=== PATIENT | male | born 1960 | race Caucasian/White ===

== ENCOUNTER 2023-01-16 12:02 | Emergency (ER) | payer OTHER ==
--- OUTSIDE RECORDS SUMMARY | 2023-01-16 12:07 | XMS REPORT | Clinical Summary ---
:1960 Author Organization [facility] MD [facility] Address [address] [place] [address] Care Team Providers Name Role Phone Neal Tyler MD Primary Care Provider Allergies No known active allergies Medications Medication Sig Dispensed Refills Start Date End Date Status tadalafil (CIALIS) 5 mg Take 1 tablet (5 0 1 Active tablet mg) by mouth daily. sertraline (ZOLOFT) 100 Take 1 tablet 0 07/28/2020 Active mg tablet (100 mg) by mouth daily. losartan (COZAAR) 100 Take 50 mg by 0 11/17/2020 Active mg tablet mouth twice daily. semaglutide (Ozempic) 1 Inject 1 mg 0 02/23/2021 Active mg/dose (4 mg/3 mL) under the skin pnij once a week. fluticasone propionate as needed. 0 06/30/2020 Active (FLONASE) 50 mcg/spray nasal spray FreeStyle Lite Meter 0 02/25/2021 Active kit aspirin 81 mg EC tablet Take 1 tablet 0 Active (81 mg) by mouth daily. testosterone cypionate Inject 0.5 mL 0 Active (DEPO-TESTOTERONE) 200 (100 mg) into mg/mL injection the shoulder, thigh, or buttocks once a week. gabapentin (Neurontin) Take 1 capsule 20 capsule 0 10/22/2021 Active 300 mg (300 mg) by capsuleIndications: mouth 3 (three) Neuropathy, not times a day as otherwise specified needed (neuropathy). acetaminophen (Tylenol Take 1 tablet 0 10/22/2021 Active Extra Strength) 500 mg (500 mg) by tabletIndications: mouth every 6 Hydronephrosis with (six) hours as ureteropelvic junction needed for mild obstruction pain. traMADol (Ultram) 50 mg Take 1 tablet 10 tablet 0 10/27/2021 Active tabletIndications: (50 mg) by mouth Hydronephrosis with every 6 (six) ureteropelvic junction hours as needed obstruction for moderate pain or severe pain. Additional Information Patient not taking. Reason: Other, Informant: Self, Reported on 12/13/2022 albuterol (VENTOLIN Inhale by mouth every 6 0 Active HFA,PROAIR HFA) 90 mcg/puff (six) hours as needed for inhaler wheezing or shortness of breath. diclofenac sodium 3 % gel Apply 1 application 0 Active topically daily as needed. Jardiance 25 mg tab Take 1 tablet by mouth 0 022 Active daily. mirtazapine (REMERON) 15 mg Take 1 tablet (15 mg) by 0 03/09/2022 Active tablet mouth at bedtime. risperiDONE (RisperDAL) 1 Take 1 tablet (1 mg) by 0 04/28/2022 Active mg tablet mouth at bedtime. traMADol (ULTRAM) 50 mg Take 1 tablet (50 mg) by 60 tablet 0 0 06/23/2022 Active tabletIndications: Spindle mouth 2 (two) times a day cell sarcoma of connective, as needed for moderate subcutaneous and other soft pain. tissues of lower limb and hip <Left>, Foot pain <Left side> Additional Information Patient not taking. Reason: Other, Informant: Self, Reported on 12/13/2022 apixaban (ELIQUIS STARTER Take 2 tablets by mouth 74 tablet 0 10/06/2022 Active PACK) tablet dose pack 5 mg twice daily for 7 days, FOR VTE ONLYIndications: then take 1 tablet by Pulmonary embolism mouth twice daily thereafter. losartan (COZAAR) 25 mg Take 1 tablet (25 mg) by 0 Active tablet mouth daily. 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> Type 2 diabetes mellitus 02/26/2021 Benign prostatic hypertrophy without outflow obstructi on 02/26/2021 Overview: 02/20 CMS regulatory import Decreased testosterone level 02/26/2021 Erectile dysfunction 02/26/2021 Hypertension 02/26/2021 Simple obesity 02/26/2021 Encounters Date Type Specialty Care Team Description 12/13/2022 Office Visit Hematology Casey Terry, Pulmonary em bolism, not otherwise specified (Primary Dx); Pulmonary embol ism 12/13/2022 Travel 10/13/2022 Ancillary Radiology [place], Multiple subseg mental Procedure SANDEEP Fernandes pulmonary embol i without acute c or pulmonale 10/13/2022 Travel 10/07/2022 Telephone Orthopaedics HagueJacquelin PA 10/06/2022 Emergency Emergency Medicine Abigail, Kiran, Pulmon brennon embolism (Primary Dx); Tight chest 10/06/2022 Ancillary Radiology Sahara Lang cell sa rcoma Procedure KARLIE Welch of connective, subcutaneous an d other soft tissues of lower limb and hip <L eft> 10/06/2022 Ancillary Radiology Sahara Lang sa rcoma Procedure KARLIE Welch of connective, subcutaneous an d other soft tissues of lower limb and hip <L eft> 10/06/2022 Telephone Shruti Corona RN 10/06/2022 Telephone Orthopaedics Rebekah Lang APRN 10/06/2022 Travel 07/01/2022 Telephone Orthopaedics HagueJacquelin PA 06/30/2022 Ancillary Radiology Rickey, Mass of soft ti ssue of left lower limb; Procedure KARLIE Welch Lumbar radiculo nancy; Pain in left le g 06/30/2022 Travel 06/23/2022 Follow-Up Orthopaedics Diane Isaac, Spindle cell sarcoma of connective, 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); Lumbar radiculo nancy; Mass of soft ti ssue of left lower limb; Foot pain <Left side>; Hydronephrosis with ureteropelvic junction obstruction; Pain in left le g 06/23/2022 Ancillary Radiology [place], Mass of soft ti ssue of left lower limb; Procedure Jacquelin A, PA Foot pain <Left side> 06/23/2022 Travel 06/22/2022 Ancillary Radiology [place], Spindle cell sa rcoma of connective, 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>; Procedure Jacquelin A, PA Mass of soft ti ssue of left lower limb; Foot pain <Left side> 06/22/2022 Hospital Encounter Radiology [place], Spindle c ell sarcoma of connective, 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>; Jacquelin A, PA Mass of soft ti ssue of left lower limb; Foot pain <Left side> 06/22/2022 Travel 04/09/2022 Orders Only Orthopaedics [place], Mass of soft ti ssue of left lower limb (Primary Dx); Jacquelin A, PA Foot pain <Left side> 04/09/2022 Telephone Orthopaedics [place], Jacquelin A, PA 04/02/2022 Ancillary Radiology [place], Spindle cell sa rcoma of connective, 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>; Procedure Jacquelin A, PA Mass of soft ti ssue of left lower limb 04/02/2022 Travel 03/24/2022 Ancillary Radiology [place], Spindle cell sa rcoma of connective, 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>; Procedure Jacquelin A, PA Mass of soft ti ssue of left lower limb; Foot pain <Left side> 03/24/2022 Office Visit Orthopaedics Diane Isaac, Spindle cell sarcoma of connective, 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); Mass of soft ti ssue of left lower limb; Foot pain <Left side> 03/24/2022 Travel 03/23/2022 Ancillary Radiology [place], Spindle cell sa rcoma Procedure Jacquelin A, PA of connective, subcutaneous an d other soft tissues of lower limb and hip <L eft> 03/23/2022 Hospital Encounter Radiology [place], Spindle c ell sarcoma SANDEEP Fernandes of connective, subcutaneous an d other soft tissues of lower limb and hip <L eft> 03/23/2022 Travel 02/15/2022 Hospital Encounter Radiology [place], Mass of s oft tissue of left lower limb; SANDEEP Fernandes Spindle cell sarcoma of connective, subc utaneous and other soft tissues of lower limb and hip <Left> Quang Rizvi MD 02/15/2022 Hospital Encounter Lab Ale Rizvi PA 02/15/2022 Travel 02/12/2022 Orders Only Radiology Ivelisse Puga PA 02/12/2022 Telephone Radiology Hoa Richmond MA 02/11/2022 Orders Only Radiology Vane Bauman PA 02/11/2022 Orders Only Radiology Ale Rizvi PA 02/09/2022 Telephone Orthopaedics [place], SANDEEP Fernandes 02/09/2022 Orders Only Orthopaedics [place], Mass of soft ti ssue of left lower limb (Primary Dx); SANDEEP Fernandes Spindle cell sa rcoma of connective, 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> 01/19/2022 Ancillary Radiology [place], Spindle cell sa rcoma of connective, 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>; Procedure SANDEEP Fernandes Mass of soft ti ssue of left lower limb 01/19/2022 Orders Only Orthopaedics [place], Spindle cell sa rcoma of connective, 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); SANDEEP Fernandes Mass of soft ti ssue of left lower limb 01/18/2022 Ancillary Radiology Cancer Procedure after 01/16/2022 Immunizations Name Administration Dates Next Due GetAutoBids SARS-CoV-2 Vaccination 08/08/2020, 07/25/2020 Moderna SARS-CoV-2 Monovalent Booster Vaccination (50 2020 mcg/0.25 mL) Surgical History Surgery Date Site/Laterality Comments COLONOSCOPY 05/23/2014 - 05/22/2015 STOMACH SURGERY 05/23/2014 - 05/22/2015 SHOULDER SURGERY 05/23/2015 - 05/22/2016 CARDIAC SURGERY 05/23/1989 - ablation, arrhyt pierce focus 05/22/1990 HI RAD RESECTION TUMOR 05/28/2021 Leg Lower/Left Procedure : Radical SOFT TISSUE LEG/ANKLE <5CM 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); Surg so: Emiliana Estrada; Location: MAIN O R; Service: ORTHOPE DIC ONCOLOGY HI PHYS STANDBY SVC PROLNG 05/28/2021 N/A Proce dure: PHYSICIAN PHYS ATTN EA 30 MINUTES STANDBY SERVICE REQUIRING PROLONGED ATTEND ANCE - EACH 30 MINUTES; Surgeon: Jorge Luis cruz MD; Location: [facility]; Service: PLS - P LASTIC SURGERY HI LAPAROSCOPY RADICAL 10/21/2021 Abdomen/Left Procedure : SURGICAL NEPHRECTOMY LAPAROSCOPY WITH RADICAL NEPHRECTOMY; Katina geon: Edward Bird IV, MD; Location: MAIN O R; Service: UROLOGY HI CYSTO W/SIMPLE REMOVAL 10/21/2021 Genitalia/Left Proced ure: STONE & STENT CYSTOURETHROSCOP Y, WITH REMOVAL OF URETE RAL STENT FROM URETHRA; Lockett rgeon: Edward Bird IV, MD; Location: MAIN O R; Service: UROLOGY Medical History Medical History Date Comments Hypertension 15yrs Asbestosis 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 pt did see manufacturing management associate and und went cardiac testing that was neg ative. pt also reports that he is c urrently having left rotator cuff is sues so could have been due to that or gas. Sleep apnea pt was unable to hipolito erate CPAP Family History Medical History Relation Name Comments Coronary artery disease Father Tristen johnson CABG in his 60s Diabetes Father Tristen johnson Hypertension Father Tristen johnson Lymphoma Father Tristen johnson Skin cancer Father Tristen johnson VTE Father Tristen johnson had DVT and PE a /w NHL Heart disease Mother sp valve replacm ent in her 50s. had rheumatic fe danitza as a child Hypertension Mother Diabetes Paternal Grandfather Diabetes Paternal Grandmother Diabetes Sister Hypertension Sister Stroke Neg Hx Relation Name Status Comments Father Tristen johnson Mother Paternal Grandfather Paternal Grandmother Sister Social History Tobacco Use Types Packs/Day Years Used Date Smoking Tobacco: Former Cigarettes 1.5 10 09/22 - 10/19/2006 Cigars Smokeless Tobacco: Former Chew Qu it: 10/20/2003 Alcohol Use Standard Drinks/Week Comments Yes 4 (1 standard drink = 0.6 oz pure alcoho l) 2-3 shots od scotts a day Sex Assigned at Date Recorded Male 02/26/2021 7:14 AM CDT Job Start Date Occupation Industry Not on file Not on file Not on file Obstetrics History Last Filed Vital Signs Vital Sign Reading Time Taken Comments Blood Pressure 125/74 12/13/2022 8:58 AM CDT Pulse 84 12/13/2022 8:58 AM CDT Temperature 36.5 C (97.7 F) 12/13/2022 8:58 AM CDT Respiratory Rate 16 12/13/2022 8:58 AM CDT Oxygen Saturation 98% 12/13/2022 8:58 AM CDT Inhaled Oxygen Concentration - - Weight 110.1 kg (242 lb 11.6 oz) 12/13/2022 8:58 AM CDT Height 193 cm (6' 3.98") 12/13/2022 8:58 AM CDT Body Mass Index 29.56 12/13/2022 8:58 AM CDT Plan of Treatment Date Type Specialty Care Team Description 01/19/2023 Ancillary Procedure Radiology Jo Gottlieb PA [address] [place], [place] [address] (Wo rk) 01/19/2023 Ancillary Procedure Radiology Jo Gottlieb PA [address] [place], [place] [address] (Wo rk) 01/19/2023 Follow-Up Orthopaedics Diane Isaac MD [address] [place], [place] [address] (Wo rk) Health Maintenance Due Date Last Done Comments COVID-19 Vaccination (4 - Micheal 04/20/2021 02/23/2021, , risk series) 07/25/2020 Medical Devices Implanted Type Area Ramp Service Agent Device Shelf Model / Identifier Expiration Date Ser ial / Lot Sternal Wires Metalware Heart Description: heart Staple Staple Abdomen Procedures Procedure Name Priority Date/Time Associated Comments Diagnosis US LEG VENOUS DOPPLER Routine 10/13/2022 10:56 Multiple Re sults for this LEFT AM CDT subsegmental procedure are i n pulmonary emboli the results without acute cor section. pulmonale FRACTIONATED BILIRUBIN Routine 10/06/2022 3:42 Re sults for this PM CDT procedure are i n the results section. TOTAL PROTEIN Routine 10/06/2022 3:42 Results for this PM CDT procedure are i n the results section. ASPARTATE Routine 10/06/2022 3:42 Results for this AMINOTRANSFERASE PM CDT procedure a re in the results section. ALANINE AMINOTRANSFERASE Routine 10/06/2022 3:42 Results for this PM CDT procedure are i n the results section. ALKALINE PHOSPHATASE Routine 10/06/2022 3:42 Resu lts for this PM CDT procedure are i n the results section. ALBUMIN LEVEL Routine 10/06/2022 3:42 Results for this PM CDT procedure are i n the results section. CALCIUM LEVEL TOTAL Routine 10/06/2022 3:42 Resul ts for this PM CDT procedure are i n the results section. .GLOMERULAR FILTRATION Routine 10/06/2022 3:42 Re sults for this RATE PM CDT procedure are i n the results section. SERUM CREATININE Routine 10/06/2022 3:42 Results for this PM CDT procedure are i n the results section. ELECTROLYTE PANEL Routine 10/06/2022 3:42 Results for this PM CDT procedure are i n the results section. BLOOD UREA NITROGEN Routine 10/06/2022 3:42 Resul ts for this PM CDT procedure are i n the results section. GLUCOSE LEVEL Routine 10/06/2022 3:42 Results for this PM CDT procedure are i n the results section. MANUAL DIFFERENTIAL STAT 10/06/2022 3:42 Resul ts for this PM CDT procedure are i n the results section. Results CBC STAT 10/06/2022 3:42 Results for this PM CDT procedure are i n the results section. TROPONIN T Routine 10/06/2022 3:42 Results for this PM CDT procedure are i n the results section. NT PRO BNP Routine 10/06/2022 3:42 Results for this PM CDT procedure are i n the results section. APTT Routine 10/06/2022 3:42 Results for this PM CDT procedure are i n the results section. PROTHROMBIN TIME Routine 10/06/2022 3:42 Results for this PM CDT procedure are i n the results section. PHOSPHORUS LEVEL Routine 10/06/2022 3:42 Results for this PM CDT procedure are i n the results section. MAGNESIUM LEVEL Routine 10/06/2022 3:42 Results f or this PM CDT procedure are i n the results section. COMPREHENSIVE METABOLIC Routine 10/06/2022 3:42 PANEL PM CDT COMPLETE BLOOD COUNT W/ Routine 10/06/2022 3:[address] CHEST W CONTRAST Routine 10/06/2022 1:20 Spindle cell Resul ts for this PM CDT sarcoma of procedure are i n connective, the results subcutaneous and section. other soft tissues of lower limb and hip <Left> MRI TIBIA FIBULA LEFT W Routine 10/06/2022 12:54 Spindle cell Results for this WO CONTRAST PM CDT sarcoma of procedure are i n connective, the results subcutaneous and section. other soft tissues of lower limb and hip <Left> POC CREATININE Routine 10/06/2022 9:39 Results fo r this AM CDT procedure are i n the results section. EKG, 12-LEAD (PORTABLE) STAT 10/06/2022 MRI LUMBAR SPINE W WO Routine 06/30/2022 10:35 Mass of soft ti ssue Results for this CONTRAST AM MATERIALS HANDLING COORDINATOR of left lower li mb procedure are in Lumbar the results radiculopathy section. Pain in left leg MRI FOOT LEFT W WO Routine 06/23/2022 9:27 Mass of soft tissue Results for this CONTRAST AM MATERIALS HANDLING COORDINATOR of left lower li mb procedure are in Foot pain <Left the results side> section. MRI TIBIA FIBULA LEFT W Routine 06/22/2022 7:01 Spindle cell R esults for this WO CONTRAST PM MATERIALS HANDLING COORDINATOR sarcoma of procedure are i n connective, the results subcutaneous and section. other soft tissues of lower limb and hip <Left> Mass of soft tissue of left lower li mb Foot pain <Left side> CT CHEST W CONTRAST Routine 06/22/2022 3:47 Spindle cell Resul ts for this PM MATERIALS HANDLING COORDINATOR sarcoma of procedure are i n connective, the results subcutaneous and section. other soft tissues of lower limb and hip <Left> Mass of soft tissue of left lower li mb Foot pain <Left side> POC CREATININE Routine 06/22/2022 2:05 Results fo r this PM MATERIALS HANDLING COORDINATOR procedure are i n the results section. MRI FOOT LEFT W WO Routine 04/02/2022 1:42 Spindle cell Result s for this CONTRAST PM MATERIALS HANDLING COORDINATOR sarcoma of procedure are i n connective, the results subcutaneous and section. other soft tissues of lower limb and hip <Left> Mass of soft tissue of left lower limb XR FOOT 3+ VW LEFT Routine 03/24/2022 11:44 Spindle cell Resul ts for this AM CDT sarcoma of procedure are i n connective, the results subcutaneous and section. other soft tissues of lower limb and hip <Left> Mass of soft tissue of left lower li mb Foot pain <Left side> MRI TIBIA FIBULA LEFT W Routine 03/23/2022 4:02 Spindle cell R esults for this WO CONTRAST PM CDT sarcoma of procedure are i n connective, the results subcutaneous and section. other soft tissues of lower limb and hip <Left> CT CHEST W CONTRAST Routine 03/23/2022 12:01 Spindle cell Resu lts for this PM CDT sarcoma of procedure are i n connective, the results subcutaneous and section. other soft tissues of lower limb and hip <Left> POC CREATININE Routine 03/23/2022 11:03 Results f or this AM CDT procedure are i n the results section. IR US GUIDED BIOPSY STAT 02/15/2022 8:47 Mass of soft tissu e Results for this MUSCLE/SOFT TISSUE- AM CDT of left lowe r limb procedure are in LOWER EXTREMITY 60 Spindle cell the resul ts sarcoma of section. connective, 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> INTERVENTIONAL RADIOLOGY Now 02/15/2022 8:37 Results for this CULTURE W/GRAM STAIN AM CDT procedu re are in the results section. FUNGUS INTERVENTIONAL Now 02/15/2022 8:37 Res ults for this RAD CULTURE W/ GRAM AM CDT procedur e are in STAIN the results section. ANAEROBIC CULTURE Now 02/15/2022 8:37 Results for this INTERVENTIONAL RADIOLOGY AM CDT pro cedure are in the results section. AFB INTERVENTIONAL Now 02/15/2022 8:37 Result s for this RADIOLOGY W/ SMEAR AM CDT procedure are in the results section. PATHOLOGY BIOPSY Routine 02/15/2022 8:30 Mass of soft tissue R esults for this INTERPRETATION AM CDT of left lower li mb procedure are in Spindle cell the results sarcoma of section. connective, 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> PLATELET COUNT Routine 02/15/2022 6:30 Results fo r this AM CDT procedure are i n the results section. PROTHROMBIN TIME Routine 02/15/2022 6:30 Results for this AM CDT procedure are i n the results section. after 01/16/2022 Results US Leg Venous Doppler Left (10/13/2022 10:56 AM CDT) Anatomical Region Laterality Modality Leg, Extremity Ultrasound Specimen (Source) Anatomical Collection Method Collection Time Re ceived Time Location / / Volume Laterality 10/13/2022 11:07 AM CDT Impressions 10/13/2022 11:25 AM CDT No deep venous thrombosis in the left lo wer extremity. Narrative 10/13/2022 11:25 AM CDT Examination: US LEG VENOUS DOPPLER LEFT, 10/13/2022 10:56 AM Clinical History: Multiple subsegmental pulmonary emboli, without acute cor pulmonale. Indication: Pulmonary embolism. Abnormal finding on MRI left tibia/fibula 10/06/2022, indeterminate for deep venous thrombosis. Comparison: MRI left tibia/fibula 2022. Technique: Grayscale and color/spectral Doppler ultrasound of the left lower extremity veins was performed. Findings: In the left lower extremity, there is no rmal compressibility and spontaneous flow within the common femoral vein and its junction with the greater saphenous vein, femoral vein and its junction with the deep femoral vein, and popliteal vein. V isualized segments of the anterior and posterior tibial veins as well as of the peroneal vein are grossly patent. Procedure Note Kobe Cameron MD - 10/13/2022 Examination: US LEG VENOUS DOPPLER LEFT, 10/13/2022 10:56 AM Clinical History: Multiple subsegmental pulmonary emboli, without acute cor pulmonale. Indication: Pulmonary embolism. Abnormal finding on MRI left tibia/fibula 10/06/2022, indeterminate for deep venous thrombosis. Comparison: MRI left tibia/fibula 2022. Technique: Grayscale and color/spectral Doppler ultrasound of the left lower extremity veins was performed. Findings: In the left lower extremity, there is no rmal compressibility and spontaneous flow within the common femoral vein and its junction with the greater saphenous vein, femoral vein and its junction with the deep femoral vein, and popliteal vein. Visual ized segments of the anterior and posterior tibial veins as well as of the peroneal vein are grossly patent. IMPRESSION: No deep venous thrombosis in the left lo wer extremity. Jacquelin HOPKINS IMG US ORDERABLES .Serum Creatinine (10/06/2022 3:42 PM CDT) athologist Signature Creatinine 1.15 0.67 - 1.17 [facility] mg/dL [facility] CENTER Specimen Anatomical Collection Method Collection Time Receive d Time (Source) Location / / Volume Laterality Blood 10/06/2022 3:42 PM 3:57 CDT PM CDT Ilene Guevara MD LAB BLOOD ORDERABLES Performing Organization Address City/State/ZIP Code Phon e Number [facility] CANCER Unless otherwise noted, [place] [address] CANUTE all lab tests performed by: Division of Pathology and Laboratory Medicine [address] (ABNORMAL) .CBC (10/06/2022 3:42 PM CDT) athologist Signature WBC 8.7 4.0 - 11.0 [facility] RBC 5.67 4.50 - [place] MD 6.00 /[facility] Hgb 15.7 14.0 - [place] MD 18.0 gm/dL [facility] Hct 47.3 40.0 - [place] MD 54.0 % [facility] MCV 83 82 - 98 [facility] MCH 27.7 27.0 - [place] MD 31.0 pg [facility] MCHC 33.2 31.0 - [place] MD 36.0 gm/dL [facility] RDW-SD 48.9 (H) 35.1 - [place] MD 46.3 [facility] RDW-CV 16.5 (H) 12.0 - [place] MD 15.5 % [facility] Platelet count 151 140 - 440 [facility] MPV 9.9 4.0 - 10.4 [facility] INRBC 0.0 <=0.0 % [facility] Comment: The INRBC (instrument NRBC) value reflec ts the enumeration of nucleated red blood cells contained i n a 200uL sample of whole blood analyzed by the instrumen t. This value may differ from the NRBC value reported in a manual differential, which is based on a 100 cell differentia l. Specimen Anatomical Collection Method Collection Time Receive d Time (Source) Location / / Volume Laterality Blood 10/06/2022 3:42 PM 3 3:49 CDT PM CDT Ilene Guevara MD LAB BLOOD ORDERABLES Performing Organization Address City/[facility] Phon e Number [facility] CANCER Unless otherwise noted, [address] all lab tests performed by: Division of Pathology and Laboratory Medicine [address] [facility] Glomerular Filtration Rate (10/06/2022 3:42 PM CDT) athologist Signature eGFR 73 >=60 [facility] mL/min/1.73 CANCER CENTER sq. m Comment: The eGFRcr is calculated with the 2020 KD-EPI creatinine equation using creatinine, patient's age, and sex for adults 18 years of age and older. Other factors, especially muscle mass, may affect accuracy and need to be considered. According to the Kidney Disease: Improvi ng Global Outcomes (KDIGO) CKD Work Group 2012 Clinical Practice Guideline, chronic kidney disease (CKD) is defined as the abnormalities of kidney structure or function, present for more than 3 months, with implications for health. CKD should be c lassified by cause, GFR category, and albuminuria category. KDIGO guidelines provide the following GFR categories Stage Description GFR mL/min/1.73 m2 G1* Normal or high >= 90 G2* Mildly decreased 60-89 G3a Mildly to moderately decreased 45-59 G3b Moderately to severely decreased 30- 44 G4 Severely decreased 15-29 G5 Kidney failure <15 *In the absence of evidence of kidney da mage, neither G1 nor G2 fulfill criteria for CKD. Specimen Anatomical Collection Method Collection Time Receive d Time (Source) Location / / Volume Laterality Blood 10/06/2022 3:42 PM 3 3:57 CDT PM CDT Ilene Guevara MD LAB BLOOD ORDERABLES Performing Organization Address [facility] Phon e Number [facility] Unless otherwise noted, [address] all lab tests performed by: Division of Pathology and Laboratory Medicine [address] Fractionated Bilirubin (10/06/2022 3:42 PM CDT) athologist [facility] Bili Total 0.8 <=1.2 mg/dL [facility] Comment: Indocyanine Green (ICG) may cause falsel y elevated bilirubin results. Total and direct bilirubin must not be measured from samples containing indocyanine green. False elevation of total bilirubin can b e seen in patients with IgG concentrations above 28 g/L. Bili Direct 0.3 <=0.3 mg/dL [facility] Comment: Indocyanine Green (ICG) may cau se falsely elevated bilirubin results. Total and direct bilirubin must not be measure d from samples containing indocyanine green. Bili Indirect 0.5 0.0 - 0.9 mg/dL [place] MD HOOKS [facility] Specimen Anatomical Collection Method Collection Time Receive d Time (Source) Location / / Volume Laterality Blood 10/06/2022 3:42 PM 3 3:57 CDT PM CDT Ilene Guevara MD LAB BLOOD ORDERABLES Performing Organization Address City/State/ZIP Code Phon e Number [facility] Unless otherwise noted, [address] all lab tests performed by: Division of Pathology and Laboratory Medicine [address] [place] [address] aPTT (10/06/2022 3:42 PM CDT) [facility] a[facility] 26.1 22.8 - 34.2 [facility]() [facility] Specimen Anatomical Collection Method Collection Time Receive d Time (Source) Location / / Volume Laterality Blood 10/06/2022 3:42 PM 3 3:49 CDT PM CDT Ilene Guevara MD LAB BLOOD ORDERABLES Performing Organization Address City/State/ZIP Code Phon e Number [facility] Unless otherwise noted, [address] all lab tests performed by: Division of Pathology and Laboratory Medicine [address] [place] [address] NT-Pro BNP (In-House) (10/06/2022 3:42 PM CDT) athologist [facility] NT ProBNP 124 <=125 pg/mL [facility] Specimen Anatomical Collection Method Collection Time Receive d Time (Source) Location / / Volume Laterality Blood 10/06/2022 3:42 PM 3 3:57 CDT PM CDT Ilene Guevara MD LAB BLOOD ORDERABLES Performing Organization Address City/State/ZIP Code Phon e Number [facility] Unless otherwise noted, [address] all lab tests performed by: Division of Pathology and Laboratory Medicine [address] (ABNORMAL) Differential (10/06/2022 3:42 PM CDT) athologist Signature Neutrophil % 71.4 (H) 42.0 - [facility] 66.0 % [facility] Lymphocyte % 19.6 (L) 24.0 - [facility] 44.0 % [facility] Monocyte % 6.8 2.0 - 7.0 [facility] Eosinophil % 0.7 (L) 1.0 - 4.0 [facility] % [facility] Basophil % 0.5 0.0 - 1.0 [facility] % [facility] IGRE % 1.0 (H) 0.0 - 0.4 [facility] Comment: IGRE % count includes Metamyelo cytes, Myelocytes, and Promyelocytes. Neutrophil Abs 6.18 1.70 - 7.30 K/uL [facility] Lymphocyte Abs 1.70 1.00 - 4.80 K/uL [facility] Monocyte Abs 0.59 0.08 - 0.70 K/uL [place] [facility] Eosinophil Abs 0.06 0.04 - 0.40 K/uL [facility] Basophil Abs 0.04 0.00 - 0.10 K/uL [facility] IG Abs 0.09 (H) 0.00 - 0.04 K/uL [place] MD DEJON Grant [facility] Specimen Anatomical Collection Method Collection Time Receive d Time (Source) Location / / Volume Laterality Blood 10/06/2022 3:42 PM 3 3:49 CDT PM CDT Ilene Guevara MD LAB BLOOD ORDERABLES Performing Organization Address City/State/ZIP Code Phon e Number [facility] Unless otherwise noted, [address] all lab tests performed by: Division of Pathology and Laboratory Medicine [address] [place] [address] (ABNORMAL) Prothrombin Time with INR (10/06/2022 3:42 PM CDT)Only the most recent of2 resultswithin the time period is included. athologist Signature PT 14.1 11.9 - 14.1 [facility](s) [facility] CENTER INR 1.15 (H) 0.89 - 1.10 [facility] Specimen Anatomical Collection Method Collection Time Receive d Time (Source) Location / / Volume Laterality Blood 10/06/2022 3:42 PM 3 3:49 CDT PM CDT Ilene Guevara MD LAB BLOOD ORDERABLES Performing Organization Address City/State/ZIP Code Phon e Number [facility] Unless otherwise noted, [address] all lab tests performed by: Division of Pathology and Laboratory Medicine [address] [place] [address] BUN (10/06/2022 3:42 PM CDT) athologist [facility] BUN 11 6 - 23 [facility] mg/dL [facility] Specimen Anatomical Collection Method Collection Time Receive d Time (Source) Location / / Volume Laterality Blood 10/06/2022 3:42 PM 3 3:57 CDT PM CDT Ilene Guevara MD LAB BLOOD ORDERABLES Performing Organization Address City/State/ZIP Code Phon e Number [facility] Unless otherwise noted, [address] all lab tests performed by: Division of Pathology and Laboratory Medicine [address] [place] [address] Troponin T (In-House) (10/06/2022 3:42 PM CDT) athologist Signature Troponin T 12 <=19 ng/L [facility] Comment: < 19 ng/L Suggest retest at 3 to 6 hours later to rule out myocardial infarction >= 19 to <=52 ng/L Pos sible myocardial injury. Suggest retest at 3 hours. - a change of < 20 ng/L, retest at 6 hours - a change of >= 20 ng/L, suggestive of myocardial infarction > 52 ng/L Suggestive of myocardial infarction Critical value will be reported when cTn T is > 52 ng/L and only reported for the first in a series. Hemolyzed specimens with Hemolysis Index >100 (100 mg/dl or moderate hemolysis) may cause interferences and falsely low results. Specimen Anatomical Collection Method Collection Time Receive d Time (Source) Location / / Volume Laterality Blood 10/06/2022 3:42 PM 3 3:57 CDT PM CDT Ilene Guevara MD LAB BLOOD ORDERABLES Performing Organization Address City/[facility] Phon e Number [facility] Unless otherwise noted, [address] all lab tests performed by: Division of Pathology and Laboratory Medicine [facility] ALT (10/06/2022 3:42 PM CDT) P athologist Signature ALT 24 <=41 U/L [facility] Specimen Anatomical Collection Method Collection Time Receive d Time (Source) Location / / Volume Laterality Blood 10/06/2022 3:42 PM 3 3:57 CDT PM CDT Ilene Guevara MD LAB BLOOD ORDERABLES Performing Organization Address City/[facility] Phon e Number [facility] Unless otherwise noted, [address] all lab tests performed by: Division of Pathology and Laboratory Medicine [address] [place], [place] [id number] Aspartate Aminotransferase (10/06/2022 3:42 PM CDT) P athologist Signature AST 19 <=40 U/L [facility] Specimen Anatomical Collection Method Collection Time Receive d Time (Source) Location / / Volume Laterality Blood 10/06/2022 3:42 PM 3 3:57 CDT PM CDT Ilene Guevara MD LAB BLOOD ORDERABLES Performing Organization Address City/[facility] Phon e Number [facility] Unless otherwise noted, [address] all lab tests performed by: Division of Pathology and Laboratory Medicine [address] [place], [place] [id number] Total Protein (10/06/2022 3:42 PM CDT) P athologist Signature Total Protein 6.6 6.4 - 8.3 [facility] g/dL [facility] Specimen Anatomical Collection Method Collection Time Receive d Time (Source) Location / / Volume Laterality Blood 10/06/2022 3:42 PM 3 3:57 CDT PM CDT Ilene Guevara MD LAB BLOOD ORDERABLES Performing Organization Address City/[facility]/ZIP [facility] Phon e Number [facility] Unless otherwise noted, [address] all lab tests performed by: Division of Pathology and Laboratory Medicine [address] Phosphorus Level (10/06/2022 3:42 PM CDT) P athologist Signature Phosphorus 3.4 2.5 - 4.5 [facility] mg/dL [facility] Specimen Anatomical Collection Method Collection Time Receive d Time (Source) Location / / Volume Laterality Blood 10/06/2022 3:42 PM 3 3:57 CDT PM CDT Ilene Guevara MD LAB BLOOD ORDERABLES Performing Organization Address [facility] Phon e Number [facility] Unless otherwise noted, [address] all lab tests performed by: Division of Pathology and Laboratory Medicine [address] Alkaline Phosphatase (10/06/2022 3:42 PM CDT) P athologist Signature Alk Phos 81 40 - 129 [facility] U/L [facility] Specimen Anatomical Collection Method Collection Time Receive d Time (Source) Location / / Volume Laterality Blood 10/06/2022 3:42 PM 3 3:57 CDT PM CDT Ilene Guevara MD LAB BLOOD ORDERABLES Performing Organization Address City/[facility] Phon e Number [facility] Unless otherwise noted, [address] all lab tests performed by: Division of Pathology and Laboratory Medicine [address] Magnesium Level (10/06/2022 3:42 PM CDT) P athologist Signature Magnesium 2.2 1.6 - 2.6 [facility] mg/dL [facility] Specimen Anatomical Collection Method Collection Time Receive d Time (Source) Location / / Volume Laterality Blood 10/06/2022 3:42 PM 3 3:57 CDT PM CDT Ilene Guevara MD LAB BLOOD ORDERABLES Performing Organization Address City/State/ZIP Code Phon e Number [facility] Unless otherwise noted, [address] all lab tests performed by: Division of Pathology and Laboratory Medicine [address] Glucose Level (10/06/2022 3:42 PM CDT) athologist Signature Glucose Level 95 70 - 99 [facility] mg/dL [facility] Comment: Effective 12/17/15, the glucose reference intervals have been updated based on [place] [employer] guidelines (Standards of Medical Care in Diabetes 2016. Diabetes Care 2016; 39: S13-S22). Fasting blood glucose: Normal: 70-99 mg/dL Impaired fasting glucose (increased risk for diabetes or pre-diabetes): 100- 125 mg/dL Diabetes mellitus: >/=126 mg/dL Random blood glucose: Normal: 70-199 mg/dL Note: Random glucose >100 mg/dL is assoc iated with increased risk for diabetes Specimen Anatomical Collection Method Collection Time Receive d Time (Source) Location / / Volume Laterality Blood 10/06/2022 3:42 PM 3 3:57 CDT PM CDT Ilene Guevara MD LAB BLOOD ORDERABLES Performing Organization Address City/[facility]/ZIP Code Phon e Number [facility] Unless otherwise noted, [address] all lab tests performed by: Division of Pathology and Laboratory Medicine [address] Calcium Level (10/06/2022 3:42 PM CDT) athologist Signature Calcium Lvl 8.6 8.4 - 10.2 [facility] mg/dL [facility] Specimen Anatomical Collection Method Collection Time Receive d Time (Source) Location / / Volume Laterality Blood 10/06/2022 3:42 PM 3 3:57 CDT PM CDT Ilene Guevara MD LAB BLOOD ORDERABLES Performing Organization Address City/[facility]/ZIP Code Phon e Number [facility] Unless otherwise noted, [address] all lab tests performed by: Division of Pathology and Laboratory Medicine [address] Albumin Level (10/06/2022 3:42 PM CDT) athologist Signature Albumin Lvl 4.1 3.5 - 5.2 [facility] gm/dL [facility] Specimen Anatomical Collection Method Collection Time Receive d Time (Source) Location / / Volume Laterality Blood 10/06/2022 3:42 PM 3 3:57 CDT PM CDT Ilene Guevara MD LAB BLOOD ORDERABLES Performing Organization Address City/[facility]/ZIP Code Phon e Number [facility] Unless otherwise noted, [address] all lab tests performed by: Division of Pathology and Laboratory Medicine [address] [place] [address] Electrolyte Panel (10/06/2022 3:42 PM CDT) athologist Signature Sodium Lvl 138 136 - 145 [facility] mEq/L [facility] Potassium Lvl 4.3 3.5 - 5.1 [facility] mEq/L [facility] Chloride 103 98 - 107 [facility] mEq/L [facility] CO2 27 22 - 29 [facility] mEq/L [facility] Anion Gap 8 4 - 14 [facility] mEq/L [facility] Specimen Anatomical Collection Method Collection Time Receive d Time (Source) Location / / Volume Laterality Blood 10/06/2022 3:42 PM 3 3:57 CDT PM CDT Ilene Guevara MD LAB BLOOD ORDERABLES Performing Organization Address City/[facility] Code Phon e Number [facility] Unless otherwise noted, [address] all lab tests performed by: Division of Pathology and Laboratory Medicine [address] [place] [address] CT Chest with Contrast (10/06/2022 1:20 PM CDT)Only the most recent of3 results within the time period is included. Anatomical Region Laterality Modality Chest Computed Tomography Specimen (Source) Anatomical Collection Method Collection Time Re ceived Time Location / / Volume Laterality 10/06/2022 1:38 PM CDT Impressions 10/06/2022 1:49 PM CDT 1. Bilateral multilobar pulmonary embo li without evidence of right heart strain. 2. New right lower lobe opacities may be infectious or inflammatory. Early infarct also possible. 3. Small nonspecific lung nodules are unchanged and can be followed. 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 Coronal and sagittal multiplanar reformats and maximum intensity projection (MIP) images were performed. Findings: Although the study was not per formed as a CT pulmonary angiogram, the pulmonary arteries are adequately opacified, allowing identification of bilateral pulmonary embolic extending from the dis hakeem main pulmonary arteries (image 53, s eries 2) into multiple lobar, segmental and subsegmental arteries. The main pulmonary trunk has normal diameter. The heart is normal in size. The RV: LV ratio is less than 1. There is scattered punctate coronary artery calcification. Normal caliber thoracic aorta. Small lung nodules remain unchanged (miguelina otated images 36, 41, 83, 99, series 3). There are new subpleural ground glass opacities in the superior segment right lower lobe (images 54-57). No pleural effusion. No supraclavicular, mediastinal, hilar o r axillary lymphadenopathy. The esophagus is nondistended and normal in course. There is previous gastric surgery. Images through the upper abdomen demonst rate unchanged splenomegaly. The adrenal glands have normal morphology. The gallbladder is normal in size without radiopaque gallstone. No focal hepatic lesion. No bone lesion or acute bone fracture in the thorax. Median sternotomy is healed. Procedure Note Cornelia Godoy MD - 10/06/2022Forma tting of this note might be different from the original. 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 Coronal and sagittal multiplanar reformats and maximum intensity projection (MIP) images were performed. Findings: Although the study was not per formed as a CT pulmonary angiogram, the pulmonary arteries are adequately opacified, allowing identification of bilateral pulmonary embolic extending from the distal main pulmonary arteries (image 53, serie s 2) into multiple lobar, segmental and subsegmental arteries. The main pulmonary trunk has normal diameter. The heart is normal in size. The RV: LV ratio is less than 1. There is scattered punctate coronary artery calcification. Normal caliber thoracic aorta. Small lung nodules remain unchanged (miguelina otated images 36, 41, 83, 99, series 3). There are new subpleural ground glass opacities in the superior segment right lower lobe (images 54-57). No pleural effusion. No supraclavicular, mediastinal, hilar o r axillary lymphadenopathy. The esophagus is nondistended and normal in course. There is previous gastric surgery. Images through the upper abdomen demonst rate unchanged splenomegaly. The adrenal glands have normal morphology. The gallbladder is normal in size without radiopaque gallstone. No focal hepatic lesion. No bone lesion or acute bone fracture in the thorax. Median sternotomy is healed. IMPRESSION: 1. Bilateral multilobar pulmonary emboli without evidence of right heart strain. 2. New right lower lobe opacities may be infectious or inflammatory. Early infarct also possible. 3. Small nonspecific lung nodules are un changed and can be followed. Rebekah Lang APRN IMG CT ORDERABLES MRI Tibia Fibula Left with and without Contrast (10/06/2022 12:54 PM CDT)Only the most recent of3 resultswithin the time period is included. Anatomical Region Laterality Modality Extremity, Leg Magnetic Resonance Specimen (Source) Anatomical Collection Method Collection Time Re ceived Time Location / / Volume Laterality 10/06/2022 1:03 PM CDT Impressions 10/06/2022 2:23 PM CDT 1. Posttreatment changes without evide nce to suspect tumor recurrence. 2. Tumor recurrence suspicion: There i s low probability for local recurrence. 3. Equivocal lack of intravenous opaci fication of the flexor compartment of the proximal left leg concerning although not characteristic of deep vein thrombosis. Doppler ultrasound of the left lower extremity is recommended if clinically indicated. I personally reviewed these image(s) luther zabala with the resident's/fellow's interpretations, certify that if a procedure was performed I was physically present, and agree with the final report. Narrative 10/06/2022 2:23 PM CDT FULL RESULT: Examination: MRI TIBIA FIBULA LEFT W WO CONTRAST, 10/06/2022 12:54 PM. 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 Status post surgical resection with negative margin on 05/28/2021. Indication: Assess for progression of di sease Comparison: MRI left tibia fibula from and 03/23/2022. Technique: Multiplanar multisequence mag netic resonance imaging of the left tibia-fibula was performed without and with intravenous administration of contrast. Findings: Surgical site/tumor: * Surgical scarring and soft tissue vo lume loss is demonstrated along the posterior mid and distal leg. * No focal areas of T2 hyperintensity or nodular enhancement are seen to suspect residual/recurrent tumor. * No areas of restricted diffusion dem onstrated. * During perfusion/DCE analysis, no ar eas of hypervascular enhancement were demonstrated. * Mild increased T2 signal intensity o f the leg muscles likely due to prior radiotherapy. * There is lack of ossification of the deep veins including the lower popliteal, tibial and fibular veins and intramuscular branches within the soleus and gastrocnemius muscles, concerning for the pos sibility of deep vein thrombosis (series 24 image [id number]). This pattern is not present on prior MRI 06/22/2022. Nodes: * No popliteal lymphadenopathy observe d. Bones: * No bone metastases are demonstrated. Others: * Redemonstration of stable synovial c yst at the level of the proximal tibiofibular joint that measures 3 cm in longitudinal diameter (series 12 image 14). * Mild knee joint effusion (series 14 image 8). Procedure Note Joe Harry MD - 10/06/2022F ormatting of this note might be different from the original. FULL RESULT: Examination: MRI TIBIA FIBULA LEFT W WO CONTRAST, 10/06/2022 12:54 PM. 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 Status post surgical resection with negative margin on 05/28/2021. Indication: Assess for progression of di sease Comparison: MRI left tibia fibula from and 03/23/2022. Technique: Multiplanar multisequence mag netic resonance imaging of the left tibia-fibula was performed without and with intravenous administration of contrast. Findings: Surgical site/tumor: * Surgical scarring and soft tissue volu me loss is demonstrated along the posterior mid and distal leg. * No focal areas of T2 hyperintensity or nodular enhancement are seen to suspect residual/recurrent tumor. * No areas of restricted diffusion demon strated. * During perfusion/DCE analysis, no area s of hypervascular enhancement were demonstrated. * Mild increased T2 signal intensity of the leg muscles likely due to prior radiotherapy. * There is lack of ossification of the d eep veins including the lower popliteal, tibial and fibular veins and intramuscular branches within the soleus and gastrocnemius muscles, concerning for the possibility of deep vein thrombosis (series 24 image [id number]). This pattern is not present on prior MRI 06/22/2022. Nodes: * No popliteal lymphadenopathy observed. Bones: * No bone metastases are demonstrated. Others: * Redemonstration of stable synovial cys t at the level of the proximal tibiofibular joint that measures 3 cm in longitudinal diameter (series 12 image 14). * Mild knee joint effusion (series 14 im age 10). IMPRESSION: 1. Posttreatment changes without evidenc e to suspect tumor recurrence. 2. Tumor recurrence suspicion: There is low probability for local recurrence. 3. Equivocal lack of intravenous opacifi cation of the flexor compartment of the proximal left leg concerning although not characteristic of deep vein thrombosis. Doppler ultrasound of the left lower extremity is recommended if clinically indicated. I personally reviewed these image(s) luther zabala with the resident's/fellow's interpretations, certify that if a procedure was performed I was physically present, and agree with the final report. Rebekah Lang APRN IMG MRI ORDERABLES POC Creatinine (10/06/2022 9:39 AM CDT)Only the most recent of3 resultswithin the time period is included. P athologist Signature POC Crea 1.1 0.6 - 1.3 POC [facility] mg/dL Comment: Medications, especially hydroxyurea or s upplements, such as ascorbate, can interfere with test results causing a falsely and significantly higher result than expected. If a problem is suspected with a patient's result, a sample should be sent to the laboratory for confirmatory testing. Method description: The i-STAT is an lucie lyzer used for in vitro quantification of various analytes in whole blood. The device uses a single disposable cartridge which contains microfabricated sensors, a calibration solution, fluidics system, and a waste chamber. Each test cartridge contains ch emically sensitive biosensors on a silicon chip that are configured to perform specific tests. The microfabricated sensors measure analyte concentration by an electrochemical assay. POC EGFR 77 >=60 mL/min/1.73 sq. m POC [facility] Comment: The eGFRcr is calculated with the 2020 KD-EPI creatinine equation using creatinine, patient's age, and sex for adults 18 years of age and older. Other factors, especially muscle mass, may affect accuracy and need to be considered. According to the Kidney Disease: Improvi ng Global Outcomes (KDIGO) CKD Work Group 2012 Clinical Practice Guideline, chronic kidney disease (CKD) is defined as the abnormalities of kidney structure or function, present for more than 3 months, with implications for health. CKD should be c lassified by cause, GFR category, and albuminuria category. KDIGO guidelines provide the following GFR categories Stage Description GFR mL/min/1.73 m2 G1* Normal or high >= 90 G2* Mildly decreased 60-89 G3a Mildly to moderately decreased 45-59 G3b Moderately to severely decreased 30- 44 G4 Severely decreased 15-29 G5 Kidney failure <15 *In the absence of evidence of kidney da mage, neither G1 nor G2 fulfill criteria for CKD. POC Clean Dev Yes POC [facility] Performing Lab Radiology OP CTR POC [facility]EL[facility] OR Comment: Radiology OP CTR [facility], [address], [place] [address]; Point of Care Vehicle Dynamics Engineer: Coby Stout MD Specimen Anatomical Collection Method Collection Time Receive d Time (Source) Location / / Volume Laterality Blood 10/06/2022 9:39 AM 9:39 CDT AM CDT Rebekah Lang APRN POCT ORDERABLES - DEVICE Performing Organization Address City/State/ZIP Code Phon e Number POC [facility] Unless otherwise noted, [place] [address] lab tests performed by: Division of Pathology and Laboratory Medicine [facility] EKG, 12-Lead (Portable) (10/06/2022) Specimen (Source) Anatomical Location Collection Method / Collectio n Time Received Time / Laterality Volume Narrative This result has an attachment that is no t available. Ilene Guevara MD ECG ORDERABLES Performing Organization Address City/State/ZIP Code Phon e Number [facility] MRI Lumbar Spine with and without Contrast (06/30/2022 10:35 AM MATERIALS HANDLING COORDINATOR) Anatomical Region Laterality Modality L-spine, Spine Magnetic Resonance Specimen (Source) Anatomical Collection Method Collection Time Re ceived Time Location / / Volume Laterality 06/30/2022 11:19 AM MATERIALS HANDLING COORDINATOR Impressions 06/30/2022 11:44 AM MATERIALS HANDLING COORDINATOR 1. Multilevel spinal canal stenosis most severe at the L3/L4 and L4/L5 levels with associated bilateral neural sánchez narrowing and abutment of the exiting corresponding nerve roots. 2. Capsular synovitis from the L1/L2 t hrough the L5/S1 levels. 3. No evidence of osseous metastasis. 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 Indication: Assessment of disease status . Comparison: None. Technique: Multiplanar MRI of the lumb osacral spine without and with intravenous contrast using multisequence parameters was performed. Findings: Vertebral body heights are tha ntained. There are no acute fracture compression deformities. Schmorl's node deformity noted along the superior endplate of T12 and L1. Additionally, Schmorl's node deformity along the inferior endplate of L5 and superior endplate of S1. There are no aggressive osseous lesions. The conus ends at the T12 level. Multilevel degenerative changes are obse rved greatest at L2/L3, L3/L4, and L4/L5 where disc desiccation and loss of height is observed associated with broad posterior disc bulging associated with bilate ral ligamentous hypertrophy causing segm ental spinal canal stenosis with cauda equina root crowding and mild CSF effacement. The above described is associated with bilateral foraminal narrowing at the L 3/L4 and L4/L5 levels with abutment of t he exiting corresponding nerve roots. Capsular synovitis is noted from the L1/ L2 level through the L5/S1 levels. Procedure Note Jodi Pedraza MD - 06/30/2022Formattin g of this note might be different from the original. 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 Indication: Assessment of disease status . Comparison: None. Technique: Multiplanar MRI of the lumbos acral spine without and with intravenous contrast using multisequence parameters was performed. Findings: Vertebral body heights are tha ntained. There are no acute fracture compression deformities. Schmorl's node deformity noted along the superior endplate of T12 and L1. Additionally, Schmorl's node deformity along the inferior endplate of L5 and superior endplate of S1. There are no aggressive osseous lesions. The conus ends at the T12 level. Multilevel degenerative changes are obse rved greatest at L2/L3, L3/L4, and L4/L5 where disc desiccation and loss of height is observed associated with broad posterior disc bulging associated with bilateral ligamentous hypertrophy causing segmental spinal can al stenosis with cauda equina root crowding and mild CSF effacement. The above described is associated with bilateral foraminal narrowing at the L3/L4 and L4/L5 levels with abutment of the exiting corresponding nerve roots . Capsular synovitis is noted from the L1/ L2 level through the L5/S1 levels. IMPRESSION: 1. Multilevel spinal canal stenosis most severe at the L3/L4 and L4/L5 levels with associated bilateral neural sánchez narrowing and abutment of the exiting corresponding nerve roots. 2. Capsular synovitis from the L1/L2 thr ough the L5/S1 levels. 3. No evidence of osseous metastasis. Rebekah Lang APRN IMG MRI ORDERABLES MRI Foot Left with and without Contrast (06/23/2022 9:27 AM MATERIALS HANDLING COORDINATOR)Only the most recent of2 resultswithin the time period is included. Anatomical Region Laterality Modality Foot, Extremity Magnetic Resonance Specimen (Source) Anatomical Collection Method Collection Time Re ceived Time Location / / Volume Laterality 06/23/2022 9:34 AM MATERIALS HANDLING COORDINATOR Impressions 06/23/2022 11:59 AM MATERIALS HANDLING COORDINATOR 1. Redemonstration of plantar soft tis jeremiah signal abnormalities, likely representing fibrous tissue, at the level of the first, second and fifth MTP joints, similar to slightly decreased in size compared to prior and biopsy- proven bland fibrosis. 2. Similar edema of the navicular bone with trabecular impaction fracture however without cortical disruption. 3. Talonavicular, TMT and first MTP os teoarthritis. 4. Mild proximal plantar enthesopathy. I personally reviewed these image(s) luther zabala with the resident's/fellow's interpretations, certify that if a procedure was performed I was physically present, and agree with the final report. Narrative 06/23/2022 11:59 AM MATERIALS HANDLING COORDINATOR FULL RESULT: Examination: MRI FOOT LEFT W WO CONTRAST , 06/23/2022 9:27 AM. 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 Indication: Left foot pain, abnormal sof t tissue mass along plantar surface of left foot consistent with bland fibrosis, assess for interval Comparison: MRI foot 04/02/2022 and 01/05. Radiograph 03/24/2022. Technique: Multiplanar multisequence mag netic resonance imaging of the foot was performed without and with intravenous administration of contrast. Findings: SOFT TISSUES: * Plantar soft tissue areas of signal abnormality at the level of the first, second one to lesser degree fifth MTP joints are again redemonstrated. Biopsy dated 02/15/2022 demonstrating Barry fibrous spindle cell proliferation. * As before, such areas demonstrate T1 hypointensity with mild T2 hyperintensity and low-grade postcontrast enhancement. * Plantar signal abnormality at the le inessa of the first MTP joint measures 2.3 x 0.9 x 2.8 cm (series 6 image 22, series 4 image 5), previously 2.8 x 0.6 x 2.8 cm on 04/02/2022. * Plantar signal abnormality at the le inessa of the second MTP joint measures 1.2 x 0.8 x 2.3 cm (series 6 image 22, series 4 image 12), previously 1.6 x 0.6 x 1.6 cm on 04/02/2022. * Plantar signal abnormality at the le inessa of the fifth MTP joint measures 1.6 x 0.7 x 1.6 cm (series 6 image 33, series 4 image 23), previously 1.8 x 0.3 x 2.8 cm on 04/02/2022. * Similar abutment of the adjacent fle xor tendons (series 6 image 23). * Few scattered foci of susceptibility artifact in the plantar soft tissues compatible with prior biopsy (series 9 image 14). BONES AND JOINT: * Midfoot osteoarthritis with subchond ral marrow signal changes at the talonavicular joint with associated full-thickness chondral loss, similar to prior. * T2 signal hyperintensity with corres ponding T1 hypointense signal throughout the navicular bone compatible with trabecular impaction fracture without cortical disruption. * First MTP joint osteophytosis. * Minimal subchondral cystic changes a t the TMT joints. * Small vascular remnant in the calcan eus appears similar to prior (series 8 image 18). MUSCLES AND TENDONS: * Similar mild thickening of the plant ar fascia at the calcaneal insertion (series 10 image 12). * Similar mild diffuse edema of the pl jose david musculature. Procedure Note Joe Harry MD - 06/23/2022F ormatting of this note might be different from the original. FULL RESULT: Examination: MRI FOOT LEFT W WO CONTRAST , 06/23/2022 9:27 AM. 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 Indication: Left foot pain, abnormal sof t tissue mass along plantar surface of left foot consistent with bland fibrosis, assess for interval Comparison: MRI foot 04/02/2022 and 01/05. Radiograph 03/24/2022. Technique: Multiplanar multisequence mag netic resonance imaging of the foot was performed without and with intravenous administration of contrast. Findings: SOFT TISSUES: * Plantar soft tissue areas of signal ab normality at the level of the first, second one to lesser degree fifth MTP joints are again redemonstrated. Biopsy dated 02/15/2022 demonstrating Barry fibrous spindle cell proliferation. * As before, such areas demonstrate T1 h ypointensity with mild T2 hyperintensity and low-grade postcontrast enhancement. * Plantar signal abnormality at the leve l of the first MTP joint measures 2.3 x 0.9 x 2.8 cm (series 6 image 22, series 4 image 5), previously 2.8 x 0.6 x 2.8 cm on 04/02/2022. * Plantar signal abnormality at the leve l of the second MTP joint measures 1.2 x 0.8 x 2.3 cm (series 6 image 22, series 4 image 12), previously 1.6 x 0.6 x 1.6 cm on 04/02/2022. * Plantar signal abnormality at the leve l of the fifth MTP joint measures 1.6 x 0.7 x 1.6 cm (series 6 image 33, series 4 image 23), previously 1.8 x 0.3 x 2.8 cm on 04/02/2022. * Similar abutment of the adjacent flexo r tendons (series 6 image 23). * Few scattered foci of susceptibility a rtifact in the plantar soft tissues compatible with prior biopsy (series 9 image 14). BONES AND JOINT: * Midfoot osteoarthritis with subchondra l marrow signal changes at the talonavicular joint with associated full-thickness chondral loss, similar to prior. * T2 signal hyperintensity with correspo nding T1 hypointense signal throughout the navicular bone compatible with trabecular impaction fracture without cortical disruption. * First MTP joint osteophytosis. * Minimal subchondral cystic changes at the TMT joints. * Small vascular remnant in the calcaneu s appears similar to prior (series 8 image 18). MUSCLES AND TENDONS: * Similar mild thickening of the plantar fascia at the calcaneal insertion (series 10 image 12). * Similar mild diffuse edema of the plan tar musculature. IMPRESSION: 1. Redemonstration of plantar soft tissu e signal abnormalities, likely representing fibrous tissue, at the level of the first, second and fifth MTP joints, similar to slightly decreased in size compared to prior and biopsy- proven bland fibrosis. 2. Similar edema of the navicular bone w ith trabecular impaction fracture however without cortical disruption. 3. Talonavicular, TMT and first MTP oste oarthritis. 4. Mild proximal plantar enthesopathy. I personally reviewed these image(s) luther zabala with the resident's/fellow's interpretations, certify that if a procedure was performed I was physically present, and agree with the final report. Jacquelin HOPKINS IMG MRI ORDERABLES X-ray Foot 3+ Views Left (03/24/2022 11:44 AM CDT) Anatomical Region Laterality Modality Foot, Extremity Digital Radiography Specimen (Source) Anatomical Collection Method Collection Time Re ceived Time Location / / Volume Laterality 03/24/2022 3:43 PM CDT Impressions 03/24/2022 8:27 PM CDT No acute fracture or bone metastasis. Narrative 03/24/2022 8:27 PM CDT FULL RESULT: Examination: XR Left Foot, 3 Views, 03/24 11:44 AM. Clinical History: Spindle cell sarcoma o f left calf. Indication: Left foot pain. Comparison: None. Technique: 3 views of left foot, 03/24/20. Findings: Diffusely increased bony sclerosis is se en. Its exact etiology is uncertain. Hallux valgus, hammertoe and pes cavus d eformities in the left foot are present. A small talar beak at the dorsum of the talus is noted. No other bone, joint or soft tissue abno rmality is present. Procedure Note Jag Banegas MD - 03/24/2022Formatti ng of this note might be different from the original. FULL RESULT: Examination: XR Left Foot, 3 Views, 03/24 11:44 AM. Clinical History: Spindle cell sarcoma o f left calf. Indication: Left foot pain. Comparison: None. Technique: 3 views of left foot, 03/24/20. Findings: Diffusely increased bony sclerosis is se en. Its exact etiology is uncertain. Hallux valgus, hammertoe and pes cavus d eformities in the left foot are present. A small talar beak at the dorsum of the talus is noted. No other bone, joint or soft tissue abno rmality is present. IMPRESSION: No acute fracture or bone metastasis. 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 Consent: The procedure, risks, indicat ions and alternatives were explained. All questions were answered a nd informed consent was obtained. I have reviewed the history and physical dictated by the mid-level practitioner / fellow. Sedation/Anesthesia: None Procedure in Detail: A time out was performed prior to the st art of the procedure and the correct patient, procedure, presence of consent, site, and side were confirmed with all members of the team. With the patient in the supine position, the skin overlying the area of interest was prepped and draped in the u sual sterile fashion. Lidocaine 1% was used for local anesthesia. Using a posterior approach under Ultraso und image-guidance, a 17 gauge needle was advanced down to the left big toe lesion. An image was obtained and placed into the medical record. Samp les were obtained for evaluation. Sampling: Core Biopsy: An 18 gauge needle use d to obtain samples for surgical pathology evaluation. Total number of samples: 3 Specimens Disposition: Diagnostic Biopsy: The biopsy sampl es were submitted to pathology. Microbiology samples: Additional sa mples were obtained and submitted for microbiologic evaluation. Additional Comments: None Estimated Blood Loss: Minimal Immediate Complications: None Disposition: PACU Plan: 1. No follow-up with Interventional Radi ology required. I certify my physical presence at the [facility] of the procedure. I personally reviewed the image(s) and the CHRIS's inte rpretation and agree with the written report. Jacquelin HOPKINS IMG IR ORDERABLES Anaerobic Culture Interventional Radiology (02/15/2022 8:37 AM CDT) Component Value Ref Test Analysis Performed At [facility] gist Range Method Time Signature Final Report No growth [facility] [place] Path Review - The results have been review ed and electronically signed by Pathologist: [place] Anaerobe Karla Stout MD, PhD #[id number] [facility] Specimen Anatomical Collection Method Collection Time Receive d Time (Source) Location / / Volume Laterality Tissue (Foot, 02/15/2022 8:37 AM 02/16/20 22 Left) CDT 10:59 AM CDT Jacquelintheodora HOPKINS MICROBIOLOGY - GENERAL ORDER JEROMY Performing Organization Address City/[facility]/ZIP Code Phon e Number [facility] Unless otherwise noted, [address] all lab tests performed by: Division of Pathology and Laboratory Medicine [address] [place] [address] Fungus Culture IR w/Smear (02/15/2022 8:37 AM CDT) Component Value Ref Test Analysis Performed At [facility] gist Range Method Time Signature Final Report No fungus BECKA JULIO isolated at 4 SHRUTI weeks. [facility] Path Review - Culture yield may be affecte d by sample quality, prior treatment, and transportation conditions. The results have been reviewed and electronically signed by Pathologist: BECKA JULIO Fungus Karla Stout MD, PhD #[id number] [facility] Calcofluor No Fungi seen in direct smear [place] Stain Test performed by fluorescent stain methodology. [facility] Specimen Anatomical Collection Method Collection Time Receive d Time (Source) Location / / Volume Laterality Tissue (Foot, 02/15/2022 8:37 AM 02/16/20 22 Left) CDT 10:59 AM CDT Narrative [facility] - 4:03 PM CDT Cultures are held for 4 weeks before fin alization. Jacquelin HOPKINS MICROBIOLOGY - GENERAL ORDER JEROMY Performing Organization Address City/[facility]/ZIP Code Phon e Number [facility] Unless otherwise noted, [address] all lab tests performed by: Division of Pathology and Laboratory Medicine [facility] Interventional Radiology Culture w/Gram Stain (02/15/2022 8:37 AM CDT) Component Value Ref Test Analysis Performed At [facility] Range Method Time Signature Final Report No growth [facility] Path Review The results have been review ed and electronically signed by Pathologist: BECKA Stout MD, PhD #[id number] [facility] Gram Stain No WBC's seen. BECKA JULIO Report No organisms seen. [facility] Specimen Anatomical Collection Method Collection Time Receive d Time (Source) Location / / Volume Laterality Tissue (Foot, 02/15/2022 8:37 AM 02/16/20 22 Left) CDT 10:56 AM CDT Jacquelin HOPKINS MICROBIOLOGY - GENERAL ORDER JEROMY Performing Organization Address City/[facility] Phon e Number [facility] Unless otherwise noted, [address] all lab tests performed by: Division of Pathology and Laboratory Medicine [address] [place] [address] [employer] Culture IR w/Smr (02/15/2022 8:37 AM CDT) Component Value Ref Test Analysis Performed At Patholo gist Range Method Time Signature Final Report No acid fast BECKA JULIO bacteria isolated MANHEIM at 8 weeks. [facility] Path Review - Partial antibiotic treatment can render AFB culture negative. AFB culture has sensitivity of 90%. The results have been reviewed and electronically signed by Pathologist: BECKA JULIO [employer] Karla Stout MD, PhD #[id number] [facility] Acid Fast No Acid Fast BECKA JULIO Stain Truant Bacilli seen in [place]HEIM direct smear [facility] Specimen Anatomical Collection Method Collection Time Receive d Time (Source) Location / / Volume Laterality Tissue (Foot, 02/15/2022 8:37 AM 02/16/20 22 Left) CDT 11:20 AM CDT Narrative [facility] - 4:29 PM MATERIALS HANDLING COORDINATOR Cultures are held 8 weeks before finaliz ation. Jacquelin HOPKINS MICROBIOLOGY - GENERAL ORDER JEROMY Performing Organization Address City/[facility] Phon e Number [facility] Unless otherwise noted, [address] all lab tests performed by: Division of Pathology and Laboratory Medicine [facility] Young Pathology Biopsy Interpretation (02/15/2022 8:30 AM CDT) Component Value Ref Test Analysis Performed Pathologis t Range Method Time At Signature Submitted Mass of soft tissue of left lower limb [R22.42] 02/17/2022 [facility] Clinical Spindle cell sarcoma of conn ective, 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> [C49.22] 12:10 AM History CDT Diagnosis A: Foot, left, biopsy: 02/17/2022 [facility] Electronically Barry fibrous spindle cell proliferation (see comment). 12:10 AM signed by Anirudh Frazier MD on 02/17/2022 at 12:10 AM Comment The differential 02/17/2022 [facility] diagnosis includes 12:10 AM fibroma of tendon CDT sheath, desmoplastic fibroblastoma, and possibly other fibrous entities. Malignant features are not seen.. Gross A: 02/17/2022 [facility] Description Foot, left, left foot biopsy : Two pink-white fragments of tissue measuring 0.3 x 0.1 x 0.1 cm and 0.3 x 0.2 x 0.1 cm, entirely submitted in A1. GM 12:10 AM CDT Disclaimer "Some tests 02/17/2022 [facility] reported here may 12:10 AM have been CDT developed and performance characteristics determined by [facility]. These tests have not been specifically cleared or approved by the U.S. Food and Drug Administration. If applicable, controls were reviewed and showed appropriate reactivity." Specimen Anatomical Collection Method Collection Time Receive d Time (Source) Location / / Volume Laterality Tissue (Foot, 02/15/2022 8:30 AM 02/16/20 22 9:53 Left) CDT AM CDT Jacquelin [facility] PATHOLOGY ORDERABLES Performing Organization Address City/State/ZIP Code Phon e Number [facility] [place] [address] [id number] Count (02/15/2022 6:30 AM CDT) P athologist Signature Platelet count 211 140 - 440 [facility] K/uL Comment: As part of CBC or as an individ ual orderable testing performed at [facility], [address] , [address], [place] [address] MPV 10.2 4.0 - 10.4 fL [facility] Specimen Anatomical Collection Method Collection Time Receive d Time (Source) Location / / Volume Laterality Blood 02/15/2022 6:30 AM 6:32 CDT AM CDT Ale [facility] BLOOD ORDERABLES Performing Organization Address City/State/ZIP Code Phon e Number [facility] [address] [place] [address] [address] after 01/16/2022 Insurance Payer Benefit Plan / Subscriber ID Effective Dates Phone Addre ss Type Group [employer] MANAGED [employer] O [id number] 2000-Present [id number] [place] [address] Guarantor Name Account Type Relation to Date of Phone Billing Patient Address Tristen Zavala Personal/Family Self 1960 [id number] [phone] [place], [place] ([place]) [phone] Tristen Zavala Personal/Family Self 1960 [id number] [place] [address] Advance Directives Code Status Date Activated Date Inactivated Comments Full Code 10/21/2021 8:45 PM 10/23/2021 1:10 PM Code Status Date Activated Date Inactivated Comments Full Code 09/12/2021 8:26 PM 09/15/2021 5:29 PM Full Code 05/28/2021 7:53 PM 05/29/2021 2:43 PM Care Teams Inside Meter Tester Relationship Specialty Start Date End Date Neal Tyler MD PCP - General Family Practice 09/12/[address] [place] [id number]
--- OUTSIDE RECORDS SUMMARY | 2023-01-16 12:14 | XMS REPORT | Continuity of Care Document ---
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 Seybold oral Tablet 00:00: 00:00 3D MG TOTAL) - 00 :00 BY MOUTH Externa EVERY 8 l HOURS NEEDED OZEMPIC (2021-05- No [id number] 1mg INJECT 1 Mikala mg/dose) 4 06-23 MG INTO Seybo ld mg/3 mL SQ 00:00: 00:00 THE SKIN - Solution 00 :00 ONCE A Externa Pen-Injecto WEEK l r Losartan 2021-05- No [id number] 50mg Take 1 Ke lsey Potassium 1-16 06-22 tablet (50 Sey bold 50 MG oral 00:00: 00:00 mg total) - Tablet 00 :00 by mouth 2 Externa times l daily mirtazapine 2021-05 Yes 15mg Take 1 Univ ers (REMERON) 0-18 tablet (15 ity of 15 mg 00:00: mg) by [place] tablet 00 mouth. [facility] mirtazapine 2021-05 Yes 15mg Take 1 Univ ers (REMERON) 0-18 tablet (15 ity of 15 mg 00:00: mg) by [place] tablet 00 mouth. [facility] mirtazapine 2021-05 Yes 15mg Take 1 Univ ers (REMERON) 0-18 tablet (15 ity of 15 mg 00:00: mg) by [place] tablet 00 mouth at PR bedtime. [facility] mirtazapine 2021-05 Yes 15mg Take 1 Univ ers (REMERON) 0-18 tablet (15 ity of 15 mg 00:00: mg) by [place] tablet 00 mouth at PR bedtime. [facility] mirtazapine 2021-05 Yes 15mg Take 1 Univ ers (REMERON) 0-18 tablet (15 ity of 15 mg 00:00: mg) by [place] tablet 00 mouth at PR bedtime. [facility] Sertraline 2021-05 Yes TAKE 1 Kelse y HCl 100 MG 0-18 TABLET BY Seyb old oral Tablet 00:00: MOUTH - 00 EVERY DAY Externa l Mirtazapine 2021-05 Yes 15mg Take 15 mg Mikala 15 MG oral 0-18 by mouth Seybo ld Tablet 00:00: daily 05/24 pill Externa l Sertraline 2021-05 Yes TAKE 1 Kelse y HCl 100 MG 0-18 TABLET BY Seyb old oral Tablet 00:00: MOUTH - 00 EVERY DAY Externa l Mirtazapine 2021-05 Yes 15mg Take 15 mg Mikala 15 MG oral 0-18 by mouth Seybo ld Tablet 00:00: daily 05/24 pill Externa l Sertraline 2021-05 Yes TAKE 1 Kelse y HCl 100 MG 0-18 TABLET BY Seyb old oral Tablet 00:00: MOUTH - 00 EVERY DAY Externa l Mirtazapine 2021-05 Yes 15mg Take 1 Simin ey 15 MG oral 0-18 tablet (15 Sey bold Tablet 00:00: mg total) - 00 by mouth Externa daily 1/2 l pill Gabapentin 2022- No 300mg Q.[id number] Take 1 Mikala 300 MG oral 8-25 - [id number] capsule Seybold Capsule 00:00: 00:00 3D (300 mg - 00 :00 total) by Externa mouth 3 l times daily as needed Jardiance 2022- No TAKE 1 Kelse y 25 MG oral 7-19 06-22 TABLET BY Sey bold Tablet 00:00: 00:00 MOUTH - 00 :00 EVERY DAY Externa l alfuzosin 2021- No 10mg Take 10 mg U nivers (UROXATRAL) 7-13 07-13 by mouth ity of 10 mg 24 hr 11:35: 00:00 daily. Fidencio as tablet 01 :00 MD Donald acosta [facility] carvedilol 2021- No 3.125mg Take 3.125 Univers (COREG) 7-13 07-13 mg by ity of 3.125 mg 11:29: 00:00 mouth [place] tablet 59 :00 twice MD daily. Donald acosta [facility] Jardiance Yes 1{tbl} Take 1 Univ ers 25 mg tab 6-28 tablet by ity o f 00:00: mouth [place] 00 daily. MD Donald acosta [facility] Jardiance Yes 1{tbl} Take 1 Univ ers 25 mg tab 6-28 tablet by ity o f 00:00: mouth [place] 00 daily. MD Donald acosta [facility] Jardiance Yes 1{tbl} Take 1 Univ ers 25 mg tab 6-28 tablet by ity o f 00:00: mouth [place] 00 daily. MD Donald acosta [facility] Jardiance Yes 1{tbl} Take 1 Univ ers 25 mg tab 6-28 tablet by ity o f 00:00: mouth [place] 00 daily. MD Donald acosta [facility] Jardiance Yes 1{tbl} Take 1 Univ ers 25 mg tab 6-28 tablet by ity o f 00:00: mouth [place] 00 daily. MD [facility] Sildenafil 0 2022- No Mikala Citrate 100 11-11-31 Seybold MG oral 00:00: 00:00 - Tablet 00 :00 Externa l Alfuzosin 2021-0 2021- No 10mg Take 10 mg K elsey HCl 10 MG 10-27 06-07 by mouth Seybo ld oral TABLET 13:39: 00:00 daily SR 24 HR 42 :00 Testosteron Yes 100mg Inject 100 Mikala e Cypionate 6-07 mg into Seybo ld (DEPO-TESTO 13:31: the muscle STERONE) 16 once a 200 MG/ML week intramuscul ar Solution Aspirin 81 Yes 81mg Take 81 mg K elsey MG oral -07 by mouth Seybold Tablet 13:31: daily Delayed 16 Response Tadalafil 5 Yes 5mg QD Take 5 mg K elsey MG oral -07 by mouth Seybold Tablet 13:29: daily as 26 needed for erectile dysfunctio n traMADol Yes Hydronephro 50mg Take 1 Univers (Ultram) 50 6-07 sis with tablet (50 ity of mg tablet 00:00: ureteropelv mg) by [address] obstruction every 6 Les so (six) n hours as Cancer needed for Center moderate pain or severe pain. traMADol Yes Hydronephro 50mg Take 1 Univers (Ultram) 50 6-07 sis with tablet (50 ity of mg tablet 00:00: ureteropelv mg) by [address] obstruction every 6 Les so (six) n hours as Cancer needed for Center moderate pain or severe pain. traMADol Yes Hydronephro 50mg Take 1 Univers (Ultram) 50 6-07 sis with tablet (50 ity of mg tablet 00:00: ureteropelv mg) by [address] obstruction every 6 Les so (six) n hours as Cancer needed for Center moderate pain or severe pain. traMADol Yes Hydronephro 50mg Take 1 Univers (Ultram) 50 6-07 sis with tablet (50 ity of mg tablet 00:00: ureteropelv mg) by [place] 00 ic junction mouth MD obstruction every 6 Les so (six) n hours as Cancer needed for Center moderate pain or severe pain. traMADol Yes Hydronephro 50mg Take 1 Univers (Ultram) 50 6-07 sis with tablet (50 ity of mg tablet 00:00: ureteropelv mg) by [place] 00 ic junction mouth MD obstruction every 6 Les so (six) n hours as Cancer needed for Center moderate pain or severe pain. Losartan 0 Yes [id number] 50mg Take 1 Edilson sey Potassium 6-07 tablet (50 Seyb old 50 MG oral 00:00: mg total) Tablet 00 by mouth daily Carvedilol 0 Yes [id number] 3.125mg Take 1 Mikala (Coreg) 6-07 tablet Seybold 3.125 MG 00:00: (3.125 mg oral Tablet 00 total) by mouth in the morning and 1 tablet (3.125 mg total) in the evening. Take with meals. gabapentin Yes Neuropathy, 300mg Take 1 Univers (Neurontin) 6-02 not capsule ity o f 300 mg 00:00: otherwise (300 mg) [place] capsule 00 specified by mouth 3 M D (three) Anderso times a n day as Cancer needed Center (neuropath y). acetaminoph Yes Hydronephro 500mg Take 1 Univers en (Tylenol 6-02 sis with tablet it y of Extra 00:00: ureteropelv (500 mg) [place] Strength) 00 ic junction by mouth MD 500 mg obstruction every 6 And erso tablet (six) n hours as Cancer needed for Center mild pain. gabapentin Yes Neuropathy, 300mg Take 1 Univers (Neurontin) 6-02 not capsule ity o f 300 mg 00:00: otherwise (300 mg) [place] capsule 00 specified by mouth 3 M D (three) Anderso times a n day as Cancer needed Center (neuropath y). acetaminoph 0 Yes Hydronephro 500mg Take 1 Univers en (Tylenol 6-02 sis with tablet it y of Extra 00:00: ureteropelv (500 mg) [place] Strength) 00 ic junction by mouth MD 500 mg obstruction every 6 And erso tablet (six) n hours as Cancer needed for Center mild pain. gabapentin 0 Yes Neuropathy, 300mg Take 1 Univers (Neurontin) 6-02 not capsule ity o f 300 mg 00:00: otherwise (300 mg) [place] capsule 00 specified by mouth 3 M D (three) Anderso times a n day as Cancer needed Center (neuropath y). acetaminoph 2021-0 Yes Hydronephro 500mg Take 1 Univers en (Tylenol 6-02 sis with tablet it y of Extra 00:00: ureteropelv (500 mg) [place] Strength) 00 ic junction by mouth MD 500 mg obstruction every 6 And erso tablet (six) n hours as Cancer needed for Center mild pain. gabapentin 2021-0 Yes Neuropathy, 300mg Take 1 Univers (Neurontin) 6-02 not capsule ity o f 300 mg 00:00: otherwise (300 mg) [place] capsule 00 specified by mouth 3 M D (three) Anderso times a n day as Cancer needed Center (neuropath y). acetaminoph 2021-0 Yes Hydronephro 500mg Take 1 Univers en (Tylenol 6-02 sis with tablet it y of Extra 00:00: ureteropelv (500 mg) [place] Strength) 00 ic junction by mouth MD 500 mg obstruction every 6 And erso tablet (six) n hours as Cancer needed for Center mild pain. gabapentin 2021-0 Yes Neuropathy, 300mg Take 1 Univers (Neurontin) 6-02 not capsule ity o f 300 mg 00:00: otherwise (300 mg) [place] capsule 00 specified by mouth 3 M D (three) Anderso times a n day as Cancer needed Center (neuropath y). acetaminoph 2021-0 Yes Hydronephro 500mg Take 1 Univers en (Tylenol 6-02 sis with tablet it y of Extra 00:00: ureteropelv (500 mg) [place] Strength) 00 ic junction by mouth MD 500 mg obstruction every 6 And erso tablet (six) n hours as Cancer needed for Center mild pain. Gabapentin 2021-0 Yes 300mg Q.[id number] Take 300 Mikala 300 MG oral 10-22 [id number] mg by S eybold Capsule 00:00: 3D mouth 3 00 times daily as needed Tramadol 2021-0 Yes 50mg Q.25D Take 50 mg Ke lsey HCl 50 MG -02 by mouth Seybol d oral Tablet 00:00: every 6 00 hours as needed Celecoxib Yes 200mg Take 200 Edilson sey 200 MG oral 6-02 mg by Seybold Capsule 00:00: mouth in 00 the morning and 200 mg in the evening. celecoxib 2021- No Hydronephro 200mg Take 1 Univers (CeleBREX) 10-22 sis with capsule i ty of 200 mg 00:00: 00:00 ureteropelv (200 mg) [place] capsule 00 :00 ic junction by mouth M D obstruction twice Anderso daily. n Cancer Center docusate 2021- No Hydronephro 100mg Take 1 Univers sodium 10-22 sis with capsule ity o f (Colace) 00:00: 00:00 ureteropelv (100 mg) [place] 100 mg 00 :00 ic junction by mouth 2 MD capsule obstruction (two) Td rso times a n day as Cancer needed for Center constipati on. traMADol 2021- No Hydronephro 50mg Take 1 Univers (Ultram) 50 10-22 sis with tablet (50 ity of mg tablet 00:00: 00:00 ureteropelv mg) by [place] 00 :00 ic junction mouth MD obstruction every 6 Les so (six) n hours as Cancer needed for Center moderate pain or severe pain. amoxicillin 2021- No Hydronephro 875mg Take 1 Univers -clavulanat 10-20 sis with tablet i ty of e 00:00: 00:00 ureteropelv (875 mg) [place] (Augmentin) 00 :00 ic junction by mouth 875 mg-125 obstruction twice A nderso mg per daily. n tablet Cancer Center gabapentin 2021- No Neuropathy, 300mg Take 1 Univers (Neurontin) 09-15 not capsule ity of 300 mg 00:00: 00:00 otherwise (300 mg) [place] capsule 00 :00 specified by mouth 3 M D (three) Anderso times a n day as Cancer needed Center (neuropath y). amoxicillin 2021- No Decreased 500mg Take 1 Univers (AMOXIL) 09-15 0509 testosteron capsule ity of 500 mg 00:00: 04:59 e level (500 mg) Fidencio as capsule 00 :00 by mouth every 8 Anderso (eight) n hours for Cancer 12 days. [place] krill oil 2021- No 1{capsu Take 1 Un halina 500 mg cap 08-26 le} capsule by it y of 17:29: 00:00 mouth [place] 07 :00 daily. MD Donald acosta [facility] cholecalcif 2021- No 400U Take 400 U nivers [place], 08-26- Units by ity of vitamin D3, 17:29: 00:00 [place] (VITAMIN 01 :00 daily. D3) 5,000 Anderso units tab n tablet Cancer [place] zinc 2021- No 50mg Take 50 mg Univer s gluconate 08-26 by mouth ity o f 50 mg 17:28: 00:00 daily. [place] tablet 32 :00 MD Doanld acosta [facility] multivit-mi 2021- No 1{tbl} Take 1 U nivers n/folic/vit 08-26 tablet by it y of K/lycop 17:28: 00:00 mouth [place] (MEN'S 23 :00 daily. MULTIVITAMI Donald Acosta ORAL) n [facility] cyanocobala 2021- No 1000ug Take 1,000 Univers min 08-26 mcg by ity of (VITAMIN 17:28: 00:00 mouth [place] B-12) 1000 15 :00 daily. mcg tablet Donald n [facility] gabapentin 2021- No Neuropathy, 300mg Take 1 Univers (Neurontin) 08-26 not capsule ity of 300 mg 00:00: 00:00 otherwise (300 mg) [place] capsule 00 :00 specified by mouth 3 M D (three) Anderso times a n day. Cancer [place] Alfuzosin Yes 10mg Take 10 mg Ke lsey HCl 10 MG 3-30 by mouth Seybol d oral TABLET 09:20: daily SR 24 HR 00 Tamsulosin 2021- No .4mg Take 0.4 Ke lsey HCl 0.4 MG 3-30 03-30 mg by Seybold oral 09:19: 00:00 mouth Capsule 45 :00 daily Tadalafil 5 Yes 5mg QD Take 5 mg K elsey MG oral 3-30 by mouth Seybold Tablet 08:45: daily as 11 needed for erectile dysfunctio n Testosteron Yes 100mg Inject 100 Mikala e Cypionate 3-30 mg into Seybo ld (DEPO-TESTO 08:45: the muscle STERONE) 11 once a 200 MG/ML week intramuscul ar Solution Aspirin 81 Yes 81mg Take 81 mg K elsey MG oral 3-30 by mouth Seybold Tablet 08:45: daily Delayed 11 Response 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 <Left> HYDROcodone 2021- No [place] of 1{tbl} Take 1 Univers -acetaminop 05-28 soft tissue tablet by ity of hen ([place]) 00:00: 00:00 of left mouth [place] 7.5 mg-325 00 :00 lower limb every 6 MD mg per (six) Anderso tablet hours as n needed for Cancer moderate Center pain or severe pain. Empaglifloz 2020-05 Yes 25mg Take 25 mg Mikala in 1-29 by mouth Seybold (Jardiance) 00:00: daily 25 MG oral 00 Tablet OZEMPIC (2020-05 Yes [id number] 1mg Inject 1 Mikala mg/dose) 4 1-29 mg into Seybol d mg/3 mL SQ 00:00: the skin Solution 00 once a Pen-Injecto week r Sertraline 2020-05 Yes 100mg Take 1 Simin ey HCl 100 MG -29 tablet Seybold oral Tablet 00:00: (100 mg 00 total) by mouth daily Losartan 2020-05 Yes 100mg Take 1 Mikala Potassium -29 tablet Seybold 100 MG oral 00:00: (100 mg Tablet 00 total) by mouth daily Empaglifloz 2020-05 Yes 25mg Take 25 mg Mikala in 29 by mouth Seybold (Jardiance) 00:00: daily 25 MG oral 00 Tablet OZEMPIC (2020-05 Yes [id number] 1mg Inject 1 Mikala mg/dose) 4 1-29 mg into Seybol d mg/3 mL SQ 00:00: the skin Solution 00 once a Pen-Injecto week r Sertraline 2020-05 Yes 100mg Take 1 Simin ey HCl 100 MG -29 tablet Seybold oral Tablet 00:00: (100 mg 00 total) by mouth daily Losartan 2020-05- No 100mg Take 1 Kelse y Potassium -29 06-07 tablet Seybold 100 MG oral 00:00: 00:00 (100 mg Tablet 00 :00 total) by mouth daily FreeStyle 2020-05 Yes Univers Lite Meter 0-06 ity of kit 00:00: [place] [facility] Yes Univers Lite Meter 0-06 ity of kit 00:00: [place] 00 [facility] 2020-05 Yes Univers Lite Meter 0-06 ity of kit 00:00: [place] 00 MD Lucas karla [facility] FreeStyle 2020-05 Yes Univers Lite Meter 0-06 ity of kit 00:00: [place] 00 [facility] FreeStyle 2020-05 Yes Univers Lite Meter 0-06 ity of kit 00:00: [place] 00 [facility] Glucose 2020-05 Yes [id number] 100{eac 100 each Mikala Blood in 0-06 h} by other Seybold vitro Strip 00:00: route 00 daily Blood 2020-05 Yes [id number] Use as Kelse y Glucose 0-06 directed Seybold Monitoring 00:00: to check Suppl 00 blood (Blood sugar up Glucose to three Monitor times System) daily. w/Device does not apply Kit Lancets 33G 2020-05 Yes [id number] 1{each} 1 each by Mikala does not 0-06 does not Seybold apply Misc 00:00: apply 00 route daily Use as directed once daily Blood 2020-05 Yes [id number] Use as Kelse y Glucose 0-06 directed Seybold Monitoring 00:00: to check - Suppl 00 blood Externa (Blood sugar up l Glucose to three Monitor times System) daily. w/Device does not apply Kit Lancets 33G 2020-05 Yes [id number] 1{each} 1 each by Mikala does not 0-06 does not Seybold apply Misc 00:00: apply - 00 route Externa daily Use l as directed once daily Blood 2020-05 Yes [id number] Use as Kelse y Glucose 0-06 directed Seybold Monitoring 00:00: to check - Suppl 00 blood Externa (Blood sugar up l Glucose to three Monitor times System) daily. w/Device does not apply Kit Lancets 33G 2020-05 Yes [id number] 1{each} 1 each by Mikala does not 0-06 does not Seybold apply Misc 00:00: apply - 00 route Externa daily Use l as directed once daily Blood 2020-05 Yes [id number] Use as Kelse y Glucose 0-06 directed Seybold Monitoring 00:00: to check - Suppl 00 blood Externa (Blood sugar up l Glucose to three Monitor times System) daily. w/Device does not apply Kit Lancets 33G 2020-05 Yes [id number] 1{each} 1 each by Mikala does not 0-06 does not Seybold apply Misc 00:00: apply - 00 route Externa daily Use l as directed once daily Glucose 2020-05 Yes [id number] 100{eac 100 each Mikala Blood in 0-06 h} by other Seybold vitro Strip 00:00: route 00 daily Blood 2020-05 Yes [id number] Use as Kelse y Glucose 0-06 directed Seybold Monitoring 00:00: to check Suppl 00 blood (Blood sugar up Glucose to three Monitor times System) daily. w/Device does not apply Kit Lancets 33G 2020-05 Yes [id number] 1{each} 1 each by Mikala does not 0-06 does not Seybold apply Misc 00:00: apply 00 route daily Use as directed once daily Glucose 2020-05- No 1{each} 1 each Simin ey Blood 0-04 10-04 daily Seybold (FREESTYLE 09:24: 00:00 LITE) in 30 :00 vitro Strip Tamsulosin 2020-05 Yes .4mg Take 0.4 Edilson sey HCl 0.4 MG 0-04 mg by Seybold oral 08:21: mouth Capsule 11 daily Tadalafil 5 2020-05 Yes 5mg Q24H Take 5 mg K elsey MG oral 0-04 by mouth Seybold Tablet 08:21: daily as 11 needed for erectile dysfunctio semaglutide 2020-05 Yes 1mg Inject 1 Un halina (Ozempic) 1 0-04 mg under ity of mg/dose (4 00:00: the skin Fidencio as mg/3 mL) 00 once a MD pnij week. [facility] semaglutide 2020-05 Yes 1mg Inject 1 Un halina (Ozempic) 1 0-04 mg under ity of mg/dose (4 00:00: the skin Fidencio as mg/3 mL) 00 once a MD pnij week. [facility] semaglutide 2020-05 Yes 1mg Inject 1 Un halina (Ozempic) 1 0-04 mg under ity of mg/dose (4 00:00: the skin Fidencio as mg/3 mL) 00 once a MD pnij week. [facility] semaglutide 2020-05 Yes 1mg Inject 1 Un halina (Ozempic) 1 0-04 mg under ity of mg/dose (4 00:00: the skin Fidencio as mg/3 mL) 00 once a MD pnij week. [facility] semaglutide 2020-05 Yes 1mg Inject 1 Un halina (Ozempic) 1 0-04 mg under ity of mg/dose (4 00:00: the skin Fidencio as mg/3 mL) 00 once a MD pnij week. [facility] Glucose 2020-05 Yes [id number] 1{each} 1 each by Mikala Blood 0-04 other Seybold (FREESTYLE 00:00: route LITE) in 00 daily vitro Strip Glucose 2020-05 Yes [id number] 1{each} 1 each by Mikala Blood 0-04 other Seybold (FREESTYLE 00:00: route - LITE) in daily Externa vitro Strip l Glucose 2020-05 Yes [id number] 1{each} 1 each by Mikala Blood 0-04 other Seybold (FREESTYLE 00:00: route LITE) in daily vitro Strip OZEMPIC (2020-05 Yes [id number] 1mg Inject 1 Mikala mg/dose) 4 0-04 mg into Seybol d mg/3 mL SQ 00:00: the skin Solution 00 once a Pen-Injecto week r Glucose 2020-05 Yes [id number] 1{each} 1 each by Mikala Blood 0-04 other Seybold (FREESTYLE 00:00: route - LITE) in daily Externa vitro Strip l Glucose 2020-05 Yes [id number] 1{each} 1 each by Mikala Blood 0-04 other Seybold (FREESTYLE 00:00: route - LITE) in daily Externa vitro Strip l Glucose 2020-05 Yes [id number] 1{each} 1 each by Mikala Blood 0-04 other Seybold (FREESTYLE 00:00: route LITE) in daily vitro Strip Jardiance Yes TAKE 1 Mikala 25 MG oral 9-25 TABLET (25 Sey bold Tablet 00:00: MG) BY 00 MOUTH DAILY Jardiance 2021- No 25mg Take 25 mg U nivers 25 mg tab 9-25 04-26 by mouth ity o f 00:00: 00:00 daily. [place] [facility]- No INJECT 1 Ke lsey mg/dose) 4 9-16 10-04 MG Seybold mg/3 mL SQ 00:00: 00:00 SUBCUTANEO Solution 00 :00 USLY Pen-Injecto WEEKLY r Losartan Yes 100mg Take 100 Simin ey Potassium 9-03 mg by Seybold 100 MG oral 00:00: mouth Tablet 00 daily tadalafil 5 Yes 5 mg = 1 Me moria MG Oral 6-28 tab, PO, l Tablet 14:33: Daily, Preet [Cialis] 00 Benign Prostatic Hyperplasi a, # 30 tab, 11 Refill(s), Pharmacy: [facility] 149, 195.58, cm, 11/17/20 8:50:00 CDT, Height, 127.727, kg, 11/17/20 8:50:00 CDT, Weight Tamsulosin 2020-0 Yes 0.4 mg = 1 M emoria hydrochlori 6-28 cap, PO, l de 0.4 MG 14:33: Daily, # Herm miguelina Oral 00 30 cap, 11 Capsule Refill(s), [Flomax] Pharmacy: [facility] 149, 195.58, cm, 11/17/20 8:50:00 CDT, Height, 127.727, kg, 11/17/20 8:50:00 CDT, Weight tadalafil 5 2020-0 Yes 5 mg = 1 Me moria MG Oral 6-28 tab, PO, l Tablet 14:33: Daily, Preet [Cialis] 00 Benign Prostatic Hyperplasi a, # 30 tab, 11 Refill(s), Pharm[facility]: [facility], 195.58, cm, 11/17/20 8:50:00 CDT, Height, 127.727, kg, 11/17/20 8:50:00 CDT, Weight Tamsulosin 2020-0 Yes 0.4 mg = 1 M emoria hydrochlori 6-28 cap, PO, l de 0.4 MG 14:33: Daily, # Herm miguelina Oral 00 30 cap, 11 Capsule Refill(s), [Flomax] Pharmacy: [facility], 195.58, cm, 11/17/20 8:50:00 CDT, Height, 127.727, kg, 11/17/20 8:50:00 CDT, Weight sildenafil 2020-0 Yes 0.5 - 1 Amgdy kacey 100 MG Oral 6-28 tab, PO, l Tablet 14:32: Daily, PRN Sejal nn [Viagra] 00 for erectile dysfunctio n, Take 30 minutes prior to intercours e, # 10 tab, 3 Refill(s), Pharmacy: [facility] 149, 195.58, cm, 11/17/20 8:50:00 CDT, Height, 127.727, kg, 11/17/20 8:50:00 CDT, Weight sildenafil 2020-0 Yes 0.5 - 1 Magdy kacey 100 MG Oral 6-28 tab, PO, l Tablet 14:32: Daily, PRN Sejal nn [Viagra] 00 for erectile dysfunctio n, Take 30 minutes prior to intercours e, # 10 tab, 3 Refill(s), Pharmacy: [facility] 149, 195.58, cm, 11/17/20 8:50:00 CDT, Height, 127.727, kg, 11/17/20 8:50:00 CDT, Weight Ozempic 2 Yes 0 Memoria mg/1.5 mL 6-28 Refill(s) l (0.25 mg or 14:01: Joe n 0.5 mg 00 dose) subcutaneou s solution losartan 0 Yes 0 Memoria 100 mg oral 6-28 Refill(s) l tablet 14:01: Preet Ozempic 2 0 Yes 0 Memoria mg/1.5 mL 6-28 Refill(s) l (0.25 mg or 14:01: Joe n 0.5 mg 00 dose) subcutaneou s solution losartan 0 Yes 0 Memoria 100 mg oral 6-28 Refill(s) l tablet 14:01: Preet losartan 2020-0 Yes 50mg Take 50 mg Uni vers (COZAAR) 6-28 by mouth ity of 100 mg 00:00: twice [place] tablet 00 daily. MD Donald acosta [facility] losartan 2020-0 Yes 50mg Take 50 mg Uni vers (COZAAR) 6-28 by mouth ity of 100 mg 00:00: twice [place] tablet 00 daily. MD Donald acosta [facility] losartan 2020-0 Yes 50mg Take 50 mg Uni vers (COZAAR) 6-28 by mouth ity of 100 mg 00:00: twice [place] tablet 00 daily. MD Donald acosta [facility] losartan 2020-0 Yes 50mg Take 50 mg Uni vers (COZAAR) 6-28 by mouth ity of 100 mg 00:00: twice [place] tablet 00 [facility]0 Yes 50mg Take 50 mg Uni vers (COZAAR) 6-28 by mouth ity of 100 mg 00:00: twice [place] tablet 00 [facility]. [facility] Sertraline 2020-0 Yes 100mg Take 1 Simin ey HCl 100 MG 6-18 tablet Seybold oral Tablet 00:00: (100 mg 00 total) by mouth daily tadalafil 5 2020-0 Yes 5 mg = 1 Me moria MG Oral 4-19 tab, PO, l Tablet 17:44: Daily, Preet [Cialis] 00 Benign Prostatic Hyperplasi a, # 30 tab, 11 Refill(s), Pharmacy: [facility] 149, 195.58, cm, 09/08/20 9:12:00 CDT, Height, 127.727, kg, 09/08/20 9:12:00 CDT, Weight tadalafil 5 2020-0 Yes 5 mg = 1 Me moria MG Oral 4-19 tab, PO, l Tablet 17:44: Daily, Preet [Cialis] Benign Prostatic Hyperplasi a, # 30 tab, 11 Refill(s), Pharmacy: [facility] 149, 195.58, cm, 09/08/20 9:12:00 CDT, Height, 127.727, kg, 09/08/20 9:12:00 CDT, Weight tadalafil 2020-0 Yes 5mg Take 1 [facility]iver [facility] (CIALIS) 5 4-19 tablet (5 ity of mg tablet 00:00: mg) by [place] 00 mouth daily. [facility] tadalafil 2020-0 Yes 5mg Take 1 Univer s (CIALIS) 5 4-19 tablet (5 ity of mg tablet 00:00: mg) by [place] 00 mouth daily. [facility] tadalafil 2020-0 Yes 5mg Take 1 Univer s (CIALIS) 5 4-19 tablet (5 ity of mg tablet 00:00: mg) by [place] 00 mouth daily. [facility] tadalafil 2020-0 Yes 5mg Take 1 Univer s (CIALIS) 5 4-19 tablet (5 ity of mg tablet 00:00: mg) by Ashtyn spencer MD daily. [facility] tadalafil 2020-0 Yes 5mg Take 1 Univer s (CIALIS) 5 4-19 tablet (5 ity of mg tablet 00:00: mg) by Ashtyn spencer MD daily. [facility] Tamsulosin 2020-0 Yes 0.4 mg = 1 M emoria hydrochlori 3-08 cap, PO, l de 0.4 MG 18:42: Daily, # Herm miguelina Oral 00 30 cap, 3 Capsule Refill(s), [Flomax] Pharmacy: [facility] 149, 195.58, cm, 07/28/20 11:38:00 [employer], Height, 127.727, kg, 07/28/20 11:38:00 [employer], Weight sildenafil 2020-0 Yes 100 mg = 1 M emoria 100 MG Oral 3-08 tab, PO, l Tablet 18:42: Daily, PRN Sejal nn [Viagra] 00 for erectile dysfunctio n, Take 30 minutes prior to intercours e, # 10 tab, 3 Refill(s), [facility], 195.58, cm, 07/28/20 11:38:00 [employer], Height, 127.727, kg, 07/28/20 11:38:00 [employer], Weight Tamsulosin 2020-0 Yes 0.4 mg = 1 M emoria hydrochlori 3-08 cap, PO, l de 0.4 MG 18:42: Daily, # Herm miguelina Oral 00 30 cap, 3 Capsule Refill(s), [Flomax] Pharmacy: [facility] 149, 195.58, cm, 07/28/20 11:38:00 [employer], Height, 127.727, kg, 07/28/20 11:38:00 [employer], Weight sildenafil 1-0 Yes 100 mg = 1 M emoria 100 MG Oral 3-08 tab, PO, l Tablet 18:42: Daily, PRN Sejal nn [Viagra] 00 for erectile dysfunctio n, Take 30 minutes prior to intercours e, # 10 tab, 3 Refill(s), Pharmacy: [facility] 149, 195.58, cm, 07/28/20 11:38:00 [employer], Height, 127.727, kg, 07/28/20 11:38:00 [employer], Weight vardenafil 2020-0 No 20 mg = 1 Me moria 20 mg oral 3-08 tab, PO, l tablet 17:55: Daily, PRN Sejal nn 00 for erectile dysfunctio n, 0 Refill(s) vardenafil 2020-0 No 20 mg = 1 Me moria 20 mg oral 3-08 tab, PO, l tablet 17:55: Daily, PRN Sejal nn 00 for erectile dysfunctio n, 0 Refill(s) sertraline 2020-0 Yes 0 Memoria 100 mg oral 3-08 Refill(s) l tablet 17:54: [place] 00 MetFORMIN 2020-0 Yes 0 Memoria (Eqv-Glucop 3-08 Refill(s) l [place] XR) 17:54: [place] 500 mg oral 00 tablet, extended release lisinopril 2020-0 Yes 0 Memoria 20 mg oral 3-08 Refill(s) l tablet 17:54: Preet 00 Phentermine 2020-0 Yes 0 Memori a Hydrochlori 3-08 Refill(s) l de 37.5 MG 17:54: [place] Oral Tablet 00 empaglifloz 2020-0 Yes 0 Memori a in 25 MG 3-08 Refill(s) l Oral Tablet 17:54: Joe n [Jardiance] 00 sertraline 2020-0 Yes 0 Memoria 100 mg oral 3-08 Refill(s) l tablet 17:54: [place] 00 MetFORMIN 2020-0 Yes 0 Memoria (Eqv-Glucop 3-08 Refill(s) l [place] XR) 17:54: Preet 500 mg oral 00 tablet, extended release lisinopril 2020-0 Yes 0 Memoria 20 mg oral 3-08 Refill(s) l tablet 17:54: Preet 00 Phentermine 2020-0 Yes 0 Memori a Hydrochlori 3-08 Refill(s) l de 37.5 MG 17:54: [place] Oral Tablet 00 empaglifloz 2020-0 Yes 0 Memori a in 25 MG 3-08 Refill(s) l Oral Tablet 17:54: Joe n [Jardiance] 00 sertraline 2020-0 Yes 100mg Take 1 Univ ers (ZOLOFT) 3-08 tablet ity of 100 mg 00:00: (100 mg) [place] tablet 00 by mouth MD daily. [facility] sertraline 0 Yes 100mg Take 1 Univ ers (ZOLOFT) 3-08 tablet ity of 100 mg 00:00: (100 mg) [place] tablet 00 by mouth MD daily. [facility] sertraline Yes 100mg Take 1 Univ ers (ZOLOFT) 3-08 tablet ity of 100 mg 00:00: (100 mg) [place] tablet 00 by mouth MD daily. [facility] sertraline Yes 100mg Take 1 Univ ers (ZOLOFT) 3-08 tablet ity of 100 mg 00:00: (100 mg) [place] tablet 00 by mouth MD daily. [facility] sertraline Yes 100mg Take 1 Univ ers (ZOLOFT) 3-08 tablet ity of 100 mg 00:00: (100 mg) [place] tablet 00 by mouth MD daily. [facility] sildenafil 202- No 1{tbl} Take 1 Un halina (VIAGRA) 3-08 04-26 tablet by ity o f 100 MG 00:00: 00:00 mouth as [place] tablet 00 :00 needed. [facility] tamsulosin 2021- No .4mg Take 0.4 Un halina (FLOMAX) 3-08 04-06 mg by ity of 0.4 mg 24 00:00: 00:00 mouth [place] hr capsule 00 :00 every MD other day. [facility] fluticasone 0 Yes as needed. Univers propionate 2-08 ity of (FLONASE) 00:00: [place] 50 00 MD mcg/spray Anderso nasal spray [facility] fluticasone 0 Yes as needed. Univers propionate 2-08 ity of (FLONASE) 00:00: [place] 50 00 MD mcg/spray Anderso nasal spray [facility] fluticasone 0 Yes as needed. Univers propionate 2-08 ity of (FLONASE) 00:00: [place] 50 00 MD mcg/spray Anderso nasal spray [facility] fluticasone 2021-0 Yes as needed. Univers propionate 2-08 ity of (FLONASE) 00:00: [place] 50 00 mcg/spray Anderso nasal spray n [facility] fluticasone Yes as needed. Univers propionate 2-08 ity of (FLONASE) 00:00: [place] 50 00 MD mcg/spray Anderso nasal spray n [facility] diclofenac diclofenac No diclofenac Linda 1 % topical 1 % topical 1 % O rthope gel 3 G BY gel 3 G BY topical dic OTHER ROUTE OTHER ROUTE gel 3 G BY Sports DAILY APPLY DAILY APPLY OTHER Medicin TO TO ROUTE e BILATERAL BILATERAL DAILY FOOT AND FOOT AND APPLY TO LEFT LEFT BILATERAL SHOULDER SHOULDER FOOT AND LEFT SHOULDER FreeStyle FreeStyle No FreeStyle Linda Lite Strips Lite Strips Lite O rthope USE ONCE USE ONCE Strips USE d ic DAILY DAILY ONCE DAILY Sports Medicin e gabapentin gabapentin No gabapentin Linda 300 mg 300 mg 300 mg [facility] capsule capsule capsule dic TAKE 1 TAKE 1 TAKE 1 Sports CAPSULE CAPSULE CAPSULE Medici n (300 MG (300 MG (300 MG e TOTAL) BY TOTAL) BY TOTAL) BY MOUTH 3 MOUTH 3 MOUTH 3 TIMES DAILY TIMES DAILY TIMES NEEDED NEEDED DAILY NEEDED Jardiance Jardiance No Jardiance Linda 25 mg 25 mg 25 mg [facility] tablet TAKE tablet TAKE tablet dic 1 TABLET BY 1 TABLET BY TAKE 1 Sports MOUTH EVERY MOUTH EVERY TABLET BY Medicin DAY DAY MOUTH e EVERY DAY losartan 50 losartan 50 No losartan Linda mg tablet mg tablet 50 mg Orth [facility]pe TAKE 1 TAKE 1 tablet dic TABLET BY TABLET BY TAKE 1 Spo rts MOUTH EVERY MOUTH EVERY TABLET BY Medicin DAY DAY MOUTH e EVERY DAY mirtazapine mirtazapine No mirtazapin Linda 15 mg 15 mg e 15 mg [facility] tablet TAKE tablet TAKE tablet dic 1/2-1 1/2-1 TAKE 1/2-1 Sports TABLET BY TABLET BY TABLET BY Medicin MOUTH AT MOUTH AT MOUTH AT e BEDTIME BEDTIME BEDTIME DIRECTED DIRECTED DIRECTED FOR SLEEP, FOR SLEEP, FOR SLEEP, MOOD, AND MOOD, AND MOOD, AND APPETITE APPETITE APPETITE Ozempic 1 Ozempic 1 No Ozempic 1 Linda mg/dose (4 mg/dose (4 mg/dose (4 [facility] mg/3 mL) mg/3 mL) mg/3 mL) dic subcutaneou subcutaneou subcutaneo Sports s pen s pen us pen Medicin injector injector injector e INJECT 1MG INJECT 1MG INJECT 1MG INTO THE INTO THE INTO THE SKIN ONCE A SKIN ONCE A SKIN ONCE WEEK WEEK A WEEK risperidone risperidone No risperidon Linda 1 mg tablet 1 mg tablet e 1 mg [facility] TAKE 1 TAKE 1 tablet dic TABLET BY TABLET BY TAKE 1 Spo rts MOUTH MOUTH TABLET BY Medicin EVERYDAY AT EVERYDAY AT MOUTH e BEDTIME BEDTIME EVERYDAY AT BEDTIME rosuvastati rosuvastati No rosuvastat Linda n 10 mg n 10 mg in 10 mg Ortho pe tablet TAKE tablet TAKE tablet dic 1 TABLET BY 1 TABLET BY TAKE 1 Sports MOUTH MOUTH TABLET BY Medicin EVERYDAY AT EVERYDAY AT MOUTH e BEDTIME BEDTIME EVERYDAY AT BEDTIME sertraline sertraline No sertraline Linda 100 mg 100 mg 100 mg [facility] tablet TAKE tablet TAKE tablet dic 1 TABLET BY 1 TABLET BY TAKE 1 Sports MOUTH EVERY MOUTH EVERY TABLET BY Medicin DAY DAY MOUTH e EVERY DAY sildenafil sildenafil No sildenafil Linda 100 mg 100 mg 100 mg [facility] tablet tablet tablet dic PLEASE SEE PLEASE SEE PLEASE SEE Sports ATTACHED ATTACHED ATTACHED Med icin FOR FOR FOR e DETAILED DETAILED DETAILED DIRECTIONS DIRECTIONS DIRECTIONS tadalafil 5 tadalafil 5 No tadalafil Linda mg tablet mg tablet 5 mg Ortho pe TAKE 1 TAKE 1 tablet dic TABLET BY TABLET BY TAKE 1 Spo rts MOUTH EVERY MOUTH EVERY TABLET BY Medicin DAY DAY MOUTH e DIRECTED DIRECTED EVERY DAY DIRECTED testosteron testosteron No testostero Linda e cypionate e cypionate ne O rthope 200 mg/mL 200 mg/mL cypionate dic intramuscul intramuscul 200 mg/mL Sports ar oil ar oil intramuscu Medic in INJECT INJECT lar oil e 0.75ML 0.75ML INJECT INTRAMUSCUL INTRAMUSCUL 0.75ML AR EVERY 7 AR EVERY 7 INTRAMUSCU DAYS DAYS LAR EVERY 7 DAYS tramadol 50 tramadol 50 No tramadol Linda mg tablet mg tablet 50 mg Orth ope TAKE 1 TAKE 1 tablet dic TABLET (50 TABLET (50 TAKE 1 S ports MG) BY MG) BY TABLET (50 Medic in MOUTH 2 MOUTH 2 MG) BY e (TWO) TIMES (TWO) TIMES MOUTH 2 A DAY A DAY (TWO) NEEDED FOR NEEDED FOR TIMES A MODERATE MODERATE DAY PAIN PAIN NEEDED FOR MODERATE PAIN albuterol albuterol No albuterol Linda sulfate HFA sulfate HFA sulfate [facility] 90 90 HFA 90 dic mcg/actuati mcg/actuati mcg/actuat Sports on aerosol on aerosol ion Med icin inhaler inhaler aerosol e INHALE 2 INHALE 2 inhaler PUFFS BY PUFFS BY INHALE 2 MOUTH EVERY MOUTH EVERY PUFFS BY 6 HOURS 6 HOURS MOUTH NEEDED FOR NEEDED FOR EVERY 6 WHEEZING WHEEZING HOURS NEEDED FOR WHEEZING albuterol albuterol No albuterol Linda sulfate HFA sulfate HFA sulfate [facility] 90 90 HFA 90 dic mcg/actuati mcg/actuati mcg/actuat Sports on aerosol on aerosol ion Med icin inhaler inhaler aerosol e TAKE 2 TAKE 2 inhaler PUFFS BY PUFFS BY TAKE 2 MOUTH EVERY MOUTH EVERY PUFFS BY 6 HOURS 6 HOURS MOUTH NEEDED FOR NEEDED FOR EVERY 6 WHEEZE WHEEZE HOURS NEEDED FOR WHEEZE diclofenac diclofenac No diclofenac Linda 1 % topical 1 % topical 1 % O rthope gel 3 G BY gel 3 G BY topical dic OTHER ROUTE OTHER ROUTE gel 3 G BY Sports DAILY APPLY DAILY APPLY OTHER Medicin TO TO ROUTE e BILATERAL BILATERAL DAILY FOOT AND FOOT AND APPLY TO LEFT LEFT BILATERAL SHOULDER SHOULDER FOOT AND LEFT SHOULDER diclofenac diclofenac No diclofenac Linda 1 % topical 1 % topical 1 % O rthope gel 3 G BY gel 3 G BY topical dic OTHER ROUTE OTHER ROUTE gel 3 G BY Sports DAILY APPLY DAILY APPLY OTHER Medicin TO TO ROUTE e BILATERAL BILATERAL DAILY FOOT AND FOOT AND APPLY TO LEFT LEFT BILATERAL SHOULDER SHOULDER FOOT AND LEFT SHOULDER FreeStyle FreeStyle No FreeStyle Linda Lite Strips Lite Strips Lite O rthope USE ONCE USE ONCE Strips USE d ic DAILY DAILY ONCE DAILY Sports Medicin e gabapentin gabapentin No gabapentin Linda 300 mg 300 mg 300 mg [facility] capsule capsule capsule dic TAKE 1 TAKE 1 TAKE 1 Sports CAPSULE CAPSULE CAPSULE Medici n (300 MG (300 MG (300 MG e TOTAL) BY TOTAL) BY TOTAL) BY MOUTH 3 MOUTH 3 MOUTH 3 TIMES DAILY TIMES DAILY TIMES NEEDED NEEDED DAILY NEEDED Jardiance Jardiance No Jardiance Linda 25 mg 25 mg 25 mg [facility] tablet TAKE tablet TAKE tablet dic 1 TABLET BY 1 TABLET BY TAKE 1 Sports MOUTH EVERY MOUTH EVERY TABLET BY Medicin DAY DAY MOUTH e EVERY DAY losartan 50 losartan 50 No losartan Linda mg tablet mg tablet 50 mg Orth ope TAKE 1 TAKE 1 tablet dic TABLET BY TABLET BY TAKE 1 Spo rts MOUTH EVERY MOUTH EVERY TABLET BY Medicin DAY DAY MOUTH e EVERY DAY mirtazapine mirtazapine No mirtazapin Linda 15 mg 15 mg e 15 mg [facility] tablet TAKE tablet TAKE tablet dic /2-1 1/2-1 TAKE 12- Sports TABLET BY TABLET BY TABLET BY Medicin MOUTH AT MOUTH AT MOUTH AT e BEDTIME BEDTIME BEDTIME DIRECTED DIRECTED DIRECTED FOR SLEEP, FOR SLEEP, FOR SLEEP, MOOD, AND MOOD, AND MOOD, AND APPETITE APPETITE APPETITE Ozempic 1 Ozempic 1 No Ozempic 1 Linda mg/dose (4 mg/dose (4 mg/dose (4 [facility] mg/3 mL) mg/3 mL) mg/3 mL) dic subcutaneou subcutaneou subcutaneo Sports s pen s pen us pen Medicin injector injector injector e INJECT 1MG INJECT 1MG INJECT 1MG INTO THE INTO THE INTO THE SKIN ONCE A SKIN ONCE A SKIN ONCE WEEK WEEK A WEEK risperidone risperidone No risperidon Linda 1 mg tablet 1 mg tablet e 1 mg [facility] TAKE 1 TAKE 1 tablet dic TABLET BY TABLET BY TAKE 1 Spo rts MOUTH MOUTH TABLET BY Medicin EVERYDAY AT EVERYDAY AT MOUTH e BEDTIME BEDTIME EVERYDAY AT BEDTIME rosuvastati rosuvastati No rosuvastat Linda n 10 mg n 10 mg in 10 mg Ortho pe tablet TAKE tablet TAKE tablet dic 1 TABLET BY 1 TABLET BY TAKE 1 Sports MOUTH MOUTH TABLET BY Medicin EVERYDAY AT EVERYDAY AT MOUTH e BEDTIME BEDTIME EVERYDAY AT BEDTIME sertraline sertraline No sertraline Linda 100 mg 100 mg 100 mg [facility] tablet TAKE tablet TAKE tablet dic 1 TABLET BY 1 TABLET BY TAKE 1 Sports MOUTH EVERY MOUTH EVERY TABLET BY Medicin DAY DAY MOUTH e EVERY DAY sildenafil sildenafil No sildenafil Linda 100 mg 100 mg 100 mg [facility] tablet tablet tablet dic PLEASE SEE PLEASE SEE PLEASE SEE Sports ATTACHED ATTACHED ATTACHED Med icin FOR FOR FOR e DETAILED DETAILED DETAILED DIRECTIONS DIRECTIONS DIRECTIONS FreeStyle FreeStyle No FreeStyle Linda Lite Strips Lite Strips Lite O rthope USE ONCE USE ONCE Strips USE d ic DAILY DAILY ONCE DAILY Sports Medicin e tadalafil 5 tadalafil 5 No tadalafil Linda mg tablet mg tablet 5 mg Ortho pe TAKE 1 TAKE 1 tablet dic TABLET BY TABLET BY TAKE 1 Spo rts MOUTH EVERY MOUTH EVERY TABLET BY Medicin DAY DAY MOUTH e DIRECTED DIRECTED EVERY DAY DIRECTED testosteron testosteron No testostero Linda e cypionate e cypionate ne O [facility]ope 200 mg/mL 200 mg/mL cypionate dic intramuscul intramuscul 200 mg/mL Sports ar oil ar oil intramuscu Medic in INJECT INJECT lar oil e 0.75ML 0.75ML INJECT INTRAMUSCUL INTRAMUSCUL 0.75ML AR EVERY 7 AR EVERY 7 INTRAMUSCU DAYS DAYS LAR EVERY 7 DAYS tramadol 50 tramadol 50 No tramadol Linda mg tablet mg tablet 50 mg Orth ope TAKE 1 TAKE 1 tablet dic TABLET (50 TABLET (50 TAKE 1 S ports MG) BY MG) BY TABLET (50 Medic in MOUTH 2 MOUTH 2 MG) BY e (TWO) TIMES (TWO) TIMES MOUTH 2 A DAY A DAY (TWO) NEEDED FOR NEEDED FOR TIMES A MODERATE MODERATE DAY PAIN PAIN NEEDED FOR MODERATE PAIN albuterol albuterol No albuterol Linda sulfate HFA sulfate HFA sulfate [facility] 90 90 HFA 90 dic mcg/actuati mcg/actuati mcg/actuat Sports on aerosol on aerosol ion Med icin inhaler inhaler aerosol e TAKE 2 TAKE 2 inhaler PUFFS BY PUFFS BY TAKE 2 MOUTH EVERY MOUTH EVERY PUFFS BY 6 HOURS 6 HOURS MOUTH NEEDED FOR NEEDED FOR EVERY 6 WHEEZE WHEEZE HOURS NEEDED FOR WHEEZE diclofenac diclofenac No diclofenac Linda 1 % topical 1 % topical 1 % O rthope gel 3 G BY gel 3 G BY topical dic OTHER ROUTE OTHER ROUTE gel 3 G BY Sports DAILY APPLY DAILY APPLY OTHER Medicin TO TO ROUTE e BILATERAL BILATERAL DAILY FOOT AND FOOT AND APPLY TO LEFT LEFT BILATERAL SHOULDER SHOULDER FOOT AND LEFT SHOULDER FreeStyle FreeStyle No FreeStyle Linda Lite Strips Lite Strips Lite O rthope USE ONCE USE ONCE Strips USE d ic DAILY DAILY ONCE DAILY Sports Medicin e gabapentin gabapentin No gabapentin Linda 300 mg 300 mg 300 mg [facility] capsule capsule capsule dic TAKE 1 TAKE 1 TAKE 1 Sports CAPSULE CAPSULE CAPSULE Medici n (300 MG (300 MG (300 MG e TOTAL) BY TOTAL) BY TOTAL) BY MOUTH 3 MOUTH 3 MOUTH 3 TIMES DAILY TIMES DAILY TIMES NEEDED NEEDED DAILY NEEDED gabapentin gabapentin No gabapentin Linda 300 mg 300 mg 300 mg [facility] capsule capsule capsule dic TAKE 1 TAKE 1 TAKE 1 Sports CAPSULE CAPSULE CAPSULE Medici n (300 MG (300 MG (300 MG e TOTAL) BY TOTAL) BY TOTAL) BY MOUTH 3 MOUTH 3 MOUTH 3 TIMES DAILY TIMES DAILY TIMES NEEDED NEEDED DAILY NEEDED Jardiance Jardiance No Jardiance Linda 25 mg 25 mg 25 mg [facility] tablet TAKE tablet TAKE tablet dic 1 TABLET BY 1 TABLET BY TAKE 1 Sports MOUTH EVERY MOUTH EVERY TABLET BY Medicin DAY DAY MOUTH e EVERY DAY losartan 50 losartan 50 No losartan Linda mg tablet mg tablet 50 mg Orth ope TAKE 1 TAKE 1 tablet dic TABLET BY TABLET BY TAKE 1 Spo rts MOUTH EVERY MOUTH EVERY TABLET BY Medicin DAY DAY MOUTH e EVERY DAY mirtazapine mirtazapine No mirtazapin Linda 15 mg 15 mg e 15 mg [facility] tablet TAKE tablet TAKE tablet dic 2-2- TAKE 2- Sports TABLET BY TABLET BY TABLET BY Medicin MOUTH AT MOUTH AT MOUTH AT e BEDTIME BEDTIME BEDTIME DIRECTED DIRECTED DIRECTED FOR SLEEP, FOR SLEEP, FOR SLEEP, MOOD, AND MOOD, AND MOOD, AND APPETITE APPETITE APPETITE Ozempic 1 Ozempic 1 No Ozempic 1 Linda mg/dose (4 mg/dose (4 mg/dose (4 [facility] mg/3 mL) mg/3 mL) mg/3 mL) dic subcutaneou subcutaneou subcutaneo Sports s pen s pen us pen Medicin injector injector injector e INJECT 1MG INJECT 1MG INJECT 1MG INTO THE INTO THE INTO THE SKIN ONCE A SKIN ONCE A SKIN ONCE WEEK WEEK A WEEK risperidone risperidone No risperidon Linda 1 mg tablet 1 mg tablet e 1 mg [facility] TAKE 1 TAKE 1 tablet dic TABLET BY TABLET BY TAKE 1 Spo rts MOUTH MOUTH TABLET BY Medicin EVERYDAY AT EVERYDAY AT MOUTH e BEDTIME BEDTIME EVERYDAY AT BEDTIME rosuvastati rosuvastati No rosuvastat Linda n 10 mg n 10 mg in 10 mg Ortho pe tablet TAKE tablet TAKE tablet dic 1 TABLET BY 1 TABLET BY TAKE 1 Sports MOUTH MOUTH TABLET BY Medicin EVERYDAY AT EVERYDAY AT MOUTH e BEDTIME BEDTIME EVERYDAY AT BEDTIME sertraline sertraline No sertraline Linda 100 mg 100 mg 100 mg [facility] tablet TAKE tablet TAKE tablet dic 1 TABLET BY 1 TABLET BY TAKE 1 Sports MOUTH EVERY MOUTH EVERY TABLET BY Medicin DAY DAY MOUTH e EVERY DAY sildenafil sildenafil No sildenafil Linda 100 mg 100 mg 100 mg [facility] tablet tablet tablet dic PLEASE SEE PLEASE SEE PLEASE SEE Sports ATTACHED ATTACHED ATTACHED Med icin FOR FOR FOR e DETAILED DETAILED DETAILED DIRECTIONS DIRECTIONS DIRECTIONS tadalafil 5 tadalafil 5 No tadalafil Linda mg tablet mg tablet 5 mg Ortho pe TAKE 1 TAKE 1 tablet dic TABLET BY TABLET BY TAKE 1 Spo rts MOUTH EVERY MOUTH EVERY TABLET BY Medicin DAY DAY MOUTH e DIRECTED DIRECTED EVERY DAY DIRECTED Jardiance Jardiance No Jardiance Linda 25 mg 25 mg 25 mg [facility] tablet TAKE tablet TAKE tablet dic 1 TABLET BY 1 TABLET BY TAKE 1 Sports MOUTH EVERY MOUTH EVERY TABLET BY Medicin DAY DAY MOUTH e EVERY DAY testosteron testosteron No testostero Linda e cypionate e cypionate ne [facility] 200 mg/mL 200 mg/mL cypionate dic intramuscul intramuscul 200 mg/mL Sports ar oil ar oil intramuscu Medic in INJECT INJECT lar oil e 0.75ML 0.75ML INJECT INTRAMUSCUL INTRAMUSCUL 0.75ML AR EVERY 7 AR EVERY 7 INTRAMUSCU DAYS DAYS LAR EVERY 7 DAYS tramadol 50 tramadol 50 No tramadol Linda mg tablet mg tablet 50 mg Orth [facility]pe TAKE 1 TAKE 1 tablet dic TABLET (50 TABLET (50 TAKE 1 S ports MG) BY MG) BY TABLET (50 Medic in MOUTH 2 MOUTH 2 MG) BY e (TWO) TIMES (TWO) TIMES MOUTH 2 A DAY A DAY (TWO) NEEDED FOR NEEDED FOR TIMES A MODERATE MODERATE DAY PAIN PAIN NEEDED FOR MODERATE PAIN albuterol albuterol No albuterol Linda sulfate HFA sulfate HFA sulfate [facility] 90 90 HFA 90 dic mcg/actuati mcg/actuati mcg/actuat Sports on aerosol on aerosol ion Med icin inhaler inhaler aerosol e TAKE 2 TAKE 2 inhaler PUFFS BY PUFFS BY TAKE 2 MOUTH EVERY MOUTH EVERY PUFFS BY 6 HOURS 6 HOURS MOUTH NEEDED FOR NEEDED FOR EVERY 6 WHEEZE WHEEZE HOURS NEEDED FOR WHEEZE losartan 50 losartan 50 No losartan Linda mg tablet mg tablet 50 mg [facility] TAKE 1 TAKE 1 tablet dic TABLET BY TABLET BY TAKE 1 Spo rts MOUTH EVERY MOUTH EVERY TABLET BY Medicin DAY DAY MOUTH e EVERY DAY diclofenac diclofenac No diclofenac Linda 1 % topical 1 % topical 1 % O rthope gel 3 G BY gel 3 G BY topical dic OTHER ROUTE OTHER ROUTE gel 3 G BY Sports DAILY APPLY DAILY APPLY OTHER Medicin TO TO ROUTE e BILATERAL BILATERAL DAILY FOOT AND FOOT AND APPLY TO LEFT LEFT BILATERAL SHOULDER SHOULDER FOOT AND LEFT SHOULDER FreeStyle FreeStyle No FreeStyle Linda Lite Strips Lite Strips Lite O rthope USE ONCE USE ONCE Strips USE d ic DAILY DAILY ONCE DAILY Sports Medicin e gabapentin gabapentin No gabapentin Linda 300 mg 300 mg 300 mg [facility] capsule capsule capsule dic TAKE 1 TAKE 1 TAKE 1 Sports CAPSULE CAPSULE CAPSULE Medici n (300 MG (300 MG (300 MG e TOTAL) BY TOTAL) BY TOTAL) BY MOUTH 3 MOUTH 3 MOUTH 3 TIMES DAILY TIMES DAILY TIMES NEEDED NEEDED DAILY NEEDED Jardiance Jardiance No Jardiance Linda 25 mg 25 mg 25 mg [facility] tablet TAKE tablet TAKE tablet dic 1 TABLET BY 1 TABLET BY TAKE 1 Sports MOUTH EVERY MOUTH EVERY TABLET BY Medicin DAY DAY MOUTH e EVERY DAY losartan 50 losartan 50 No losartan Linda mg tablet mg tablet 50 mg Orth [facility]pe TAKE 1 TAKE 1 tablet dic TABLET BY TABLET BY TAKE 1 Spo rts MOUTH EVERY MOUTH EVERY TABLET BY Medicin DAY DAY MOUTH e EVERY DAY mirtazapine mirtazapine No mirtazapin Linda 15 mg 15 mg e 15 mg [facility] tablet TAKE tablet TAKE tablet dic 1/2-1 1/2-1 TAKE 1/2-1 Sports TABLET BY TABLET BY TABLET BY Medicin MOUTH AT MOUTH AT MOUTH AT e BEDTIME BEDTIME BEDTIME DIRECTED DIRECTED DIRECTED FOR SLEEP, FOR SLEEP, FOR SLEEP, MOOD, AND MOOD, AND MOOD, AND APPETITE APPETITE APPETITE Ozempic 1 Ozempic 1 No Ozempic 1 Linda mg/dose (4 mg/dose (4 mg/dose (4 [facility] mg/3 mL) mg/3 mL) mg/3 mL) dic subcutaneou subcutaneou subcutaneo Sports s pen s pen us pen Medicin injector injector injector e INJECT 1MG INJECT 1MG INJECT 1MG INTO THE INTO THE INTO THE SKIN ONCE A SKIN ONCE A SKIN ONCE WEEK WEEK A WEEK risperidone risperidone No risperidon Linda 1 mg tablet 1 mg tablet e 1 mg [facility] TAKE 1 TAKE 1 tablet dic TABLET BY TABLET BY TAKE 1 Spo rts MOUTH MOUTH TABLET BY Medicin EVERYDAY AT EVERYDAY AT MOUTH e BEDTIME BEDTIME EVERYDAY AT BEDTIME rosuvastati rosuvastati No rosuvastat Linda n 10 mg n 10 mg in 10 mg Orth[facility] pe tablet TAKE tablet TAKE tablet dic 1 TABLET BY 1 TABLET BY TAKE 1 Sports MOUTH MOUTH TABLET BY Medicin EVERYDAY AT EVERYDAY AT MOUTH e BEDTIME BEDTIME EVERYDAY AT BEDTIME sertraline sertraline No sertraline Linda 100 mg 100 mg 100 mg [facility] tablet TAKE tablet TAKE tablet dic 1 TABLET BY 1 TABLET BY TAKE 1 Sports MOUTH EVERY MOUTH EVERY TABLET BY Medicin DAY DAY MOUTH e EVERY DAY mirtazapine mirtazapine No mirtazapin Linda 15 mg 15 mg e 15 mg [facility] tablet TAKE tablet TAKE tablet dic 2-1 2-1 TAKE 12- Sports TABLET BY TABLET BY TABLET BY Medicin MOUTH AT MOUTH AT MOUTH AT e BEDTIME BEDTIME BEDTIME DIRECTED DIRECTED DIRECTED FOR SLEEP, FOR SLEEP, FOR SLEEP, MOOD, AND MOOD, AND MOOD, AND APPETITE APPETITE APPETITE sildenafil sildenafil No sildenafil Linda 100 mg 100 mg 100 mg [facility] tablet tablet tablet dic PLEASE SEE PLEASE SEE PLEASE SEE Sports ATTACHED ATTACHED ATTACHED Med icin FOR FOR FOR e DETAILED DETAILED DETAILED DIRECTIONS DIRECTIONS DIRECTIONS tadalafil 5 tadalafil 5 No tadalafil Linda mg tablet mg tablet 5 mg Ortho pe TAKE 1 TAKE 1 tablet dic TABLET BY TABLET BY TAKE 1 Spo rts MOUTH EVERY MOUTH EVERY TABLET BY Medicin DAY DAY MOUTH e DIRECTED DIRECTED EVERY DAY DIRECTED testosteron testosteron No testostero Linda e cypionate e cypionate ne [facility] 200 mg/mL 200 mg/mL cypionate dic intramuscul intramuscul 200 mg/mL Sports ar oil ar oil intramuscu Medic in INJECT INJECT lar oil e 0.75ML 0.75ML INJECT INTRAMUSCUL INTRAMUSCUL 0.75ML AR EVERY 7 AR EVERY 7 INTRAMUSCU DAYS DAYS LAR EVERY 7 DAYS tramadol 50 tramadol 50 No tramadol Linda mg tablet mg tablet 50 mg Orth [facility]pe TAKE 1 TAKE 1 tablet dic TABLET (50 TABLET (50 TAKE 1 S ports MG) BY MG) BY TABLET (50 Medic in MOUTH 2 MOUTH 2 MG) BY e (TWO) TIMES (TWO) TIMES MOUTH 2 A DAY A DAY (TWO) NEEDED FOR NEEDED FOR TIMES A MODERATE MODERATE DAY PAIN PAIN NEEDED FOR MODERATE PAIN Ozempic 1 Ozempic 1 No Ozempic 1 Linda mg/dose (4 mg/dose (4 mg/dose (4 [facility] mg/3 mL) mg/3 mL) mg/3 mL) dic subcutaneou subcutaneou subcutaneo Sports s pen s pen us pen Medicin injector injector injector e INJECT 1MG INJECT 1MG INJECT 1MG INTO THE INTO THE INTO THE SKIN ONCE A SKIN ONCE A SKIN ONCE WEEK WEEK A WEEK risperidone risperidone No risperidon Linda 1 mg tablet 1 mg tablet e 1 mg [facility] TAKE 1 TAKE 1 tablet dic TABLET BY TABLET BY TAKE 1 Spo rts MOUTH MOUTH TABLET BY Medicin EVERYDAY AT EVERYDAY AT MOUTH e BEDTIME BEDTIME EVERYDAY AT BEDTIME rosuvastati rosuvastati No rosuvastat Linda n 10 mg n 10 mg in 10 mg Ortho pe tablet TAKE tablet TAKE tablet dic 1 TABLET BY 1 TABLET BY TAKE 1 Sports MOUTH MOUTH TABLET BY Medicin EVERYDAY AT EVERYDAY AT MOUTH e BEDTIME BEDTIME EVERYDAY AT BEDTIME sertraline sertraline No sertraline Linda 100 mg 100 mg 100 mg [facility] tablet TAKE tablet TAKE tablet dic 1 TABLET BY 1 TABLET BY TAKE 1 Sports MOUTH EVERY MOUTH EVERY TABLET BY Medicin DAY DAY MOUTH e EVERY DAY sildenafil sildenafil No sildenafil Linda 100 mg 100 mg 100 mg [facility] tablet tablet tablet dic PLEASE SEE PLEASE SEE PLEASE SEE Sports ATTACHED ATTACHED ATTACHED Med icin FOR FOR FOR e DETAILED DETAILED DETAILED DIRECTIONS DIRECTIONS DIRECTIONS tadalafil 5 tadalafil 5 No tadalafil Linda mg tablet mg tablet 5 mg Ortho pe TAKE 1 TAKE 1 tablet dic TABLET BY TABLET BY TAKE 1 Spo rts MOUTH EVERY MOUTH EVERY TABLET BY Medicin DAY DAY MOUTH e DIRECTED DIRECTED EVERY DAY DIRECTED testosteron testosteron No testostero Linda e cypionate e cypionate ne O rthope 200 mg/mL 200 mg/mL cypionate dic intramuscul intramuscul 200 mg/mL Sports ar oil ar oil intramuscu Medic in INJECT INJECT lar oil e 0.75ML 0.75ML INJECT INTRAMUSCUL INTRAMUSCUL 0.75ML AR EVERY 7 AR EVERY 7 INTRAMUSCU DAYS DAYS LAR EVERY 7 DAYS tramadol 50 tramadol 50 No tramadol Linda mg tablet mg tablet 50 mg Orth ope TAKE 1 TAKE 1 tablet dic TABLET (50 TABLET (50 TAKE 1 S ports MG) BY MG) BY TABLET (50 Medic in MOUTH 2 MOUTH 2 MG) BY e (TWO) TIMES (TWO) TIMES MOUTH 2 A DAY A DAY (TWO) NEEDED FOR NEEDED FOR TIMES A MODERATE MODERATE DAY PAIN PAIN NEEDED FOR MODERATE PAIN albuterol albuterol No albuterol Linda sulfate HFA sulfate HFA sulfate [facility] 90 90 HFA 90 dic mcg/actuati mcg/actuati mcg/actuat Sports on aerosol on aerosol ion Med icin inhaler inhaler aerosol e INHALE 2 INHALE 2 inhaler PUFFS BY PUFFS BY INHALE 2 MOUTH EVERY MOUTH EVERY PUFFS BY 6 HOURS 6 HOURS MOUTH NEEDED FOR NEEDED FOR EVERY 6 WHEEZING WHEEZING HOURS NEEDED FOR WHEEZING diclofenac diclofenac No diclofenac Linda 1 % topical 1 % topical 1 % O rthope gel 3 G BY gel 3 G BY topical dic OTHER ROUTE OTHER ROUTE gel 3 G BY Sports DAILY APPLY DAILY APPLY OTHER Medicin TO TO ROUTE e BILATERAL BILATERAL DAILY FOOT AND FOOT AND APPLY TO LEFT LEFT BILATERAL SHOULDER SHOULDER FOOT AND LEFT SHOULDER FreeStyle FreeStyle No FreeStyle Linda Lite Strips Lite Strips Lite O rthope USE ONCE USE ONCE Strips USE d ic DAILY DAILY ONCE DAILY Sports Medicin e gabapentin gabapentin No gabapentin Linda 300 mg 300 mg 300 mg [facility] capsule capsule capsule dic TAKE 1 TAKE 1 TAKE 1 Sports CAPSULE CAPSULE CAPSULE Medici n (300 MG (300 MG (300 MG e TOTAL) BY TOTAL) BY TOTAL) BY MOUTH 3 MOUTH 3 MOUTH 3 TIMES DAILY TIMES DAILY TIMES NEEDED NEEDED DAILY NEEDED Jardiance Jardiance No Jardiance Linda 25 mg 25 mg 25 mg [facility] tablet TAKE tablet TAKE tablet dic 1 TABLET BY 1 TABLET BY TAKE 1 Sports MOUTH EVERY MOUTH EVERY TABLET BY Medicin DAY DAY MOUTH e EVERY DAY losartan 50 losartan 50 No losartan Linda mg tablet mg tablet 50 mg Orth ope TAKE 1 TAKE 1 tablet dic TABLET BY TABLET BY TAKE 1 Spo rts MOUTH EVERY MOUTH EVERY TABLET BY Medicin DAY DAY MOUTH e EVERY DAY mirtazapine mirtazapine No mirtazapin Linda 15 mg 15 mg e 15 mg [facility] tablet TAKE tablet TAKE tablet dic 1/2-1 2-1 TAKE 2- Sports TABLET BY TABLET BY TABLET BY Medicin MOUTH AT MOUTH AT MOUTH AT e BEDTIME BEDTIME BEDTIME DIRECTED DIRECTED DIRECTED FOR SLEEP, FOR SLEEP, FOR SLEEP, MOOD, AND MOOD, AND MOOD, AND APPETITE APPETITE APPETITE Ozempic 1 Ozempic 1 No Ozempic 1 Linda mg/dose (4 mg/dose (4 mg/dose (4 [facility] mg/3 mL) mg/3 mL) mg/3 mL) dic subcutaneou subcutaneou subcutaneo Sports s pen s pen us pen Medicin injector injector injector e INJECT 1MG INJECT 1MG INJECT 1MG INTO THE INTO THE INTO THE SKIN ONCE A SKIN ONCE A SKIN ONCE WEEK WEEK A WEEK risperidone risperidone No risperidon Linda 1 mg tablet 1 mg tablet e 1 mg [facility] TAKE 1 TAKE 1 tablet dic TABLET BY TABLET BY TAKE 1 Spo rts MOUTH MOUTH TABLET BY Medicin EVERYDAY AT EVERYDAY AT MOUTH e BEDTIME BEDTIME EVERYDAY AT BEDTIME rosuvastati rosuvastati No rosuvastat Linda n 10 mg n 10 mg in 10 mg Ortho pe tablet TAKE tablet TAKE tablet dic 1 TABLET BY 1 TABLET BY TAKE 1 Sports MOUTH MOUTH TABLET BY Medicin EVERYDAY AT EVERYDAY AT MOUTH e BEDTIME BEDTIME EVERYDAY AT BEDTIME sertraline sertraline No sertraline Linda 100 mg 100 mg 100 mg [facility] tablet TAKE tablet TAKE tablet dic 1 TABLET BY 1 TABLET BY TAKE 1 Sports MOUTH EVERY MOUTH EVERY TABLET BY Medicin DAY DAY MOUTH e EVERY DAY sildenafil sildenafil No sildenafil Linda 100 mg 100 mg 100 mg [facility] tablet tablet tablet dic PLEASE SEE PLEASE SEE PLEASE SEE Sports ATTACHED ATTACHED ATTACHED Med icin FOR FOR FOR e DETAILED DETAILED DETAILED DIRECTIONS DIRECTIONS DIRECTIONS tadalafil 5 tadalafil 5 No tadalafil Linda mg tablet mg tablet 5 mg Ortho pe TAKE 1 TAKE 1 tablet dic TABLET BY TABLET BY TAKE 1 Spo rts MOUTH EVERY MOUTH EVERY TABLET BY Medicin DAY DAY MOUTH e DIRECTED DIRECTED EVERY DAY DIRECTED testosteron testosteron No testostero Linda e cypionate e cypionate ne O rthope 200 mg/mL 200 mg/mL cypionate dic intramuscul intramuscul 200 mg/mL Sports ar oil ar oil intramuscu Medic in INJECT INJECT lar oil e 0.75ML 0.75ML INJECT INTRAMUSCUL INTRAMUSCUL 0.75ML AR EVERY 7 AR EVERY 7 INTRAMUSCU DAYS DAYS LAR EVERY 7 DAYS tramadol 50 tramadol 50 No tramadol Linda mg tablet mg tablet 50 mg Orth ope TAKE 1 TAKE 1 tablet dic TABLET (50 TABLET (50 TAKE 1 S ports MG) BY MG) BY TABLET (50 Medic in MOUTH 2 MOUTH 2 MG) BY e (TWO) TIMES (TWO) TIMES MOUTH 2 A DAY A DAY (TWO) NEEDED FOR NEEDED FOR TIMES A MODERATE MODERATE DAY PAIN PAIN NEEDED FOR MODERATE PAIN albuterol albuterol No albuterol Linda sulfate HFA sulfate HFA sulfate [facility] 90 90 HFA 90 dic mcg/actuati mcg/actuati mcg/actuat Sports on aerosol on aerosol ion Med icin inhaler inhaler aerosol e INHALE 2 INHALE 2 inhaler PUFFS BY PUFFS BY INHALE 2 MOUTH EVERY MOUTH EVERY PUFFS BY 6 HOURS 6 HOURS MOUTH NEEDED FOR NEEDED FOR EVERY 6 WHEEZING WHEEZING HOURS NEEDED FOR WHEEZING diclofenac diclofenac No diclofenac Linda 1 % topical 1 % topical 1 % O rthope gel 3 G BY gel 3 G BY topical dic OTHER ROUTE OTHER ROUTE gel 3 G BY Sports DAILY APPLY DAILY APPLY OTHER Medicin TO TO ROUTE e BILATERAL BILATERAL DAILY FOOT AND FOOT AND APPLY TO LEFT LEFT BILATERAL SHOULDER SHOULDER FOOT AND LEFT SHOULDER FreeStyle FreeStyle No FreeStyle Linda Lite Strips Lite Strips Lite O rthope USE ONCE USE ONCE Strips USE d ic DAILY DAILY ONCE DAILY Sports Medicin e gabapentin gabapentin No gabapentin Linda 300 mg 300 mg 300 mg [facility] capsule capsule capsule dic TAKE 1 TAKE 1 TAKE 1 Sports CAPSULE CAPSULE CAPSULE Medici n (300 MG (300 MG (300 MG e TOTAL) BY TOTAL) BY TOTAL) BY MOUTH 3 MOUTH 3 MOUTH 3 TIMES DAILY TIMES DAILY TIMES NEEDED NEEDED DAILY NEEDED Jardiance Jardiance No Jardiance Linda 25 mg 25 mg 25 mg [facility] tablet TAKE tablet TAKE tablet dic 1 TABLET BY 1 TABLET BY TAKE 1 Sports MOUTH EVERY MOUTH EVERY TABLET BY Medicin DAY DAY MOUTH e EVERY DAY losartan 50 losartan 50 No losartan Linda mg tablet mg tablet 50 mg Orth ope TAKE 1 TAKE 1 tablet dic TABLET BY TABLET BY TAKE 1 Spo rts MOUTH EVERY MOUTH EVERY TABLET BY Medicin DAY DAY MOUTH e EVERY DAY mirtazapine mirtazapine No mirtazapin Linda 15 mg 15 mg e 15 mg [facility] tablet TAKE tablet TAKE tablet dic /2-1 2-1 TAKE 1/2-1 Sports TABLET BY TABLET BY TABLET BY Medicin MOUTH AT MOUTH AT MOUTH AT e BEDTIME BEDTIME BEDTIME DIRECTED DIRECTED DIRECTED FOR SLEEP, FOR SLEEP, FOR SLEEP, MOOD, AND MOOD, AND MOOD, AND APPETITE APPETITE APPETITE Ozempic 1 Ozempic 1 No Ozempic 1 Linda mg/dose (4 mg/dose (4 mg/dose (4 [facility] mg/3 mL) mg/3 mL) mg/3 mL) dic subcutaneou subcutaneou subcutaneo Sports s pen s pen us pen Medicin injector injector injector e INJECT 1MG INJECT 1MG INJECT 1MG INTO THE INTO THE INTO THE SKIN ONCE A SKIN ONCE A SKIN ONCE WEEK WEEK A WEEK risperidone risperidone No risperidon Linda 1 mg tablet 1 mg tablet e 1 mg [facility] TAKE 1 TAKE 1 tablet dic TABLET BY TABLET BY TAKE 1 Spo rts MOUTH MOUTH TABLET BY Medicin EVERYDAY AT EVERYDAY AT MOUTH e BEDTIME BEDTIME EVERYDAY AT BEDTIME rosuvastati rosuvastati No rosuvastat Linda n 10 mg n 10 mg in 10 mg Ortho pe tablet TAKE tablet TAKE tablet dic 1 TABLET BY 1 TABLET BY TAKE 1 Sports MOUTH MOUTH TABLET BY Medicin EVERYDAY AT EVERYDAY AT MOUTH e BEDTIME BEDTIME EVERYDAY AT BEDTIME sertraline sertraline No sertraline Linda 100 mg 100 mg 100 mg [facility] tablet TAKE tablet TAKE tablet dic 1 TABLET BY 1 TABLET BY TAKE 1 Sports MOUTH EVERY MOUTH EVERY TABLET BY Medicin DAY DAY MOUTH e EVERY DAY sildenafil sildenafil No sildenafil Linda 100 mg 100 mg 100 mg [facility] tablet tablet tablet dic PLEASE SEE PLEASE SEE PLEASE SEE Sports ATTACHED ATTACHED ATTACHED Med icin FOR FOR FOR e DETAILED DETAILED DETAILED DIRECTIONS DIRECTIONS DIRECTIONS tadalafil 5 tadalafil 5 No tadalafil Linda mg tablet mg tablet 5 mg Ortho pe TAKE 1 TAKE 1 tablet dic TABLET BY TABLET BY TAKE 1 Spo rts MOUTH EVERY MOUTH EVERY TABLET BY Medicin DAY DAY MOUTH e DIRECTED DIRECTED EVERY DAY DIRECTED testosteron testosteron No testostero Linda e cypionate e cypionate ne O [facility]th[facility] 200 mg/mL 200 mg/mL cypionate dic intramuscul intramuscul 200 mg/mL Sports ar oil ar oil intramuscu Medic in INJECT INJECT lar oil e 0.75ML 0.75ML INJECT INTRAMUSCUL INTRAMUSCUL 0.75ML AR EVERY 7 AR EVERY 7 INTRAMUSCU DAYS DAYS LAR EVERY 7 DAYS tramadol 50 tramadol 50 No tramadol Linda mg tablet mg tablet 50 mg Orth ope TAKE 1 TAKE 1 tablet dic TABLET (50 TABLET (50 TAKE 1 S ports MG) BY MG) BY TABLET (50 Medic in MOUTH 2 MOUTH 2 MG) BY e (TWO) TIMES (TWO) TIMES MOUTH 2 A DAY A DAY (TWO) NEEDED FOR NEEDED FOR TIMES A MODERATE MODERATE DAY PAIN PAIN NEEDED FOR MODERATE PAIN albuterol albuterol No albuterol Linda sulfate HFA sulfate HFA sulfate [facility] 90 90 HFA 90 dic mcg/actuati mcg/actuati mcg/actuat Sports on aerosol on aerosol ion Med icin inhaler inhaler aerosol e TAKE 2 TAKE 2 inhaler PUFFS BY PUFFS BY TAKE 2 MOUTH EVERY MOUTH EVERY PUFFS BY 6 HOURS 6 HOURS MOUTH NEEDED FOR NEEDED FOR EVERY 6 WHEEZE WHEEZE HOURS NEEDED FOR WHEEZE Immunizations Ordered Filled Immunization Date Status Comments [facility] e Immunization Name Name Influenza Virus 2022-03-11 Completed Mikala tompkins - Vaccine, age 8 00:00:00 External months and up Influenza Virus 2022-03-11 Completed Mikala tompkins - Vaccine, age 8 00:00:00 External months and up Influenza Virus 2022-03-11 Completed Mikala tompkins - Vaccine, age 8 00:00:00 External months and up Shingles IM 2021-04-27 Completed Mikala Rodrigues d (Shingrix) 00:00:00 Shingles IM 2021-04-27 Completed Mikala Oconnorol d - (Shingrix) 00:00:00 External Shingles IM 2021-04-27 Completed Mikala Oconnorol d - (Shingrix) 00:00:00 External Shingles IM 2021-04-27 Completed Mikala Oconnorol d - (Shingrix) 00:00:00 External Shingles IM 2021-04-27 Completed Mikala Rodrigues d (Shingrix) 00:00:00 Moderna SARS-CoV-2 2021-02-23 Completed Univer sity of Monovalent Booster 00:00:00 [facility] Vaccination (50 Cancer Ce nter mcg/0.25 mL) Moderna SARS-CoV-2 2021-02-23 Completed Univer sity of Monovalent Booster 00:00:00 [facility] Vaccination (50 Cancer Ce nter mcg/0.25 mL) Moderna SARS-CoV-2 2021-02-23 Completed Univer sity of Monovalent Booster 00:00:00 [facility] Vaccination (50 Cancer Ce nter mcg/0.25 mL) Moderna SARS-CoV-2 2021-02-23 Completed Univer sity of Monovalent Booster 00:00:00 [facility] Vaccination (50 Cancer Ce nter mcg/0.25 mL) Moderna SARS-CoV-2 2021-02-23 Completed Univer sity of Monovalent Booster 00:00:00 [facility] Vaccination (50 Cancer Ce nter mcg/0.25 mL) Shingles IM 2021-02-23 Completed Mikala mendez (Shingrix) 00:00:00 Influenza Virus 2021-02-23 Completed Mikala tompkins Vaccine, age 8 00:00:00 months and up Covid-19 Vaccine 2021-02-23 Completed Mikala Mccorda (Spikevax), 00:00:00 Mrna-lnp, Shay Protein, Pf Shingles IM 2021-02-23 Completed Mikala Rodrigues d - (Shingrix) 00:00:00 External Influenza Virus 2021-02-23 Completed Mikala tompkins - Vaccine, age 8 00:00:00 External months and up Covid-19 Vaccine 2021-02-23 Completed Mikala lance - Moderna (Spikevax), 00:00:00 Exter nal Mrna-lnp, Shay Protein, Pf Shingles IM 2021-02-23 Completed Mikala Rodrigues d - (Shingrix) 00:00:00 External Influenza Virus 2021-02-23 Completed Mikala tompkins - Vaccine, age 8 00:00:00 External months and up Covid-19 Vaccine 2021-02-23 Completed Mikala lance - Moderna (Spikevax), 00:00:00 Exter nal Mrna-lnp, Shay Protein, Pf Shingles IM 2021-02-23 Completed Mikala Rodrigues d (Shingrix) 00:00:00 Influenza Virus 2021-02-23 Completed Mikala tompkins Vaccine, age 8 00:00:00 months and up Shingles IM 2021-02-23 Completed Mikala Rodrigues d - (Shingrix) 00:00:00 External Influenza Virus 2021-02-23 Completed Mikala tompkins - Vaccine, age 8 00:00:00 External months and up Covid-19 Vaccine 2021-02-23 Completed Mikala lance - Moderna (Spikevax), 00:00:00 Exter nal Mrna-lnp, Shay Protein, Pf Shingles IM 2021-02-23 Completed Mikala Rodrigues d (Shingrix) 00:00:00 Influenza Virus 2021-02-23 Completed Mikala tompkins Vaccine, age 8 00:00:00 months and up Micheal SARS-CoV-2 2020-08-08 Completed Univer sity of Vaccination 00:00:00 [facility] Micheal SARS-CoV-2 2020-08-08 Completed Univer sity of Vaccination 00:00:00 [facility] Micheal SARS-CoV-2 2020-08-08 Completed Univer sity of Vaccination 00:00:00 [facility] Micheal SARS-CoV-2 2020-08-08 Completed Univer sity of Vaccination 00:00:00 [facility] Micheal SARS-CoV-2 2020-08-08 Completed Univer sity of Vaccination 00:00:00 [facility] Covid-19 Vaccine 2020-08-08 Completed Mikala lance - (Micheal) 00:00:00 External Covid-19 Vaccine 2020-08-08 Completed Mikala zelayabold - (Micheal) 00:00:00 External Covid-19 Vaccine 2020-08-08 Completed Mikala Osorio eybold - (Micheal) 00:00:00 External Micheal SARS-CoV-2 2020-07-25 Completed Univer sity of Vaccination 00:00:00 [facility] [place] Micheal SARS-CoV-2 2020-07-25 Completed Univer sity of Vaccination 00:00:00 [facility] [place] Micheal SARS-CoV-2 2020-07-25 Completed Univer sity of Vaccination 00:00:00 [facility] Micheal SARS-CoV-2 2020-07-25 Completed Univer sity of Vaccination 00:00:00 [facility] Micheal SARS-CoV-2 2020-07-25 Completed Univer sity of Vaccination 00:00:00 [facility] Covid-19 Vaccine 2020-07-25 Completed Mikala S eybold (Micheal) 00:00:00 Covid-19 Vaccine 2020-07-25 Completed Mikala S eybold - (Micheal) 00:00:00 External Covid-19 Vaccine 2020-07-25 Completed Mikala S eybold - (Micheal) 00:00:00 External Covid-19 Vaccine 2020-07-25 Completed Mikala S eybold - (Beryllium) 00:00:00 External Influenza Virus 2019-05-14 Completed Mikala Se ybold Vaccine, No 00:00:00 Preserv, age 6 months and up Influenza Virus 2019-05-14 Completed Mikala Se ybold - Vaccine, No 00:00:00 External Preserv, age 6 months and up Influenza Virus 2019-05-14 Completed Mikala Se ybold Vaccine, No 00:00:00 Preserv, age 6 months and up Influenza Virus 2019-05-14 Completed Mikala Se ybold - Vaccine, No 00:00:00 External Preserv, age 6 months and up Influenza Virus 2019-05-14 Completed Mikala Se ybold - Vaccine, No 00:00:00 External Preserv, age 6 months and up Influenza Virus 2019-05-14 Completed Mikala Se ybold Vaccine, No 00:00:00 Preserv, age 6 months and up Tdap- (Boostrix, 2018-10-09 Completed Mikala S eybold Adacel) 00:00:00 Tdap- (Boostrix, 2018-10-09 Completed Mikala S eybold - Adacel) 00:00:00 External Tdap- (Boostrix, 2018-10-09 Completed Mikala S eybold - Adacel) 00:00:00 External Tdap- (Boostrix, 2018-10-09 Completed Mikala Osorio eybold Adacel) 00:00:00 Tdap- (Boostrix, 2018-10-09 Completed Mikala lance - Adacel) 00:00:00 External Tdap- (Boostrix, 2018-10-09 Completed Mikala Jo eybold Adacel) 00:00:00 Influenza Virus 2018-02-10 Completed Mikala Se ybold Vaccine, No 00:00:00 Preserv, age 6 months and up Influenza Virus 2018-02-10 Completed Mikala Se ybold - Vaccine, No 00:00:00 External Preserv, age 6 months and up Influenza Virus 2018-02-10 Completed Mikala Se ybold Vaccine, No 00:00:00 Preserv, age 6 months and up Influenza Virus 2018-02-10 Completed Mikala Se ybold - Vaccine, No 00:00:00 External Preserv, age 6 months and up Influenza Virus 2018-02-10 Completed Mikala Se ybold - Vaccine, No 00:00:00 External Preserv, age 6 months and up Influenza Virus 2018-02-10 Completed Mikala Se ybold Vaccine, No 00:00:00 Preserv, age 6 months and up Hep A/ Hep B Combo 2016-08-23 Completed Mikala Seybold 00:00:00 Hep A/ Hep B Combo 2016-08-23 Completed Mikala Seybold - 00:00:00 External Hep A/ Hep B Combo 2016-08-23 Completed Mikala Seybold 00:00:00 Hep A/ Hep B Combo 2016-08-23 Completed Mikala Seybold - 00:00:00 External Hep A/ Hep B Combo 2016-08-23 Completed Mikala Seybold - 00:00:00 External Hep A/ Hep B Combo 2016-08-23 Completed Mikala Seybold 00:00:00 Typhoid- ViCPs (IM) 2016-03-26 Completed Kelse y Seybold 00:00:00 Typhoid- ViCPs (IM) 2016-03-26 Completed Kelse y Seybold - 00:00:00 External Typhoid- ViCPs (IM) 2016-03-26 Completed Kelse y Seybold - 00:00:00 External Typhoid- ViCPs (IM) 2016-03-26 Completed Kelse y Seybold 00:00:00 Typhoid- ViCPs (IM) 2016-03-26 Completed Edilsonse y Seybold - 00:00:00 External Typhoid- ViCPs (IM) 2016-03-26 Completed Edilsonse y Seybold 00:00:00 Hep A/ Hep B Combo 2016-03-25 Completed Mikala Seybold 00:00:00 Hep A/ Hep B Combo 2016-03-25 Completed Mikala Seybold - 00:00:00 External Hep A/ Hep B Combo 2016-03-25 Completed Mikala Seybold 00:00:00 Hep A/ Hep B Combo 2016-03-25 Completed Mikala Seybold - 00:00:00 External Hep A/ Hep B Combo 2016-03-25 Completed Mikala Seybold - 00:00:00 External Hep A/ Hep B Combo 2016-03-25 Completed Mikala Seybold 00:00:00 Hep A/ Hep B Combo 2016-02-25 Completed Mikala Seybold 00:00:00 Hep A/ Hep B Combo 2016-02-25 Completed Mikala Seybold - 00:00:00 External Hep A/ Hep B Combo 2016-02-25 Completed Mikala Seybold 00:00:00 Hep A/ Hep B Combo 2016-02-25 Completed Mikala Seybold - 00:00:00 External Hep A/ Hep B Combo 2016-02-25 Completed Mikala Seybold - 00:00:00 External Hep A/ Hep B Combo 2016-02-25 Completed Mikala Seybold 00:00:00 Vital Signs Vital Name Observation Time Observation Value Comments Source Systolic blood 2022-11-18 14:02:00 120 mm[Hg] Mikala Seybold - pressure External Diastolic blood 2022-11-18 14:02:00 80 mm[Hg] King chacon Seybold - pressure External Heart rate 2022-11-18 13:56:00 89 /min Mikala lance - External Body temperature 2022-11-18 13:56:00 36.61 Gaye Simin Cunha - External Respiratory rate 2022-11-18 13:56:00 14 /min Simin Cunha - External Body height 2022-11-18 13:56:00 195.6 cm Mikala S eybold - External Oxygen saturation in 2022-11-18 13:56:00 99 /min Mikala Sherwoodybold - Arterial blood by External Pulse oximetry Systolic blood 2022-09-20 13:37:00 120 mm[Hg] Mikala Seybold - pressure External Diastolic blood 2022-09-20 13:37:00 79 mm[Hg] King y Seybold - pressure External Heart rate 2022-09-20 13:37:00 90 /min Mikala Osorio eybold - External Body temperature 2022-09-20 13:37:00 36.61 Gaye Simin ey Seybold - External Respiratory rate 2022-09-20 13:37:00 14 /min Simin ey Seybold - External Body height 2022-09-20 13:37:00 195.6 cm Mikala zelayabold - External Body weight 2022-09-20 13:37:00 114.306 kg Mikala zelayabold - External BMI 2022-09-20 13:37:00 29.88 kg/m2 Mikala zelayabold - External Oxygen saturation in 2022-09-20 13:37:00 99 /min Mikala Sherwoodoscarroberth - Arterial blood by External Pulse oximetry Height 2022-09-06 00:00:00 77 [in_i] [facility] BMI (Body Mass 2022-09-06 00:00:00 28.2 kg/m2 [facility] Index) Sports Medicine Body Weight 2022-09-06 00:00:00 238 [lb_av] [facility] Height 2022-08-31 00:00:00 77 [in_i] [facility] BMI (Body Mass 2022-08-31 00:00:00 28.5 kg/m2 Linda [facility] Index) Sports Medicine Body Weight 2022-08-31 00:00:00 240 [lb_av] [facility] Height 2022-07-28 00:00:00 77 [in_i] [facility] BMI (Body Mass 2022-07-28 00:00:00 29.1 kg/m2 [facility] Index) Sports Medicine Body Weight 2022-07-28 00:00:00 245 [lb_av] [facility] Height 2022-07-22 00:00:00 77 [in_i] [facility] BMI (Body Mass 2022-07-22 00:00:00 29.1 kg/m2 [facility] Index) Sports Medicine Body Weight 2022-07-22 00:00:00 245 [lb_av] [facility] Systolic blood 2022-06-22 14:49:00 127 mm[Hg] Mikala Seybold - pressure External Diastolic blood 2022-06-22 14:49:00 62 mm[Hg] Kelse y Seybold - pressure External Heart rate 2022-06-22 14:49:00 110 /min Mikala S eybold - External Body temperature 2022-06-22 14:49:00 36.56 Gaye Simin ey Seybold - External Respiratory rate 2022-06-22 14:49:00 14 /min Simin ey Seybold - External Body height 2022-06-22 14:49:00 195.6 cm Mikala S eybold - External Body weight 2022-06-22 14:49:00 116.574 kg Mikala S eybold - External BMI 2022-06-22 14:49:00 30.48 kg/m2 Mikala S eybold - External Oxygen saturation in 2022-06-22 14:49:00 99 /min Mikala Seybold - Arterial blood by External Pulse oximetry Systolic blood 2021-10-27 18:24:00 163 mm[Hg] Mikala Seybold pressure Diastolic blood 2021-10-27 18:24:00 95 mm[Hg] Kelse y Seybold pressure Heart rate 2021-10-27 18:24:00 99 /min Mikala S eybold Body temperature 2021-10-27 18:24:00 37 Gaye Simin ey Seybold Respiratory rate 2021-10-27 18:24:00 14 /min Simin ey Seybold Body height 2021-10-27 18:24:00 195.6 cm Mikala S eybold Body weight 2021-10-27 18:24:00 128.005 kg Mikala S eybold BMI 2021-10-27 18:24:00 33.46 kg/m2 Mikala S eybold Oxygen saturation in 2021-10-27 18:24:00 96 /min Mikala Seybold Arterial blood by Pulse oximetry Diastolic blood 2021-08-19 13:41:00 78 mm[Hg] Kelse y Seybold pressure Heart rate 2021-08-19 13:41:00 94 /min Mikala S eybold Body temperature 2021-08-19 13:41:00 36.17 Gaye Simin ey Seybold Respiratory rate 2021-08-19 13:41:00 14 /min Simin ey Seybold Body height 2021-08-19 13:41:00 195.6 cm Mikala S eybold Body weight 2021-08-19 13:41:00 134.265 kg Mikala S eybold BMI 2021-08-19 13:41:00 35.10 kg/m2 Mikala S eybold Oxygen saturation in 2021-08-19 13:41:00 96 /min Mikala Seybold Arterial blood by Pulse oximetry Systolic blood 2021-08-19 13:41:00 125 mm[Hg] Mikala Seybold pressure Systolic blood 2021-02-23 13:13:00 116 mm[Hg] Mikala Seybold pressure Diastolic blood 2021-02-23 13:13:00 82 mm[Hg] Kelse y Seybold pressure Heart rate 2021-02-23 13:13:00 88 /min Mikala S eybold Body temperature 2021-02-23 13:13:00 35.67 Gaye Simin ey Seybold Respiratory rate 2021-02-23 13:13:00 12 /min Simin ey Seybold Body height 2021-02-23 13:13:00 195.6 cm Mikala S eybold Body weight 2021-02-23 13:13:00 129.729 kg Mikala S eybold BMI 2021-02-23 13:13:00 33.91 kg/m2 Mikala S eybold Systolic blood 2022-12-13 13:58:59 125 mm[Hg] Univer sity of pressure [facility] Diastolic blood 2022-12-13 13:58:59 74 mm[Hg] [facility] Heart rate 2022-12-13 13:58:59 84 /min [facility] Body temperature 2022-12-13 13:58:59 36.5 Gaye [facility] Respiratory rate 2022-12-13 13:58:59 16 /min [facility] Body height 2022-12-13 13:58:59 193 cm [facility] Body weight 2022-12-13 13:58:59 110.1 kg [facility] BMI 2022-12-13 13:58:59 29.56 kg/m2 [facility] Oxygen saturation in 2022-12-13 13:58:59 98 /min [facility] Arterial blood by Ashtyn Gutierrez [facility] Pulse oximetry [facility] Systolic blood 2022-10-06 22:24:55 111 mm[Hg] Univer sity of pressure [facility] Diastolic blood 2022-10-06 22:24:55 70 mm[Hg] Unive rsity of pressure [facility] Heart rate 2022-10-06 22:24:55 93 /min [facility] Body temperature 2022-10-06 22:24:55 36.39 Gaye [facility] Respiratory rate 2022-10-06 22:24:55 18 /min [facility] Oxygen saturation in 2022-10-06 22:24:55 97 /min [facility] Arterial blood by Ashtyn Gutierrez nderson [facility] Body weight 2022-10-06 20:45:00 109.3 kg [facility] BMI 2022-10-06 20:45:00 29.34 kg/m2 [facility] Systolic blood 2022-06-23 16:46:03 130 mm[Hg] Univer sity of pressure [facility] Diastolic blood 2022-06-23 16:46:03 82 mm[Hg] Unive rsity of pressure [facility] Heart rate 2022-06-23 16:46:03 92 /min [facility] Body temperature 2022-06-23 16:46:03 36.72 Gaye [facility] Respiratory rate 2022-06-23 16:46:03 16 /min [facility] Body weight 2022-06-23 16:46:03 114.8 kg [facility] BMI 2022-06-23 16:46:03 30.82 kg/m2 [facility] Body height 2022-04-02 18:34:00 193 cm [facility] MD [facility] on [facility] Center Oxygen saturation in 2022-02-15 14:15:00 97 /min [facility] blood by Ashtyn mantilla Pulse oximetry [facility] Height 2020-11-17 13:50:00 195[facility]58 [facility] Weight 2020-11-17 13:50:00 [facility] BMI Calculated 2020-11-17 13:50:00 Mackenzie Dobson Temperature Oral (F) 2020-10-03 18:58:00 97.3 F [facility] Height 2020-09-08 14:12:00 195.58 cm [facility] Weight 2020-09-08 14:12:00 [facility] BMI Calculated 2020-09-08 14:12:00 [facility] Systolic (mm Hg) 2020-07-28 17:38:00 Magdy riajace [facility] Diastolic (mm Hg) 2020-07-28 17:38:00 Mem [facility] Heart Rate 2020-07-28 17:38:00 [facility] Height 2020-07-28 17:38:00 195.58 cm [facility] Weight 2020-07-28 17:38:00 [facility] BMI Calculated 2020-07-28 17:38:00 [facility] Procedures Procedure Date / Time Performing Clinician Source Performed US LEG VENOUS DOPPLER LEFT 2022-10-13 Jacquelin Gottlieb [facility] 15:56:47 MD Brady [facility] COMPLETE BLOOD COUNT W/ 2022-10-06 Ilene Guevara [facility] DIFFERENTIAL 20:42:00 [facility] COMPREHENSIVE METABOLIC 2022-10-06 Ilene Guevara [facility] PANEL 20:42:00 [facility] MAGNESIUM LEVEL 2022-10-06 [facility] 20:42:00 [facility] PHOSPHORUS LEVEL 2022-10-06 Ilene Guevara [facility] 20:42:00 [facility] PROTHROMBIN TIME 2022-10-06 Ilene Guevara [facility] 20:42:00 [facility] APTT 2022-10-06 Ilene Guevara [facility] 20:42:00 [facility] NT PRO BNP 2022-10-06 Ilene Guevara [facility] 20:42:00 [facility] TROPONIN T 2022-10-06 Ilene Guevara [facility] 20:42:00 [facility] Results CBC 2022-10-06 Ilene Guevara [facility] 20:42:00 [facility] MANUAL DIFFERENTIAL 2022-10-06 Ilene Guevara [place] [facility] [place] 20:42:00 [facility] GLUCOSE LEVEL 2022-10-06 Ilene Guevara [facility] 20:42:00 [facility] BLOOD UREA NITROGEN 2022-10-06 Ilene Guevara [facility] 20:42:00 [facility] ELECTROLYTE PANEL 2022-10-06 Ilene Guevara [facility] 20:42:00 [facility] SERUM CREATININE 2022-10-06 Ilene Guevara [facility] 20:42:00 [facility] .GLOMERULAR FILTRATION RATE 2022-10-06 Ilene Guevara [facility] 20:42:00 [facility] CALCIUM LEVEL TOTAL 2022-10-06 Ilene Guevara [place] [facility] [place] 20:42:00 [facility] ALBUMIN LEVEL 2022-10-06 Ilene Gue[facility]a [facility] 20:42:00 [facility] ALKALINE PHOSPHATASE 2022-10-06 Ilene Guevara [facility] 20:42:00 [facility] ALANINE AMINOTRANSFERASE 2022-10-06 Ilene Guevara [facility] 20:42:00 [facility] ASPARTATE AMINOTRANSFERASE 2022-10-06 Ilene Guevara [facility] 20:42:00 [facility] TOTAL PROTEIN 2022-10-06 Ilene Guevara [facility] 20:42:00 [facility] FRACTIONATED BILIRUBIN 2022-10-06 Ilene Guevara [facility] 20:42:00 [facility] CT CHEST W CONTRAST 2022-10-06 Rickey [facility] [place] 18:20:00 [facility] MRI TIBIA FIBULA LEFT W WO 2022-10-06 Rebekah Lang [facility] CONTRAST 17:54:12 [facility] POC CREATININE 2022-10-06 Rickey Guthrie [facility] 14:39:00 [facility] EKG, 12-LEAD (PORTABLE) 2022-10-06 Ilene Guevara [facility] 00:00:00 [facility] MRI CERVICAL SPINE W/O 2022-07-22 Linda Or thopedic CONTRAST 00:00:00 Sports Medicine MRI LUMBAR SPINE W WO 2022-06-30 Rickey [facility] CONTRAST 16:35:00 [facility] MRI FOOT LEFT W WO CONTRAST 2022-06-23 Jacquelin Gottlieb [facility] 15:27:00 [facility] MRI TIBIA FIBULA LEFT W WO 2022-06-23 [facility] 01:01:36 [facility] CT CHEST W CONTRAST 2022-06-22 Jacquelin Gottlieb [facility] 21:47:21 [facility] POC CREATININE 2022-06-22 Jacquelin Gottlieb [place] [facility] [place] 20:05:00 [facility] MRI FOOT LEFT W WO CONTRAST 2022-04-02 Jacquelin Gottlieb [facility] 19:42:00 [facility] XR FOOT 3+ VW LEFT 2022-03-24 Jacquelin Gottlieb [facility] 16:44:07 [facility] MRI TIBIA FIBULA LEFT W WO 2022-03-23 [facility] 21:02:00 [facility] CT CHEST W CONTRAST 2022-03-23 Jacquelin Gottlieb [facility] 17:01:00 [facility] POC CREATININE 2022-03-23 Jacquelin Gottlieb [place] [facility] [place] 16:03:00 [facility] IR US GUIDED BIOPSY 2022-02-15 Jacquelin Gottlieb [facility] MUSCLE/SOFT TISSUE- LOWER 13:47:07 [facility] EXTREM[employer] INTERVENTIONAL 2022-02-15 Quang Rizvi [facility] RADIOLOGY W/ SMEAR 13:37:00 [facility] ANAEROBIC CULTURE 2022-02-15 Quang Rizvi [facility] INTERVENTIONAL RADIOLOGY 13:37:00 MD Appiah arsalan [facility] FUNGUS INTERVENTIONAL RAD 2022-02-15 Dmitri [facility] CULTURE W/ GRAM STAIN 13:37:00 MD Donald acosta [facility] INTERVENTIONAL RADIOLOGY 2022-02-15 Dmitri [facility] CULTURE W/GRAM STAIN 13:37:00 [facility] PATHOLOGY BIOPSY 2022-02-15 Jacquelin Gottlieb [facility] INTERPRETATION 13:30:00 [facility] PROTHROMBIN TIME 2022-02-15 Ale Rizvi [facility] 11:30:00 [facility] PLATELET COUNT 2022-02-15 Ale Rizvi [facility] 11:30:00 [facility] OSI MRI LOWER EXT 2022-01-05 Jacquelin Gottlieb [facility] 14:32:00 [facility] MRI TIBIA FIBULA LEFT W WO 2021-12-01 Rebekah Lang [facility] CONTRAST 22:35:[address] [facility] [address] CHEST W CONTRAST 2021-12-01 Rebekah Lang [place] [facility] [place] 20:14:17 [facility] POC CREATININE 2021-12-01 Rickey Rebekah [facility] 19:18:00 [facility] US LEG VENOUS DOPPLER 2021-11-03 Edward Bird [facility] BILATERAL 18:19:02 [facility] POC GLUCOSE SCREEN 2021-10-23 Edward Bird [facility] 13:27:00 [facility] SODIUM LEVEL 2021-10-23 Edward Bird [facility] 08:35:00 [facility] POTASSIUM LEVEL 2021-10-23 Edward Bird [facility] 08:35:00 [facility] CHLORIDE LEVEL 2021-10-23 Edward Bird [facility] 08:35:00 [facility] CARBON DIOXIDE LEVEL 2021-10-23 Edward Bird [facility] 08:35:00 [facility] BLOOD UREA NITROGEN 2021-10-23 Edward Bird [facility] 08:35:00 [facility] SERUM CREATININE 2021-10-23 Edward Bird [facility] 08:35:00 [facility] GLUCOSE, RANDOM 2021-10-23 Edward Bird [facility] 08:35:00 [facility] COMPLETE BLOOD COUNT W/ 2021-10-23 Edward Bird [facility] DIFFERENTIAL 08:35:00 [facility] SERUM CREATININE 2021-10-23 Edward Bird [facility] 08:35:00 [facility] .GLOMERULAR FILTRATION RATE 2021-10-23 [facility] 08:35:00 [facility] Results CBC 2021-10-23 Edward Bird [facility] 08:35:00 [facility] MANUAL DIFFERENTIAL 2021-10-23 Edward Bird [facility] 08:35:00 [facility] ANION GAP 2021-10-23 Edward Bird [facility] 08:35:00 [facility] POC GLUCOSE SCREEN 2021-10-23 Edward Bird [facility] 02:24:00 [facility] POC GLUCOSE SCREEN 2021-10-22 [facility] 22:32:00 [facility] POC GLUCOSE SCREEN 2021-10-22 Edward Bird [facility] 17:18:00 [facility] POC GLUCOSE SCREEN 2021-10-22 Edward Bird [facility] 13:55:00 [facility] SODIUM LEVEL 2021-10-22 Edward Bird [facility] 10:27:00 [facility] POTASSIUM LEVEL 2021-10-22 Edward Bird [facility] 10:27:00 [facility] CHLORIDE LEVEL 2021-10-22 Edward Bird [facility] 10:27:00 [facility] CARBON DIOXIDE LEVEL 2021-10-22 Edward Bird [facility] 10:27:00 [facility] BLOOD UREA NITROGEN 2021-10-22 Edward Bird [facility] 10:27:00 [facility] SERUM CREATININE 2021-10-22 Edward Bird [facility] 10:27:00 [facility] GLUCOSE, RANDOM 2021-10-22 Edward Bird [facility] 10:27:00 [facility] COMPLETE BLOOD COUNT W/ 2021-10-22 Edward Bird [facility] DIFFERENTIAL 10:27:00 [facility] SERUM CREATININE 2021-10-22 Edward Bird [facility] 10:27:00 [facility] .GLOMERULAR FILTRATION RATE 2021-10-22 [facility] 10:27:00 [facility] Results CBC 2021-10-22 Edward Bird [facility] 10:27:00 [facility] MANUAL DIFFERENTIAL 2021-10-22 Edward Bird [facility] 10:27:00 [facility] ANION GAP 2021-10-22 Edward Bird [facility] 10:27:00 [facility] POC GLUCOSE SCREEN 2021-10-22 Edward Bird [facility] 05:36:00 [facility] SODIUM LEVEL 2021-10-21 Edward Bird [facility] 20:39:00 [facility] POTASSIUM LEVEL 2021-10-21 Edward Bird [facility] 20:39:00 [facility] CHLORIDE LEVEL 2021-10-21 Edward Bird [facility] 20:39:00 [facility] CARBON DIOXIDE LEVEL 2021-10-21 Edward Bird [facility] 20:39:00 [facility] BLOOD UREA NITROGEN 2021-10-21 Edward Bird [facility] 20:39:00 [facility] SERUM CREATININE 2021-10-21 Edward Bird [facility] 20:39:00 [facility] GLUCOSE, RANDOM 2021-10-21 Edward Bird [facility] 20:39:00 [facility] SERUM CREATININE 2021-10-21 Edward Bird [facility] 20:39:00 [facility] .GLOMERULAR FILTRATION RATE 2021-10-21 [facility] 20:39:00 [facility] ANION GAP 2021-10-21 Edward Bird [facility] 20:39:00 [facility] POC GLUCOSE SCREEN 2021-10-21 Edward Bird [facility] 20:10:00 [facility] POC GLUCOSE SCREEN 2021-10-21 Edward Bird [facility] 19:04:00 [facility] PATHOLOGY SURGICAL 2021-10-21 Edward Bird [facility] INTERPRETATION 18:53:00 [facility] POC GLUCOSE SCREEN 2021-10-21 Edward Bird [facility] 17:01:00 [facility] OR ARTERIAL BLOOD GAS PLUS 2021-10-21 Shelly Ulloa [facility] 15:06:00 [facility] SURGICAL LAPAROSCOPY WITH 2021-10-21 Edward Bird [facility] RADICAL NEPHRECTOMY 12:27:00 [facility] CYSTOURETHROSCOPY, WITH 2021-10-21 Edward Bird [facility] REMOVAL OF FOREIGN BODY, 12:27:00 MD Appiah [facility] Cancer CALCULUS, OR URETERAL STENT Cent er FROM URETHRA OR BLADDER POC GLUCOSE SCREEN 2021-10-21 Edward Bird [facility] 11:46:00 [facility] URINE CULTURE 2021-10-20 Edward Bird [facility] 16:34:00 [facility] COMPLETE BLOOD COUNT W/ 2021-10-20 Edward Bird [facility] DIFFERENTIAL 16:25:00 [facility] COMPREHENSIVE METABOLIC 2021-10-20 Edward Bird [facility] PANEL 16:25:00 [facility] APTT 2021-10-20 Edward Bird [facility] 16:25:00 [facility] PROTHROMBIN TIME 2021-10-20 Edward Bird [facility] 16:25:00 [facility] TYPE AND SCREEN 2021-10-20 Micky [facility] 16:25:00 [facility] Results CBC 2021-10-20 Edward Bird [facility] 16:25:00 [facility] MANUAL DIFFERENTIAL 2021-10-20 Edward Bird [facility] 16:25:00 [facility] GLUCOSE LEVEL 2021-10-20 Edward Bird [facility] 16:25:00 [facility] BLOOD UREA NITROGEN 2021-10-20 Edward Bird [facility] 16:25:00 [facility] ELECTROLYTE PANEL 2021-10-20 Edward Bird [facility] 16:25:00 [facility] SERUM CREATININE 2021-10-20 Edward Bird [facility] 16:25:00 [facility] .GLOMERULAR FILTRATION RATE 2021-10-20 [facility] 16:25:00 [facility] CALCIUM LEVEL TOTAL 2021-10-20 Edward Bird [facility] 16:25:00 [facility] ALBUMIN LEVEL 2021-10-20 Edward Bird [facility] 16:25:00 [facility] ALKALINE PHOSPHATASE 2021-10-20 Edward Bird [facility] 16:25:00 [facility] ALANINE AMINOTRANSFERASE 2021-10-20 Edward Bird [facility] 16:25:00 [facility] ASPARTATE AMINOTRANSFERASE 2021-10-20 Edward Bird [facility] 16:25:00 [facility] TOTAL PROTEIN 2021-10-20 Edward Bird [facility] 16:25:00 [facility] FRACTIONATED BILIRUBIN 2021-10-20 Edward Bird [facility] 16:25:00 [facility] ABORH 2021-10-20 [facility] 16:25:00 [facility] ANTIBODY SCREEN 2021-10-20 [facility] 16:25:00 [facility] CLOT EXPIRATION DATE 2021-10-20 [facility] 16:25:00 [facility] TMP INTERPRETATION ANTIBODY 2021-10-20 [facility] SCREEN NEGATIVE 16:25:00 [facility] COVID-19 (SARS-COV-2) 2021-10-20 Edward Bird [facility] PCR-ASYMPTOMATIC [facility] 15:30:00 [facility] POC GLUCOSE SCREEN 2021-09-15 Ignacio Ellis [facility] 18:28:00 [facility] POC GLUCOSE SCREEN 2021-09-15 Ignacio Ellis [facility] 14:00:00 [facility] HEMOGLOBIN A1C 2021-09-15 [facility] 07:41:00 [facility] POC GLUCOSE SCREEN 2021-09-15 Ignacio Ellis [facility] 03:54:00 [facility] POC GLUCOSE SCREEN 2021-09-14 Ignacio Ellis [facility] 23:47:00 [facility] POC GLUCOSE SCREEN 2021-09-14 Ignacio Ellis [facility] 18:54:00 [facility] COMPLETE BLOOD COUNT W/ 2021-09-14 [facility] DIFFERENTIAL 15:04:00 [facility] BASIC METABOLIC PANEL, 2021-09-14 [facility] CALCIUM TOTAL 15:04:00 [facility] Results CBC 2021-09-[address] [facility] 15:04:00 [facility] MANUAL DIFFERENTIAL 2021-09-14 [facility] 15:04:00 [facility] GLUCOSE LEVEL 2021-09-[address] [facility] 15:04:00 [facility] ELECTROLYTE PANEL 2021-09-14 [facility] 15:04:00 [facility] SERUM CREATININE 2021-09-14 [facility] 15:04:00 [facility] .GLOMERULAR FILTRATION RATE 2021-09-14 [facility] 15:04:00 [facility] CALCIUM LEVEL TOTAL 2021-09-14 [facility] 15:04:00 [facility] BLOOD UREA NITROGEN 2021-09-14 [facility] 15:04:00 [facility] POC GLUCOSE SCREEN 2021-09-14 Ignacio Ellis [facility] 13:33:00 [facility] POC GLUCOSE SCREEN 2021-09-14 [facility] 03:02:00 [facility] POC GLUCOSE SCREEN 2021-09-13 [facility] 22:25:00 [facility] POC GLUCOSE SCREEN 2021-09-13 [facility] 17:56:00 [facility] POC GLUCOSE SCREEN 2021-09-13 [facility] 12:34:00 [facility] POC GLUCOSE SCREEN 2021-09-13 [facility] 03:16:00 [facility] CT ABDOMEN PELVIS WO 2021-09-12 [facility] 21:45:49 [facility] POC VENOUS BLOOD GAS + 2021-09-12 [facility] 19:23:00 [facility] XR CHEST 1 VW 2021-09-12 [facility] 19:19[facility]58 [facility] URINE CULTURE 2021-09-12 [facility] 19:15[facility]00 [facility] BLOODCULTURE 2021-09-12 [facility] 19:15[facility]00 [facility] RESPIRATORY VIRAL MULTIPLEX 2021-09-12 Elsayem, [facility] PCR PANEL, NASOPHARYNGEAL 19:15:00 [facility] COMPLETE BLOOD COUNT W/ 2021-09-12 Carmen [facility] DIFFERENTIAL 19:15:00 [facility] COMPREHENSIVE METABOLIC 2021-09-12 Carmen [facility] PANEL 19:15:00 [facility] MAGNESIUM LEVEL 2021-09-12 Carmen [facility] 19:15:00 [facility] PHOSPHORUS LEVEL 2021-09-12 Carm[facility] 19:15:00 [facility] LACTATE DEHYDROGENASE 2021-09-12 Carmen [facility] 19:15:00 [facility] C REACTIVE PROTEIN 2021-09-12 Carmen [facility] 19:15:00 [facility] PROCALCITONIN 2021-09-12 Carmen [facility] 19:15:00 [facility] URINALYSIS WITH MICROSCOPIC 2021-09-12 Carmen [facility] IF INDICATED 19:15:00 [facility] LACTIC ACID, VENOUS 2021-09-12 Carmen [facility] 19:15:00 [facility] Results CBC 2021-09-12 Carmen [facility] 19:15:00 [facility] MANUAL DIFFERENTIAL 2021-09-12 Carmen [facility] 19:15:00 [facility] GLUCOSE LEVEL 2021-09-12 Carmen [facility] 19:15:00 [facility] BLOOD UREA NITROGEN 2021-09-12 Carmen [facility] 19:15:00 [facility] ELECTROLYTE PANEL 2021-09-12 Carmen [facility] 19:15:00 [facility] SERUM CREATININE 2021-09-12 Carmen [facility] 19:15:00 [facility] .GLOMERULAR FILTRATION RATE 2021-09-12 Carmen [facility] 19:15:00 [facility] CALCIUM LEVEL TOTAL 2021-09-12 [facility] 19:15:00 [facility] ALBUMIN LEVEL 2021-09-12 [facility] 19:15:00 [facility] ALKALINE PHOSPHATASE 2021-09-12 [facility] 19:15:00 [facility] [facility] ALANINE AMINOTRANSFERASE 2021-09-[address] [facility] 19:15:00 [facility] ASPARTATE AMINOTRANSFERASE 2021-09-12 [facility] [place] 19:15:00 [facility] TOTAL PROTEIN 2021-09-12 [facility] [place] [facility] 19:15:00 [facility] FRACTIONATED BILIRUBIN 2021-09-12 [facility] 19:15:00 [facility] URINALYSIS MICROSCOPIC 2021-09-12 [facility] 19:15[facility]00 [facility] FLUOROSCOPY IMAGING 2021-09-04 [facility] 16:23[facility]09 [facility] CYSTOURETHROSCOPY 2021-09-04 Pelon [facility] 00:00:00 [facility] MRI TIBIA FIBULA LEFT W WO 2021-08-25 Dmitri [facility] CONTRAST 23:19:00 Marilyn [facility] CT CHEST W CONTRAST 2021-08-25 Dmitri [facility] [place] 20:13:20 Marilyn JULIO [facility] POC CREATININE 2021-08-25 Poncho [facility] xa 19:02:00 [facility] US LOWER EXTREMITY LIMITED 2021-08-25 Dmitri Girish [facility] LEFT 18:15:38 Marilyn [facility] MICROALB/CREAT RATIO, RANDM 2021-02-23 Latricia Bowles ey Seybold UR 15:01:00 Somogyi URINALYSIS, ROUTINE 2021-02-23 Latricia Bowlessey Elvinbrandy ld 15:01:00 Somogyi VERBAL ORDER 2021-02-23 RoxtonLatricia stringer Seybold 14:50:00 Somogyi HGB A1C WITH MBG ESTIMATION 2021-02-23 JelenaLatricia Seybold 14:50:00 Somogyi LIPID PANEL 2021-02-23 JelenaLatricia Seybold 14:50:00 Somogyi CMP14+CBC/D/PLT+TSH W/RFLX 2021-02-23 Jelena Latricia chacon Seybold 14:50:00 Somogyi ECG- ADULT 2021-02-23 JelenaLatricia Seybold 14:28:10 Somogyi Subcutaneous hormone pellet 2020-10-03 Magdy rial Preet implantation (implantation 19:26:00 of estradiol and/or testosterone pellets beneath the skin) Colonoscopy 2017-04-01 [facility] Interventional Radiology [place] [facility] Shoulder [facility] Plan of Care Planned Activity Planned Date Details Comments Source Future Scheduled Test 2023-01-12 COVID-19 Vaccination [facility] 22:50:07 (4 - Micheal risk Andciara n Cancer series) [code = Center COVID-19 Vaccination (4 - Micheal risk series)] Future Scheduled Test 2022-12-17 COVID-19 Vaccination [facility] 05:21:12 (4 - Micheal risk Andersbrandy n Cancer series) [code = Center COVID-19 Vaccination (4 - Micheal risk series)] Future Scheduled Test 2022-12-17 COVID-19 Vaccination [facility] 05:21:12 (4 - Micheal risk Anderso n Cancer series) [code = Center COVID-19 Vaccination (4 - Micheal risk series)] Future Scheduled Test 2022-11-19 COVID-19 Vaccination [facility] 11:06:16 (4 - Booster for MD Jose Antonio Cancer Micheal series) Center [code = COVID-19 Vaccination (4 - Booster for Micheal series)] Future Scheduled Test 2022-07-13 COVID-19 Vaccination [facility] 09:50:14 (4 - Booster for MD Jose Antonio Cancer Micheal series) [place] [code = COVID-19 Vaccination (4 - Booster for Micheal series)] Instructions [facility] Encounters Start End Encounter Admission Attending Care Care Encounter Source Date/Time Date/Time Type Type Clinicians Facility Department ID 2022-09-15 Inpatient SHAILESH Shaikh PAIN [id number] [facility] 11:00:00 Reagan 03 [place] [facility] 2022-01-15 Outpatient SYSTEM, MDA YEE [id number] 14:12:50 PROVIDER Lance o n 2021-08-10 Outpatient SYSTEM, MDA YEE [id number] 13:35:05 PROVIDER Lance o n 2021-07-06 Outpatient SYSTEM, YEE FRAIRE [id number] 11:14:07 PROVIDER Lance o n 2021-04-23 Outpatient SYSTEM, YEE FRAIRE [id number] 06:12:10 PROVIDER Lance o n 2021-03-24 Outpatient MDA YEE [id number] 13:43:18 Anderso n 2021-02-23 Outpatient SYSTEM, YEE FRAIRE [id number] 15:49:16 PROVIDER Lance o n 2023-01-21 2023-01-21 Outpatient MIKALA TYLER [id number] iMkala 08:45:00 08:45:00 NEAL mendez 2023-01-12 2023-01-12 Outpatient LARISA Gardner HCATO RADI [id number] [facility] 15:48:00 15:48:00 Manisha 45 [place] [facility] 2023-01-12 2023-01-12 Outpatient LARISA [place], HCATO RADI Y000 [id number] [facility] 15:37:00 15:37:00 Adi Odell [place] [facility] 2023-01-03 2023-01-03 Outpatient FOG_[facility] AOSM AOSM 649 [id number] [facility] 00:00:00 00:00:00 Kishore [id number] [facility] 2023-01-03 2023-01-03 Outpatient FOG_[facility]im[facility]l AOSM AOSM 649 2512-20 [facility] 00:00:00 00:00:00 Kishore [id number] [facility] 2022-12-31 2022-12-31 Outpatient MAHSAMIKALA Osorio MIKALA [id number] Mikala 00:00:00 00:00:00 NEAL Seybol d 2022-12-24 2022-12-24 Outpatient FOG_Wimberl AOSM AOSM 649 2512-20 [facility] 00:00:00 00:00:00 ey_Da_MD [id number] [facility] 2022-12-24 2022-12-24 Outpatient LANDON MIKALA MIKALA [id number] Mikala 00:00:00 00:00:00 NEAL Seybol d 2022-12-23 2022-12-23 Outpatient FOG_[facility]im[facility]l AOSM AOSM 649 2512-20 [facility] 00:00:00 00:00:00 ey_Da_MD [id number] [facility] 2022-12-16 2022-12-16 Outpatient FOG_[facility]im[facility]l AOSM AOSM 649 2512-20 [facility] 00:00:00 00:00:00 ey_Da_ [id number] [facility] 2022-12-16 2022-12-16 Outpatient FOG_Wim[facility]l AOSM AOSM 649 2512-20 [facility] 00:00:00 00:00:00 ey_Da_ [id number] [facility] 2022-12-13 2022-12-13 Office [place], 1.2.840.1 [id number] [facility] 09:00:00 10:42:23 Visit Casey Hill.1.1 ity of 3.412.2.7 [place] .3.019513 MD Dewey [facility] 2022-12-13 2022-12-13 Office LARISA Terry, 1.2.840.1 [id number] [facility] [place] [facility] 09:00:00 10:42:23 Visit Casey 11378.1.1 ity of 3.412.2.7 Ashtyn .[id number] MD Dewey [facility] 2022-12-13 2022-12-13 Travel 1.2.840.1 1.2.263.763 2583 [id number] [facility] 00:00:00 00:00:00 82037.1.1 350.1.13.41 ity of 3.412.2.7 2.[place].7.3.698 [place] .3.402414 084.8 .8 [facility] 2022-12-13 2022-12-13 Travel 1.2.840.1 1.2.491.607 [id number] [facility] [place] [facility] 00:00:00 00:00:00 36227.1.1 350.1.13.41 ity of 3.412.2.7 2.[place].7.3.698 [place] .3.305129 084.8 .8 [facility] 2022-12-09 2022-12-09 Outpatient LARISA IL[facility]ONSO [facility] Y000 [id number] [facility] 13:01:00 13:01:[address] [place] [address] [facility] 2022-11-30 2022-11-30 Outpatient MIKALA TYLER [id number] Mikala 00:00:00 00:00:00 NEAL Seybol d 2022-11-18 2022-11-18 Outpatient LAB90 MIKALA BACH [id number] Mikala 09:15:00 09:15:00 Seybol d 2022-11-18 2022-11-18 Outpatient MIKALA TYLER [id number] Mikala 08:45:00 08:45:00 NEAL Seybol d 2022-11-08 2022-11-08 Outpatient MIKALA TYLER [id number] Mikala 00:00:00 00:00:00 NEAL Seybol d 2022-10-21 2022-10-21 Outpatient MIKALA TYLER [id number] Mikala 08:15:00 08:15:00 NEAL Seybol d 2022-10-14 2022-10-14 Outpatient PREMIKALA BERMUDEZ [id number] Mikala 00:00:00 00:00:00 NEAL Seybol d 2022-10-13 2022-10-13 Ancillary Chery 1.2.840.1 [id number] [facility] 15:30:00 16:30:00 Procedure Jacquelin A 87094.1.1 i ty of 3.412.2.7 [place] .3.647342 MD [facility]wey [facility] 2022-10-13 2022-10-13 Ancillary [facility], 1.2.840.1 [id number] 1 [id number] [facility] 15:30:00 16:30:00 Procedure Jacquelin A 14133.1.1 i ty of 3.412.2.7 [place] .3.700027 MD Dewey [facility] 2022-10-13 2022-10-13 Travel 1.2.840.1 1.2.320.381 7977 [id number] [facility] 00:00:00 00:00:00 45539.1.1 350.1.13.41 ity of 3.412.2.7 [place]7.3.698 [place] .3.605241 084.Miguelina [facility] 2022-10-13 2022-10-13 Travel 1.2.840.1 1.2.899.397 9080 [id number] [facility] 00:00:00 00:00:00 52256.1.1 350.1.13.41 ity of 3.412.2.7 2.[place].7.3.698 [place] .3.320128 084.Miguelina [facility] 2022-10-07 2022-10-07 [facility], 1.2.840.1 [id number] 1 [id number] Univers 00:00:00 00:00:00 Jacquelin A 69342.1.1 ity of 3.412.2.7 [place] .3.667022 MD Dewey [facility] 2022-10-07 2022-10-07 [facility], 1.2.840.1 [id number] 1 [id number] Univers 00:00:00 00:00:00 Jacquelin A 78374.1.1 ity of 3.412.2.7 [place] .3.525114 MD [facility] 2022-10-06 2022-10-06 Emergency Abigail, 1.2.840.1 [id number] [facility] 18:30:00 18:41:00 Kiran 15596.1.1 ity of 3.412.2.7 [place] .3.123490 MD [facility] 2022-10-06 2022-10-06 Emergency UR Abigail, 1.2.840.1 [id number] [facility] 18:30:00 18:41:00 Kiran 19988.1.1 ity of 3.412.2.7 [place] .3.241698 MD Mars8 [facility] 2022-10-06 2022-10-06 Ancillary Rickey, 1.2.840.1 [id number] 11 [id number] [facility] 10:15:00 11:40:00 Procedure Rebekah 93288.1.1 it y of 3.412.2.7 [place] .3.194627 MD Mars8 [facility] 2022-10-06 2022-10-06 Ancillary LARISA Lang, 1.2.840.1 [id number] 11 [id number] [facility] 10:15:00 11:40:00 Procedure Rebekah 25745.1.1 it y of 3.412.2.7 [place] .3.482541 MD Mars8 [facility] 2022-10-06 2022-10-06 Ancillary Rickey 1.2.840.1 [id number] 11 [id number] [facility] 09:15:00 11:00:00 Procedure Rebekah 06475.1.1 it y of 3.412.2.7 [place] .3.837409 MD Mars8 [facility] 2022-10-06 2022-10-06 Ancillary LARISA Lang, 1.2.840.1 [id number] 11 [id number] Univers 09:15:00 11:00:00 Procedure Rebekah 51646.1.1 it y of 3.412.2.7 [place] .3.004745 MD Mars8 [facility] 2022-10-06 2022-10-06 Telephone Chloe, 1.2.840.1 [id number] 1 [id number] [facility] 00:00:00 00:00:00 Buckner R 03715.1.1 ity of 3.412.2.7 [place] .3.137072 MD Dewey [facility] 2022-10-06 2022-10-06 Telephone [place], 1.2.840.1 [id number] 11 [id number] Univers 00:00:00 00:00:00 Rebekah 83869.1.1 ity of 3.412.2.7 [place] .3.721314 MD Dewey [facility] 2022-10-06 2022-10-06 Travel 1.2.840.1 1.2.513.208 7941 [id number] [facility] 00:00:00 00:00:00 68286.1.1 350.1.13.41 ity of 3.412.2.7 2.[place].7.3.698 [place] .3.086811 084.8 MD Dewey [facility] 2022-10-06 2022-10-06 Telephone Chloe, 1.2.840.1 [id number] 1 [id number] Univers 00:00:00 00:00:00 Buckner R 06566.1.1 ity of 3.412.2.7 [place] .3.438102 MD Dewey [facility] 2022-10-06 2022-10-06 Telephone [place], 1.2.840.1 [id number] 11 [id number] Univers 00:00:00 00:00:00 Rebekah 65273.1.1 ity of 3.412.2.7 [place] .3.392609 MD Dewey [facility] 2022-10-06 2022-10-06 Travel 1.2.840.1 1.2.383.507 0299 [id number] [facility] 00:00:00 00:00:00 44579.1.1 350.1.13.41 ity of 3.412.2.7 2.2.7.3.698 [place] .3.566686 084.8 MD Dewey [facility] 2022-10-05 2022-10-05 Outpatient [facility] AOSM AOSM 649 2512-20 Linda 00:00:00 00:00:00 ey_Da_ [id number] [facility] 2022-10-05 2022-10-05 Outpatient MIKALA TYLER [id number] Mikala 00:00:00 00:00:00 NEAL Oconnorol erinn 2022-10-04 2022-10-04 Outpatient FOG_[facility] AOSM AOSM 649 2512-20 Linda 00:00:00 00:00:00 ey_Da_ [id number] [facility] 2022-09-26 2022-09-26 Outpatient FOG_[facility] AOSM AOSM 649 2512-20 Linda 00:00:00 00:00:00 ey_DaSIMON 987014 [facility] 2022-09-26 2022-09-26 Outpatient FOG_[facility] AOSM AOSM 649 2512-20 Linda 00:00:00 00:00:00 ey_DaSIMON 291791 [facility] 2022-09-21 2022-09-21 [place] AOSM [place] - [place] [id number] Linda 00:00:00 00:00:00 Isha Gagnon MD: [id number] [place], [place] [address] , Ph. [phone] 2022-09-20 2022-09-20 Outpatient MIKALA TYLER [id number] Mikala 08:30:00 08:30:00 NEAL mendez 2022-09-20 2022-09-20 Outpatient FOG_[facility] AOSM AOSM 649 2512-20 Linda 00:00:00 00:00:00 ey_Glenn 108037 [facility] 2022-09-20 2022-09-20 Outpatient FOG_[facility]im[facility]l AOSM AOSM 649 2512-20 Linda 00:00:00 00:00:00 eyMeaghan 181879 [facility] 2022-09-13 2022-09-13 Outpatient [facility] MIKALA BACH [id number] Mikala 09:20:00 09:20:00 Seybol d 2022-09-06 2022-09-06 Outpatient FOG_[facility] AOSM AOSM [id number] Linda 00:00:00 00:00:00 eyMeaghan [id number] [facility] 2022-09-06 2022-09-06 Outpatient FOG_[facility] AOSM AOSM [id number] Linda 00:00:00 00:00:00 eyMeaghan 258217 [facility] 2022-09-06 2022-09-06 Keer[place] AOSM [place] - [place] [id number] Linda 00:00:00 00:00:00 SANDEEP Molina: Isha [place] [address] FOG[facility] [place] [facility] [place] [address] , Ph. 2022-09-04 2022-09-04 Outpatient FOG_[facility]im[facility]l AOSM AOSM 649 Linda 00:00:00 00:00:00 Kishore 148675 [facility] 2022-08-31 2022-08-31 Adi Escalante AOSM [place] [id number] Linda 00:00:00 00:00:00 Isha Martell MD: [id number] FOG_Ofc dic [facility], [place] [address] , Ph. [phone] 2022-08-24 2022-08-24 Outpatient MIKALA TYLER [id number] Mikala 00:00:00 00:00:00 NEAL Seybol d 2022-08-22 2022-08-22 Outpatient FOG_[facility] AOSM AOSM [id number] Linda 00:00:00 00:00:00 Kishore 427024 [facility] 2022-08-22 2022-08-22 Outpatient FOG_[facility] AOSM AOSM [id number] Linda 00:00:00 00:00:00 Kishore [id number] [facility] 2022-08-22 2022-08-22 Outpatient FOG_[facility] AOSM AOSM 649 2512-20 Linda 00:00:00 00:00:00 Kishore [id number] [facility] 2022-08-22 2022-08-22 Outpatient FOG_[facility] AOSM AOSM 649 2512-20 Linda 00:00:00 00:00:00 Kishore 680816 [facility] 2022-08-19 2022-08-19 Outpatient FOG_[facility] AOSM AOSM 649 2512-20 Linda 00:00:00 00:00:00 Kishore 006650 [facility] 2022-08-19 2022-08-19 Outpatient FOG_[facility] AOSM AOSM 649 2512-20 Linda 00:00:00 00:00:00 Kishore 610581 [facility] 2022-08-17 2022-08-17 [place] AOSM [place] - Ortho [id number] Linda 00:00:00 00:00:00 Isha Gagnon MD: [id number] [place] [place] [address] , Ph. [phone] 2022-08-03 2022-08-03 Outpatient MIKALA TYLER [id number] Bach 00:00:00 00:00:00 NEAL mendez 2022-08-02 2022-08-02 Outpatient SHAILESH Healy Y000 [id number] [facility] 09:29:00 09:29:00 Adi Mlutani [place] [facility] 2022-07-28 2022-07-28 Outpatient [facility] AOSM AOSM 649 2512-20 Linda 00:00:00 00:00:00 Kishore [id number] [facility] 2022-07-28 2022-07-28 Keer[place] AOSM [place] - [place] [id number] Linda 00:00:00 00:00:00 SANDEEP Molina: Isha Vernon [address] [place] FOG_Ofc dic [facility], [facility], [facility] [place] [address] , Ph. 2022-07-22 2022-07-22 Adi Escalante AOSM [place] - [place] [id number] Linda 00:00:00 00:00:00 Isha Martell MD: [id number] FOG_[facility]c [place] [facility] [place] [address] , Ph. [phone] 2022-07-21 2022-07-21 Outpatient FOG_[facility] AOSM AOSM 649 2512-20 Linda 00:00:00 00:00:00 Kishore 634752 [facility] 2022-07-21 2022-07-21 Outpatient FOG_[facility] AOSM AOSM 649 2512-20 [place] 00:00:00 00:00:00 Kishore [id number] [facility] 2022-07-21 2022-07-21 Outpatient FOG_[facility] AOSM AOSM 649 2512-20 Linda 00:00:00 00:00:00 Kishore 171441 [facility] 2022-07-13 2022-07-13 Outpatient FOG_[facility] AOSM AOSM 649 2512-20 Linda 00:00:00 00:00:00 Kishore [id number] [facility] 2022-07-13 2022-07-13 Outpatient FOG_[facility] AOSM AOSM 649 2512-20 Linda 00:00:00 00:00:00 Kishore 827812 [facility] 2022-07-02 2022-07-02 Outpatient FOG_[facility] AOSM AOSM 649 2512-20 Linda 00:00:00 00:00:00 Kishore [id number] [facility] 2022-07-01 2022-07-01 [facility], .2.840.1 [id number] Univers 00:00:00 00:00:00 Jacquelin A 70746.1.1 ity of 3.412.2.7 [place] .3.474803 MD [facility] 2022-07-01 2022-07-01 Telephone Chery 1.2.840.1 [id number] 1 [id number] Univers 00:00:00 00:00:00 Jacquelin A 35276.1.1 ity of 3.412.2.7 [place] .3.973696 MD [facility] 2022-06-30 2022-06-30 Ancillary Rickey, 1.2.840.1 [id number] 11 [id number] [facility] 09:15:00 11:00:00 Procedure Rebekah 05778.1.1 it y of 3.412.2.7 [place] .3.144431 MD [facility] 2022-06-30 2022-06-30 Ancillary LARISA Lang, 1.2.840.1 [id number] 11 [id number] Univers 09:15:00 11:00:00 Procedure Rebekah 78025.1.1 it y of 3.412.2.7 [place] .3.288110 MD [facility] 2022-06-30 2022-06-30 Travel 1.2.840.1 1.2.136.517 [id number] [id number] Univers 00:00:00 00:00:00 60826.1.1 350.1.13.41 ity of 3.412.2.7 2.2.7.3.698 [place] .3.062302 084.8 MD [facility] 2022-06-30 2022-06-30 Travel 1.2.840.1 1.2.103.881 4534 [id number] Univers 00:00:00 00:00:00 77049.1.1 350.1.13.41 ity of 3.412.2.7 2.2.7.3.698 [place] .3.122744 084.8 MD [facility] 2022-06-23 2022-06-23 Follow-Up [place], 1.2.840.1 [id number] 1099 [id number] Univers 11:00:00 11:43:27 Valerae 77127.1.1 ity of 3.412.2.7 [place] .3.065684 MD [facility] 2022-06-23 2022-06-23 Follow-Up LARISA Isaac, 1.2.840.1 [id number] [id number] Univers 11:00:00 11:43:27 Valerae 15890.1.1 ity of 3.412.2.7 [place] .3.006525 MD [facility] 2022-06-23 2022-06-23 Ancillary [place], 1.2.840.1 [id number] 1 [id number] Univers 08:15:00 10:00:00 Procedure Jacquelin A 49590.1.1 i ty of 3.412.2.7 [place] .3.615130 MD [facility] 2022-06-23 2022-06-23 Ancillary LARISA Gottlieb, 1.2.840.1 [id number] 1 [id number] Univers 08:15:00 10:00:00 Procedure Jacquelin A 79851.1.1 i ty of 3.412.2.7 [place] .3.446675 MD [facility] 2022-06-23 2022-06-23 Travel 1.2.840.1 1.2.674.995 6314 [id number] Univers 00:00:00 00:00:00 12534.1.1 350.1.13.41 ity of 3.412.2.7 2.2.7.3.698 [place] .3.856060 084.8 MD [facility] 2022-06-23 2022-06-23 Travel 1.2.840.1 1.2.676.607 5677 [id number] Univers 00:00:00 00:00:00 79776.1.1 350.1.13.41 ity of 3.412.2.7 2.2.7.3.698 [place] .3.072914 084.8 MD [facility] 2022-06-22 2022-06-22 [facility], 1.2.840.1 [id number] Univers 13:36:52 23:59:00 Encounter Jacquelin A 75799.1.1 i ty of 3.412.2.7 [place] .3.359901 MD Mars8 [facility] 2022-06-22 2022-06-22 [facility], 1.2.840.1 [id number] 10 [id number] Univers 13:36:52 23:59:00 Encounter Jacquelin A 40471.1.1 i ty of 3.412.2.7 [place] .3.547063 MD Mars8 [facility] 2022-06-22 2022-06-22 [facility], 1.2.840.1 [id number] 1 [id number] Univers 18:15:00 20:00:00 Procedure Jacquelin A 48510.1.1 i ty of 3.412.2.7 [place] .3.007907 MD [facility] 2022-06-22 2022-06-22 [facility], 1.2.840.1 [id number] 1 [id number] Univers 18:15:00 20:00:00 Procedure Jacquelin A 00581.1.1 i ty of 3.412.2.7 [place] .3.650647 MD [facility] 2022-06-22 2022-06-22 Outpatient MIKALA TYLER [id number] Mikala 08:45:00 08:45:00 NEAL mendez 2022-06-22 2022-06-22 Travel 1.2.840.1 1.2.166.720 [id number] [id number] Univers 00:00:00 00:00:00 56898.1.1 350.1.13.41 ity of 3.412.2.7 2.2.7.3.698 [place] .3.943569 084.8 MD Dewey [facility] 2022-06-22 2022-06-22 Travel 1.2.840.1 1.2.786.535 2654 [id number] Univers 00:00:00 00:00:00 32435.1.1 350.1.13.41 ity of 3.412.2.7 2.2.7.3.698 sudha Mars3.518187 08Edilia.8 MD Mars8 [facility] 2022-06-18 2022-06-18 Outpatient MIKALA TYLER [id number] Mikala 08:30:00 08:30:00 NEAL Seybol d 2022-06-16 2022-06-16 Outpatient LAB90 MIKALA BACH [id number] Mikala 08:10:00 08:10:00 Seybol d 2022-06-11 2022-06-11 Outpatient MIKALA TYLER [id number] Mikala 00:00:00 00:00:00 NEAL Seybol d 2022-05-27 2022-05-27 Outpatient MIKALA TYLER [id number] Mikala 00:00:00 00:00:00 NEAL Seybol d 2022-05-02 2022-05-02 Outpatient MIKALA BOWLES [id number] Mikala 00:00:00 00:00:00 LATRICIA Seybol d 2022-04-27 2022-04-27 Outpatient MIKALA TYLER [id number] Mikala 00:00:00 00:00:00 NEAL Seybol d 2022-04-25 2022-04-25 Outpatient MIKALA TYLER [id number] Mikala 00:00:00 00:00:00 NEAL Seybol d 2022-04-09 2022-04-09 [facility], 1.2.840.1 [id number] [facility] [place] [facility] 00:00:00 00:00:00 Only Jacquelin A 82813.1.1 ity of 3.412.2.7 [place] .3.322993 MD Mars8 [facility] 2022-04-09 2022-04-09 [facility], 1.2.840.1 [id number] 1 [id number] Univers 00:00:00 00:00:00 Jacquelin A 17845.1.1 ity of 3.412.2.7 [place] .3.606832 MD Dewey [facility] 2022-04-09 2022-04-09 Orders [place], 1.2.840.1 [id number] Univers 00:00:00 00:00:00 Only Jacquelin A 80222.1.1 ity of 3.412.2.7 [place] .3.723131 MD Dewey [facility] 2022-04-09 2022-04-09 [facility], 1.2.840.1 [id number] 1 [id number] Univers 00:00:00 00:00:00 Jacquelin A 82897.1.1 ity of 3.412.2.7 [place] .3.935147 MD Dewey [facility] 2022-04-07 2022-04-07 Outpatient MIKALA TYLER [id number] Mikala 00:00:00 00:00:00 NEAL mendez 2022-04-02 2022-04-02 Ancillary [place], 1.2.840.1 [id number] 1 [id number] Univers 12:45:00 14:30:00 Procedure Jacquelin A 85063.1.1 i ty of 3.412.2.7 [place] .3.217852 MD Dewey [facility] 2022-04-02 2022-04-02 Ancillary [facility], 1.2.840.1 [id number] 1 [id number] Univers 12:45:00 14:30:00 Procedure Jacquelin A 59970.1.1 i ty of 3.412.2.7 [place] .3.536180 MD Dewey [facility] 2022-04-02 2022-04-02 Travel 1.2.840.1 1.2.027.005 [id number] Univers 00:00:00 00:00:00 47126.1.1 350.1.13.41 ity of 3.412.2.7 [place]7.3.698 [place] .3.510294 084.8 MD Dewey [facility] 2022-04-02 2022-04-02 Travel 1.2.840.1 1.2.613.217 [id number] Univers 00:00:00 00:00:00 57668.1.1 350.1.13.41 ity of 3.412.2.7 [place]7.3.698 [place] .3.328703 084.8 MD Dewey [facility] 2022-03-24 2022-03-24 Ancillary [place], 1.2.840.1 [id number] 1 [id number] Univers 12:00:00 12:15:00 Procedure Jacquelin A 80564.1.1 i ty of 3.412.2.7 [place] .3.091291 MD Mars8 [facility] 2022-03-24 2022-03-24 Ancillary [place], 1.2.840.1 [id number] 1 [id number] Univers 12:00:00 12:15:00 Procedure Jacquelin A 00385.1.1 i ty of 3.412.2.7 [place] .3.920497 MD Dewey [facility] 2022-03-24 2022-03-24 Office [place], 1.2.840.1 [id number] Univers 10:00:00 11:12:39 Visit Valerae 95976.1.1 ity of 3.412.2.7 [place] .3.618372 MD Mars8 [facility] 2022-03-24 2022-03-24 Office LARISA Isaac, 1.2.840.1 [id number] Univers 10:00:00 11:12:39 Visit Valerae 05573.1.1 ity of 3.412.2.7 [place] .3.542235 MD Mars8 [facility] 2022-03-24 2022-03-24 Travel 1.2.840.1 1.2.319.878 [id number] Univers 00:00:00 00:00:00 48007.1.1 350.1.13.41 ity of 3.412.2.7 2.[place]7.3.698 [place] .3.806718 084.8 MD Dewey [facility] 2022-03-24 2022-03-24 Travel 1.2.840.1 1.2.163.864 [id number] Univers 00:00:00 00:00:00 89992.1.1 350.1.13.41 ity of 3.412.2.7 2.[place]7.3.698 [place] .3.354879 084.8 MD Dewey [facility] 2022-03-23 2022-03-23 [facility], 1.2.840.1 [id number] 10 [id number] Univers 10:47:25 23:59:00 Encounter Jacquelin A 15948.1.1 i ty of 3.412.2.7 [place] .3.987222 MD Mars8 [facility] 2022-03-23 2022-03-23 [facility], 1.2.840.1 [id number] 10 [id number] Univers 10:47:25 23:59:00 Encounter Jacquelin A 16173.1.1 i ty of 3.412.2.7 [place] .3.691225 MD Dewey [facility] 2022-03-23 2022-03-23 [facility], 1.2.840.1 [id number] 1 [id number] Univers 13:15:00 16:00:00 Procedure Jacquelin A 47144.1.1 i ty of 3.412.2.7 [place] .3.901466 MD Dewey [facility] 2022-03-23 2022-03-23 [facility], 1.2.840.1 [id number] 1 [id number] Univers 13:15:00 16:00:00 Procedure Jacquelin A 55158.1.1 i ty of 3.412.2.7 [place] .3.546629 MD Dewey [facility] 2022-03-23 2022-03-23 Travel 1.2.840.1 1.2.591.394 4862 [id number] Univers 00:00:00 00:00:00 17552.1.1 350.1.13.41 ity of 3.412.2.7 [place].3.698 [place]3.[place] 084.8 MD Dewey [facility] 2022-03-23 2022-03-23 Travel 1.2.840.1 1.2.047.503 8020 [id number] Univers 00:00:00 00:00:00 27461.1.1 350.1.13.41 ity of 3.412.2.7 [place].3.698 [place] .3.053836 084.8 MD Dewey [facility] 2022-03-11 2022-03-11 Outpatient MIKALA TYLER [id number] Mikala 09:00:00 09:00:00 NEAL Seybol d 2022-03-01 2022-03-01 Outpatient LAB90 MIKALA BACH [id number] Mikala 09:10:00 09:10:00 Seybol d 2022-03-01 2022-03-01 Outpatient MIKALA TYLER [id number] Mikala 00:00:00 00:00:00 NEAL Seybol d 2022-02-15 2022-02-15 [facility] 1.2.840.1 [id number] Univers 06:35:00 23:59:00 Encounter Quang Rizvi 16072.1.1 ity of 3.412.2.7 [place] .3.725345 MD Dewey [facility] 2022-02-15 2022-02-15 [facility] 1.2.840.1 101 [id number] Univers 06:35:00 23:59:00 Encounter Quang Rizvi 80603.1.1 ity of 3.412.2.7 [place] .3.156790 MD Dewey [facility] 2022-02-15 2022-02-15 [facility] Dmitri 1.2.840.1 [id number] [id number] Univers 06:21:40 06:34:00 Encounter Ale Greenwood 57773.1.1 it y of 3.412.2.7 [place] .3.297534 MD Dewey [facility] 2022-02-15 2022-02-15 [facility], 1.2.840.1 [id number] 57637 Univers 06:21:40 06:34:00 Encounter Ale Greenwood 88655.1.1 it y of 3.412.2.7 [place] .3.308874 MD Dewey [facility] 2022-02-15 2022-02-15 Travel 1.2.840.1 1.2.803.933 3162 [id number] Univers 00:00:00 00:00:00 88822.1.1 350.1.13.41 ity of 3.412.2.7 2.[place]7.3.698 [place] .3.024982 084.8 MD Dewey [facility] 2022-02-15 2022-02-15 Travel 1.2.840.1 1.2.434.173 7308 [id number] Univers 00:00:00 00:00:00 89205.1.1 350.1.13.41 ity of 3.412.2.7 2.[place].7.3.698 [place] .3.522[place] 084.Miguelina [facility] 2022-02-12 2022-02-12 Yanci Puga, 1.2.840.1 [id number] 7963 Univers 00:00:00 00:00:00 Only Ivelisse 45991.1.1 ity of 3.412.2.7 [place] .3.291997 MD Dewey [facility] 2022-02-12 2022-02-12 Augustina Richmond 1.2.840.1 [id number] 1 [id number] Univers 00:00:00 00:00:00 Hoa Hopson 88259.1.1 it y of 3.412.2.7 [place] .3.317066 MD Dewey [facility] 2022-02-12 2022-02-12 Yanci Puga, 1.2.840.1 [id number] 7032 Univers 00:00:00 00:00:00 Only Ivelisse 34421.1.1 ity of 3.412.2.7 [place] .3.748778 MD Mars8 [facility] 2022-02-12 2022-02-12 Telephone Basilio, 1.2.840.1 [id number] 1 [id number] Univers 00:00:00 00:00:00 Hoa Hopson 54988.1.1 it y of 3.412.2.7 [place] .3.612431 MD Mars8 [facility] 2022-02-11 2022-02-11 Orders Mitul, 1.2.840.1 [id number] Univers 00:00:00 00:00:00 Only Vane 63680.1.1 ity of Mike 3.412.2.7 [place] .3.528410 MD Mars8 [facility] 2022-02-11 2022-02-11 Orders Dmitri, 1.2.840.1 [id number] Univers 00:00:00 00:00:00 Only Ale Greenwood 94583.1.1 ity of 3.412.2.7 [place] .3.171394 MD Mars8 [facility] 2022-02-11 2022-02-11 Orders Mitul, 1.2.840.1 [id number] Univers 00:00:00 00:00:00 Only Vane 47401.1.1 ity of Mike 3.412.2.7 [place] .3.022966 MD Mars8 [facility] 2022-02-11 2022-02-11 Orders Dmitri, 1.2.840.1 [id number] 8549 Univers 00:00:00 00:00:00 Only Ale Greenwood 81003.1.1 ity of 3.412.2.7 [place] .3.509520 MD Mars8 [facility] 2022-02-09 2022-02-09 Augustina Gottlieb, 1.2.840.1 [id number] 1 [id number] Univers 00:00:00 00:00:00 Jacquelin Gutierrez 05654.1.1 ity of 3.412.2.7 [place] .3.588036 MD Mars8 [facility] 2022-02-09 2022-02-09 [facility], 1.2.840.1 [id number] 674 [id number] Univers 00:00:00 00:00:00 Only Jacquelin A 02634.1.1 ity of 3.412.2.7 [place] .3.985300 MD Mars8 [facility] 2022-02-09 2022-02-09 [facility], 1.2.840.1 [id number] 1 [id number] Univers 00:00:00 00:00:00 Jacquelin A 73741.1.1 ity of 3.412.2.7 [place] .3.879964 MD Mars8 [facility] 2022-02-09 2022-02-09 [facility] Chery, 1.2.840.1 [id number] 736 [id number] Univers 00:00:00 00:00:00 Only Jacquelin A 90131.1.1 ity of 3.412.2.7 [place] .3.592790 MD Mars8 [facility] 2022-02-02 2022-02-02 Outpatient MIKALA TYLER [id number] Mikala 08:00:00 08:00:00 NEAL mendez 2022-01-27 2022-01-27 Outpatient MIKALA BOWLES [id number] Mikala 00:00:00 00:00:00 LATRICIA mendez 2022-01-19 2022-01-19 Ancillary Chery, 1.2.840.1 [id number] 1 [id number] Univers 20:00:00 20:05:00 Procedure Jacquelin A 27368.1.1 i ty of 3.412.2.7 [place] .3.597676 MD Mars8 [facility] 2022-01-19 2022-01-19 Ancillary Chery, 1.2.840.1 [id number] 1 [id number] Univers 20:00:00 20:05:00 Procedure Jacquelin A 00517.1.1 i ty of 3.412.2.7 [place] .3.678223 MD Mars8 [facility] 2022-01-19 2022-01-19 Yanci Gottlieb, 1.2.840.1 [id number] Univers 00:00:00 00:00:00 Only Jacquelin A 85008.1.1 ity of 3.412.2.7 [place] .3.136008 MD Mars8 [facility] 2022-01-19 2022-01-19 Yanci Gottlieb, 1.2.840.1 [id number] Univers 00:00:00 00:00:00 Only Jacquelin A 66542.1.1 ity of 3.412.2.7 [place] .3.194741 MD Mars8 [facility] 2022-01-18 2022-01-18 Ancillary 1.2.840.1 [id number] 1096 [id number] Univers 20:00:00 20:05:00 Procedure 80344.1.1 it y of 3.412.2.7 [place] .3.335103 MD Mars8 [facility] 2022-01-18 2022-01-18 Ancillary EL 1.2.840.1 [id number] 1096 [id number] Univers 20:00:00 20:05:00 Procedure 79278.1.1 it y of 3.412.2.7 [place] .3.968708 MD Mars8 [facility] 2021-12-28 2021-12-28 Outpatient MIKALA TYLER [id number] Mikala 00:00:00 00:00:00 NEAL mendez 2021-12-21 2021-12-21 Outpatient MIKALA BOWLES [id number] Mikala 00:00:00 00:00:00 LATRICIA Seybol erinn 2021-12-21 2021-12-21 Outpatient MIKALA BOWLES [id number] Mikala 00:00:00 00:00:00 LATRICIA Seybol erinn 2021-12-15 2021-12-15 Office Gray Tyler 1.2.840.114 [id number] Mikala 09:30:00 09:45:00 Visit Neal Tejada 350.1.13.13 Se tompkins 1.2.7.2.686 [id number] 0 2021-12-15 2021-12-15 Outpatient JELENA MIKALA BACH [id number] Mikala 00:00:00 00:00:00 LATRICIA mendez 2021-12-09 2021-12-09 Office Gray Tyler 1.2.840.114 [id number] Mikala 10:30:00 11:00:00 Visit Neal Tejada 350.1.13.13 Se leda 1.2.7.2.686 [id number] 0 2021-12-09 2021-12-09 Outpatient LAB90 MIKALA BACH [id number] Mikala 08:55:00 08:55:00 Seoscarol erinn 2021-12-02 2021-12-02 Office LARISA Isaac 1.2.840.1 [id number] Univers 11:00:00 12:34:21 Visit Diane 64367.1.1 ity of 3.412.2.7 [place] .3.063366 MD Mars8 [facility] 2021-12-02 2021-12-02 Travel 1.2.840.1 1.2.269.330 7990 [id number] Univers 00:00:00 00:00:00 15760.1.1 350.1.13.41 ity of 3.412.2.7 [place]7.3.698 [place]3.705064 084.8 MD Dewey [facility] 2021-12-01 2021-12-01 Ancillary LARISA Lang 1.2.840.1 [id number] 10 [id number] Univers 16:15:00 18:00:00 Procedure Rebekah 37159.1.1 it y of 3.412.2.7 [place] .3.200726 MD Dewey [facility] 2021-12-01 2021-12-01 Ancillary LARISA Lang 1.2.840.1 [id number] 10 [id number] Univers 14:30:00 15:55:00 Procedure Rebekah 90919.1.1 it y of 3.412.2.7 [place] .3.604738 MD Mars8 [facility] 2021-12-01 2021-12-01 Travel 1.2.840.1 1.2.588.646 4634 [id number] Univers 00:00:00 00:00:00 62548.1.1 350.1.13.41 ity of 3.412.2.7 2.[place].7.3.698 [place] .3.984908 084.8 MD Dewey [facility] 2021-11-19 2021-11-19 Outpatient MIKALA TYLER [id number] Mikala 08:15:00 08:15:00 NEAL Seybol d 2021-11-12 2021-11-12 Office Gray Tyler 1.2.840.114 [id number] Mikala 10:00:00 10:15:00 Visit Neal Tejada 350.1.13.13 Se ybold 1.2.7.2.686 [id number] 2021-11-06 2021-11-06 Refvenancio Haskinsl, 1.2.840.1 [id number] 2595 Univers 00:00:00 00:00:00 Marlyn 11279.1.1 ity of 3.412.2.7 [place] .3.253507 MD Dewey [facility] 2021-11-04 2021-11-04 Outpatient MIKALA TYLER [id number] Mikala 00:00:00 00:00:00 NEAL Oconnorol erinn 2021-11-04 2021-11-04 Outpatient MIKALA TYLER [id number] Mikala 00:00:00 00:00:00 NEAL Oconnorol erinn 2021-11-03 2021-11-03 Ancillary Pelon, 1.2.840.1 [id number] [id number] [facility] [place] [facility] 15:30:00 16:30:00 Procedure Edward Greenwood 28925.1.1 ity of 3.412.2.7 [place] .3.618306 MD Dewey [facility] 2021-11-03 2021-11-03 Office [place], 1.2.840.1 [id number] 6153 Univers 11:00:00 15:39:33 Visit Edward Reyes50.1.1 it y of 3.412.2.7 [place] .3.275593 MD Mars8 [facility] 2021-11-03 2021-11-03 Ancillary Pelon, 1.2.840.1 [id number] 1093 [id number] [facility] [place] [facility] 14:30:00 15:30:00 Procedure Edward Greenwood 92987.1.1 ity of 3.412.2.7 [place] .3.668883 MD Mars8 [facility] 2021-11-03 2021-11-03 Outpatient MIKALA TYLER [id number] Mikala 11:00:00 11:00:00 NEAL mendez 2021-11-03 2021-11-03 Travel 1.2.840.1 1.2.635.056 4428 [id number] [facility] [place] [facility] 00:00:00 00:00:00 72973.1.1 350.1.13.41 ity of 3.412.2.7 2.2.7.3.698 [facility] .3.328046 084.8 MD Mars8 [facility] 2021-11-02 2021-11-02 Office Gray Tyler 1.2.840.114 [id number] Mikala 08:00:00 08:15:00 Visit Neal Tejada 350.1.13.13 Se ybold 1.2.7.2.686 [id number] 2021-10-27 2021-10-27 Outpatient LAB90 MIKALA BACH [id number] Mikala 14:00:00 14:00:00 Lilia mendez 2021-10-27 2021-10-27 Office Gray Tyler 1.2.840.114 [id number] Mikala 13:30:00 13:45:00 Visit Neal Tejada 350.1.13.13 Se ybold 1.2.7.2.686 [id number] 0 2021-10-27 2021-10-27 Yanci Jurado 1.2.840.1 [id number] [id number] [facility] [place] [facility] 00:00:00 00:00:00 Only Ronnie Greenwood 64576.1.1 ity of 3.412.2.7 [place] .3.816619 MD Dewey [facility] 2021-10-21 2021-10-23 [facility], 1.2.840.1 [id number] 78488 12794 Univers 06:02:00 11:05:00 Encounter Edward Greenwood 96783.1.1 ity of 3.412.2.7 [place] .3.167758 MD Dewey [facility] 2021-10-23 2021-10-23 [facility] Pel[place], 1.2.840.1 [id number] Univers 00:00:00 00:00:00 Only Edward Greenwood 62137.1.1 it y of 3.412.2.7 [place] .3.072388 MD Dewey [facility] 2021-10-21 2021-10-21 Anesthesia Vane Flores 1.2.840.1 [id number] Univers 07:54:00 15:01:00 Event Shelly Ulloa 05808.1.1 ity of 3.412.2.7 [place] .3.180159 MD Dewey [facility] 2021-10-21 2021-10-21 Surgery [place], 1.2.840.1 [id number] Univers 08:00:00 11:40:00 Edward Greenwood 67937.1.1 it y of 3.412.2.7 [place] .3.072995 MD Dewey [facility] 2021-10-21 2021-10-21 Travel 1.2.840.1 1.2.015.581 9861 [id number] Univers 00:00:00 00:00:00 43653.1.1 350.1.13.41 ity of 3.412.2.7 2.2.7.3.698 [place] .3.560527 084.8 MD Dewey [facility] 2021-10-20 2021-10-20 Anesthesia Jose Juan, 1.2.840.1 [id number] 657 [id number] Univers 23:59:59 23:59:59 Event Suzan Cheng 92778.1.1 it y of 3.412.2.7 [place] .3.865280 MD Dewey [facility] 2021-10-20 2021-10-20 Hospital [place], 1.2.840.1 [id number] 63562 Univers 10:39:55 23:59:00 Encounter Edward Reyes50.1.1 ity of 3.412.2.7 [place] .3.223920 MD Dewey [facility] 2021-10-20 2021-10-20 Office [place], 1.2.840.1 [id number] 5890 Univers 14:00:00 14:42:13 Visit Edward Hill.1.1 it y of 3.412.2.7 [place] .3.906206 MD Dewey [facility] 2021-10-20 2021-10-20 Clinical Edward Bird 1.2.840.1 [id number] Univers 13:15:00 13:15:00 Support Jacinta Ellis50.1.1 ity of 3.412.2.7 [place] .3.552565 MD Dewey [facility] 2021-10-20 2021-10-20 [facility] [place], 1.2.840.1 [id number] 9225 Univers 10:00:00 10:38:23 Appointmen Edward Reyes50.1.1 ity of ts 3.412.2.7 [place] .3.213696 MD Dewey [facility] 2021-10-20 2021-10-20 Travel 1.2.840.1 1.2.726.912 8898 [id number] Univers 00:00:00 00:00:00 31693.1.1 350.1.13.41 ity of 3.412.2.7 2.2.7.3.698 [place] .3.863267 084.8 MD Dewey [facility] 2021-09-29 2021-09-29 Office [place], 1.2.840.1 [id number] 9254 Univers 08:30:00 11:43:15 Visit Edward Hill.1.1 it y of 3.412.2.7 [place] .3.998977 MD Dewey [facility] 2021-09-29 2021-09-29 Prep for [place], 1.2.840.1 [id number] 866 [id number] Univers 00:00:00 00:00:00 Surgery Lilibeth 42163.1.1 ity of 3.412.2.7 [place] .3.172451 MD Mars8 [facility] 2021-09-29 2021-09-29 Travel 1.2.840.1 1.2.262.266 9722 [id number] Univers 00:00:00 00:00:00 54884.1.1 350.1.13.41 ity of 3.412.2.7 2.2.7.3.698 [place] .3.482775 084.Miguelina [facility] 2021-09-12 2021-09-15 [facility] T[facility] 1.2.840.1 [id number] Univers 13:24:00 15:24:00 Encounter Miguel Ángel Ulloa 42824.1.1 ity of RizviNitish burknathaliedora R. 3.412.2.7 [place] Sarah White .3.098842 Adi Ace .8 And Sergei Mitchell Ali [facility] 2021-09-14 2021-09-14 Telephone Jabari, 1.2.840.1 [id number] [id number] Univers 00:00:00 00:00:00 Keila R 52509.1.1 ity of 3.412.2.7 [place] .3.959590 MD Dewey [facility] 2021-09-12 2021-09-12 Travel 1.2.840.1 1.2.389.202 8697 [id number] Univers 00:00:00 00:00:00 29477.1.1 350.1.13.41 ity of 3.412.2.7 2.2.7.3.698 [place] .3.913899 084Zuleima [facility] 2021-09-11 2021-09-11 Documentat Taggenoveva, 1.2.840.1 [id number] 10 [id number] Univers 00:00:00 00:00:00 ion Dirk 51175.1.1 ity of 3.412.2.7 [place] .3.665091 MD Mars8 [facility] 2021-09-04 2021-09-04 Procedure LARISA Bird, 1.2.840.1 [id number] 1090 [id number] Univers 10:30:00 12:30:12 visit Edward Greenwood 96926.1.1 it y of 3.412.2.7 [place] .3.072055 MD Mars8 [facility] 2021-09-04 2021-09-04 Outpatient LARISA BIRD IV, [facility] [id number] 11:23:09 11:23:09 EDWARD acosta 2021-09-04 2021-09-04 Travel 1.2.840.1 1.2.879.987 4557 [id number] Univers 00:00:00 00:00:00 98208.1.1 350.1.13.41 ity of 3.412.2.7 2.2.7.3.698 [place] .3.089999 084.8 MD Mars8 [facility] 2021-08-26 2021-08-26 Hospital Kenisha Freedly 1.2.840.1 101 [id number] Univers 11:30:00 23:59:00 Encounter Marlyn Rojas 54282.1.1 ity of 3.412.2.7 [place] .3.920177 MD Dewey [facility] 2021-08-26 2021-08-26 Office LARISA Isaac, 1.2.840.1 [id number] 2940 Univers 10:00:00 11:55:53 Visit Diane 47190.1.1 ity of 3.412.2.7 [place] .3.786423 MD Dewey [facility] 2021-08-26 2021-08-26 Orders Crystal, 1.2.840.1 [id number] 9986 Univers 00:00:00 00:00:00 Only Marlyn 62809.1.1 ity of 3.412.2.7 [place] .3.057578 MD Dewey [facility] 2021-08-26 2021-08-26 Travel 1.2.840.1 1.2.633.940 9078 [id number] Univers 00:00:00 00:00:00 84416.1.1 350.1.13.41 ity of 3.412.2.7 2.2[place]7.3.698 [place] .3.529136 084.8 MD Dewey [facility] 2021-08-25 2021-08-25 Ancillary LARISA Isaac, 1.2.840.1 [id number] 1088 [id number] Univers 16:15:00 18:00:00 Procedure Valerae 18331.1.1 it y of 3.412.2.7 [place] .3.538793 MD Dewey [facility] 2021-08-25 2021-08-25 Ancillary LARISA Isaac, 1.2.840.1 [id number] 1088 [id number] Univers 14:10:00 15:35:00 Procedure Valerae 78528.1.1 it y of 3.412.2.7 [place] .3.566368 MD Dewey [facility] 2021-08-25 2021-08-25 Ancillary LARISA Isaac, 1.2.840.1 [id number] 1088 [id number] Univers 12:30:00 13:30:00 Procedure Valerae 00625.1.1 it y of 3.412.2.7 [place] .3.100937 MD Dewey [facility] 2021-08-25 2021-08-25 Travel 1.2.840.1 1.2.918.028 0652 [id number] Univers 00:00:00 00:00:00 95630.1.1 350.1.13.41 ity of 3.412.2.7 2.2[place]7.3.698 [place] .3.776580 084.8 MD Dewey [facility] 2021-08-19 2021-08-19 Outpatient LAB90 MIKALA BACH [id number] Mikala 09:45:00 09:45:00 Seybol d 2021-08-19 2021-08-19 Office Gray Tyler 1.2.840.114 [id number] Mikala 09:00:00 09:30:00 Visit Neal Tejada 350.1.13.13 Se leda 1.2.7.2.686 [id number] 2021-08-19 2021-08-19 Outpatient LAB90 MIKALA MIKALA [id number] Mikala 08:25:00 08:25:00 Seybol d 2021-08-19 2021-08-19 Outpatient LAB90 MIKALA MIKALA [id number] Mikala 08:20:00 08:20:00 Seybol d 2021-08-04 2021-08-04 Augustina Bird 1.2.840.1 [id number] [id number] Univers 00:00:00 00:00:00 Edward Greenwood 56462.1.1 it y of 3.412.2.7 [place] .3.535985 .8 [facility] 2021-08-04 2021-08-04 Yanci Bird 1.2.840.1 [id number] 7135 Univers 00:00:00 00:00:00 Only Edward Greenwood 29395.1.1 it y of 3.412.2.7 [place] .3.827436 .8 [facility] 2021-07-14 2021-07-14 Outpatient LARISA BIRD IV, YEE MDA [id number] 09:33:46 14:54:00 EDWARD acosta 2021-07-14 2021-07-14 Outpatient LARISA ISAAC MDA MDA [id number] 12:10:18 12:40:12 DIANE acosta 2021-06-10 2021-06-10 Outpatient LARISA ISAAC MDA MDA [id number] 12:13:01 13:09:40 DIANE acosta 2021-06-10 2021-06-10 Outpatient LARISA GOTTLIEB MDA MDA [id number] 07:25:33 07:25:33 JACQUELIN acosta 2021-05-28 2021-05-29 Inpatient LARISA ISAAC [facility] [id number] 10:20:00 12:36:00 DIANE Miners o n 2021-05-27 2021-05-27 Outpatient LARISA ISAAC, MDA MDA [id number] MD 14:41:29 16:36:21 DIANE Danielsoners o n 2021-05-27 2021-05-27 Outpatient PONCHO, MDA MDA [id number] MD 07:45:50 07:45:50 DIANE Danielsoners o n 2021-05-26 2021-05-26 Outpatient MIKAEL, MDA MDA [id number] 13:39:28 16:33:29 ADI Lucas o karla 2021-05-26 2021-05-26 [address] [facility], MDA MDA [id number] 15:56:48 15:56:48 JACQUELIN Danielsoners o karla 2021-05-26 2021-05-26 Outpatient [facility], MDA MDA [id number] MD 13:15:27 14:16:47 JACQUELIN Danielsoners o karla 2021-05-19 2021-05-19 Outpatient [facility], MDA MDA [id number] 09:24:52 23:59:00 JACQUELIN Danielsoners o karla 2021-05-19 2021-05-19 Outpatient PONCHO, MDA MDA [id number] MD 09:44:45 15:37:59 DIANE Danielsoners o karla 2021-05-19 2021-05-19 Outpatient [facility], MDA MDA [id number] MD 09:45:02 09:45:02 JACQUELIN Danielsoners o karla 2021-05-19 2021-05-19 Outpatient BRIAN GREGORIO MDA MDA [id number] 07:00:00 09:23:00 Lance o karla 2021-04-27 2021-04-27 Outpatient GRAY KANG MIKALA [id number] Mikala 08:15:00 08:15:00 Seybol d 2021-04-22 2021-04-22 Outpatient PONCHO, MDA MDA [id number] MD 09:45:25 10:48:51 DIANE Danielsoners o karla 2021-04-22 2021-04-22 Outpatient HAILY, MDA MDA [id number] 09:15:29 09:15:29 SONNY Danielsoners o karla 2021-04-20 2021-04-20 Outpatient MIKALA BOWLES MIKALA [id number] Mikala 00:00:00 00:00:00 LATRICIA dontae mendez 2021-04-15 2021-04-15 Outpatient LARISA ISAAC, MDA MDA [id number] MD 10:05:14 23:59:00 DIANE Lance o n 2021-04-14 2021-04-14 Outpatient EL PONCHO, MDA MDA [id number] MD 10:25:16 23:59:00 LEIGHAERAE Lance o n 2021-04-13 2021-04-13 Outpatient EL PONCHO, MDA MDA [id number] MD 09:38:02 23:59:00 DIANE Lance o n 2021-04-13 2021-04-13 Outpatient LARISA BOLES, MDA MDA [id number] MD 08:57:39 09:37:00 SONNY Danielsoners o n 2021-04-12 2021-04-12 Outpatient LARISA ISAAC, MDA MDA [id number] MD 10:59:04 23:59:00 DIANE Lance o n 2021-04-10 2021-04-10 Outpatient LARISA ISAAC, MDA MDA [id number] MD 10:54:43 23:59:00 DIANE Lance o n 2021-04-09 2021-04-09 Outpatient LARISA ISAAC, MDA MDA [id number] MD 14:01:51 23:59:00 DIANE Lance o n 2021-04-08 2021-04-08 Outpatient LARISA ISAAC, MDA MDA [id number] MD 10:20:00 23:59:00 DIANE Lance o n 2021-04-08 2021-04-08 Outpatient EL HAILY, MDA MDA [id number] MD 09:23:30 10:19:00 SONNY Danielsoners o n 2021-04-07 2021-04-07 Outpatient LARISA ISAAC, MDA MDA [id number] MD 13:36:46 23:59:00 DIANE Lance o n 2021-04-07 2021-04-07 Outpatient CHERY, MDA MDA [id number] MD 09:04:16 09:04:16 JACQUELIN Danielsoners o n 2021-04-06 2021-04-06 Outpatient EL PONCHO, MDA MDA [id number] MD 14:30:00 23:59:00 DIANE Danielsoners o karla 2021-04-03 2021-04-03 Outpatient LARISA ISAAC, MDA MDA [id number] MD 13:09:50 23:59:00 DIANE Lucas o karla 2021-04-02 2021-04-02 Outpatient LARISA SIAAC, MDA MDA [id number] MD 13:49:54 23:59:00 DIANE Lucas o karla 2021-04-01 2021-04-01 Outpatient LARISA ISAAC, MDA MDA [id number] MD 10:39:51 23:59:00 DIANE Danielsoners o karla 2021-04-01 2021-04-01 Outpatient LARISA BOLES, MDA MDA [id number] MD 09:34:48 10:38:00 SONNY acosta 2021-03-31 2021-03-31 Outpatient LARISA ISAAC, MDA MDA [id number] MD 14:06:27 23:59:00 DIANE Lucas o karla 2021-03-30 2021-03-30 Outpatient LARISA ISAAC, MDA MDA [id number] MD 09:25:13 23:59:00 DIANE Danielsoners o karla 2021-03-27 2021-03-27 Outpatient LARISA ISAAC, MDA MDA [id number] MD 13:19:37 23:59:00 DIANE Danielsoners o karla 2021-03-24 2021-03-24 Outpatient LARISA BOLES, MDA MDA [id number] MD 14:57:14 23:59:00 SONNY acosta 2021-03-24 2021-03-24 Outpatient LARISA BOLES, MDA MDA [id number] MD 12:05:52 14:56:00 SONNY Lucas o karla 2021-03-24 2021-03-24 Outpatient EL MDA MDA [id number] MD 10:20:00 12:04:00 Lance o karla 2021-03-23 2021-03-23 Outpatient LARISA ISAAC, MDA MDA [id number] MD 06:15:00 23:59:00 DIANE Danielsoners o karla 2021-03-12 2021-03-12 Outpatient EL MDA MDA [id number] MD 12:19:28 12:19:37 Lance o karla 2021-03-06 2021-03-06 Outpatient EL BRIE, MDA MDA [id number] MD 12:44:00 23:59:00 KEVIN Lance o n 2021-02-27 2021-02-27 Outpatient EL LEONARDO, MDA MDA [id number] MD 13:14:21 23:59:00 JOSIAS Lance o n 2021-02-27 2021-02-27 Outpatient EL MDA MDA [id number] MD 12:01:41 13:13:00 Lance o n 2021-02-27 2021-02-27 Outpatient EL MDA MDA [id number] MD 12:14:53 12:14:53 Lance o n 2021-02-25 2021-02-25 Outpatient EL PONCHO, MDA MDA [id number] MD 14:36:23 16:45:47 DIANE Lance o karla 2021-02-25 2021-02-25 Outpatient EL MDA MDA [id number] MD 13:31:53 13:31:53 Lance o n 2021-02-25 2021-02-25 Outpatient EL MDA MDA [id number] MD 13:30:44 13:30:44 Lance o n 2021-02-25 2021-02-25 Outpatient EL MDA MDA [id number] MD 13:01:07 13:01:18 Lance o karla 2021-02-25 2021-02-25 Outpatient MIKALA BOWLES [id number] Mikala 00:00:00 00:00:00 LATRICIA mendez 2021-02-25 2021-02-25 Outpatient MIKALA BOWLES [id number] Mikala 00:00:00 00:00:00 LATRICIA Oconnorol d 2021-02-23 2021-02-23 Outpatient EL MDA MDA [id number] MD 16:34:00 16:34:00 Lance o n 2021-02-23 2021-02-23 Outpatient EL MDA MDA [id number] MD 16:33:51 16:33:51 Lance o n 2021-02-23 2021-02-23 Outpatient LAB90 MIKALA BACH [id number] Mikala 09:50:00 09:50:00 Elvinol d 2021-02-23 2021-02-23 Outpatient EL MDA MDA [id number] 08:57:04 08:57:04 Lance o n 2021-02-23 2021-02-23 Outpatient EL MDA MDA [id number] MD 08:57:01 08:57:01 Lance o n 2021-02-23 2021-02-23 Outpatient EL MDA MDA [id number] MD 08:56:59 08:56:59 Lance o n 2021-02-23 2021-02-23 Outpatient EL MDA MDA [id number] 08:56:56 08:56:56 Lance o n 2021-02-23 2021-02-23 Office Gray Bowles [id number] Mikala 07:51:14 08:21:14 Visit Latricia [place]jada [id number] leda Sanjeev [id number] 2020-11-17 2020-11-18 Outpatient nullFlavo [facility] Multi 33 [id number] Memoria 13:45:00 04:59:59 r Specialty 05 l [facility] 2020-10-03 2020-10-04 Outpatient nullFlavo [facility] [id number] Memoria 19:15:00 04:59:59 r Urology 04 [facility] nn Time Share 2020-10-03 2020-10-04 [place] [id number] Memoria 19:15:00 04:59:59 r Urology 03 [facility] nn Time Share 2020-09-08 2020-09-09 Outpatient nullFlavo [facility] Multi 33 [id number] Memoria 14:00:00 04:59:59 r Specialty 01 [facility] 2020-09-08 2020-09-08 Outpatient MHIE IE [id number] Memoria 09:15:00 09:15:00 02 [facility] 2020-07-28 2020-07-29 Outpatient nullFlavo [facility] Multi 33 [id number] Memoria 19:35:00 05:59:59 r Specialty 00 [facility] Results Test Description Test Time Test Comments Results Result Sourc e Comments - MRI UP JNT W/O 2023-01-13 CONT LT 14:03:00 [facility] : 1960 Sex: M Patient Name: MANISHA SHELTON Unit No: [id number] EXAMS: CPT CODE: [id number] MRI UP JNT W/[place] [address] TECHNIQUE: Multiplanar multisequence MR images of the left shoulder were obtained without contrast. COMPARISON: None available. FINDINGS: Acromioclavicular joint: Moderate to severe degenerative changes with osteophytosis and subchondral edema. Rotator cuff: No evidence of high-grade rotator cuff tear. Musculature is normal in size and signal intensity. Long head biceps tendon: Biceps tendinosis is visualized. Labrum: Diffuse labral tearing is visualized, greatest superiorly and posteriorly. Cartilage/ bone: Severe left glenohumeral osteoarthritis is present with broad full-thickness cartilage loss of the posterior humeral head and glenoid. Large glenohumeral osteophytes. No acute fracture. No suspicious osseous lesion. Other: A glenohumeral joint effusion is present as well as synovitis. Numerous loose bodies are seen, largest within the subcoracoid bursa measuring up to 20 mm. IMPRESSION: 1. Severe glenohumeral osteoarthritis. 2. Diffuse labral tearing, greatest superiorly and posteriorly. 3. Glenohumeral synovitis and multiple loose bodies as described. 4. No full-thickness rotator cuff tear. at 1403 Reported and signed by: Jerry Bearden M.D. CC: Manisha Gardner MD; Adi Martell MD Technologist: Kiki Reynoso ([facility]),MRI Transcribed D/ (140) Franck.SLJ [facility] NAME: MANISHA SHELTON [address] [facility] PHYS: Manisha Branch MD : 1960 AGE: 62 SEX: M [place], [place] [address] LOC: Y.MRI PHONE #: [phone] EXAM DATE: 01/12/2023 STATUS: DEP CLI FAX #: [phone] RAD #: D/C DT PAGE 1 Signed Report Patient Name: MANISHA SHELTON Unit No: [id number] EXAMS: CPT CODE: [id number] [place] JNT W/[place] [address] (Continued) Orig Print D/T: S: 01/13/2023 (134) [facility] NAME: MANISHA SHELTON [address] [facility] PHYS: LEXIEJeradManisha Smith MD : 1960 AGE: 62 SEX: M [place], [place] [address] LOC: Y.MRI PHONE #: [phone] EXAM DATE: 01/12/2023 STATUS: DEP CLI FAX #: [phone] RAD #: D/C DT PAGE 2 Signed Report - MRI C-SPINE W/O 2023-01-13 CONT 13:55:00 [facility] 1960 Sex: M Patient Name: MANISHA SHELTON Unit No: [id number] EXAMS: CPT CODE: [id number] MRI C-SPINE W/O CONT 91594 TECHNIQUE: Multiplanar, multisequence MRI examination performed of the cervical spine without intravenous contrast material. COMPARISON: MR dated 08/02/2022 FINDINGS: Alignment: Slight retrolisthesis of C3-C4 Osseous: No acute fracture. No suspicious lesion. Cervical Spinal Cord: No cord expansion or abnormal signal. Prevertebral / Paraspinal Soft Tissues: Unremarkable. C2/3: A small disc bulge is present as well as mild facet hypertrophy. There is moderate bilateral foraminal stenosis. No central canal stenosis. C3/4: Slight retrolisthesis. A right asymmetric disc bulge osteophyte complex is present as well as bilateral uncovertebral and facet hypertrophy. There is moderate to severe central canal stenosis and severe bilateral foraminal stenosis. C4/5: A small disc bulge osteophyte complex is noted. Bilateral uncovertebral hypertrophy and right greater than left facet degeneration. There is mild central canal stenosis and severe bilateral foraminal stenosis. C5/6: A diffuse disc bulge osteophyte complex is demonstrated as well as bilateral uncovertebral hypertrophy. There is severe central canal stenosis and severe bilateral foraminal stenosis. C6/7: A broad disc bulge osteophyte complex is present as well as severe bilateral uncovertebral hypertrophy. There is severe central canal stenosis and severe bilateral foraminal stenosis. C7/T1: A left asymmetric disc bulge is noted. Left-sided facet hypertrophy. There is mild central canal stenosis and moderate left, mild right foraminal stenosis. IMPRESSION: Interval increase in marked cervical spondylosis with severe central canal stenosis at C5-C6 and C6-C7. at 1355 Reported and signed by: Jrery Bearden M.D. CC: Adi Martell MD Technologist: Kiki Reynoso ([facility]),MRI Transcribed D/ (1355) [facility]: MANISHA SHELTON [address] PHYS: WIMDA.Kassandra - Adi Martell : 1960 AGE: 62 SEX: M [place], [place] [address] LOC: Y.MRI PHONE #: [phone] EXAM DATE: 01/12/2023 STATUS: DEP CLI FAX #: [phone] RAD #: D/C DT PAGE 1 Signed Report Patient Name: MANISHA SHELTON Unit No: [id number] EXAMS: CPT CODE: [id number] MRI C-SPINE W/O CONT 39955 (Continued) Orig Print D/T: S: 01/13/2023 (1359) [facility] NAME: MANISHA SHELTON [address] [facility] PHYS: WIMDA.01 - Adi Martell : 1960 AGE: 62 SEX: M [place], [place] [address] LOC: Y.MRI PHONE #: [phone] EXAM DATE: 01/12/2023 STATUS: DEP CLI FAX #: [phone] RAD #: D/C DT PAGE 2 Signed Report - XR C-SPINE 4-5 2023-01-13 V 06:13:00 [facility] : 1960 Sex: M Patient Name: MANISHA SHELTON Unit No: [id number] EXAMS: CPT CODE: [id number] XR C-SPINE 4-5 V 47898 IMAGES PROVIDED: 4 views cervical spine FINDINGS: Slight retrolisthesis of C3-C4. No acute fracture. No pathologic motion with flexion/extension. Vertebral body heights are maintained. Mild scattered cervical disc degeneration. Mid cervical facet hypertrophy. Soft tissues are unremarkable. IMPRESSION: Mild cervical spondylosis without acute abnormality. at 0613 Reported and signed by: Jerry Bearden M.D. CC: Manisha Gardner MD Technologist: Hollie Bird R.T. Transcribed D/ (06) HananeSLJ [facility] NAME: MANISHA SHELTON [address] [facility] PHYS: Manisha Bracnh MD : 1960 AGE: 62 SEX: [place] [address] LOC: Y.MRI PHONE #: [phone] EXAM DATE: 01/12/2023 STATUS: DEP CLI FAX #: [phone] RAD #: D/C DT PAGE 1 Signed Report Patient Name: MANISHA SHELTON Unit No: [id number] EXAMS: CPT CODE: [id number] XR C-SPINE 4-5 V 64881 (Continued) Orig Print D/T: S: 01/13/2023 (06) [facility] NAME: MANISHA SHELTON [address] [facility] PHYS: Manisha Branch MD : 1960 AGE: 62 SEX: M [place] [address] LOC: Y.MRI PHONE #: [phone] EXAM DATE: 01/12/2023 STATUS: DEP CLI FAX #: [phone] RAD #: D/C DT PAGE 2 Signed Report - MRI L-SPINE W 2022-12-10 WO CON 07:26:00 [facility] 1960 Sex: M Patient Name: MANISHA SHELTON Unit No: [id number] EXAMS: CPT CODE: [id number] MRI L-SPINE W WO CON 19784 DIAGNOSIS: 1. At L1-2 there is a slight retrolisthesis and disc bulging with mild foraminal narrowing. Mild canal stenosis is seen with facet degeneration. 2. At L2-3 there is 2 mm of left foraminal asymmetric disc bulging with mild left foraminal narrowing. Slight bulging is seen in the right neural foramen with mild narrowing. Moderate canal stenosis is present with facet degeneration. 3. At L3-4 there is endplate spur formation and 3 mm of left foraminal disc protrusion with moderate left foraminal narrowing. Moderate to marked right foraminal stenosis is seen with disc bulging. Mild to moderate canal stenosis is present with facet degeneration. 4. At L4-5 there is 2 mm of disc bulging with marked foraminal narrowing and a mild retrolisthesis. Impingement on the L4 nerve roots is seen. Moderate canal stenosis is present with facet degeneration. 5. At L5-S1 there is mild disc bulging with moderate to marked left foraminal narrowing and mild right-sided stenosis. Facet degeneration is seen without canal stenosis. 6. The left kidney is absent. COMMENT: COMPARISON: No prior exams available. Scans were performed in the sagittal and axial planes utilizing T1, T2 and inversion recovery images precontrast and T1-weighted images postcontrast. Endplate and disc degeneration is present at all levels. Abnormal enhancement is seen in annular fissuring at L3-4. Disc configurations are as described. Spondylitic changes are as noted. The conus is in the expected location. The description these findings assumes a normal count of 5 lumbar type vertebra. at 0726 Reported and signed by: Kin Patel MD CC: Adi Martell MD Technologist: EARLE LIAO. Transcribed D/ (0726) tFERNJCL [facility] NAME: MANISHA SHELTON [address] [facility] PHYS: WIMDA.Kassandra - Adi Martell : 1960 AGE: 61 SEX: M [place], [place] [address] LOC: Y.MRI PHONE #: [phone] EXAM DATE: 12/09/2022 STATUS: DEP CLI FAX #: [phone] RAD #: D/C DT PAGE 1 Signed Report Patient Name: MANISHA SHELTON Unit No: [id number] EXAMS: CPT CODE: [id number] MRI L-SPINE W WO CON 71567 (Continued) Orig Print D/T: S: 12/10/2022 (0729) [facility] NAME: MANISHA SHELTON [address] [facility] [address] PHYS: WIMDA.Kassandra - Adi Martell : 1960 AGE: 61 SEX: M [place] [address] LOC: Y.MRI PHONE #: [phone] EXAM DATE: 12/09/2022 STATUS: DEP CLI FAX #: [phone] RAD #: D/C DT PAGE 2 Signed Report - MRI T-SPINE W/O 2022-12-10 CONT 07:17:00 [facility] : 1960 Sex: M Patient Name: MANISHA SHELTON Unit No: [id number] EXAMS: CPT CODE: [id number] MRI T-SPINE W/O CONT 56074 DIAGNOSIS: 1. At T1-2 there is a slight degenerative spondylolisthesis without a focal disc abnormality. Moderate left foraminal narrowing is seen with mild right-sided stenosis. Facet degeneration is present without canal stenosis. 2. At T2-3 there is slight disc bulging with mild left and marked right foraminal narrowing. Facet degeneration is present with slight narrowing of the central canal. 3. At T3-4 there is no evidence for disc bulge or herniation. Moderate to marked foraminal narrowing is present without canal stenosis. Facet degeneration is present. 4. At T4-5 there is no evidence for disc bulge or herniation. Moderate foraminal narrowing is seen without canal stenosis. Facet degeneration is noted. 5. At T5-6 there is no evidence for disc bulge or herniation. Mild foraminal narrowing is seen canal stenosis. Facet degeneration is present. 6. At T6-7 there is 2 mm of right paracentral disc protrusion with moderate to marked foraminal narrowing. No canal stenosis is seen. There is mild cord impingement and a small syrinx. Facet degeneration is present. 7. At T7-8 there is 2 mm of disc bulging without cord impingement. Mild canal stenosis is seen with facet degeneration. Mild foraminal narrowing is present. 8. At T8-9 there is no evidence for disc bulge or herniation. Mild right foraminal narrowing is present without left-sided stenosis. Facet degeneration is seen without canal stenosis. 9. At T9-10 there is 3 mm of right posterior lateral and foraminal disc protrusion with moderate right foraminal narrowing and cord impingement. Moderate canal stenosis is present with facet degeneration. Mild left foraminal narrowing is seen. 10. At T10-11 there is 2 mm of inferior left foraminal disc protrusion and mild foraminal narrowing. Moderate right foraminal stenosis is seen. Moderate to marked canal stenosis is present with facet degeneration. 11. At T11-12 there is no evidence for disc bulge or herniation. No foraminal narrowing is seen. Moderate canal stenosis is present due to facet degeneration. 12. At T12-L1 there is a grade 1 retrolisthesis and associated disc bulging with moderate left and mild right foraminal narrowing. Mild canal stenosis is seen with facet degeneration. COMMENT: COMPARISON: No prior exams available. Scans were performed in the sagittal and axial planes utilizing T1, T2 and inversion recovery images. Endplate and disc degeneration is noted from T6 to L1. Scattered hemangiomas of bone are seen involving multiple thoracic vertebra. A small benign-appearing syrinx is present. The cord appears normal in size. The conus is in the expected location. [facility] NAME: MANISHA SHELTON [address] [facility] PHYS: WIMDA.Kassandra - Adi Martell : 1960 AGE: 61 SEX: M [place], [place] [address] LOC: Y.MRI PHONE #: [phone] EXAM DATE: 12/09/2022 STATUS: DEP CLI FAX #: [phone] RAD #: D/C DT PAGE 1 Signed Report (CONTINUED) Patient Name: MANISHA SHELTON Unit No: [id number] EXAMS: CPT CODE: [id number] MRI T-SPINE W/O CONT 49028 (Continued) at 0717 Reported and signed by: Kin Patel MD CC: Adi Martell MD Technologist: EARLE LIAO MRI. Transcribed D/ (716) Ann [facility] NAME: MANISHA SHELTON [address] [place] [address] PHYS: WIMDA.Kassandra - Adi Martell : 1960 AGE: 61 SEX: M [place] [address] LOC: Y.MRI PHONE #: [phone] EXAM DATE: 12/09/2022 STATUS: DEP CLI FAX #: [phone] RAD #: D/C DT PAGE 2 Signed Report Patient Name: MANISHA SHELTON Unit No: [id number] EXAMS: CPT CODE: [id number] MRI T-SPINE W/O CONT 12112 (Continued) Orig Print D/T: S: 12/10/2022 (719) [facility] NAME: MANISHA SHELTON [address] [place] [address] PHYS: LISETH - Adi Martell : 1960 AGE: 61 SEX: M [place] [address] LOC: Y.MRI PHONE #: [phone] EXAM DATE: 12/09/2022 STATUS: DEP CLI FAX #: [phone] RAD #: D/C DT PAGE 3 Signed Report aPTT 2022-10-06 22:12:02 Test Item Value Reference Range Interpretation Comme nts aPTT (test code = 35192-4) 26.1 See_Comment [Automated message] The system which generated this result transmitted reference range : 22.8 - 34.2 second(s). The reference r zeb was not used to interpret this result as normal/abnormal . [facility] 22:12:02 Test Item Value Reference Range Interpretation Comments aPTT (test code = 26.1 See_Comment [Automate d message] The 15875-5) system which ge nerated this result transmit mone reference range : 22.8 - 34.2 second(s). The reference range was not used to interpr et this result as jai l/abnormal. [facility] 22:12:02 Test Item Value Reference Range Interpretation Comments aPTT (test code = 26.1 See_Comment [Automate d message] The 91427-5) system which ge nerated this result transmit mone reference range : 22.8 - 34.2 second(s). The reference range was not used to interpr et this result as jai l/abnormal. [facility] 22:12:02 Test Item Value Reference Range Interpretation Comments aPTT (test code = 26.1 See_Comment [Automate d message] The 11254-9) system which ge nerated this result transmit mone reference range : 22.8 - 34.2 second(s). The reference range was not used to interpr et this result as jai l/abnormal. [facility] HospitalProthrombin Time with [id number] 22:12:01 Test Item Value Reference Range Interpretation Comments PT (test code = 5902-2) 14.1 See_Comment [Au tomated message] The system [employer] generated this result transmitted ref erence range: 11.9 - 1 4.1 second(s). The reference range was not used to int erpret this result as normal/abnormal . INR (test code = 6301-6) 1.15 0.89-1.10 H Lab Interpretation (test Abnormal code = 86234-2) [facility] HospitalProthrom[facility] Time with [id number] 22:12:01 Test Item Value Reference Range Interpretation Comments PT (test code = 5902-2) 14.1 See_Comment [Au tomated message] The system [employer] generated this result transmitted ref erence range: 11.9 - 1 4.1 second(s). The reference range was not used to int erpret this result as normal/abnormal . INR (test code = 6301-6) 1.15 0.89-1.10 H Lab Interpretation (test Abnormal code = 36646-1) [facility] HospitalProthrom[facility] Time with [id number] 22:12:01 Test Item Value Reference Range Interpretation Comments PT (test code = 5902-2) 14.1 See_Comment [Au tomated message] The system [employer] generated this result transmitted ref erence range: 11.9 - 1 4.1 second(s). The reference range was not used to int erpret this result as normal/abnormal . INR (test code = 6301-6) 1.15 0.89-1.10 H Lab Interpretation (test Abnormal code = 37483-1) [facility] HospitalProthrom[facility] Time with [id number] 22:12:01 Test Item Value Reference Range Interpretation Comments PT (test code = 5902-2) 14.1 See_Comment [Au tomated message] The system [employer] generated this result transmitted ref erence range: 11.9 - 1 4.1 second(s). The reference range was not used to int erpret this result as normal/abnormal . INR (test code = 6301-6) 1.15 0.89-1.10 H Lab Interpretation (test Abnormal code = 91641-2) [facility] HospitalFractionated [id number] 21:25:38 Test Item Value Reference Range Interpretation Comments Bili Total (test 0.8 mg/dL <=1.2 Indocyanine Green (ICG) code = 1974-2) may cause fal sely elevated biliru bin results. Total and direct bilirubin must not be measured from s amples containing indo cyanine green. False el evation of total bilirubin can be seen in patient s with IgG concentrations above 28 g/L. Bili Direct (test 0.3 mg/dL <=0.3 Indocyanin e Green (ICG) code = 1967-) may cause fal sely elevated biliru bin results. Total and direct bilirubin must not be measured from s amples containing indo cyanine green. Bili Indirect (test 0.5 mg/dL 0.0-0.9 code = 1970-05) [facility] HospitalFraction[facility] [id number] 21:25:38 Test Item Value Reference Range Interpretation Comments Bili Total (test 0.8 mg/dL <=1.2 Indocyanine Green (ICG) code = 1974-06) may cause fal sely elevated biliru bin results. Total and direct bilirubin must not be measured from s amples containing indo cyanine green. False el evation of total bilirubin can be seen in patient s with IgG concentrations above 28 g/L. Bili Direct (test 0.3 mg/dL <=0.3 Indocyanin e Green (ICG) code = 1967-11) may cause fal sely elevated biliru bin results. Total and direct bilirubin must not be measured from s amples containing indo cyanine green. Bili Indirect (test 0.5 mg/dL 0.0-0.9 code = 1970-05) [facility] Hospital[facility] [id number] 21:25:38 Test Item Value Reference Range Interpretation Comments Bili Total (test 0.8 mg/dL <=1.2 Indocyanine Green (ICG) code = 1974-06) may cause fal sely elevated biliru bin results. Total and direct bilirubin must not be measured from s amples containing indo cyanine green. False el evation of total bilirubin can be seen in patient s with IgG concentrations above 28 g/L. Bili Direct (test 0.3 mg/dL <=0.3 Indocyanin e Green (ICG) code = 1967-11) may cause fal sely elevated biliru bin results. Total and direct bilirubin must not be measured from s amples containing indo cyanine green. Bili Indirect (test 0.5 mg/dL 0.0-0.9 code = 1970-05) [facility] [id number] 21:25:38 Test Item Value Reference Range Interpretation Comments Bili Total (test 0.8 mg/dL <=1.2 Indocyanine Green (ICG) code = 1974-06) may cause fal sely elevated biliru bin results. Total and direct bilirubin must not be measured from s amples containing indo cyanine green. False el evation of total bilirubin can be seen in patient s with IgG concentrations above 28 g/L. Bili Direct (test 0.3 mg/dL <=0.3 Indocyanin e Green (ICG) code = 1967-7) may cause fal sely elevated biliru bin results. Total and direct bilirubin must not be measured from s amples containing indo cyanine green. Bili Indirect (test 0.5 mg/dL 0.0-0.9 code = 1970-) [facility] HospitalPhosphorus [id number] 21:25:37 Test Item Value Reference Range Interpretation Comments Phosphorus (test code = 2777-1) 3.4 mg/dL 2.5-4.[address] HospitalPhosph[facility] [id number] 21:25:37 Test Item Value Reference Range Interpretation Comments Phosphorus (test code = 2777-1) 3.4 mg/dL 2.5-4.[address] [facility] HospitalPh[facility] [id number] 21:25:37 Test Item Value Reference Range Interpretation Comments Phosphorus (test code = 2777-1) 3.4 mg/dL 2.5-4.[address] [facility] HospitalPh[facility] [id number] 21:25:37 Test Item Value Reference Range Interpretation Comments Phosphorus (test code = 2777-1) 3.4 mg/dL 2.5-4.[address] HospitalCalcium [id number] 21:25:36 Test Item Value Reference Range Interpretation Comments Calcium Lvl (test code = 21148-1) 8.6 mg/dL 8.4-10.[address] [facility] HospitalCal[facility] [id number] 21:25:36 Test Item Value Reference Range Interpretation Comments Calcium Lvl (test code = 12054-3) 8.6 mg/dL 8.4-10.[address] [facility] HospitalCal[facility] [id number] 21:25:36 Test Item Value Reference Range Interpretation Comments Calcium Lvl (test code = 07311-4) 8.6 mg/dL 8.4-10.[address] [facility] HospitalCal[facility] [id number] 21:25:36 Test Item Value Reference Range Interpretation Comments Calcium Lvl (test code = 66342-5) 8.6 mg/dL 8.4-10.[address] [facility] HospitalAlbumin [id number] 21:25:35 Test Item Value Reference Range Interpretation Comments Albumin Lvl (test code 4.1 See_Comment [Aut omated message] The = 1750-11) system which ge nerated this result tra nsmitted reference range : 3.5 - 5.2 gm/dL. The refe rence range was not used to interpret this result as normal/abnormal . [facility] HospitalAlbumin [id number] 21:25:35 Test Item Value Reference Range Interpretation Comments Albumin Lvl (test code 4.1 See_Comment [Aut omated message] The = 1750-11) system which ge nerated this result tra nsmitted reference range : 3.5 - 5.2 gm/dL. The refe rence range was not used to interpret this result as normal/abnormal . [facility] HospitalAlbum[facility] [id number] 21:25:35 Test Item Value Reference Range Interpretation Comments Albumin Lvl (test code 4.1 See_Comment [Aut omated message] The = 1750-11) system which ge nerated this result tra nsmitted reference range : 3.5 - 5.2 gm/dL. The refe rence range was not used to interpret this result as normal/abnormal . [facility] HospitalAlbum[facility] [id number] 21:25:35 Test Item Value Reference Range Interpretation Comments Albumin Lvl (test code 4.1 See_Comment [Aut omated message] The = 1750-11) system which ge nerated this result tra nsmitted reference range : 3.5 - 5.2 gm/dL. The refe rence range was not used to interpret this result as normal/abnormal . [facility] HospitalAspartate Aminotransferase 2022-10-06 21:25:34 Test Item Value Reference Range Interpretation Comments AST (test code = 1920-8) 19 U/L <=[address] [facility] HospitalAspartate Aminotransferase 2022-10-06 21:25:34 Test Item Value Reference Range Interpretation Comments AST (test code = 1920-8) 19 U/L <=[address] [facility] HospitalAspart[facility] Aminotransferase 2022-10-06 21:25:34 Test Item Value Reference Range Interpretation Comments AST (test code = 1920-8) 19 U/L <=[address] [facility] HospitalAspartate Aminotransferase 2022-10-06 21:25:34 Test Item Value Reference Range Interpretation Comments AST (test code = 1920-8) 19 U/L <=[address] [facility] [id number] 21:25:33 Test Item Value Reference Range Interpretation Comments Sodium Lvl (test code = 138 See_Comment [Au tomated message] The 2950-06) system which ge nerated this result tra nsmitted reference range : 136 - 145 mEq/L. The reference range was not u sed to interpret this result as normal/abnormal . Potassium Lvl (test 4.3 See_Comment [Automa mone message] The code = 2823-3) system which generated this result tra nsmitted reference range : 3.5 - 5.1 mEq/L. The reference range was not u sed to interpret this result as normal/abnormal . Chloride (test code = 103 See_Comment [Auto mated message] The ) system which ge nerated this result tra nsmitted reference range : 98 - 107 mEq/L. The refe rence range was not u sed to interpret this result as normal/abnormal . CO2 (test code = 27 See_Comment [Automated message] The 2028-01) system which ge nerated this result tra nsmitted reference range : 22 - 29 mEq/L. The refe rence range was not u sed to interpret this result as normal/abnormal . Anion Gap (test code = 8 See_Comment [Aut omated message] The ) system which ge nerated this result tra nsmitted reference range : 4 - 14 mEq/L. The refe rence range was not u sed to interpret this result as normal/abnormal . [facility] [id number] 21:25:33 Test Item Value Reference Range Interpretation Comments Sodium Lvl (test code = 138 See_Comment [Au tomated message] The 2950-06) system which ge nerated this result tra nsmitted reference range : 136 - 145 mEq/L. The reference range was not u sed to interpret this result as normal/abnormal . Potassium Lvl (test 4.3 See_Comment [Automa mone message] The code = 2823-3) system which generated this result tra nsmitted reference range : 3.5 - 5.1 mEq/L. The reference range was not u sed to interpret this result as normal/abnormal . Chloride (test code = 103 See_Comment [Auto mated message] The ) system which ge nerated this result tra nsmitted reference range : 98 - 107 mEq/L. The refe rence range was not u sed to interpret this result as normal/abnormal . CO2 (test code = 27 See_Comment [Automated message] The 2028-01) system which ge nerated this result tra nsmitted reference range : 22 - 29 mEq/L. The refe rence range was not u sed to interpret this result as normal/abnormal . Anion Gap (test code = 8 See_Comment [Aut omated message] The ) system which ge nerated this result tra nsmitted reference range : 4 - 14 mEq/L. The refe rence range was not u sed to interpret this result as normal/abnormal . [facility] [id number] 21:25:33 Test Item Value Reference Range Interpretation Comments Sodium Lvl (test code = 138 See_Comment [Au tomated message] The 2950-06) system which ge nerated this result tra nsmitted reference range : 136 - 145 mEq/L. The reference range was not u sed to interpret this result as normal/abnormal . Potassium Lvl (test 4.3 See_Comment [Automa mone message] The code = 2823-3) system which generated this result tra nsmitted reference range : 3.5 - 5.1 mEq/L. The reference range was not u sed to interpret this result as normal/abnormal . Chloride (test code = 103 See_Comment [Auto mated message] The ) system which ge nerated this result tra nsmitted reference range : 98 - 107 mEq/L. The refe rence range was not u sed to interpret this result as normal/abnormal . CO2 (test code = 27 See_Comment [Automated message] The 2028-01) system which ge nerated this result tra nsmitted reference range : 22 - 29 mEq/L. The refe rence range was not u sed to interpret this result as normal/abnormal . Anion Gap (test code = 8 See_Comment [Aut omated message] The ) system which ge nerated this result tra nsmitted reference range : 4 - 14 mEq/L. The refe rence range was not u sed to interpret this result as normal/abnormal . [facility] [id number] 21:25:33 Test Item Value Reference Range Interpretation Comments Sodium Lvl (test code = 138 See_Comment [Au tomated message] The 2950-06) system which ge nerated this result tra nsmitted reference range : 136 - 145 mEq/L. The reference range was not u sed to interpret this result as normal/abnormal . Potassium Lvl (test 4.3 See_Comment [Automa mone message] The code = 2823-3) system which generated this result tra nsmitted reference range : 3.5 - 5.1 mEq/L. The reference range was not u sed to interpret this result as normal/abnormal . Chloride (test code = 103 See_Comment [Auto mated message] The ) system which ge nerated this result tra nsmitted reference range : 98 - 107 mEq/L. The refe rence range was not u sed to interpret this result as normal/abnormal . CO2 (test code = 27 See_Comment [Automated message] The 2028-01) system which ge nerated this result tra nsmitted reference range : 22 - 29 mEq/L. The refe rence range was not u sed to interpret this result as normal/abnormal . Anion Gap (test code = 8 See_Comment [Aut omated message] The ) system which ge nerated this result tra nsmitted reference range : 4 - 14 mEq/L. The refe rence range was not u sed to interpret this result as normal/abnormal . [facility] HospitalGlucose [id number] 21:25:32 Test Item Value Reference Range Interpretation Comments Glucose Level (test 95 mg/dL 70-99 Effectiv e 12/17/15, the code = 2345-7) glucose refer ence intervals have been updated based o n [place] [employer] norma delines (Standards of M edical Care in Diabete s 2016. Diabetes Care 2 016; 39: S13-S22).Fastin g blood glucose:Normal: 70-99 mg/dLImpaired f asting glucose (increa sed risk for diabetes or pre-diabetes): 100-125 mg/dLDiabetes m ellitus: >/=126 mg/dL Ra ndom blood glucose:N ormal: 70-199 mg/dLNot e: Random glucose >100 mg /dL is associated with increased risk for diabetes [facility] HospitalGl[facility] [id number] 21:25:32 Test Item Value Reference Range Interpretation Comments Glucose Level (test 95 mg/dL 70-99 Effectiv e 12/17/15, the code = 2345-7) glucose refer ence intervals have been updated based o n [place] [employer] norma delines (Standards of edical Care in Diabete s 2016. Diabetes Care 2 016; 39: S13-S22).Fastin g blood glucose:Normal: 70-99 mg/dLImpaired f asting glucose (increa sed risk for diabetes or pre-diabetes): 100-125 mg/dLDiabetes m ellitus: >/=126 mg/dL Ra ndom blood glucose:N ormal: 70-199 mg/dLNot e: Random glucose >100 mg /dL is associated with increased risk for diabetes [facility] HospitalGl[facility] [id number] 21:25:32 Test Item Value Reference Range Interpretation Comments Glucose Level (test 95 mg/dL 70-99 Effectiv e 12/17/15, the code = 2345-7) glucose refer ence intervals have been updated based o n [place] [employer] norma delines (Standards of edical Care in Diabete s 2016. Diabetes Care 2 016; 39: S13-S22).Fastin g blood glucose:Normal: 70-99 mg/dLImpaired f asting glucose (increa sed risk for diabetes or pre-diabetes): 100-125 mg/dLDiabetes m ellitus: >/=126 mg/dL Ra ndom blood glucose:N ormal: 70-199 mg/dLNot e: Random glucose >100 mg /dL is associated with increased risk for diabetes [facility]Gl[facility] [id number] 21:25:32 Test Item Value Reference Range Interpretation Comments Glucose Level (test 95 mg/dL 70-99 Effectiv e 12/17/15, the code = 2345-7) glucose refer ence intervals have been updated based o n [place] [employer] norma delines (Standards of M edical Care in Diabete s 2016. Diabetes Care 2 016; 39: S13-S22).Fastin g blood glucose:Normal: 70-99 mg/dLImpaired f asting glucose (increa sed risk for diabetes or pre-diabetes): 100-125 mg/dLDiabetes m ellitus: >/=126 mg/dL Ra ndom blood glucose:N ormal: 70-199 mg/dLNot e: Random glucose >100 mg /dL is associated with increased risk for diabetes [facility] HospitalGlomerular Filtration Rate 2022-10-06 21:25:26 Test Item Value Reference Range Interpretation Comments eGFR (test code = 73 See_Comment The eGFRcr is calculated with 26905-8) the 2020 CKD-EP I creatinine equation using creatinine, patient's age, and sex for adults 18 years of age and older. Other fa ctors, especially musc le mass, may affect accuracy and need to be considered.A ccording to the Kidney Dise ase: Improving Global Outcomes (KDIGO) CKD Work Group 2012 Clinical Practice [place] in[place], chronic kidney disease (CKD) is defined as the abnormalities of kidney struc ture or function, prese nt for more than 3 months, with implications fo r health. CKD should be class ified by cause, GFR syed gory, and albuminuria cat egory. KDIGO guidelines prov jm the following GFR c ategoriesStage Description GFR mL/min/1.73 m2G1* Normal or high >= 90G2* Mildly decrease d 60-89G3a Mildly to moder ately decreased 45-59 G3b Moderately to severely dec reased 30-44G4 Severely decrea sed 15-29G5 Kidney failure <15*In the absence of evid ence of kidney damage, neither G1 nor G2 fulfill criteri a for CKD. [Automated mess age] The system which ge nerated this result transmit mone reference range: >=60 mL/ min/1.73 sq. m. The referenc e range was not used to int erpret this result as jai l/abnormal. [facility] HospitalGlomerular Filtration Rate 2022-10-06 21:25:26 Test Item Value Reference Range Interpretation Comments eGFR (test code = 73 See_Comment The eGFRcr [place] 84417-1) the 2020 CKD-EP I creatinine equation using creatinine, patient's age, and sex for adults 18 years of age and older. Other fa ctors, especially musc le mass, may affect accuracy and need to be considered.A ccording to the Kidney Dise ase: Improving Global Outcomes (KDIGO) CKD Work Group 2012 Clinical Practice Guidel in[place], chronic kidney disease (CKD) is defined as the abnormalities of kidney struc ture or function, prese nt for more than 3 months, with implications fo r health. CKD should be class ified by cause, GFR syed gory, and albuminuria cat egory. KDIGO guidelines prov jm the following GFR c ategoriesStage Description GFR mL/min/1.73 m2G1* Normal or high >= 90G2* Mildly decrease d 60-89G3a Mildly to moder ately decreased 45-59 G3b Moderately to severely dec reased 30-44G4 Severely decrea sed 15-29G5 Kidney failure <15*In the absence of evid ence of kidney damage, neither G1 nor G2 fulfill criteri a for CKD. [Automated mess age] The system which ge nerated this result transmit mone reference range: >=60 mL/ min/1.73 sq. m. The referenc e range was not used to int erpret this result as jai l/abnormal. [facility] 2022-10-06 21:25:26 Test Item Value Reference Range Interpretation Comments eGFR (test code = 73 See_Comment The eGFRcr is calculated with 19303-4) the 2020 CKD-EP I creatinine equation using creatinine, patient's age, and sex for adults 18 years of age and older. Other fa ctors, especially musc le mass, may affect accuracy and need to be considered.A ccording to the Kidney Dise ase: Improving Global Outcomes (KDIGO) CKD Work Group 2012 Clinical Practice Guidel ine, chronic kidney disease (CKD) is defined as the abnormalities of kidney struc ture or function, prese nt for more than 3 months, with implications fo r health. CKD should be class ified by cause, GFR syed gory, and albuminuria cat egory. KDIGO guidelines prov jm the following GFR c ategoriesStage Description GFR mL/min/1.73 m2G1* Normal or high >= 90G2* Mildly decrease d 60-89G3a Mildly to moder ately decreased 45-59 G3b Moderately to severely dec reased 30-44G4 Severely decrea sed 15-29G5 Kidney failure <15*In the absence of evid ence of kidney damage, neither G1 nor G2 fulfill criteri a for CKD. [Automated mess age] The system which Mr. Number nerated this result transmit mone reference range: >=60 mL/ min/1.73 sq. m. The referenc e range was not used to int erpret this result as jai l/abnormal. [facility]Gl[facility] Rate 2022-10-06 21:25:26 Test Item Value Reference Range Interpretation Comments eGFR (test code = 73 See_Comment The eGFRcr [place] 82740-6) the 2020 CKD-EP I creatinine equation using creatinine, patient's age, and sex for adults 18 years of age and older. Other fa ctors, especially musc le mass, may affect accuracy and need to be considered.A ccording to the Kidney Dise ase: Improving Global Outcomes (KDIGO) CKD Work Group 2012 Clinical Practice Guidel ine, chronic kidney disease (CKD) is defined as the abnormalities of kidney struc ture or function, prese nt for more than 3 months, with implications fo r health. CKD should be class ified by cause, GFR syed gory, and albuminuria cat egory. KDIGO guidelines prov jm the following GFR c ategoriesStage Description GFR mL/min/1.73 m2G1* Normal or high >= 90G2* Mildly decrease d 60-89G3a Mildly to moder ately decreased 45-59 G3b Moderately to severely dec reased 30-44G4 Severely decrea sed 15-29G5 Kidney failure <15*In the absence of evid ence of kidney damage, neither G1 nor G2 fulfill criteri a for CKD. [Automated mess age] The system which Mr. Number nerated this result transmit mone reference range: >=60 mL/ min/1.73 sq. m. The referenc e range was not used to int erpret this result as jai l/abnormal. [facility] HospitalTotal [id number] 21:25:25 Test Item Value Reference Range Interpretation Comments Total Protein (test code = 2885-2) 6.6 g/dL 6.4-8.[address] [facility]Total [id number] 21:25:25 Test Item Value Reference Range Interpretation Comments Total Protein (test code = 2885-2) 6.6 g/dL 6.4-8.[address] [facility]Total [id number] 21:25:25 Test Item Value Reference Range Interpretation Comments Total Protein (test code = 2885-2) 6.6 g/dL 6.4-8.[address] [facility]Total [id number] 21:25:25 Test Item Value Reference Range Interpretation Comments Total Protein (test code = 2885-2) 6.6 g/dL 6.4-8.[address] [facility] HospitalMagnesium [id number] 21:25:24 Test Item Value Reference Range Interpretation Comments Magnesium (test code = 91657-5) 2.2 mg/dL 1.6-2.[address] HospitalMagnesium [id number] 21:25:24 Test Item Value Reference Range Interpretation Comments Magnesium (test code = 95033-6) 2.2 mg/dL 1.6-2.[address] HospitalMagnesium [id number] 21:25:24 Test Item Value Reference Range Interpretation Comments Magnesium (test code = 40205-6) 2.2 mg/dL 1.6-2.[address] HospitalMagnesium [id number] 21:25:24 Test Item Value Reference Range Interpretation Comments Magnesium (test code = 06075-0) 2.2 mg/dL 1.6-2.[address] HospitalAlkaline Jkayqvmuzes5188-22-54 21:25:23 Test Item Value Reference Range Interpretation Comments Alk Phos (test code = 6768-6) 81 U/L 40-[address] HospitalAlkaline [id number] 21:25:23 Test Item Value Reference Range Interpretation Comments Alk Phos (test code = 6768-6) 81 U/L 40-[address] HospitalAlkaline Pxnndadkqss4141-35-61 21:25:23 Test Item Value Reference Range Interpretation Comments Alk Phos (test code = 6768-6) 81 U/L 40-[address] HospitalAlkaline [id number] 21:25:23 Test Item Value Reference Range Interpretation Comments Alk Phos (test code = 6768-6) 81 U/L 40-[address] [facility] HospitalALT2023-05-17 21:25:22 Test Item Value Reference Range Interpretation Comments ALT (test code = 1742-6) 24 U/L <=[address] [facility] HospitalALT2023-05-17 21:25:22 Test Item Value Reference Range Interpretation Comments ALT (test code = 1742-6) 24 U/L <=[address] [facility] HospitalALT2023-05-17 21:25:22 Test Item Value Reference Range Interpretation Comments ALT (test code = 1742-6) 24 U/L <=[address] [facility] HospitalALT2023-05-17 21:25:22 Test Item Value Reference Range Interpretation Comments ALT (test code = 1742-6) 24 U/L <=[address] [facility].Serum Wucniuenhd2820-88-76 21:25:21 Test Item Value Reference Range Interpretation Comments Creatinine (test code = 2160-0) 1.15 mg/dL 0.67-1.[address] [facility].Serum Ulsiagescn8846-91-60 21:25:21 Test Item Value Reference Range Interpretation Comments Creatinine (test code = 2160-0) 1.15 mg/dL 0.67-1.[address] [facility].Serum Ahezsdwveh8580-20-46 21:25:21 Test Item Value Reference Range Interpretation Comments Creatinine (test code = 2160-0) 1.15 mg/dL 0.67-1.[address] [facility].Serum Cjddgmidbe4625-00-00 21:25:21 Test Item Value Reference Range Interpretation Comments Creatinine (test code = 2160-0) 1.15 mg/dL 0.67-1.[address] HospitalBUN2023-05-17 21:25:20 Test Item Value Reference Range Interpretation Comments BUN (test code = 3094-0) 11 mg/dL 6-[address] HospitalBUN2023-05-17 21:25:20 Test Item Value Reference Range Interpretation Comments BUN (test code = 3094-0) 11 mg/dL 6- [facility]BUN2023-[facility]-17 21:25:20 Test Item Value Reference Range Interpretation Comments BUN (test code = 3094-0) 11 mg/dL 6- [facility]BUN2023-05-17 21:25:20 Test Item Value Reference Range Interpretation Comments BUN (test code = 3094-0) 11 mg/dL 6- [facility] HospitalNT-Pro BNP (In-House)2022-10-06 21:24:34 Test Item Value Reference Range Interpretation Comments NT ProBNP (test code = 01641-7) 124 pg/mL <=[address] [facility]NT[facility] BNP ([facility]-House)2022-10-06 21:24:34 Test Item Value Reference Range Interpretation Comments NT ProBNP (test code = 26080-7) 124 pg/mL <=[address] [facility]NT[facility] BNP ([facility]-House)2022-10-06 21:24:34 Test Item Value Reference Range Interpretation Comments NT ProBNP (test code = 85522-3) 124 pg/mL <=[address] [facility]NT[facility] BNP ([facility]-House)2022-10-06 21:24:34 Test Item Value Reference Range Interpretation Comments NT ProBNP (test code = 59488-7) 124 pg/mL <=[address] [facility] HospitalDifferential2023-05-17 21:21:40 Test Item Value Reference Range Interpretation Comments Neutrophil % (test code = 71.4 % 42.0-66.0 H 770-8) Lymphocyte % (test code = 19.6 % 24.0-44.0 L 736-9) Monocyte % (test code = 6.8 % 2.0-7.0 5905-5) Eosinophil % (test code = 0.7 % 1.0-4.0 L 713-8) Basophil % (test code = 0.5 % 0.0-1.0 706-2) IGRE % (test code = 1.0 % 0.0-0.4 H IGRE % c ount 63669-5) includes Metamyelocytes, Myelocytes, and Promyelocytes. Neutrophil Abs (test code 6.18 K/uL 1.70-7.30 = 751-8) Lymphocyte Abs (test code 1.70 K/uL 1.00-4.80 = 731-0) Monocyte Abs (test code = 0.59 K/uL 0.08-0.70 742-7) Eosinophil Abs (test code 0.06 K/uL 0.04-0.40 = 711-2) Basophil Abs (test code = 0.04 K/uL 0.00-0.10 704-7) IG Abs (test code = 0.09 K/uL 0.00-0.04 H 61104-2) Lab Interpretation (test Abnormal code = 83960-4) [facility] HospitalDifferential2023-[facility]-17 21:21:40 Test Item Value Reference Range Interpretation Comments Neutrophil % (test code = 71.4 % 42.0-66.0 H 770-8) Lymphocyte % (test code = 19.6 % 24.0-44.0 L 736-9) Monocyte % (test code = 6.8 % 2.0-7.0 5905-5) Eosinophil % (test code = 0.7 % 1.0-4.0 L 713-8) Basophil % (test code = 0.5 % 0.0-1.0 706-2) IGRE % (test code = 1.0 % 0.0-0.4 H IGRE % c ount 55292-7) includes Metamyelocytes, Myelocytes, and Promyelocytes. Neutrophil Abs (test code 6.18 K/uL 1.70-7.30 = 751-8) Lymphocyte Abs (test code 1.70 K/uL 1.00-4.80 = 731-0) Monocyte Abs (test code = 0.59 K/uL 0.08-0.70 742-7) Eosinophil Abs (test code 0.06 K/uL 0.04-0.40 = 711-2) Basophil Abs (test code = 0.04 K/uL 0.00-0.10 704-7) IG Abs (test code = 0.09 K/uL 0.00-0.04 H 52873-6) Lab Interpretation (test Abnormal code = 87450-8) [facility] 21:21:40 Test Item Value Reference Range Interpretation Comments Neutrophil % (test code = 71.4 % 42.0-66.0 H 770-8) Lymphocyte % (test code = 19.6 % 24.0-44.0 L 736-9) Monocyte % (test code = 6.8 % 2.0-7.0 5905-5) Eosinophil % (test code = 0.7 % 1.0-4.0 L 713-8) Basophil % (test code = 0.5 % 0.0-1.0 706-2) IGRE % (test code = 1.0 % 0.0-0.4 H IGRE % c ount 47178-3) includes Metamyelocytes, Myelocytes, and Promyelocytes. Neutrophil Abs (test code 6.18 K/uL 1.70-7.30 = 751-8) Lymphocyte Abs (test code 1.70 K/uL 1.00-4.80 = 731-0) Monocyte Abs (test code = 0.59 K/uL 0.08-0.70 742-7) Eosinophil Abs (test code 0.06 K/uL 0.04-0.40 = 711-2) Basophil Abs (test code = 0.04 K/uL 0.00-0.10 704-7) IG Abs (test code = 0.09 K/uL 0.00-0.04 H 70821-0) Lab Interpretation (test Abnormal code = 81634-1) [facility] 21:21:40 Test Item Value Reference Range Interpretation Comments Neutrophil % (test code = 71.4 % 42.0-66.0 H 770-8) Lymphocyte % (test code = 19.6 % 24.0-44.0 L 736-9) Monocyte % (test code = 6.8 % 2.0-7.0 5905-5) Eosinophil % (test code = 0.7 % 1.0-4.0 L 713-8) Basophil % (test code = 0.5 % 0.0-1.0 706-2) IGRE % (test code = 1.0 % 0.0-0.4 H IGRE % c ount 66835-4) includes Metamyelocytes, Myelocytes, and Promyelocytes. Neutrophil Abs (test code 6.18 K/uL 1.70-7.30 = 751-8) Lymphocyte Abs (test code 1.70 K/uL 1.00-4.80 = 731-0) Monocyte Abs (test code = 0.59 K/uL 0.08-0.70 742-7) Eosinophil Abs (test code 0.06 K/uL 0.04-0.40 = 711-2) Basophil Abs (test code = 0.04 K/uL 0.00-0.10 704-7) IG Abs (test code = 0.09 K/uL 0.00-0.04 H 47761-4) Lab Interpretation (test Abnormal code = 59025-7) [facility] [place].[id number] 21:21:37 Test Item Value Reference Range Interpretation Comments WBC (test code = 8.7 K/uL 4.0-11.0 6690-2) RBC (test code = 789-8) 5.67 See_Comment [Au tomated message] The system [employer] generated this result transmitted ref erence range: 4.50 - 6 .00 M/uL. The refer ence range was not u sed to interpret this result as normal/abnor mal. Hgb (test code = 718-7) 15.7 See_Comment [Au tomated message] The system [employer] generated this result transmitted ref erence range: 14.0 - 1 8.0 gm/dL. The refe rence range was not u sed to interpret this result as normal/abnor mal. Hct (test code = 47.3 % 40.0-54.0 4544-3) MCV (test code = 787-2) 83 fL 82-98 MCH (test code = 785-6) 27.7 pg 27.0-31.0 MCHC (test code = 33.2 See_Comment [Automate d message] 786-4) The system [employer] generated this result transmitted ref erence range: 31.0 - 3 6.0 gm/dL. The refe rence range was not u sed to interpret this result as normal/abnor mal. RDW-SD (test code = 48.9 fL 35.1-46.3 H 11771-3) RDW-CV (test code = 16.5 % 12.0-15.5 H 788-0) Platelet count (test 151 K/uL 140-440 code = 777-3) MPV (test code = 9.9 fL 4.0-10.4 06722-4) INRBC (test code = 0.0 % <=0.0 The INRBC (instrument 93680-8) NRBC) value ref lects the enumeration of nucleated red b lood cells contained in a 200uL sampleof whole blood analyzed by the instrument. Thi s value maydiffer from the NRBC value repo rted in a manual differential,wh ich is based on a 100 cell differential. Lab Interpretation Abnormal (test code = 03061-6) [facility] [place].[id number] 21:21:37 Test Item Value Reference Range Interpretation Comments WBC (test code = 8.7 K/uL 4.0-11.0 6690-2) RBC (test code = 789-8) 5.67 See_Comment [Au tomated message] The system [employer] generated this result transmitted ref erence range: 4.50 - 6 .00 M/uL. The refer ence range was not u sed to interpret this result as normal/abnor mal. Hgb (test code = 718-7) 15.7 See_Comment [Au tomated message] The system [employer] generated this result transmitted ref erence range: 14.0 - 1 8.0 gm/dL. The refe rence range was not u sed to interpret this result as normal/abnor mal. Hct (test code = 47.3 % 40.0-54.0 4544-3) MCV (test code = 787-2) 83 fL 82-98 MCH (test code = 785-6) 27.7 pg 27.0-31.0 MCHC (test code = 33.2 See_Comment [Automate d message] 786-4) The system [employer] generated this result transmitted ref erence range: 31.0 - 3 6.0 gm/dL. The refe rence range was not u sed to interpret this result as normal/abnor mal. RDW-SD (test code = 48.9 fL 35.1-46.3 H 72353-4) RDW-CV (test code = 16.5 % 12.0-15.5 H 788-0) Platelet count (test 151 K/uL 140-440 code = 777-3) MPV (test code = 9.9 fL 4.0-10.4 94730-5) INRBC (test code = 0.0 % <=0.0 The INRBC (instrument 32907-4) NRBC) value ref lects the enumeration of nucleated red b lood cells contained in a 200uL sampleof whole blood analyzed by the instrument. Thi s value maydiffer from the NRBC value repo rted in a manual differential,wh ich is based on a 100 cell differential. Lab Interpretation Abnormal (test code = 20324-2) [facility] [place].[id number] 21:21:37 Test Item Value Reference Range Interpretation Comments WBC (test code = 8.7 K/uL 4.0-11.0 6690-2) RBC (test code = 789-8) 5.67 See_Comment [Au tomated message] The system [employer] generated this result transmitted ref erence range: 4.50 - 6 .00 M/uL. The refer ence range was not u sed to interpret this result as normal/abnor mal. Hgb (test code = 718-7) 15.7 See_Comment [Au tomated message] The system [employer] generated this result transmitted ref erence range: 14.0 - 1 8.0 gm/dL. The refe rence range was not u sed to interpret this result as normal/abnor mal. Hct (test code = 47.3 % 40.0-54.0 4544-3) MCV (test code = 787-2) 83 fL 82-98 MCH (test code = 785-6) 27.7 pg 27.0-31.0 MCHC (test code = 33.2 See_Comment [Automate d message] 786-4) The system [employer] generated this result transmitted ref erence range: 31.0 - 3 6.0 gm/dL. The refe rence range was not u sed to interpret this result as normal/abnor mal. RDW-SD (test code = 48.9 fL 35.1-46.3 H 46967-3) RDW-CV (test code = 16.5 % 12.0-15.5 H 788-0) Platelet count (test 151 K/uL 140-440 code = 777-3) MPV (test code = 9.9 fL 4.0-10.4 26541-6) INRBC (test code = 0.0 % <=0.0 The INRBC (instrument 64944-4) NRBC) value ref lects the enumeration of nucleated red b lood cells contained in a 200uL sampleof whole blood analyzed by the instrument. Thi s value maydiffer from the NRBC value repo rted in a manual differential,wh ich is based on a 100 cell differential. Lab Interpretation Abnormal (test code = 18580-8) [facility].[id number] 21:21:37 Test Item Value Reference Range Interpretation Comments WBC (test code = 8.7 K/uL 4.0-11.0 6690-2) RBC (test code = 789-8) 5.67 See_Comment [Au tomated message] The system [employer] generated this result transmitted ref erence range: 4.50 - 6 .00 M/uL. The refer ence range was not u sed to interpret this result as normal/abnor mal. Hgb (test code = 718-7) 15.7 See_Comment [Au tomated message] The system [employer] generated this result transmitted ref erence range: 14.0 - 1 8.0 gm/dL. The refe rence range was not u sed to interpret this result as normal/abnor mal. Hct (test code = 47.3 % 40.0-54.0 4544-3) MCV (test code = 787-2) 83 fL 82-98 MCH (test code = 785-6) 27.7 pg 27.0-31.0 MCHC (test code = 33.2 See_Comment [Automate d message] 786-4) The system [employer] generated this result transmitted ref erence range: 31.0 - 3 6.0 gm/dL. The refe rence range was not u sed to interpret this result as normal/abnor mal. RDW-SD (test code = 48.9 fL 35.1-46.3 H 86801-9) RDW-CV (test code = 16.5 % 12.0-15.5 H 788-0) Platelet count (test 151 K/uL 140-440 code = 777-3) MPV (test code = 9.9 fL 4.0-10.4 56260-8) INRBC (test code = 0.0 % <=0.0 The INRBC (instrument 65921-4) NRBC) value ref lects the enumeration of nucleated red b lood cells contained in a 200uL sampleof whole blood analyzed by the instrument. Thi s value maydiffer from the NRBC value repo rted in a manual differential,wh ich is based on a 100 cell differential. Lab Interpretation Abnormal (test code = 52764-9) [facility] 21:11:29 Test Item Value Reference Range Interpretation Comments Troponin T (test code 12 ng/L <=19 < 19 n g/L Suggest retest = 11078-7) at 3 to 6 hours later to rule out myocar dial infarction >= 1 9 to <=52 ng/L Possible m yocardial injury. Suggest retest at 3 hours. - a c hange of < 20 ng/L, retest at 6 hours - a moreas e of >= 20 ng/L, suggestiv e of myocardial infa rction > 52 ng/L Suggest isadora of myocardial infa rction Critical value will be reported when c Vilma is > 52 ng/L and onl y reported for the first i n a series. Hemolyz ed specimens with Hemolysis Index >100 (100 mg/dl or moderate hemoly sis) may cause interfere nces and falsely low res ults. [facility]10[facility] 21:11:29 Test Item Value Reference Range Interpretation Comments Troponin T (test code 12 ng/L <=19 < 19 n g/L Suggest retest = 06786-6) at 3 to 6 hours later to rule out myocar dial infarction >= 1 9 to <=52 ng/L Possible m yocardial injury. Suggest retest at 3 hours. - a ch zeb of < 20 ng/L, retest at 6 hours - a moraes e of >= 20 ng/L, suggestiv e of myocardial infa rction > 52 ng/L Suggest isadora of myocardial infa rction Critical value will be reported when c Vilma is > 52 ng/L and onl y reported for the first i n a series. Hemolyz ed specimens with Hemolysis Index >100 (100 mg/dl or moderate hemoly sis) may cause interfere nces and falsely low res ults. [facility]10[facility] 21:11:29 Test Item Value Reference Range Interpretation Comments Troponin T (test code 12 ng/L <=19 < 19 n g/L Suggest retest = 05392-1) at 3 to 6 hours later to rule out myocar dial infarction >= 1 9 to <=52 ng/L Possible m yocardial injury. Suggest retest at 3 hours. - a ch zeb of < 20 ng/L, retest at 6 hours - a moraes e of >= 20 ng/L, suggestiv e of myocardial infa rction > 52 ng/L Suggest isadora of myocardial infa rction Critical value will be reported when c Vilma is > 52 ng/L and onl y reported for the first i n a series. Hemolyz ed specimens with Hemolysis Index >100 (100 mg/dl or moderate hemoly sis) may cause interfere nces and falsely low res ults. [facility] 21:11:29 Test Item Value Reference Range Interpretation Comments Troponin T (test code 12 ng/L <=19 < 19 n g/L Suggest retest = 05240-6) at 3 to 6 hours later to rule out myocar dial infarction >= 1 9 to <=52 ng/L Possible m yocardial injury. Suggest retest at 3 hours. - a c hange of < 20 ng/L, retest at 6 hours - a moraes e of >= 20 ng/L, suggestiv e of myocardial infa rction > 52 ng/L Suggest isadora of myocardial infa rction Critical value will be reported when c Vilma is > 52 ng/L and onl y reported for the first i n a series. Hemolyz ed specimens with Hemolysis Index >100 (100 mg/dl or moderate hemoly sis) may cause interfere nces and falsely low res ults. [facility] [id number] 14:43:21 Test Item Value Reference Range Interpretation Comments POC Crea (test 1.1 mg/dL 0.6-1.3 Medications, code = 32658-4) especially hydroxyurea or supplements, roe ch as ascorbate, can interfere with test results causing a falsely and significantly h igher result than exp ected. If a problem is suspected with a patient's resul t, a sample should b e sent to the laborato ry for confirmatory te sting. Method descript ion: The i-STAT is a n analyzer used f or in vitro quantific ation of various anal ytes in whole blood. The device uses a s aldo disposable cart ridge which contains microfabricated sensors, a calibration timothy ution, fluidics system , and a waste chamber . Each test cartridge contains chemic ally sensitive biose nsors on a [employer] ip that are config ured to perform spec ific tests. The microfabricated sensors measure analyte concent ration by an electroch emical assay. POC EGFR (test 77 See_Comment The eGFRcr is code = 59723) calculated wit h the 2020 CKD-EPI creatinine equa tion using creatinin e, patient's age, and sex for adults 18 years of age an d older. Other fa ctors, especially musc le mass, may affec t accuracy and ne ed to be considered.Acco rding to the Kidney Disease: Improv ing Global Outcomes (KDIGO) CKD Wor k Group 2012 Clin ical Practice Guidel ine, chronic kidney disease (CKD) i s defined as the abnormalities o f kidney structur e or function, prese nt for more than 3 mon ths, with implicatio ns for health. CKD debbie uld be classified by c ause, GFR category, a nd albuminuria cat egory. KDIGO guideline s provide the fol lowing GFR categoriesS tage Description GFR mL/min/1.73 m2G 1* Normal or high >= 90G2* Mildly decreased 60-89 G3a Mildly to moder ately decreased 45-59 G3b Moderately to severely decrea sed 30-44G4 Severel y decreased 15-29 G5 Kidney failure <15*In the absence of evidence of kid gisselle damage, neither G1 nor G2 fulfill criteria for CK D. [Automated mess age] The system [employer] generated this result transmitted ref erence range: >=60 mL/min/1.73 sq. m. The reference r zeb was not used to interpret this result as normal/abnor mal. POC Clean Dev Yes (test code = 6672) Performing Lab Radiology OP CTR Radiology OP CTR (test code = [facility] [place] [address]) [facility], [address], [place], [place] [address]; Point of Care L ab Director: Coby caceres MD [facility] [id number] 14:43:21 Test Item Value Reference Range Interpretation Comments POC Crea (test 1.1 mg/dL 0.6-1.3 Medications, code = 42164-8) especially hydroxyurea or supplements, roe ch as ascorbate, can interfere with test results causing a falsely and significantly h igher result than exp ected. If a problem is suspected with a patient's resul t, a sample should b e sent to the laborato ry for confirmatory te sting. Method descript ion: The i-STAT is a n analyzer used f or in vitro quantific ation of various anal ytes in whole blood. The device uses a s aldo disposable cart ridge which contains microfabricated sensors, a calibration timothy ution, fluidics system , and a waste chamber . Each test cartridge contains chemic ally sensitive biose nsors on a [employer] ip that are config ured to perform spec ific tests. The microfabricated sensors measure analyte concent ration by an electroch emical assay. POC EGFR (test 77 See_Comment The eGFRcr is code = 30068) calculated wit h the 2020 CKD-EPI creatinine equa tion using creatinin e, patient's age, and sex for adults 18 years of age an d older. Other fa ctors, especially musc le mass, may affec t accuracy and ne ed to be considered.Acco rding to the Kidney Disease: Improv ing Global Outcomes (KDIGO) CKD Wor k Group 2012 Clin ical Practice Guidel ine, chronic kidney disease (CKD) i s defined as the abnormalities o f kidney structur e or function, prese nt for more than 3 mon ths, with implicatio ns for health. CKD debbie uld be classified by flor christine, GFR category, a nd albuminuria cat egory. KDIGO guideline s provide the fol lowing GFR categoriesS tage Description GFR mL/min/1.73 m2G 1* Normal or high >= 90G2* Mildly decreased 60-89 G3a Mildly to moder ately decreased 45-59 G3b Moderately to severely decrea sed 30-44G4 Severel y decreased 15-29 G5 Kidney failure <15*In the absence of evidence of kid gisselle damage, neither G1 nor G2 fulfill criteria for CK D. [Automated mess age] The system [employer] generated this result transmitted ref erence range: >=60 mL/min/1.73 sq. m. The reference r zeb was not used to interpret this result as normal/abnor mal. POC Clean Dev Yes (test code = 6672) Performing Lab Radiology OP CTR Radiology OP CTR (test code = [facility] [place] [address]) MD [facility], [address], [place], [place] [address]; Point of Care L ab Director: Coby caceres MD [facility] [id number] 14:43:21 Test Item Value Reference Range Interpretation Comments POC Crea (test 1.1 mg/dL 0.6-1.3 Medications, code = 11294-4) especially hydroxyurea or supplements, roe ch as ascorbate, can interfere with test results causing a falsely and significantly h igher result than exp ected. If a problem is suspected with a patient's resul t, a sample should b e sent to the laborato ry for confirmatory te sting. Method descript ion: The i-STAT is a n analyzer used f or in vitro quantific ation of various anal ytes in whole blood. The device uses a s aldo disposable cart ridge which contains microfabricated sensors, a calibration timothy ution, fluidics system , and a waste chamber . Each test cartridge contains chemic ally sensitive biose nsors on a [employer] ip that are config ured to perform spec ific tests. The microfabricated sensors measure analyte concent ration by an electroch emical assay. POC EGFR (test 77 See_Comment The eGFRcr is code = 80612) calculated wit h the 2020 CKD-EPI creatinine equa tion using creatinin e, patient's age, and sex for adults 18 years of age an d older. Other fa ctors, especially musc le mass, may affec t accuracy and ne ed to be considered.Acco rding to the Kidney Disease: Improv ing Global Outcomes (KDIGO) CKD Wor k Group 2011 Clin ical Practice Guidel ine, chronic kidney disease (CKD) i s defined as the abnormalities o f kidney structur e or function, prese nt for more than 3 mon ths, with implicatio ns for health. CKD debbie uld be classified by c ause, GFR category, a nd albuminuria cat egory. KDIGO guideline s provide the fol lowing GFR categoriesS tage Description GFR mL/min/1.73 m2G 1* Normal or high >= 90G2* Mildly decreased 60-89 G3a Mildly to moder ately decreased 45-59 G3b Moderately to severely decrea sed 30-44G4 Severel y decreased 15-29 G5 Kidney failure <15*In the absence of evidence of kid gisselle damage, neither G1 nor G2 fulfill criteria for CK D. [Automated mess age] The system [employer] generated this result transmitted ref erence range: >=60 mL/min/1.73 sq. m. The reference r zeb was not used to interpret this result as normal/abnor mal. POC Clean Dev Yes (test code = 6672) Performing Lab Radiology OP CTR Radiology OP CTR (test code = [facility] [place] [address]) MD [facility], [address], [place], [place] [address]; Point of Care L ab Director: Coby caceres [facility] [id number] 14:43:21 Test Item Value Reference Range Interpretation Comments POC Crea (test 1.1 mg/dL 0.6-1.3 Medications, code = 74308-4) especially hydroxyurea or supplements, roe ch as ascorbate, can interfere with test results causing a falsely and significantly h igher result than exp ected. If a problem is suspected with a patient's resul t, a [facility]. Method descript ion: The i-STAT is a n analyzer used f or in vitro quantific ation of various anal ytes in whole blood. The device uses a s aldo disposable cart ridge which contains microfabricated sensors, a calibration timothy ution, fluidics system , and a waste chamber . Each test cartridge contains chemic ally sensitive biose nsors on a silicon [employer] ip that are config ured to perform spec ific tests. The microfabricated sensors measure analyte concent ration by an electroch emical assay. POC EGFR (test 77 See_Comment The eGFRcr is code = 45948) calculated wit h the 2020 CKD-EPI creatinine equa tion using creatinin e, patient's age, and sex for adults 18 years of age an d older. Other fa ctors, especially musc le mass, may affec t accuracy and ne ed to be considered.Acco rding to the Kidney Disease: Improv ing Global Outcomes (KDIGO) CKD Wor k Group 2011 Clin ical Practice Guidel ine, chronic kidney disease (CKD) i s defined as the abnormalities o f kidney structur e or function, prese nt for more than 3 mon ths, with implicatio ns for health. CKD debbie uld be classified by c ause, GFR category, a nd albuminuria cat egory. KDIGO guideline s provide the fol lowing GFR categoriesS tage Description GFR mL/min/1.73 m2G 1* Normal or high >= 90G2* Mildly decreased 60-89 G3a Mildly to moder ately decreased 45-59 G3b Moderately to severely decrea sed 30-44G4 Severel y decreased 15-29 G5 Kidney failure <15*In the absence of evidence of kid gisselle damage, neither G1 nor G2 fulfill criteria for CK D. [Automated mess age] The system [employer] generated this result transmitted ref erence range: >=60 mL/min/1.73 sq. m. The reference r zeb was not used to interpret this result as normal/abnor mal. POC Clean Dev Yes (test code = 6672) Performing Lab Radiology OP CTR Radiology OP CTR (test code = [facility] [place] [address]) MD [facility], [address], [place], [place] [address]; Point of Care L ab Director: Coby caceres MD [facility]- MRI C-SPINE W/O [id number] 13:05[facility]00[facility] 1960 Sex: M Patient Name: MANISHA SHELTON Unit No: [id number] EXAMS: CPT CODE: [id number] MRI C-SPINE W/O CONT 36878 DIAGNOSIS:1. At C2-3 there is no evidence for disc bulge or herniation, bony canal or foraminal stenosis. Facet degeneration is present 2. At C3-4 there is a mild retrolisthesis and associated disc bulging. Thecanal is stenotic with an AP diameter of 10 mm. Moderate to marked bilateral foraminal narrowing is seen with facet degeneration. 3. At C4-5 there is a slight retrolisthesis and associated disc bulging. The canal is stenotic with an AP diameter meters. Moderate bilateral foraminal narrowing is seen right worse than left with facet degeneration. 4. At C5-6 there is 3 mm of disc bulging with mild cord i mpingement. The canal is stenotic with an AP diameter of 9 mm. Bilateral facet degeneration is present with marked bilateral foraminal narrowing 5. At C6-7 there is a grade 1 retrolisthesis and disc bulging with cord impingement. The canal is stenotic with an AP diameter of 9 mm. Moderate to marked bilateral foraminal narrowing is seen with asymmetric left facet degeneration. 6. At C7-T1 there is posterior annular fissuring without bulging or protrusion of the disc contour. The canal is lower limitsof normal in size. Moderate left foraminal narrowing is seen with mild right-sided stenosis and bilateral facet degeneration. COMMENT: COMPARISON: No prior exams available. Scans were performed in thesagittal and axial planes utilizing T1, gradient echo, T2 and inversion recovery images. Endplate and disc degeneration is present from C3 to C7. The remaining discs are desiccated. The cord appears normal in size and signal. at 1305 Reported and signed by: Kin Patel MD CC: Technologist: Sahil Anders(R) Transcribed D/ (4415) [facility] NAME: MANISHA SHELTON [address] [facility] PHYS: Adi Rivera : 1960 AGE: 61 SEX: M [place] [address] LOC: Y.MRI PHONE #: [phone] EXAM DATE: 08/02/2022 STATUS: REG CLI FAX #: [phone] RAD#: D/C DT PAGE 1 Signed Report Patient Name: MANISHA SHELTON Unit No: [id number] EXAMS: CPT CODE: [id number] MRI C-SPINE W/O CONT 47076 (Continued) Orig Print D/T: S: 08/02/2022 (1309) [facility] NAME: MANISHA SHELTON [address] [facility] PHYS: LISETH HolguinerAdi holden : 1960 AGE: 61SEX: M [place] [address] LOC: Y.MRI PHONE #: [phone] EXAM DATE: 08/02/2022 STATUS: REG CLI FAX #: [phone] RAD #: D/C DT PAGE 2 Signed ReportPO [id number] 20:07:37 Test Item Value Reference Range Interpretation Comments POC Crea (test 1.2 mg/dL 0.6-1.3 Medications, code = 03607-9) especially h ydroxyurea or supplements, such as ascorbate, c an interfere with test results causing a falsely and significantly h igher result than exp ected. If a problem is suspected with a patient's resul t, a [facility]. Method descript ion: The i-STAT is a n analyzer used f or in vitro quantific ation of various anal ytes in whole blood. Th e device uses a s aldo disposable cart ridge which contains microfabricated sensors, a denise bration solution, fluid ics system, and a w aste chamber. Each t est cartridge conta ins chemically sens itive biosensors on a silicon chip th at are configured to p erform specific tests. The microfabricated sensors measure analyte concent ration by an electroch emical assay. POC EGFR (test 70 See_Comment The eGFRcr is code = 39773) calculated wit h the 2020 CKD-EPI creatinine equa tion using creatinin e, patient's age, and sex for adults 18 y ears of age and older. Other factors, especi ally muscle mass, ma y affect accuracy and need to be considered.Acco rding to the Kidney D isease: Improving Globa l Outcomes (KDIGO ) CKD Work Group 2012 Clinical Practi ce Guideline, pumper gager ru kidney disease (CKD) is defined as t he abnormalities o f kidney structur e or function, prese nt for more than 3 mon ths, with implicatio ns for health. CKD debbie uld be classified by c ause, GFR category, a nd albuminuria cat egory. KDIGO guideline s provide the fol lowing GFR categoriesS tage Description GFR mL/min/1.73 m2G 1* Normal or high >= 90G2* Mildly de creased 60-89G3a Mildly to moderately decr eased 45-59G3b Modera tely to severely decrea sed 30-44G4 Severel y decreased 15-29 G5 Kidney failure <15*In the absence of evidence of kid gisselle damage, neither G1 nor G2 fulfill crit eria for CKD. [Autom ated message] The sy stem which generated this result transmit mone reference range : >=60 mL/min/1.73 sq. m. The reference range was not used to int erpret this result as normal/abnormal . POC Clean Dev Yes (test code = 6672) Performing Lab [facility] (test code = [facility] [place] [address]) Clinical Lab, [address] [facility], [place], [place] [address]; Distribution Engineering Technologist: Tasneem Saucedo MD; Waived Point of Care Testing - Coby cacerse [facility] [id number] 22:29:58 Test Item Value Reference Range Interpretation Comments Final Report (test No acid fast bacteria code = 8488) isolated at 8 weeks. Path Review - AFB Partial antibiotic (test code = 8477) treatment can render AFB culture negative. AFB culture has sensitivity of 90%. The results have been reviewed and electronically signed by Pathologist:Karla Stout MD, PhD #[id number] Acid Fast Stain No Acid Fast Bacilli seen Truant (test code = in direct smear 77461-3) GREG (test code = Cultures are held 8 weeks GREG) before finalization. [facility] [id number] 22:29:58 Test Item Value Reference Range Interpretation Comments Final Report (test No acid fast bacteria code = 8488) isolated at 8 weeks. Path Review - AFB Partial antibiotic (test code = 8477) treatment can render AFB culture negative. AFB culture has sensitivity of 90%. The results have been reviewed and electronically signed by Pathologist:Karla Stout MD, PhD #[id number] Acid Fast Stain No Acid Fast Bacilli seen Truant (test code = in direct smear 11553-6) GREG (test code = Cultures are held 8 weeks GREG) before finalization. [facility] [id number] 22:29:58 Test Item Value Reference Range Interpretation Comments Final Report (test No acid fast bacteria code = 8488) isolated at 8 weeks. Path Review - AFB Partial antibiotic (test code = 8477) treatment can render AFB culture negative. AFB culture has sensitivity of 90%. The results have been reviewed and electronically signed by Pathologist:Karla Stout MD, PhD #[id number] Acid Fast Stain No Acid Fast Bacilli seen Truant (test code = in direct smear 17334-0) GREG (test code = Cultures are held 8 weeks GREG) before finalization. [facility] IR w/[id number] 22:29:58 Test Item Value Reference Range Interpretation Comments Final Report (test No acid fast bacteria code = 8488) isolated at 8 weeks. Path Review - AFB Partial antibiotic (test code = 8477) treatment can render AFB culture negative. AFB culture has sensitivity of 90%. The results have been reviewed and electronically signed by Pathologist:Karla Stout MD, PhD #[id number] Acid Fast Stain No Acid Fast Bacilli seen Truant (test code = in direct smear 23626-3) GREG (test code = Cultures are held 8 weeks GREG) before finalization. [facility] w/[id number] 22:29:58 Test Item Value Reference Range Interpretation Comments Final Report (test No acid fast bacteria code = 8488) isolated at 8 weeks. Path Review - AFB Partial antibiotic (test code = 8477) treatment can render AFB culture negative. AFB culture has sensitivity of 90%. The results have been reviewed and electronically signed by Pathologist:Karla Stout MD, PhD #[id number] Acid Fast Stain No Acid Fast Bacilli seen Truant (test code = in direct smear 61246-8) GREG (test code = Cultures are held 8 weeks GREG) before finalization. [facility] w/[id number] 21:03:43 Test Item Value Reference Range Interpretation Comments Final Report (test No fungus isolated at 4 code = 8488) weeks. Path Review - Fungus Culture yield may be (test code = 8479) affected by sample quality, prior treatment, and transportation conditions. The results have been reviewed and electronically signed by Pathologist:Karla Stout MD, PhD #[id number] Calcofluor Stain No Fungi seen in direct (test code = 6472-5) smearTest performed by fluorescent stain methodology. GREG (test code = GREG) Cultures are held for 4 weeks before finalization[address] [facility] w/[id number] 21:03:43 Test Item Value Reference Range Interpretation Comments Final Report (test No fungus isolated at 4 code = 8488) weeks. Path Review - Fungus Culture yield may be (test code = 8479) affected by sample quality, prior treatment, and transportation conditions. The results have been reviewed and electronically signed by Pathologist:Karla Stout MD, PhD #[id number] Calcofluor Stain No Fungi seen in direct (test code = 6472-5) smearTest performed by fluorescent stain methodology. GREG (test code = GREG) Cultures are held for 4 weeks before finalization. [facility] w/[id number] 21:03:43 Test Item Value Reference Range Interpretation Comments Final Report (test No fungus isolated at 4 code = 8488) weeks. Path Review - Fungus Culture yield may be (test code = 8479) affected by sample quality, prior treatment, and transportation conditions. The results have been reviewed and electronically signed by Pathologist:Karla Stout MD, PhD #[id number] Calcofluor Stain No Fungi seen in direct (test code = 6472-5) smearTest performed by fluorescent stain methodology. GREG (test code = GREG) Cultures are held for 4 weeks before finalization. [facility] w/[id number] 21:03:43 Test Item Value Reference Range Interpretation Comments Final Report (test No fungus isolated at 4 code = 8488) weeks. Path Review - Fungus Culture yield may be (test code = 8479) affected by sample quality, prior treatment, and transportation conditions. The results have been reviewed and electronically signed by Pathologist:Karla Stout MD, PhD #[id number] Calcofluor Stain No Fungi seen in direct (test code = 6472-5) smearTest performed by fluorescent stain methodology. GREG (test code = GREG) Cultures are held for 4 weeks before finalization. [facility] w/[id number] 21:03:43 Test Item Value Reference Range Interpretation Comments Final Report (test No fungus isolated at 4 code = 8488) weeks. Path Review - Fungus Culture yield may be (test code = 8479) affected by sample quality, prior treatment, and transportation conditions. The results have been reviewed and electronically signed by Pathologist:Karla Stout MD, PhD #[id number] Calcofluor Stain No Fungi seen in direct (test code = 6472-5) smearTest performed by fluorescent stain methodology. GREG (test code = GREG) Cultures are held for 4 weeks before finalization. [facility] [id number] 19:06:19 Test Item Value Reference Range Interpretation Comments Final Report (test No growth code = 8488) Path Review - The results have been Anaerobe (test code reviewed and = 8478) electronically signed by Pathologist:Karla Stout MD, PhD #[id number] [facility] Interventional [id number] 19:06:19 Test Item Value Reference Range Interpretation Comments Final Report (test No growth code = 8488) Path Review - The results have been Anaerobe (test code reviewed and = 8478) electronically signed by Pathologist:Karla Stout MD, PhD #[id number] [facility] Interventional [id number] 19:06:19 Test Item Value Reference Range Interpretation Comments Final Report (test No growth code = 8488) Path Review - The results have been Anaerobe (test code reviewed and = 8478) electronically signed by Pathologist:Karla Stout MD, PhD #[id number] [facility] Interventional [id number] 19:06:19 Test Item Value Reference Range Interpretation Comments Final Report (test No growth code = 8488) Path Review - The results have been Anaerobe (test code reviewed and = 8478) electronically signed by Pathologist:Karla Stout MD, PhD #[id number] [facility] Interventional [id number] 19:06:19 Test Item Value Reference Range Interpretation Comments Final Report (test No growth code = 8488) Path Review - The results have been Anaerobe (test code reviewed and = 8478) electronically signed by Pathologist:Karla Stout MD, PhD #[id number] [facility] Culture w/Gram [id number] 20:41:57 Test Item Value Reference Range Interpretation Comments Final Report (test No growth code = 8488) Path Review (test The results have been code = 8492) reviewed and electronically signed by Pathologist:Karla Stout MD, PhD #[id number] Gram Stain Report No WBC's seen.No organisms (test code = seen. 6664-7) [facility] Culture w/Gram [id number] 20:41:57 Test Item Value Reference Range Interpretation Comments Final Report (test No growth code = 8488) Path Review (test The results have been code = 8492) reviewed and electronically signed by Pathologist:Karla Stout MD, PhD #[id number] Gram Stain Report No WBC's seen.No organisms (test code = seen. 6664-7) [facility] Culture w/Gram [id number] 20:41:57 Test Item Value Reference Range Interpretation Comments Final Report (test No growth code = 8488) Path Review (test The results have been code = 8492) reviewed and electronically signed by Pathologist:Karla Stout MD, PhD #[id number] Gram Stain Report No WBC's seen.No organisms (test code = seen. 6664-7) [facility] Culture w/Gram [id number] 20:41:57 Test Item Value Reference Range Interpretation Comments Final Report (test No growth code = 8488) Path Review (test The results have been code = 8492) reviewed and electronically signed by Pathologist:Karla Stout MD, PhD #[id number] Gram Stain Report No WBC's seen.No organisms (test code = seen. 6664-7) [facility] Culture w/Gram [id number] 20:41:57 Test Item Value Reference Range Interpretation Comments Final Report (test No growth code = 8488) Path Review (test The results have been code = 8492) reviewed and electronically signed by Pathologist:Karla Stout MD, PhD #[id number] Gram Stain Report No WBC's seen.No organisms (test code = seen. 6664-7) [facility] Bi[facility] Interpretation 2022-02-17 05:10:40 Test Item Value Reference Range Interpretation Comments Submitted Clinical History a6kywDZiRLKvw5frNMP (test code = 51306) mbGFuZzEwMzNcZnRuYm pcdWMxIHtccnRmMVxzc 7VxA9YxOzHnHAylerZv XGRlZmxhbmcxMDMzXGZ 0bmJqXHVjMVxkZWZmMH jgMs5tkNVyrAbiYlWtL MIcb9vehhUUmfoomSo1 h2xkLREhJbK0mSAfRTf uA8uulrAwlKAxBXZeOG z9aU59ZKBdeL7qmWWfS PiipvTfTeD2YMnjWHDq LeM5IXJcxFCpIMBoD9c yZWQwXGdyZWVuMFxibH UjVUJ7iZzkn7X8pOPqr GVldHtcZjBcZnMyMiBO x5TbCNs1fGvaK8BfGCH lBiJ1eNEgTCCpIYjzVB KcQYKnorM7dO65ZPxnc eU2vIPoj2Trb31rb962 zO9qyNGnDGM4FQIfXSA iyPWrPTHgFDH7EDItzM QiH4cmJRRwDE3kmiqjY AngXJfoCUYyoEV9EBCi hRWdY3OyQQAvLGpgLOQ ijei1RoDnZb0nuELlaM pbARbtl1jsq6zmxDKcM un1CPMpNkKzVufmQIgz x8Ngz2vmLOZljj0bYBK 2qEBsdAlxb1K9iCRnQH QidCTfleWsUIBmXgJ1X GiyPM7euw05EQPbDYL2 zx4mdBNbqPexuuNmsPO zKCgcH5XkITJhj961RA RbR5RqJZOsh0A5kpOlY cXhUSAqhQZ4vcO3CJSm NZs2mHWublE7eyGtuAH fZ3ppmA0eKEIpHX4vap ltm1tqIRdvZCzuSEJyd AK8jwQ9ZBXvcBEhH5Qo kE0fSUZtKEtgYAHqpxz 3HlYsZf2jaUOnzKleNZ xzYmtwYWdlXHBnbmNvb nRccGduZGVjXHBsYWlu XHBsYWluXGYwXGZzMjR gyAureRxfeV9kUzBpSk NkYXbfDW4iFLXhC0fag IFwMSQcPKAhD9mhEdEj eY1lsVujUCdvcnHiWS0 mb4Fcu6Qdf02awKZ2wA PxyEDem3UnoOMokZKuj 6rjsjSiiX0rVKzXEiUw NDJdXHBhciBTcGluZGx cVKFvmYprd6YnV20yCG ApSdVwg76zLFR5lRHtC CBzdWJjdXRhbmVvdXMg FX3sRZ17oOMvUZAsYpZ kbFfud1HzkuDmGeDpd4 ctqgKusK4aVQFqYDCjo XAgPExlZnQ+IFtDNDku MjJdXHBsYWluXGYxXGZ zMjJcbGFuZzEwMzNcaG ljaFxmMVxkYmNoXGYxX MelD6xyXnSkLhKpZfee YXJ9fQ== Diagnosis (test code = 34) z1cmbMXsGPLeoTW6KHW cRKXfb0wsk1HyoOBuzS PbXKxmeQDgsrZuaq06l DD4uP16DR8zIXScVhM2 FPFydjP3Jxt6MWJhNZQ syLVeH787m5grq3nsvb QqfCU5NKFmLFSfA3DwA P6uOYHyiJExC31owICm GZB0ABTlUDCwqDOpNRV wYUK7MYUpbSPdI4qsZB QxZN3melqtVPwqLJldU CUzbQA3XNBykSWdT8Wp DORjKRzjTNEjqkw7QiJ mTn6kyRNnjQkbASmvCI JkXHBsYWluXGZzMjBcY 7VxMOD1OITfq8KwWElc RsBxMMIxp9CkyQtcsEE yXGxpNzIwXGxpbjcyMF xjZjAgQmxhbmQgZmlic v58vmBupEzwXRxlDKOr bGwgcHJvbGlmZXJhdGl dcsPhi7CmIQTlmE9wdd QpLlxwYXJ9 Comment (test code = 9835) a2hkgYLwVFWohLG1CCD bZDDhq0diz1WsvYLhcO KzLWhtlEYhpfHyny90n IF3yY17VO1dZAExZoT2 TMIpxhT8Oxt7ZIHlQDR yyHJnA289w6rhd3qqhs MufRV8lYckSHDtncycZ xF8TOfkRHDewueiFQh9 PDecASPofTT5UUUszIV jB9WbWOZaMQ5bwgy1UI H5QTbtIWAeEcB3VYOgj KKyNOYihWnnHNrnl986 ATS7JjZmMDAehxXpmVq bbO0bIxOfPQSXpQXcQS psTaSnGO23hRQvVSRdS Ewxs3SblrJfxgHksHEt pmAxyJEtu07hHD6jMXW lbmRvbiBzaGVhdGgsIG Zfr72tjEtkl4XfVwMpr ZQqk9PuOWI5e22qPHYs ikRxtV2ej6fkoUcef5B pYTMvOflowt01oxWhwn HlnEllow7uYE4uqLcui yVdjAErNME4pNVxyrAu keOvca88GAWfED8yJkV ccGFyfQ== Gross Description (test d6euzYQeIFPqnNUTRQp code = 8843433674) wMVxhbnNpXHNwbHRwZ3 RenmpwGKwoDV0wIU8hx BzzfVXbeLYlVK6MGFHm ZmYxXHBhcGVydzEyMjQ vVACdoKHlsSR3PABhPW 1hcmdsMTgwMFxtYXJnc gT6SLKjrOClM2BpHTXk NG4ubrygZAY1LExmnG0 yrnFMXbbeEy8wzEFuxS tcZjFcZmNoYXJzZXQwX TAhoBmyIDTrGZc3tY9W HlewO07yx5R7Jft3GOX vFLPwQ4XoMM1tKAMdsP EgH39XTzugMNM6UVMNC nwtSRDiSW6Bn7dbIYIe vGZtBRN7KGuecGNmNHR kZBTqDPz8LPUmUBuuzS BhGS1soAcnCmntwJtqj 2VjdCBcXGlkIDUxMDAy MFkhRNNoAR0RVaQeEPV qBDEsVlMmQOf6ZTr2JR 9PQkUpGWFbGLQ8OaHtK LGmBDd3POcjSB9NPRZo JHigTja5UOXlECUuQAI uYTl8SLSfYVpwEOAxjS FsIFxcZnMgMTAgXFxmY bMqFOFmZEfdswE7EQGc YWluXGJcZnMyMCBBOlx rMAIsDQvunPbqmX3vDA IeQ70wd9APm3LnMI0ST Go0agKbnmslqF5tMJNg mgLaTUytyGXfC1dsIar qCzOnKqUkKYPTh325SF PdOYL4WYSeANJ9UDWpi 9OmSidynCV3GqtfZQbv ZoRnSVD6tnSfeO0qZMb nvGTeJQPxAHznGH91wr EgIpP3xGFdtQNkrFOoe 5XvaG4gPISkJlC7RMDi JTT3VDHpYVYakLGpnuB lEJ2wKYbwJL5gNHdsTW 4xIGNtLCBlbnRpcmVse YRkwHMnhKC1RQRzyY8f QTEuICBccHJvdGVjdHt rTgkiuUN3FNqmMdftpQ 5zdCBIWVBFUkxJTksgb iVtKS5YOQ1SQfYYUI05 SpAxRAC1FQyGD8VWmRC 9Sln0BOp1qMuxDycyik SlsCHxRgOVpM0JHGhaG umfePO4UKzqCzpbrL9s dCBIWVBFUkxJTksgbmF wMB7NFI9RIN1AjEMhFQ X7mSS5XGBJAlinxYJ5s TW4oI87MWLkIBHfyBBj DChiQ164LILiBRcrHLz 0cmNoXGZzMjAgDQpcZX RxB09mf0FAy9BiNWFoo 4wkzQzth6GlbOGpHQwt WYXzqIGaIPbalC5eAeR su4rrjRg1OLqkthK0NJ Owlx4ifUkixB9tRMkvf 5ifVBS0QILmmNQdeJXl NCxvdZcgyT3sYoOwTrh 1ICazGRKtR2UiB1Inym B5VRSsUKjcMUJwESIcY Qp9 Disclaimer (test code = h4akiFDcNWKktGOjRdZ 9844) aVWBaZJTss9thUKHaiI FuZzEwMzNcZnRuYmpcd VFcHCSkVpFza2ayg682 oPUdm9bxSRNjJqY4aUR eADNfuJXyX166SNHbQG jrs9hvr7BpQRGhzMEhz 5V9GJUYfithuLo8kQpo Y73nx8J0RxevG6pkMEA jAKUlJ8VbYH4yENKcDp h6CAA8ZTX8ZWHiNIEnD 6XrBW4dACGkwGVtLIx5 r6ihuDziYRLuSEO5q0j cCOvvlbUmCU5fis0ntQ s6w7nlhlEuMBXaGJRcm PCDFEOvT5OfjZkzYv7s mAh2gKijVagnTNF1Rvq 5EF5ltj09fqq6qJkmJA OfrhyjFmO9DCooDVQvl fasTAq3QOcgLPXziAU6 LFVqyLIxD9SoMELeBW6 xkov6LBK2QTeaQHBuTp Q6RACliBZkVOIjuKknR Dtav551FKI1IcYlRL9l C8Wta0V7gX4qzVWvZJM nfVLjHkWcGTIvdp0clC VmZNpmc0SnKRG8xgC5v FJucCEhWGWuGS28Pwma g6QhEiwkCUU9JSNaplR rm6Ckr0hcMfRbzhQcP7 ccG4OjKDCaUGTcNGWgQ dBnfkQor5Kod6WuaRFi hAs1w4adDBOcYZWvmCe xo9plONZ4BYThF6V1lG Dxh7bcIXcwTZZgeTK0t rP4LBUjvGJiA8PxcX6j KLGxHY0fjzs8d0afKIN 6NTamGFSeAcG6wgX2GJ BcaGVhZGVyeTcyMFxmb 309HNM7JlScGMXuc5Wl I7VjiRtrO55lwXpcY36 eQSPejDdcmD2syDwrjQ 5cZjBcZnMyNFxxbFxwb YEcqzeyDBtrfaQ2ITod scktNGLpOJzfM2rgUdO aVSCcdBsxIXuhv3QlVJ YwBZZoYsjvbtY7QUYIr 94gKFTby4VeBRQuwS3t dGGuRGspzdTzcGG6DXj hdmUgYmVlbiBkZXZlbG 6tUEEuKE0cUGOrpvPwa c3tshSbYHCiVTBoT4Mk cmlzdGljcyBkZXRlcm1 fauXlVWP2MBTQXN3EJW DeFZQvl71mMDMvqXyqf T5gxSVihuNfEVXvp8Yj gV4xkOZPMBKpK8ovFN7 rXEgor4PesDVblSWmpH D6UQWom7IjCfAbcbRwb BBufDAnM5LukQwoK6mo DBAtIXQhboQzlYMmd4K yXQSowKA1tVQgPF1PKc FFq51lQAPkXEXEpoEmN ZRtjOddfNS0ybI1qC5h LiBJZiBhcHBsaWNhYmx kMIYfb983zm1xtaW6LA OuIZSjcrdig4FtNOYvN QVdcE22HOGuPWIwrs2n juyvaYWvvfIvR0Jzgzz 9cU4bBKRyPYfsMXPbEO ZzMjJcbGFuZzEwMzNca GljaFxmMVxkYmNoXGYx RAqsX7jaChDsRvIeOex wYXJ9 [facility] 2022-02-17 05:10:40 Test Item Value Reference Range Interpretation Comments Submitted Clinical History a4rurPJiBKJpi7kmIDA (test code = 39189) mbGFuZzEwMzNcZnRuYm pcdWMxIHtccnRmMVxzc 4OdP5CoNjCzPJtjbkHh XGRlZmxhbmcxMDMzXGZ 0bmJqXHVjMVxkZWZmMH lwNw5wjNWhtPltEmUbJ JJtj8sucdXSmsuioUz9 f5vdPVDyLiP6nFCjHHm pM6bervLdfCRkZQNfEQ f4nF42HMElfU7mdSSuN SgowzDgXpG7HLdpSMCe ZnT1HMBttGDvQQYgR8a yZWQwXGdyZWVuMFxibH VwDNW5wEgne2N6cNNwf GVldHtcZjBcZnMyMiBO p2NqNAr2wZteV5MjIMS qBjJ7oLQeTPEzFAovGS RuOQOpavF5eS96MIlna iE0aDDgf2Viw22yx055 iX9cbOCpBDT0KJRyGEJ iiWHgFYLfNNA7DTIaaJ PmD9laDNLyCS8phlxcC ClzQGihAHJopFH6AQOe lUScE9JhRLIaLCejJHF pmxd0JzRyMr4afCLduX seMVrbp5qnu0vmyWGbP dj7AZDyMcSnGjuzKDum k6Lni8ujPJLcvo0vZFU 6pKEwzPufb7C2wTHpKU WbuDXgmrLgPUKmKpN9E GxuMV9vbw07IRGqUGH9 ns8yfZXydXrxncUveVP rEBreR3KfLXAhv565VF VbU9EyOQQfq6Y5olBhV pBhGYDnaMV1soC7RXFe JJj2mLSxipU2qhBgpDI pB3vbmX8hBOXoCS3mnj xzo7jcESpuGSxbPVFzx SU1gcK4JDWaaAPeW5Ji aC7bKWBaVKyhFFGoyct 5FzWmRl6vyPNetEywBO xzYmtwYWdlXHBnbmNvb nRccGduZGVjXHBsYWlu XHBsYWluXGYwXGZzMjR pcDwnwAoamN6kXxPnEj MpIXqmEO2hXCLgX0cbv CRhLTLqGCLqM6zhBqNr uR7nqPrqTMsjrxAfOF6 sd5Jts9Zjb43gbDG5jK EqgHSxo9VapPOcoEXmx 7dthdAkzG4tJJfOFnMg NDJdXHBhciBTcGluZGx gTFFtzDtnw2GcD50cNH PuCxGmf63bSRV2zOUaF CBzdWJjdXRhbmVvdXMg IO8kYY33dTBrSXAxWoW ajXrid1HgixIjPmAuy4 nfcuGfoD0oHEHlLIGux XAgPExlZnQ+IFtDNDku MjJdXHBsYWluXGYxXGZ zMjJcbGFuZzEwMzNcaG ljaFxmMVxkYmNoXGYxX NevV0etFtQnMdFnNlxz YXJ9fQ== Diagnosis (test code = 34) r1jntRLwAUQnhBL2DAW uFWVhp4qgm7HjhJOugV VbBPisjLFsxvYphj76b NJ1kU69IY8bWNKmVgQ9 LAOstdO1Nwo4AVYxORS gjIPfN791e2vyr1vayb MguFA3PXUeNQBpB0RqE A2lQEIbaEFiB59haAWk FMJ4CDWaQQUjmZTnTCN cPIY0QJZxcQUmC1vvEK XtHX8dkaciSUvdJVmmV QIqdTK2MDOkuUFaQ3Lo XSAwHLeySDUcnfj8TeS tZd0xmKBpnEakSBxtTY JkXHBsYWluXGZzMjBcY 9KtGBB8OSHvq3HbIDgb SvSvBLBsy5NukUsrnVH yXGxpNzIwXGxpbjcyMF xjZjAgQmxhbmQgZmlic e45czPxdBipGRalQSPj bGwgcHJvbGlmZXJhdGl mlkGyi3UbOQXorT0mpk QpLlxwYXJ9 Comment (test code = 9835) i8uniWIaWGSurQA2ZJK qHEDwg0stz7HvuKXxgE DvNRppfLOxfdGdxh17f ZT5bE84VS3kKHKdLhA5 UKOimcR4Bau9NFVoCEI peMNqB454d6aeg0gvwp OnjCU4mLylFNZyzbmqM eA1VGiyQTNgkdxaPSi6 QEuiYNNjzAP2IQIfuQK gQ6MuCUSjGR4rgti1YF M8UNfrTWJtOvJ2LPHjw IDaNCFggTheXOdsr551 CJK3DbDeMEWtrpBkjMy ghZ6aTyIkXBOXmJVnFQ nkQzFkZA20aPJjFLEtG Fswg7JjfkHuvcKqkBPj zkUwbHSal21vNT6cLIX lbmRvbiBzaGVhdGgsIG Tkv43ldLdwl8XgAmBod YDvh2LsSGG1y82rBXKs ucJfcG1wq8yswDxql7B nGFTpEhguwh85bhSmua BwlPstaw8cBI1fpWehq gKuxLQbQJV2kNQjnsBn obOrsz11CKDsLL8jWqX ccGFyfQ== Gross Description (test y6xcsMZuKBZxlCDEHBd code = [id number]) wMVxhbnNpXHNwbHRwZ3 FirgcpQAkgCO3kKO0su JvyzHGnaJZmDW8IVUBt ZmYxXHBhcGVydzEyMjQ eSQWufIPmfDF5RDGpDF 1hcmdsMTgwMFxtYXJnc sF3DAGjhAMlQ1YkAYAr NA0kkeuvXRP1ZXjslR6 didPVGdbsKv8mxKQdvQ tcZjFcZmNoYXJzZXQwX UVqhDolRVMyRUr9cK0G DxllH34ta0U1Boa3XSA bSSCeC5OmMM1vPLDjyN QvB52XLvsrCJD4YLXIO dogSTLwGA5Qf3srGBXv cDLtENB6ZFemsTDyOBZ dUFApFBa2DRCcYJrcgY CaKM2tuAhxGoaeiSvmn 2VjdCBcXGlkIDUxMDAy AMcnEERgBV4FZuDeLYM fLQUmAsTaJLx9LDd9UR 1WPtDvUJHrGFK1IyMnW QWaSOn3WAecJW0YJVUj GAmzVlu4DUPfSGDbVJN kBBi3OPHdBByaJMTqiN FsIFxcZnMgMTAgXFxmY pGsHBRzSDsjirO6KUPt YWluXGJcZnMyMCBBOlx cPNUaRTuleTghmP2jSI NiH17ip8JIv0UyUI2BE Ob1vgDiyopjpF0eEEXh ghLmYLejdEJqM6vbOgl jTaLxRjClMBQTg378SZ IqWMK7PZFdZXM5TUZfr 3SiPkbhnDH3JiulAGsl HpYdPKY3odOacC1kQOq kiOToODDpCWtiXV48ry BhFjW8uXIqhCMwjEHjn 2EkkM5vGOAnDbQ8FSWh XPL5ANQpZYSbyABmgiO bVX9dOIhaUE9mMQusMG 4xIGNtLCBlbnRpcmVse GCbkHSwoCL7KNDrzR1q QTEuICBccHJvdGVjdHt eOlktcTI0YGlrBmwntI 5zdCBIWVBFUkxJTksgb wImFR1UNA0DQmESQM31 DiPjGFW0GBoRF7QUtTJ 1Sbc4XLs3lZjoTfqgfj GfqTLmMzZGbL6JNWwjQ pqglCY0RHhjNpxbsM9z dCBIWVBFUkxJTksgbmF kEB5RDT0DAY5PeAMcBF P8fDQ2CHQFFzbyuFA2n XQ7dH18NVHnOLTcwUEr UAvvI770FREqZYubWAj 0cmNoXGZzMjAgDQpcZX RhR95gb3GXh7MjWUYlk 1efqEkbq3CybPRgTMur VMQpmLSxSUeaxM9yFrJ os7ndgIz6EVxsneO1QY Cqzo8mmDaipB4mZYknn 7llRTM2IMAiiFHpwWDq SDqlhWhilW1oOgQuViv 2TXtlDGPjR7BqW2Lxmd R6LTPoQOghNCBmTEYuI Qp9 Disclaimer (test code = h2rbiLRkDUOdgEXiOeI 9844) zJRItOAFob1ikJRMabH FuZzEwMzNcZnRuYmpcd XYpBTGgHnVvn5ilf121 aNZaf9wrUXQcZlB2gAW bSZXavRFqJ175MJJoZO jrt1lep4WzOJNdbNAbo 5F4AFLGwjbgfSo6pQmk J88qh4K1SzsfG4uiVJZ kATVwE0YrPM6iBBFtIh j7TTR9XFV8IJJxYHQrP 3EdJJ2jARVzxYQzCLi3 i1wsfZqhUGXzXPH7f4c jWJigwjPpCK9kso9rbR z5o9icprUzWXIbRMVcz HSADMRmA5UxiHvdCf0o fRd0hTjlQlbkDJW3Rbu 7MS6zxh49hyb0oGwvPL VhazggWhH0TTsfOEBpt jkxTCb1RNicRKWkeNS4 XGZcvNHtQ3TqSASiVS8 jaeq4GDN7NRqmSDKgDd L8TESbdVLaUBTujAsjH Gfco910QKU4MwJoFI6s X2Pwe1I2sZ9uuLOxXRI nlSFuNvElKSZwdx2coK IqUSpdl8CoSPC5mhK4o TXgxBUlBSFfWV39Ubvx w0JkLlvgWJQ2GJPaxfX sz5Byw2qjKgQstnChM1 hvW4AwUENeINPiPXYoC tDfzzMwv5Kkd7IawIEq kGw3s8sjKGRxHEHibEx kp1huAHI8KEQjC5G8oY Hom5gsEBpoHNOylXL4g jM8SIDypRKsS9BibQ8q QZNfGU7yiii8b4yeMIT 5GNeaRTKoJcI8zxQ4UR BcaGVhZGVyeTcyMFxmb 636UDE0HuOcVZZkz3Tc S8XkgDpvC20xtQphI51 zZCIbfXpkzA4edKufjZ 5cZjBcZnMyNFxxbFxwb IUdeqrqPMzxolF0DGhk ukyvIZTvYHitO3gySlG rEDOygPdeGQtwi1GkJN FbPTAfFufoenI9NYEMf 05eEUUew7YcGWZebF6w sIIdZJhbvsTvjUE8OKg hdmUgYmVlbiBkZXZlbG 6zDQCxQS9sVHQhraYcq p6qwtNkIUKcMLGbC2Lp cmlzdGljcyBkZXRlcm1 jgvGuSEM4VQPDHP5SME UqYJWac23fLCDsgUluw N2dsJXihfRvSXSjb4Ii pC7yxSBEJDDjX4kbGT7 eZRfwe0ZtkSTcmFJjnM Z2SAGpa3MmWlVjtzDqv EHjyCTgQ9BhrVqbV0zb AOOdAGGsixEdeMYus3P eKBBfvFQ9sAWwTV1YCb DIp10dHIDgFPZOkaYfK ECkrEqetOP2lvP9sM8o LiBJZiBhcHBsaWNhYmx sNLDbi522vk6aasV1MJ MzKIZlvmkgj2FfMQCaR UCvrX95EVZzZLOqvs2a muxobINxrqYvC7Xpqul 0gW6rEJRpELxaHUYqQV ZzMjJcbGFuZzEwMzNca GljaFxmMVxkYmNoXGYx XPspK9mbQzXwIjNhRwz wYXJ9 [facility] 2022-02-17 05:10:40 Test Item Value Reference Range Interpretation Comments Submitted Clinical History q2myeYEbKBIkr3huYIZ (test code = 14056) mbGFuZzEwMzNcZnRuYm pcdWMxIHtccnRmMVxzc 7RwX1YzVyDgTRgjdwXs XGRlZmxhbmcxMDMzXGZ 0bmJqXHVjMVxkZWZmMH vsAf8mzAHzeYmkWjMqM GFwb8unkzGZuiotuOc2 l3lvVKPxOoO5nMRlQPn aF2rlwsDqyDXeFOGcFG o8gE54NRVvlM2peAZxX DhrmjGqOaG4RPzbSENv WpC3LURuuELaYQJbC2f yZWQwXGdyZWVuMFxibH UtBOY5wFcez7C0dCVxw GVldHtcZjBcZnMyMiBO o7RdBJn3bGesL8EvMTQ aOmK9hOBzTDTiXKelOU UlBJLrcnY6uH47BBzvw xC0kPPyq3Qnr80ku871 jG4zbGAhWAS4CVGiGYL scTNuBYGyHVJ7MNFzgF ImW5nrVVLlTN2ukadyK FthVPcrYEUrfVI2ZSTh jKXaT9ElVEWxJMqdPIZ xmeg7AaXmQx0vuNPpzY ulJAjme7wjs3ewuGAtC kg6UMWfZkXwZdqkLCiq w8Vfh0ltGDCpgm4oOVF 9xZApnAiyc9I3zRCeOP ScuRCubpOtYUBgYxN4O VfxAP9wnf03YQWfQYZ5 cd6cmQGugNmkefBeeBL mAWfrD3ZmWGZkx782FC RsI2ZuMBGtb6D4dlKbG iWtKRFdrBM9ltV4LYGz YKs4eMGajvE4stSmyZM zQ1qjjR5hUYTrQN5isz vti4jwXRyuMRkgQHTws AD7cqY8SYFqvNOjH4Vj aY7nRIFaQWexZPSoste 5MzSyDs7crPZzyOyyVN xzYmtwYWdlXHBnbmNvb nRccGduZGVjXHBsYWlu XHBsYWluXGYwXGZzMjR pyGxqnDoglB7vTnCiKx MzNIdaBT4aKYXxL1jhh OOuNWVsSJTkD8oaWiDp xV5vpThvZKvvxvZkLC7 ho1Nmw7Fmq01cyNT3xZ AvjUDjd0EhdKJdyWRuj 2vwdrLybJ1wIXcRVoLe NDJdXHBhciBTcGluZGx eQEBcrWbek2LcW18aXZ XiTgWrk24bJRE1hCGpL CBzdWJjdXRhbmVvdXMg UQ3aGP00oTMuTNIyGmE kfKcaj5YhouSwLxPsc5 hvovXtwO0iOLUeFQGyn XAgPExlZnQ+IFtDNDku MjJdXHBsYWluXGYxXGZ zMjJcbGFuZzEwMzNcaG ljaFxmMVxkYmNoXGYxX KgbI3qtJuBaOaEqCubp YXJ9fQ== Diagnosis (test code = 34) y8ckfNOcYIZlhEU2XEV kLWYom9idx6MhxZDacE JnAJdjhFFmteXmbi49g ET0lA67KV6rUIWnEbT3 OINtmxV5Iba7RRFvDSK jpJTsM966n7dqh9rgvo NesHZ7OULlXOXtW5KyB X9zQUOahYJxC74dfAEf GXU9PBIaYNYofTAxENE hPYP2UECtbUNmX9fgMY BaAW5hedcfLExyOUrxC GXjuUP5KPKbeOPtB1Zp GWZkGBwsTHYilsa4XnV jVr9grVDtbQuhSAmvBK JkXHBsYWluXGZzMjBcY 8FrJMI7OYAmf6OjPMvy ZaGkRHEqf6ZsfBdmzMF yXGxpNzIwXGxpbjcyMF xjZjAgQmxhbmQgZmlic a27eoGlpLgcFBngSNXm bGwgcHJvbGlmZXJhdGl asrQqm3LsCSKejQ4ikh QpLlxwYXJ9 Comment (test code = 9835) d9zdtXYbWXGvlCV1FTH eJZPia4klt6SuxZQxhM HhTHrqkMCmvfYsqn23a BX8pF85EV2oHOOgBlO2 PSGnjuE3Tdt8KBRhWWD yeJSgN136c2wqz7lscs IjkFD4mHzuZFLtczzpT pX8OHcqUNSwqzuvPMj1 GDoaLXKzqUV2NKGnlDG jX6XnITZnSS0byhf2VY J0DIpeDLIjVaM8HVNpz PStWGAhrWlaSSagg888 RWK7MqDpVFQwlvGimTw prQ0eKxHbBOFRxGOoMK zlAxLxFD34rDWzJEEnA Isur1HwvvDncmPuyZYe muRxjFFil46lMN0hASM lbmRvbiBzaGVhdGgsIG Fih42toBvhk4GkZzCxz PDhg7ExSTY2y73aPVKu ndWktP2hp0ckrFhsz2I dAGOqSvlgom46oeIzfj SukJswzz6yYN3dwHzio rFfxJWfSJB8eHSosdXs quGkor19RWWgWS9mHyB ccGFyfQ== Gross Description (test e3yxqYXbPRMzsAJFBIv code = [id number]) wMVxhbnNpXHNwbHRwZ3 JwmzaeKVmkRA3nQB9il SuubNZuoKEjGN3XUOJt ZmYxXHBhcGVydzEyMjQ nSSXbwTUjdII6DEPiSL 1hcmdsMTgwMFxtYXJnc pU9ILFncFZyF2FgBCLi WG3wiqoaZPH4OExxsK5 vmeOUPvqhFh5epEBivO tcZjFcZmNoYXJzZXQwX VTmuHluJYBlSDr7iG4G ZzdcD27sb7Q8Gcu8DXJ zGCHuM4JuVO7iWMQiqB XyJ96YHatcFLU9ZJUFM qulZGWePK1Er0erUQEv mNUhEET1YYsxcZKxYMJ iPGHtOUk6QWGvKZjqrL PgCD1abPrpUjchnJsdp 2VjdCBcXGlkIDUxMDAy WRaeUJZhRX5OXzQyQXJ dTGTtDbExKVd4DVq7HG 8ZRaYfGAKnMUP7DqRbE GSfMKo0VGosJM2CSJCz COdjEst2VCElLJFkTNK pHOv2HRCfWLkdICWmdT FsIFxcZnMgMTAgXFxmY mIsXKPdCXsfmdK0AAJx YWluXGJcZnMyMCBBOlx eRHQmBGmlvEbptG6yIH OvE97rv4GEe3PaKC5GN Hr7odIlofjyyA6jFXYg mzTbSWsthRUhY4vrYmu uHlBtOtUoVMAEa661TK CtUMM4GIOjJAT5VPUjp 6PuNaynkPB1FfmiJApj PwTkEMR2yaSakX7nQGa hxBWsXEGoIKuwBH77bu OrXdA9nAVjxEWbaTKva 1VulF6cTAPnAsA6EBTv SWU5JVXkGYWtbZJcjlF mRP1sZQzgBJ9gZIelWQ 4xIGNtLCBlbnRpcmVse GHtwOWtlQH1EBEtoI8w QTEuICBccHJvdGVjdHt gBotlhKN2ZBqoNccylJ 5zdCBIWVBFUkxJTksgb lAaPD8YJY6OVjEVWK78 CaAyYAQ0MIjPM4BBfSN 2Oxu2JLm1bJkdWqurit BqtFJaGmZQpZ2RGKgcC aenaHJ4GKzuOexpcS6q dCBIWVBFUkxJTksgbmF dKQ6ABV3OHH2YpTUyND Q8bJN5NEESKamanNO4i BY1gH72ZTKdFCNdtWLn APgtM449EWUlNKerFYh 0cmNoXGZzMjAgDQpcZX HmY59xi4FJq5CtZGCbo 6vxkVoob2StfROmWStt AHUksCCnBYhblX4oYrI rp3hlmEh8KPajyfZ8AR Sspu2lmAxpiL7kGBmwk 1enWZK9SOVekLRthFKr YRzzdOpcvM2sZyPsSeu 8AOihRVPjO4DuL6Trld M9FQRxZDaqDBBvMKHxG Qp9 Disclaimer (test code = h6futOXmZLMkcMFeVpT 9844) jFIWlWNWbm0qtLBWqoE FuZzEwMzNcZnRuYmpcd LDiPAYqJrZby3ngz067 mMEvk6jaJDVmRaV5eOB nDVKzsZYrW605TGWiIU zfq0qfi6HfBPUoaQEyc 0M6NRTTnngdyXq8zDiz G04mk3Z9CcdlX3crVHF hCGYdV1UvSM7fFKFwKm f1UQS6VWZ4ADMdGMHmC 5SsRY4kCZBelUUyTBx6 v4tjsVyvTUJvUHG6t4n iDSbeqqRwJV7jcg8quI c5w0iopcCnWXWkUHXvn FIJBAEkZ9GtnGzaFo3x nRo5rCpaNllcKXF1Ldq 0FI4czy53ugm6vSjxXS ZkqshpYtJ5GSkkJAAqo zguEYx1FLfzNTWwcQC6 GLTcbBCnJ5DyWZYbXU4 vius5GSZ1CXyrWJSoZq V0CMKxyPRlRDVluChwH Yhsz515DGY2TdMzSB4f H8Hyy9A2bK3tgTPfVAI yjGUbXrFbGWQmoi3ohC RbACtda4SfFKE6jbZ6q FVltKViGVCgQJ15Jvas r7FeFruyOKJ7LZFojnR al2Cvg1hfWgFizmNfS7 dmM5RhZTSiEXNkUVWuC uItcjCml6Xvv6TrjRQt lVl4y9nuMRDhYNVrcIo rk1mnUGZ4HICnL2Q0wD Ulf8tbBLziFFJcmIP5u cI6SBCvjMMaO7SutC5q MYWaTP1xulz5q2flHGW 5MOjsBBLrYaR6yjL2NT BcaGVhZGVyeTcyMFxmb 365FDX2SnUlQFFsm0Hq S0JjwZyfG39etOffZ98 pIWLcnRrkgU3nfYukwR 5cZjBcZnMyNFxxbFxwb IAcqmwlPRqzayU2SExp mddiHKHlDUvtY7qyIcH sONKcwJbhPUqag0GaBE AvUPFuAszegoU5LXCZt 70fSDUdw0DbLBRidN0i qFPaADwrqsDgeBP5FDl hdmUgYmVlbiBkZXZlbG 7dRCExXE2tSOBxrkNep d3qthSqLFKdNTYbT9Fj cmlzdGljcyBkZXRlcm1 egyJoITS8VIFUSI9BRC XpAPNtl53aPINqpZllc L0adQFwhnQwGDBct7Qq hI9dbFRKZUQeW7gqTI8 nRObxy9EasPAojTRtvJ Z3JTWvp2IsBlGlsdVfs PStnMCkV3FauEkxX7wz CBQrCAGpbkLpeIVxy1E rPTCgqKS3pUCoQS3VQg DRm54dSCAnMTFYgmBxS VYmaBjpfYZ9xbJ3nW8e LiBJZiBhcHBsaWNhYmx fEWRya346aj8khfR0JN OwVCOuveylw7YwYWMkI THbvG68DIDyUEInnq1t ntkvlILkboRxK2Cvgxb 2oJ0iZOHtJCygMAZtMO ZzMjJcbGFuZzEwMzNca GljaFxmMVxkYmNoXGYx VWdwF3irIwHhHjNiVdu wYXJ9 [facility] 2022-02-17 05:10:40 Test Item Value Reference Range Interpretation Comments Submitted Clinical History g9rgnOKbPRHws9rfQCN (test code = 36693) mbGFuZzEwMzNcZnRuYm pcdWMxIHtccnRmMVxzc 5OaD0ZvQfJfOFziduFm XGRlZmxhbmcxMDMzXGZ 0bmJqXHVjMVxkZWZmMH qzTs6exPNjiVqfCuKeX PJlx4ybvsENetgdjPk1 k9yyZQVqCjY7fGPePLr lB3qwuvZmqOBuWZOrZG c9qE16TCZrnX7kpUHkQ ZyozjEvUnO3GSbuRDAt TbA0SAXljJWxFBTbO0i yZWQwXGdyZWVuMFxibH UoDAA0pLonx8I7mYScr GVldHtcZjBcZnMyMiBO n0RyXJn8zRmzL7WpSZO oGtP5uMBcDAAfHEyeUT WtIUXvnlV6uF64RBzpr hE6fYMrm1Tmd81sm411 hO3tiLOdDQK8UBTwTCE lkQWiYEIbQXJ0GOEznR UhN7spXVMzBS8yfapaQ BxyGZwvFJKfjQG0SNUw sUAfH6JoQUAiHQkqOMP iowx5BkZwTa9liBFfsQ kfVIdki0tgo1mqyYWtR oj3NFUxNtBjLxkxLTkp h8Coo0keKDLldb0cFGE 1wSHomXcoh3Y8eRCbMJ PleMYzljFnMEEyThC2Z WtnBU2vso21DBAfRDU0 aj1xtJPhtJzipfJqdMB tAKikX9MxJXChf696PJ NvT1PeSWMhn4I9yaDrF oVqVEIucCJ5euB1OMJn URx8jLNdxzW6blMggIM aI6gcaR4dKAAfZZ4epd nsv0xrXIbmDXkdNECyi JB5gqN8WIDdvFIaR6Yx eW9xOSIdKLbbXDKwrpr 5HhWlGy4wwDTypTicGK xzYmtwYWdlXHBnbmNvb nRccGduZGVjXHBsYWlu XHBsYWluXGYwXGZzMjR woYsijRrsoQ3hRnTgDs IjTJmbKO7nEAUqZ1okm PPcVYJyZVPcX6uaVsNo eA2koDwpKFupizAhNA2 ox5Sld6Ztk48onPQ3aF TwmCKqw4ZcbMKvhTLqo 3dqjwXqiC6jOLzKPmBd NDJdXHBhciBTcGluZGx iSAXgmOxep8XoX37pAG MwOnMeh97oDLW3uXYtZ CBzdWJjdXRhbmVvdXMg AE9nYV59jSBwESTzIwJ qkRoaj9VfwdInQqWlj8 rkolPcdA1uTNVqEYQcx XAgPExlZnQ+IFtDNDku MjJdXHBsYWluXGYxXGZ zMjJcbGFuZzEwMzNcaG ljaFxmMVxkYmNoXGYxX AzyE3stPcEyZqOuZozp YXJ9fQ== Diagnosis (test code = 34) g5vyyTDvMVVenLV7QFL uUDLhy9gpb5PyrHEswX WwTMiulIKqrlOevv39u OA8tN27RL9oOCMwZhR0 SSCvibC1Meo1ZUBiLRW auZZuT367l3vfn5oeps RpzEA6SJJfWQYoR7OvO O1hLIYqmAElF03lkHUz JKC2ITPbDGPlvDKtOOR sRZY7GVLbdOEtU1axFM OhUJ6yysfbOKzqDUytV OKwoPB9ZAKwgEBlF0Lw MBOsDJejHNCqmma4TsK aFw6ubJPjmHpvPChyJV JkXHBsYWluXGZzMjBcY 4EqXIF5AZWtp1CjGCrr IhFdLNVjs2UkuXvswTZ yXGxpNzIwXGxpbjcyMF xjZjAgQmxhbmQgZmlic f27biGtcMqiMIvwGHUv bGwgcHJvbGlmZXJhdGl ehaPia1AaWQFiqU6cqh QpLlxwYXJ9 Comment (test code = 9835) q9njoENqPFXfkYR0QNM eZHZlx8itj4GjhCLtqI LwMJwiiBDabcGzar23p GB8wG00FQ6iPQNoRlV5 XABoudZ2Zuc4YPLbZNX lxGXuX183m2vjj1rirs AekTZ8sToqAXBqmrwmV uQ8JUbeHEDjuqjeFVw5 TIhdUHQyuNL1QOIuyXU fP2DoJNAlYO0nsla1PA H3COuwGBVtGsL4ROYoq TGjIIVpeXgdZYpzi683 HWP1DvOlSRPkqmNtiWx fgX4qCtEpIMDFrISdUC jfUoKdSB66gRMuDQFdK Ptmc8QdskUellGieGMv gtOoaZAna18fGA0yART lbmRvbiBzaGVhdGgsIG Hmp13jsGeyh4PjAlPui XTgk8NcKVD5i79mLFCf ylLghD3fo3kcjSctd3B gNVKtAxdncn99swIjqz GgjOylhd6zZG7adLxtu sGwqTNcPAQ7mUHndlHr nhUhgd72BRFsLW0gQiI ccGFyfQ== Gross Description (test w0ljpDIkPKSdaTASFUx code = [id number]) wMVxhbnNpXHNwbHRwZ3 BkxpreMBpnSK7fEF3ow EofyDLpxYXmKD4ZHANa ZmYxXHBhcGVydzEyMjQ jSURkqEHgzMY0MSHuDS 1hcmdsMTgwMFxtYXJnc lA7WKBpfMBgZ0KfZYDb AH2fpohrKZN1WEzacE2 axcEXAcymJt1ikUTobV tcZjFcZmNoYXJzZXQwX RJqbBopVKAlLCs7uI7S JndcT32dn2L2Avs7NIB gOZSiQ9XfQZ7cBDOevS KfB11CDfunGER5KTUCE vrpJJXhEQ9Vg5hnFNTc lKQzYAA9OLbkxPRgCBO wRCCtWQt4NFDpJXgweJ AlCC4whPjfFndryMvws 2VjdCBcXGlkIDUxMDAy JDfiLVMnCZ8DTyBjZUI lXGFvWsGaQEf6UFy6TS 4AXnJlGWCxIMM3RdNhO RLgGTc9NNpnFA9PUFIh GZpaDys9JHIhDHPzFKD aGIh7IIHdVBtpBXEluM FsIFxcZnMgMTAgXFxmY hMsHCEjNMzikgK1FWZe YWluXGJcZnMyMCBBOlx gPTAgGIqbcJpwcY7dWK DaP10ty2MIk3KbQL2OV Vn7gcIsugdenO1aHSLg zfIsNTqvhOCqB5mjBdc aQmRfHfSfIJTTs072EI CtHON6IWIoHCO7XYRrp 0SdDgjojQA3HaxxKPff JjDfJQT9lgJdoZ0hNQw rlNFqGLOcSWylQO27eu YfKcU3pNYqzDGruJYeo 9XqhV1mLCWfUyQ7NOVc NCG5EUMeNUOhfXJgkfB cKV0aPYgxDP7gIZipLQ 4xIGNtLCBlbnRpcmVse MXmxQUovUV1SICnjW3p QTEuICBccHJvdGVjdHt jIjfrhSR4VVjvTsvwiH 5zdCBIWVBFUkxJTksgb hLtJB8VVM8GPxXRZN13 XiQbGKN3EPnKT1WIpUN 3Bgg0ERn3gZqcMkamgz UmtFWlKcDKpU5GOHivT vfsaSP9YWrbJhfniO3p dCBIWVBFUkxJTksgbmF xYH9RJV1INC2WjJOjLM Y6lGS2FUYBLyqbyDA9m ZY3dI49LXRpXNCuyRAv XEhuP036NYKgTAtbPLs 0cmNoXGZzMjAgDQpcZX EgY88aw9DYp3IvSNNfv 1pbtUcvy9LehBOpCGxg MSTmbHOcXRwqxI1mIlE kj2toiWh4BMciksS2YO Eiex7kyRbnwA9bJTumq 1kgZCX2DJMrbRBwrKNd RBsseDbapD6fLzVzDgz 7FCgzMQKuX1YaO5Blgt N1WYRlNZupRMSiQWMxN Qp9 Disclaimer (test code = r4vtrFKsBCXlsCAvVfL 9844) lAKNjAULfn7jqSWBinX FuZzEwMzNcZnRuYmpcd UIhXSVlWdBqk6zgj277 jGTxw7nfXDYuFfU4oMQ nVEQudXJgK649TSUdOX peu0qlc4TuTAXvfMWxq 7W6SNGRhjymsVm3xFkc M90sh6B8ZugzJ5jhKWV nEAAyB0JnHT5qQJLsUf j3DYK6WXI9DBQnNODiP 3BuDY8pNORmuNCmKWp6 j7rxfYflQCTxGMP2d3b iHBtmphKlYQ8fmn0alB u2o4fstuMlLDCwVEVns VIZSRCfY0LxnPjoSl4v rLk6gPueCtknHUI5Zzx 1BO5zoy88byt2xZpfVK EotfmkMtH5NRkpXIWve gnmXPi6MXtqHXOhyFG3 PBNriJPqC6RxDPOhPJ5 hktv4GPQ7BTkbVZMwIj B1IZXpoREzDFOuhBjuS Ouyn933WHB8YpKmXM0h F3Ytq9G8zC1inXNsEOL ryZPlTjYdOKBwal5iaK WaVHcuw4ZjHXG3fgN9u OJkiDXtUTNsYS65Clze g9IgSrsaKBZ4IFJpgbY ja6Tws7eyKqHjkmTwW2 rgR6QmSFVvAADkDTPuV lXiwvMgs4Jmp8QebBBm kUl1z3coGGJuOMFgxPm uh7yjDKA3QDEmQ4R9rS Ryu7klCRarNVYmpND5z rN0FCGzxRAoF5LzxC3i EQZfSQ5sokn5r2nrRDF 6XCrrQSBsAtZ0mzQ1FK BcaGVhZGVyeTcyMFxmb 920GUY6XlEpQJDde4Vr W8NcrKyjE36azMlxC81 iQOUdyQvdcW8mlHtlpR 5cZjBcZnMyNFxxbFxwb QSxoeogTKavbtN2KWqc mrqfVVEnPYqdE3bdEaJ jBUZmqSfvZRzba7IpNV NlDTQcRjccguL5VMVRg 74iNCTiu8AzSGSjiC6y eJWkDFnywiFlmWF1IYz hdmUgYmVlbiBkZXZlbG 3qUOIgRJ5oEYChfhYsm u8bcxDjIHTnJLSdN5Ti cmlzdGljcyBkZXRlcm1 ehjDnHMC9CBQOUS0QHO YaCXZfb30cFFPrbUbdk M7cmLXtrnHwLINxm8Jy oG8esPWIUDXlK4kqLF2 sXZxph6HivDRhuVCyhO X4QWDzk4HxZnLkqvNat LCvsVOqO3BkuZmeV2rk AAFaOVPtqcUsjHWfa4H lRHQkfEC3dCDaZS7UVj BNf08qTLTyBKRBbcVnM LInlHjbzHB9keQ4qQ1b LiBJZiBhcHBsaWNhYmx zHUKid322fd9zvhX4PM PbUEEzvrdeq3AwYALmB KCvfH13RTXhWZEywm3k gsdobDRtjqDdK8Sdind 1pR2nYRQfZSmaEKJqZB ZzMjJcbGFuZzEwMzNca GljaFxmMVxkYmNoXGYx HPtlP3qoRuVgQxPsHtw wYXJ9 [facility] 2022-02-17 05:10:40 Test Item Value Reference Range Interpretation Comments Submitted Clinical History g5pnzTWiPKFwv3sdLXA (test code = 60339) mbGFuZzEwMzNcZnRuYm pcdWMxIHtccnRmMVxzc 6WmZ5LxOrWoWMbasuOm XGRlZmxhbmcxMDMzXGZ 0bmJqXHVjMVxkZWZmMH pnKz0muGOjbOdwUiFzI ATgz6hltdVWcxmvtSk6 i2jvYDDrUyA4sPLrWLf bA8nbtvDrrAUpTGTzJT c7zV41WFWwdO8zyMRtQ HxgomNbZlL7VDsaTUQq IbN6PFPmwBYbSLEgF0e yZWQwXGdyZWVuMFxibH OmXWU9uQcaf8Z1iPYwh GVldHtcZjBcZnMyMiBO x4FtCEa9rVzqF3SmOAS iXmO6tLFfNLVmDPhtGZ UeDNNymbB0lA14OLrev fA6mMDui4Ugg72mf718 pF3rsIQrKRG2LUDrPXT thPTzNEThXZJ9GDTpoL NpE2qdWPNiOD2qbeegK EcuJYziSMFmdEO0QHNl jMOtV8AlPNHiEVsxGXL ydxq4TpJmVh1whOCgmH ntCVpvt7ixr9zqhQNiN hc5UODaOkRsXugnLAvc m9Ojc6wxHWVkss2qRSD 7eTCiqFnag4N2nJBnSV MhrEXfjoKxCPStCpT9G LxoRU5rfv77YGSlZLH3 cw7cfQMjoCbclmGjlTT vKIanN8CqWNFyi950OG SgB2HoNBDnx6N4tmTwI nFsSPQokSO2jwG6WWJf FZf9hXEcisO5nwTvlAQ gK3vqoH5dNYHmNQ6dnh rop2hhLDyhMYdoRUPzk TW8veJ7ZLUuiLRdX7Yd oA1eCRYcWLtbMDGvsts 1OlFdDa7vgEJdnUvyBB xzYmtwYWdlXHBnbmNvb nRccGduZGVjXHBsYWlu XHBsYWluXGYwXGZzMjR tcCvwqJaztA6xRdShWd NiSGsmOU7xKKXjX4ldj MEwWXIpICAvX6atYwVu rS1qzOgkRFrcguNzBP0 tg3Ynn5Kvu85zaNP2oK OdoOMgv8HekKCuuDMmb 5hujsDlkL4kOXnMZdXz NDJdXHBhciBTcGluZGx nRYHhzShwq8HgM15wDL VqQjKje63nPYX6sNAcE CBzdWJjdXRhbmVvdXMg OK4mKD37lVGyCNXsGxX gwVazq6HlsyBpKvLqi5 txztBjcF9dCFVjNCQfj XAgPExlZnQ+IFtDNDku MjJdXHBsYWluXGYxXGZ zMjJcbGFuZzEwMzNcaG ljaFxmMVxkYmNoXGYxX BcoI3ujYzIxPcUtCeeg YXJ9fQ== Diagnosis (test code = 34) x7vpbUMaNJEvuBT2DWN xURXzc9teh9CobNEbcT PjKJzjvKTqpzLjib79m CQ2kE78XO7wHQHlXlK5 PXCrgcV2Rfi9SVKxVVF xlKLjP495f5hlz2aavy BroTL6YXSzQLWrA9OiQ H5dCXOmeVFzD98baRLt JYD5INNvQOKudLCoCKC oJHJ6JBSaoUFvA0yvIK GlGD6etjmzREaqPVkuA MQlaGF7UFLvgTDfL1Xw BNIuRZycYAIzool8LeB jMp1oqAXyxYrwZXjiTT JkXHBsYWluXGZzMjBcY 4MlGCP6WPRew2DgTKjq BfIbBASut0WomVjpkTY yXGxpNzIwXGxpbjcyMF xjZjAgQmxhbmQgZmlic m84fqUmkMjpVQykTXBw bGwgcHJvbGlmZXJhdGl uldIpi3JgAXMzzB6vcs QpLlxwYXJ9 Comment (test code = 9835) j6ayyVAkKBKgdYK8HFO cSRJvk0sql1FndUGzvL AhQFcrfNKzuaBlhm30g NN0zN19WI3sCPOwDuN7 LHRkadD7Jqa9QYEhUIE ykSByY133t3boh3dqoo UqpAA8eLybUKZkzlxoS vL9TNlhQKAkpyokIUe0 OBykWZCfkJZ4VYQhnUE jM1VgNADzFX1nuyo9EH I9VUtqFUVfDyT7CASbp NUtDUDnpTuyBQkmv597 APJ3BuIvABVxlfCplQp spT3oQfOrIPOZyXHrDA urBkQgGS64fRKvZWYaQ Wxsd0UcusCjdzYbpMDo lbTxhIVok71pWE4tCVL lbmRvbiBzaGVhdGgsIG Xti10dkNsea5HbYzGmx DEby3CcOTB5f00eALOm hrFzsY6nx7souPkdz3J dXZTyQxonxo33otCaud RbgJolmy8eWK0xoFome xNdhAXmPNY3hAIwogNt ceSxln41NJUxNW2mKtK ccGFyfQ== Gross Description (test c9ylnHZdQLOnzXBBMWo code = [id number]) wMVxhbnNpXHNwbHRwZ3 RrqyjgXZazGS5dNN1vq DfbvTTmyRVyMD5VMZRg ZmYxXHBhcGVydzEyMjQ mCCEaaCGuzVT4SSUbDC 1hcmdsMTgwMFxtYXJnc sS6DMPabAUxP0BaSUJu QA7neeueUGZ2AWnleV5 khmZHRxopUw3svADrdU tcZjFcZmNoYXJzZXQwX TEsnBsbFARdVSv9hW3C RigrO69ph9V0Sez0TUF aNNChG8GgTV9qDFArfO BlR29FRsdeETI2DFSZI tgyXYEdZM4Qd5ujYUDx uUZaWNH1FBogzSXtJBU tLGVoTOh4TAVtPGymaB IfQN0bgLkbPqxixDluh 2VjdCBcXGlkIDUxMDAy HXtcEGFyWE0ZEjVjHXH aSCSoNbHrJWc9YKn2ZY 9ZZuNeWLBzVRT5FzSoP XRmMJt2NBhySQ7HYUTm KCxjEzk8QCUpAWOhPUF pDFz3GJOnFInvOSQpjR FsIFxcZnMgMTAgXFxmY vCqZWDhDJkpkqL2ENXq YWluXGJcZnMyMCBBOlx gOUFiKNwslYoffB4iPR LsT29ru7KXw4NyNW1RG Pd8skYgivgsfM7lFXDd mzIoTZdzbOEkD6kxCgp nJvQpDfJdHVXPv718BD TjUXF1LOUeAOH8NNWsa 3FjPafgdEQ4GxdqBLzy BpPxJKT0gsCmxY2nGTx cgLNbDWCoXFkcYV48wt LtBqF4sZOvzIBggAFax 7XjqD2kNDNkJsK4BTRg BXC1YPGwXTQadDCnihF wOQ0pZJqnRA7hFRozIA 4xIGNtLCBlbnRpcmVse YWmyYGnsPJ7JJOjxJ6d QTEuICBccHJvdGVjdHt qOzrdqVK8PHpoCsbcgW 5zdCBIWVBFUkxJTksgb jDxUU1NCR4GEvXIAJ08 BqXeZPA2VEoXD5TCbLQ 3Zbg7QKt5cFhyVchwoh JxlALyEzFJoN0LAGrlF markQX6QAwkGrqizD9p dCBIWVBFUkxJTksgbmF yJS0NQJ5MLB9AhGVxMR J1xCU4VMNTFdmdwSS7q WH4cX89LNMpKJCuiJEz BSooQ786XRMuZLgmOLu 0cmNoXGZzMjAgDQpcZX PtN82rw6FKw7PkMXZcw 0ivwBtjb6AplGDnHVny PIIbwZRvDAgomM6yWlQ qs6ucxDr3QBgwzfO2PP Blpn3mjOsnnF3yOBsrt 4zsEZF3YKPbkOZtlDCj PHhkdBuabV9aBfLnQzz 2TRmdCAEcL6QsS9Zone X3LSWsPGxwCDUzKBBmH Qp9 Disclaimer (test code = o6pvpTQiCGAvqSAlByZ 9844) yEVZnLPNhy5haWREcsT FuZzEwMzNcZnRuYmpcd DAiIQGjKqYwz8rwv104 oBLux7maAZGuPlQ2eWD wLMFreUTlV619EDYcZG inc0vzb7QlUMSgzGThp 7Z4HUQBrvqswNh8kNig H52gu7J4SlvaI0qeLXN hPRShT5QzSP4lQQXyAp t1MBC1TZQ9EPHsVFDjH 8SsWJ6aBAJzlDPqEQb1 k7lmsNibJQXlJXY8o2e rLRiatrKzGX9bfo2anA s9i1wbcnQzYHUxFKBxo KFKCCQsB1WngAikUp1f gRj8cAjdJuuiIOE0Fnx 0TD3mix06wtw6aGnjCI WlzzxjOoL8RUcuGNDmc zteXVw8OZalXCFavVH5 LXBqqNBiF7EaVQKrOS1 jsup9ZPD9BJjtXVCzUd C0SKJwrUHtLWZbiDzsA Bnuh206SCB0TyIhJD9l K2Rmj9J3tL4vrOSbQQV qoMAaMkFaCWJhjq3roP DvTCzpk3RqEWH4gfH7d MTwpVNdMBXhET24Eyfb p5JjAyeqEWS9KATkwqY sf0Ugn0xpUzOemrVgA8 pmN4WzVZBwGLJfDPArE lKfgoQaa1Wvl1WqzYSe pLo7u7uvTOJrXOXheTk es0sjLAW6XFYjW0M3lN Phi4tyKMrePQPbsDU0w qT1GFWijJPyD1SvdO7g RTOaLZ1vmvt9w1hzWKB 3QTukOCSyHpA3zzV0RK BcaGVhZGVyeTcyMFxmb 824FDX8OjKbKZOsc0Ah N6SvaRemS10hoIyqA44 rWKDmfDevrG8vhVgwdP 5cZjBcZnMyNFxxbFxwb EIdqzxjYPgenfN9FPil gibqAHBlMTmqL2yoUfJ dUZMlgMmhIVhbz9MqYF QpRIIjOkabfxF3GEFSe 89jIQPfn5OrNFEduU6n zEEzAYxkhuVgcQA3RHy hdmUgYmVlbiBkZXZlbG 7gOQMxEA4wPLHubgZrb o8dluXlSOVuRCUtR8Id cmlzdGljcyBkZXRlcm1 sjtWiVEA0NTZATN5XVV DeGSXfy99lEZBlqZpfs C8vxKOsaaXcFEMdd5Jw xP7cmUOOKXSdM4vkSQ4 nIPslk7KgeOGnlBBcjJ L3XGRmq1RcLxCbwvQjl SEypVTkP6GygJyyH2ep RIDcPNDkeoOuzHFcf6L dATTuaZJ9bEFrOD1OWq MTw40bIIVsGDABixRiE NKuuDuztRU1mrX3lK3a LiBJZiBhcHBsaWNhYmx hENMxv007go5xzgN0EW UjEUPohweeo6ErNDGjQ IRejP75RKBzHOMjcd3m byaljCHghsKuF8Nzqfw 9hI8qIVCpJDvdEDGwMW ZzMjJcbGFuZzEwMzNca GljaFxmMVxkYmNoXGYx KBgfX4aiSjWdNtYmDru wYXJ[address] [facility] Hospital[facility]th[facility] Time with [id number] 12:10:16 Test Item Value Reference Range Interpretation Comments PT (test code = 14.0 See_Comment Testing Perf ormed 5902-2) [facility] Business Attorney [address] [place] [address] [Automate d message] The system which generated this result transmitted reference range : 11.9 - 14.1 second(s). The reference range was not used to interpret this result as normal/abnormal . INR (test code = 1.12 0.89-1.10 H Testing Per formed 6301-6) [facility] Business Attorney [address] [address] GREG (test code = GREG) This lab cannot be scheduled at the following locations due to collection/procc essing restrictions: [facility] and [facility]. Lab Interpretation Abnormal (test code = 68099-1) [facility] [id number] 11:46:38 Test Item Value Reference Range Interpretation Comments Platelet count (test 211 K/uL 140-440 As part of CBC or as an code = 777-3) individual ord erable testing perform ed at [facility] Ambul[facility] or[facility], [address], [place], [place] [address] MPV (test code = 10.2 fL 4.0-10.4 69557-8) [facility] [id number] 11:46:38 Test Item Value Reference Range Interpretation Comments Platelet count (test 211 K/uL 140-440 As part of CBC or as an code = 777-3) individual ord erable testing perform ed at [facility] Ambul[facility] or[facility], [address], [place], [place] [address] MPV (test code = 10.2 fL 4.0-10.4 74796-8) [facility] [id number] 11:46:38 Test Item Value Reference Range Interpretation Comments Platelet count (test 211 K/uL 140-440 As part of CBC or as an code = 777-3) individual ord erable testing perform ed at [facility], [address], [place], [place] [address] MPV (test code = 10.2 fL 4.0-10.4 00206-8) [facility] [id number] 11:46:38 Test Item Value Reference Range Interpretation Comments Platelet count (test 211 K/uL 140-440 As part of CBC or as an code = 777-3) individual ord erable testing perform ed at [facility] Ambul[facility] or[facility], [address], [place], [place] [address] MPV (test code = 10.2 fL 4.0-10.4 04518-0) [facility] [id number] 11:46:38 Test Item Value Reference Range Interpretation Comments Platelet count (test 211 K/uL 140-440 As part of CBC or as an code = 777-3) individual ord erable testing perform ed at [facility], [address], [address], [place], [place] [address] MPV (test code = 10.2 fL 4.0-10.4 51494-8) [facility] 2021-10-27 14:01:17 Test Item Value Reference Range Interpretation Comments Submitted Clinical History [id number] (test code = 75310) mbGFuZzEwMzNcZnRuYm pcdWMxIHtccnRmMVxzc 4HiS4HcNhEuDGireeLy XGRlZmxhbmcxMDMzXGZ 0bmJqXHVjMVxkZWZmMH mpGs1tjNXweTglPoUkD ETok4aruvDStghqjAk7 b9ezAEGtCyG5uTDoZPj dE2fodvTskFTbQXUlJG x8iZ77GQIxcU9ykOHnC VkcwsVwGpH9VBckPVNw LlF2OLXknGRnYVVdS7l yZWQwXGdyZWVuMFxibH PeGIJ8aPiuq3A4fJXbj GVldHtcZjBcZnMyMiBO a5EiXVw3fBibR1EzCHD zQaW9wRBfHJNdBIfhBK IdKQOobgB7nZ47OUetp wQ9zLTnf9Chr42fx258 oI9psVTuGGJ2OUMpCEO hmRAaTTXnONC6UGBuiF CyR5prHNGxIG3pczynL PhcLZtfARXreGW0RPRu aBUqV2BuGLKfDTeuRWQ efzr5MlMgCx9opNGhhU osKKfph3ere2nwuSSeM vr5YSMwHhHqYznsUBru d3Arp3toBKJlkq7yGZM 6kEHkdXjvw6N0bTUcOU PmiHAcwzLwACIyYlX9B CuoXB5mum92ZAPjYAR9 jd5foCOwqYyovjDieHV wFZibR4MfVMPza303OM XnG0YdLEMzi8E5wtHrK wRjNNQsdRC8bkS2YEAm ZSo0qJHnucD3mmZunKG lS8ppvL1dRJAaMH6hqn kxl4heUWroGPxxSTBsw IH8oiH1YTLriYScB9Wz uD4cNHBgZObuQYTbexs 1TaGdUt5hvXCkbDvtSC xzYmtwYWdlXHBnbmNvb nRccGduZGVjXHBsYWlu XHBsYWluXGYwXGZzMjR syQfjpVuozY5gSuEwIf EwNSzqPX3hCCNcK7xfo DPiLGKqRPCpW1kzXwLp hX8avJytZIvoubHuMWx 5GJTzfsXrsTSos6giUL xprPskqQLkqXPeh9Bjh YKmUcVkeW9bpXkvehFv XyS4ioVguMuxgzFpSxU zLjBdXHBsYWluXGYxXG ZzMjJcbGFuZzEwMzNca GljaFxmMVxkYmNoXGYx NMiwG9ayYfHxYnUqAtg nLES4jY== Diagnosis (test code = 34) z6mkgYOjIKQvtQI9SMZ vRCQxk9zkd0VhrPYgiZ RbSTbomIXwhqYnla96g GQ6lK96IQ8qIGWiUlM7 ONMaxsJ2Kae9UHKjPPY qrHZeE970h8ksw5qryx CwfWQ0BQOnAODcH2LaV K1kBVYxtJWmR38epSAp JFM9CTFwGILusJZgUAU kYPO9NFHydELaT4vlAI JbGI2kzwemCLuiJSuuT VZrxIR9NAZolGKcI3Fi SZVjPPvdDJTigeu6GcJ kZv2mtONhiGrkEVdxOV JkXHBsYWluXGZzMjBcY 5CyTHL1GYwuDB1lzCul bGVmdCwgcmFkaWNhbCB oGJCiyhXxyM5uaUtvrU FyXGxpNzIwXGxpbjcyM MJUVT9oiLVaLESxnqDl gO3rRWwutYubpLfpky8 zYPHbct7lvHJnEKwkvZ Etv7IddPiqwUWbrIBld ranCLwqJahoeX0wqAtq biFaxyGiZkwyca9fdKI wGI9sABJ7oM2hHVLwDM NlbnQuXHBhclxwYXJkX YGuTHrsRIDkH0RhRzcJ XHBhcn0= Gross Description (test l3bolMIpXJHqeCGKVJl code = [id number]) wMVxhbnNpXHNwbHRwZ3 WnadefQOeaXD1aXD5se NhviJAhyKHsTH7JPRWf ZmYxXHBhcGVydzEyMjQ hEWVylLCebDC9AUWxIH 1hcmdsMTgwMFxtYXJnc zL3RIQbsRToN3SiWFXh RN5igevgGUC4RIgynM5 cclHQIjnzLo6qyUDdyB tcZjFcZmNoYXJzZXQwX EGooBepVNCiDMw4dI7H VzmsM96oj4B7Iez6ALK yYJKvU3XmSB4kCMPggS CmI00XMkkpTNF6GAHYD vlvBEQvDY3Kg1xdWEBl mHWkMZD4BIjphZFcBYQ gWGUsLBy9EHJeXLmaeO RjYD2cgBykVyadtQrao 2VjdCBcXGlkIDUxMDAy IEqbIGYcUK3FXiUhOQG xRZRfMKxkMMu5HHm5FX 7TDxIiZIVuLVV2ZFIbE eBuHHd9DUvaOY1TBUHl EJIvWBn7FKjsOTXhTmE oRKr8VFKjRAimMBHosV FsIFxcZnMgMTAgXFxmY mOsOQOrBKgtbeE6LFIy YWluXGJcZnMyMCBBOlx bGFMxTTseaZeqrB9rCY HoQ84vy2CIt9YqBW7JU Sn4smGfpzhlbG9gIPTd idUyIDuvjDLnA6oqSoh jZjFcZnMyMCBLaWRuZX ksIGxlZnQsIFxjZjAgO lxiMCBBIHJhZGljYWwg azHppZKuT7QupOtlc0D fP8faMH2xRNQ6IkHgrX DeQW99EGjaZF1kOUGoP SBpbmNsdWRpbmcgdGhl XWqzYS0fyNKxMDVoPYC 3WOxgRnI3QGSdRWXinE apQLIal4MdtSTfgGDjT pV9vTAxgzKsMVbzJSO8 ECX9PVY5bZLdnoGhTHs gdmVpbiBhbmQgdXJldG LqWXycMd3cVFQpPZnyQ Puxgve8gGFnfdDbVV21 QPFgGWQ8BGDuO7XlNJj rsHJ2GPHzKXJdnxJsIF SlacDmXLdpKA4mRHsyM FtvAM56xEDaNZUnXJIe ciANClxwYXIgDQpUaGV wMDMaupBbIXyrPV1kIP ufRE4lKQrjOC10MBCzE MSpjuokfhwdXJLjMV9k tCTgVGd7vBRjD9F3rPH 9MNxjtYnwI8pvJGWeYc g5oTQeNANuxqXmt7Epm cGpe4l8uZF8kITrzHwo fe9iVELrfn7obLMeKUP XiSDmE23vzSS8DM9kHL RoZSBraWRuZXkgaXMgd Lgmjb9ikpvpTKCiYZEs bSBpbiBhdmVyYWdlIHR oaWNrbmVzcykuICBOby Szh5I2pJVhVW6tDSblc B1glyzpI2Sof1AucjDz fj6jsYIujETfpgLnDjd zXE0vJMLnRTBhec2oav HemN3qufbcg8GloCtnM FCoxgr8rHBaraXoXNko JFU1HyOcWTedSXRfqzZ 2AGKbm934vRT4pNZfb3 G2EKHjt6deI9Orf92gQ qspYFZdVBmyfADrYE6T BUymOKMsqaVtJI41OQa dBO3epJQjWIUcygFunY 6qMZiaWBN0sq8iiYquP iBUaGUgcGVsdmljYWx5 U1FgaSHepEH6PO7bnZU tq31bw5FeOMBuKNFqOL OrlSUke4HcXC79RLslo 6lotxVuHRTXheRigT7y yRMzl6OpwrBajyOmjMX lwmIpTaqmCIFgewF2nY SgjGiitC2yc7BjjThhW VxnCR5bkT3fRNEvDIJv iCOnhZ4sooHbgdHjVOC lSFKfdsQajCw1RVQpeW TiwAN6HKRvLJWognAHW nbfZIHsWXcUQevaQ22B PZxhElvdV4payTrbNJX fTAq1Zwtdgc94SPfoLL Rno7DbGUmrGHHxWCfRE PMXVQ1FRFVCRDL1XBPo HUL1ljD6YUEuOFJenHF yeSBhbmQgdmVpbiBtYX NauD6qXCGpRIGtI4W8Q VAvYNG7CtNmCJskLZQY JNyiWQ43vJVsbRrik8Z ieVd8nGRaLW2eVWLnRC E3hqH1YZSzkAJgkmdzY Uy3awB8mQ2qAGPdFBHz CR8zrAD4rISsLtFQSOy 1JMKgCYNaZqc0HPlcFK UyrPLst5WrkHK9kXLwA CWxP4Dqw43nh0XrfHqi IHJlbmFsIHNpbnVzIHd pdGggYWRqYWNlbnQgcG UbjnirUuBGAVz1GLEhM BMdRpz4LLnnJOEpaEFq y6XysIJ9rNQlKFSnP6D wr93ky9YezSprTCEtiX ZpczsgQTEwLCByZXByZ FXiizUuwTa7EANeBMC3 aR3zKZ0vQUP9xv7ulSg lPAVptlDywIA5kCGrYH RoZSBHZXJvdGEncyBmY XDecVI0IAYmCDr3FSJj FBIdTox3CJQcNRRkHJE nQWJutpYxuLn3FRLjOM U0iG7zYW6cJONdUWAkB O5ufZAiGCHqnqCfyW3m SdGuKHAmt9HoC1C9OWR mWLond7hzWPHgCQufx9 LsDFrCTGXUTQ0QIC5ea EY9QDdPG1UQJ4dKaZPr SXO1zXV5ATLMYqqisRF 0xKQ5uD81BVEmGQWtiL BhUNsnA668Opm6QLCbP Kryc1keXJQtCOpcp9Ee URjVTFMWBI7TQJ3luIW 6FVeXX0DRBKabANHvYz kyvLPAKHT4BAfhkRkev Sa1d1cwxKErb9n3TZwh FWK7pIoxaAEyvuyswQX eeJqgvbWnNI9RGZRnnO UUCEN6RI8jQNv7OUwpE GBhL5KnC7IbdfFjlYVk FNCjlcSqd6meCQI8DUL sbXVsdDBcZnMxNlxwYX A8YMRaDWpuNM0JFTCjX MX6DHyqjJ94vUEbCL8K XHBsYWluXGZzMTZcdjB 5AUJolXKrKXB8ZT3oqB ninYYxgllrqiQ4FU2Gb Q== Biomarker Block(s) (test d5lgeXSuKCEspUN1SHU code = 9841) lJHEfr0uzu4YvfVXxgB PwLRifqCUwdjFoia28g PX7sF63SP0qIOSpWqB5 EPJdhcM3Iup4SYKuKQT ovPRoQ900m2xtk4oqvt CfeAT9eIzcIPUieojrQ vT7LZkwZJEimfmwHLy2 LNrwXWVivVF0LJOyxEM eZ8EhINFjJB2isyk3WM W4EZtzAHYlPkN8LXNbr QGgPBHsfXkjQWnwc666 MCH6GzFtENVojwMozZe daX3cQxIuMSBHO6EahH FyfQ== Disclaimer (test code = j1uhjBFbYIKgcSOaUpI 9844) xCCFdURMlx3jiGYQnrC FuZzEwMzNcZnRuYmpcd RUqIXTyCuQgw0fvq514 qMRfx5hmHSUrOpO6hGX vZSDphDZnY641ZDDcCK woe4rrb8XsKRPxnWGyo 7H0LOCHzwygfOo9iOau C06ty2W4CrecQ7spOWO lUAHvO9TcHZ2lVLWbKe c2IIQ0QTH9PYAzBYOqI 8XoCK5mHIUepZStPLn6 w3ifjHcwNWApISN1d9a yTPbsxwOvJU0geb0tpF v2w2njudIuUIYjWAVhk NQLYQSeW6GqtNfdTx4p dIw6wVfnAsocMYQ9Wck 1WB9hwg39fno4kCkfMY YtbqniRaC5RGqcKNVhe mpjNDi0QVowKDTgxPB2 VJLdoIKiU3MnRVRoPQ2 bybp8UVI0BTpfVZTqDf F2DWDmuFWxQVPtqJmfW Hwse859CUY4NwXkFK4w M9Vtv6B1gK3dxNUfLMG euOZfOvCzXZXjxb0kmM CyEJwdk3TeHIJ4afN4d LNmmBBoXWCvKK86Ogzz l5YkTdlsWFU7FKQgpmI vl0Yow4htFnHifdCbC4 qxZ9NhSJGgTDExPWVoR tCfatFep5Tcs1WinBJd kTm0h6ylZWPcWPBseMz im6zsROB9BMGqH9R3zU Nqd3zoOQihIRDipFF6l tY0TTUdwZVlR4OjiZ8v UJBtGM8kevy0q1kdTJF 0FSqlSDJvKnJ6auL8SQ BcaGVhZGVyeTcyMFxmb 132BOL0BfEvOOTau9Aj K7WmtFjdM78baDtiI35 kMUJvvPzncG3otWjnmK 5cZjBcZnMyNFxxbFxwb KYekdgiOVyzlsE4KCtw liauPQUyYXdcM7sbYcA nVHNyiZbpWApgm2QcUR EcUCJbCqlsvzK0TQSVx 70pZZFpz2OjKMPenS0z jUMvRCssveMudTG8LEp hdmUgYmVlbiBkZXZlbG 3gVNZfRL0jNPIbbkStw z7ireUbJORjALFtK0Oi cmlzdGljcyBkZXRlcm1 hukJoRQJ8BNMXTT3SUF BjMHJjt44rNRHkmItwx X2ymACuhwHfQMOqo9Sy cD6umEXLRDQtV9qhML4 rQDzyg0YyrUJekUVvlJ R8FHPju3LyTyFpobKpx FXckKRtS0QydUmoS7ob CSDsSYZlfeLdvRZdk2E eENVknGK6eECnXH6QFh SJh41nLWIdZEAOeoRiL WJgcDqujGC8ebP2yK4i LiBJZiBhcHBsaWNhYmx sRXAzh755dt8jjnG1DG WjQCQucoxxx6TrXHSnW SWskD84CEVdXXKtrg4z dwmyhTNytpZtH6Liebp 1uB8dSHPtVFqsIRPbKH ZzMjJcbGFuZzEwMzNca GljaFxmMVxkYmNoXGYx LAnpJ9wzMiExFqRtImv wYXJ[address] [facility] [id number] 14:22:59 Test Item Value Reference Range Interpretation Comments Final Report (test No growth code = 8488) Path Review - Urine The results have been (test code = 8483) reviewed and electronically signed by Pathologist:Minesh Victor MD, PhD #[id number] GREG (test code = Reflex GREG) [facility] Glucose [id number] 13:39:05 Test Item Value Reference Range Interpretation Comments POC Glucose (test 91 mg/dL 70-99 RN Notifie dCapillary code = 35729-8) blood sample s, e.g. obtained by fingerstick, ma y have inaccurate resu lts in patients with d ecreased peripheral bloo d flow. Method descript ion: All results are liborio sured using Electroch emistry test methodolog y. The glucose in the sample mixes with the reagents on the test str ip. The reaction produc es an electric curren t. The amount of curre nt produced is proportional to the glucose concent ration in the blood. PO Sample Type Capillary (test code = 9554) Performing Lab [facility] (test code = of Ashtyn Gary [address]) Clinical Lab, [address] [place] [address], [place], [place] [address]; Distribution Engineering Technologist: Tasneem Saucedo MD [facility] HospitalAnion [id number] 09:36:00 Test Item Value Reference Range Interpretation Comments Anion Gap (test code 10 See_Comment [Autom ated message] The = 25378-6) system which ge nerated this result transmit mone reference range : 4 - 14 mEq/L. The refe rence range was not used to interpret this result as normal/abnormal . [facility] HospitalChloride [id number] 09:35:59 Test Item Value Reference Range Interpretation Comments Chloride (test code = 106 See_Comment [Auto mated message] The ) system which ge nerated this result tra nsmitted reference range : 98 - 107 mEq/L. The refe rence range was not u sed to interpret this result as normal/abnormal . [facility] 2021-10-23 09:35:58 Test Item Value Reference Range Interpretation Comments eGFR-AA (test code 99 See_Comment Normal eG FR: >= 60 = 12393-8) mL/min/1.73 m2N ote: The eGFR is calculated u sing the CKD-EPI equatio n. The eGFR declines with a ge. eGFR <60 mL/min/1.73 m2 is considered as "decreased". This equation should only be used for patients 18 and older. According to th e [employer] on's Kidney Disease Outcome Quality Initiative (KDO QI) classification and 2012 Kidney Disease Improving Global Outcomes (KDIGO) Clinical Practi ce Guideline, the stage of CK D should be categorized bas ed on estimated GFR. Stage Description GFR mL/min/1.73 m21 Normal or h igh GFR >=902 Mildly decrease d GFR 60-893a Mildly to moder ately decreased GFR 4 5-593b Moderately to s everely decreased GFR 3 0-444 Severely decreased GFR 1 5-295 Kidney failure <15 [Au tomated message] The sy stem which generated this result transmitted ref erence range: >=60 mL/min/1.7 3 sq. m. The reference range was not used to interpret th is result as normal/abnormal . eGFR-FRANCISCO (test code 86 See_Comment Normal e GFR: >= 60 = 42613-9) mL/min/1.73 m2N ote: The eGFR is calculated u sing the CKD-EPI equatio n. The eGFR declines with a ge. eGFR <60 mL/min/1.73 m2 is considered as "decreased". This equation should only be used for patients 18 and older. According to th e National Kidney Found[employer] on's Kidney Disease Outcome Quality Initiative (KDO QI) classification and 2012 Kidney Disease Improving Global Outcomes (KDIGO) Clinical Practi ce Guideline, the stage of CK D should be categorized bas ed on estimated GFR. Stage Description GFR mL/min/1.73 m21 Normal or h igh GFR >=902 Mildly decrease d GFR 60-893a Mildly to moder ately decreased GFR 4 5-593b Moderately to s everely decreased GFR 3 0-444 Severely decreased GFR 1 5-295 Kidney failure <15 [Au tomated message] The sy stem which generated this result transmitted ref erence range: >=60 mL/min/1.7 3 sq. m. The reference range was not used to interpret th is result as normal/abnormal . [facility] HospitalPotassium [id number] 09:35:57 Test Item Value Reference Range Interpretation Comments Potassium Lvl (test code 3.3 See_Comment L [A utomated message] = 2823-3) The system whic h generated this result transmitted ref erence range: 3.5 - 5. 1 mEq/L. The refe rence range was not u sed to interpret this result as normal/abnor mal. Lab Interpretation (test Abnormal code = 78070-9) [facility].Serum Bcghaggikm1372-05-03 09:35:56 Test Item Value Reference Range Interpretation Comments Creatinine (test code = 2160-0) 0.97 mg/dL 0.67-1.17 [facility] [id number] 09:35:55 Test Item Value Reference Range Interpretation Comments Sodium Lvl (test code 140 See_Comment [Auto mated message] The = 2951-2) system which ge nerated this result tra nsmitted reference range : 136 - 145 mEq/L. The refe rence range was not used to interpret this result as normal/abnormal . [facility] HospitalBlood Urea [id number] 09:35:54 Test Item Value Reference Range Interpretation Comments BUN (test code = 3094-0) 15 mg/dL 6-[address] [address] HospitalGlucose, [id number] 09:35:53 Test Item Value Reference Range Interpretation Comments Glucose Random (test 114 mg/dL 70-199 Effecti ve 12/17/15, the code = 2345-7) glucose refer ence intervals have been updated based o n [place] [employer] norma delines (Standards of M edical Care in Diabete s 2016. Diabetes Care 2 016; 39: S13-S22).Fastin g blood glucose:Normal: 70-99 mg/dLImpaired f asting glucose (increa sed risk for diabetes or pre-diabetes): 100-125 mg/dLDiabetes m peg: >/=126 mg/dL Ra ndom blood glucose:N ormal: 70-199 mg/dLNot e: Random glucose >100 mg /dL is associated with increased risk for diabetes [facility] HospitalCarbon Dioxide [id number] 09:35:52 Test Item Value Reference Range Interpretation Comments CO2 (test code = 24 See_Comment [Automated message] The 2028-01) system which ge nerated this result transmit mone reference range : 22 - 29 mEq/L. The refe rence range was not used to interpret this result as normal/abnormal . [facility] HospitalDifferential2022-06-03 09:12:27 Test Item Value Reference Range Interpretation Comments Neutrophil % (test code = 71.2 % 42.0-66.0 H 770-8) Lymphocyte % (test code = 19.3 % 24.0-44.0 L 736-9) Monocyte % (test code = 7.7 % 2.0-7.0 H 5905-5) Eosinophil % (test code = 0.9 % 1.0-4.0 L 713-8) Basophil % (test code = 0.5 % 0.0-1.0 36620-8) IGRE % (test code = 0.4 % 0.0-0.4 IGRE % c ount 92011-9) includes Metamyelocytes, Myelocytes, and Promyelocytes. Neutrophil Abs (test code 3.95 K/uL 1.70-7.30 = 751-8) Lymphocyte Abs (test code 1.07 K/uL 1.00-4.80 = 731-0) Monocyte Abs (test code = 0.43 K/uL 0.08-0.70 742-7) Eosinophil Abs (test code 0.05 K/uL 0.04-0.40 = 711-2) Basophil Abs (test code = 0.03 K/uL 0.00-0.10 704-7) IG Abs (test code = 0.02 K/uL 0.00-0.04 20502-3) Lab Interpretation (test Abnormal code = 87590-1) [facility].[id number] 09:12:20 Test Item Value Reference Range Interpretation Comments WBC (test code = 5.6 K/uL 4.0-11.0 6690-2) RBC (test code = 789-8) 4.57 See_Comment [Au tomated message] The system [employer] generated this result transmitted ref erence range: 4.50 - 6 .00 M/uL. The refer ence range was not u sed to interpret this result as normal/abnor mal. Hgb (test code = 718-7) 12.0 See_Comment L [Au tomated message] The system [employer] generated this result transmitted ref erence range: 14.0 - 1 8.0 gm/dL. The refe rence range was not u sed to interpret this result as normal/abnor mal. Hct (test code = 38.2 % 40.0-54.0 L 4544-3) MCV (test code = 787-2) 84 fL 82-98 MCH (test code = 785-6) 26.3 pg 27.0-31.0 L MCHC (test code = 31.4 See_Comment [Automate d message] 786-4) The system [employer] generated this result transmitted ref erence range: 31.0 - 3 6.0 gm/dL. The refe rence range was not u sed to interpret this result as normal/abnor mal. RDW-SD (test code = 47.6 fL 35.1-46.3 H 56355-8) RDW-CV (test code = 15.6 % 12.0-15.5 H 788-0) Platelet count (test 143 K/uL 140-440 code = 777-3) MPV (test code = 10.7 fL 4.0-10.4 H 22293-8) INRBC (test code = 0.0 % <=0.0 The INRBC (instrument 12267-5) NRBC) value ref lects the enumeration of nucleated red b lood cells contained in a 200uL sampleof whole blood analyzed by the instrument. Thi s value maydiffer from the NRBC value repo rted in a manual differential,wh ich is based on a 100 cell differential. Lab Interpretation Abnormal (test code = 39478-4) [facility] ABG+ (ABG, Na, K, Cl, Glu, Hct, Lactate, Ion Ca)2021-10-21 15:11:20 Test Item Value Reference Interpretation Comments Range OR Sodium, arterial 141 See_Comment Methodol ogy: The ABL90 (test code = [place] [address]-5) an in vitro siva gnostic portable, autom ated analyzer that m easures electrolytes in whole blood. This lucie lyzer uses potentiome try to measure K+, Na+ , and Cl-. The potent ial of an electrode ch ain is measured by a voltmeter, and related to the concentr ation of the sample. [Automated mess age] The system [employer] generated this result transmitted ref erence range: 136 - 14 6 mEq/L. The refe rence range was not u sed to interpret this result as normal/abnor mal. OR Potassium, 3.5 See_Comment Methodology: T he ABL90 arterial (test code Flex Plu s analyzer is = 21269-4) an in vitro siva gnostic portable, autom ated analyzer that m easures electrolytes in whole blood. This lucie lyzer uses potentiome try to measure K+, Na+ , and Cl-. The potent ial of an electrode ch ain is measured by a voltmeter, and related to the concentr ation of the sample. [Automated mess age] The system [employer] generated this result transmitted ref erence range: 3.4 - 4. 5 mEq/L. The refe rence range was not u sed to interpret this result as normal/abnor mal. OR Chloride, 111 See_Comment H Methodology: Th e ABL90 arterial (test code Flex Plu s analyzer is = 95196-0) an in vitro siva gnostic portable, autom ated analyzer that m easures electrolytes in whole blood. This lucie lyzer uses potentiome try to measure K+, Na+ , and Cl-. The potent ial of an electrode ch ain is measured by a voltmeter, and related to the concentr ation of the sample. [Automated mess age] The system [employer] generated this result transmitted ref erence range: 98 - 106 mEq/L. The reference r zeb was not used to interpret this result as normal/abnor mal. OR Glucose, arterial 149 mg/dL 70-105 H Methodo logy: The ABL90 (test code = [place] [address]-5) an in vitro siva gnostic portable, autom ated analyzer that m easures metabolites in whole blood. This lucie lyzer uses amperometr y to measure glucose and lactate. The ma gnitude of an electrica l current that fl ows through an elec trode chain is propor tional to the concentr ation of the substanc e that is oxidized or reduced at an electrode in the chain. OR Hemoglobin, 12.8 g/dL 13.5-17.5 L Methodology: The ABL90 arterial (test code Flex Plu s analyzer is = 19476-1) an in vitro siva gnostic portable, autom ated analyzer that m easures hemoglobin in [facility] [employer] blood. This lucie lyzer uses spectropho tometry to measure hemo globin. Light passes th rough a cuvette that co ntains a hemolyzed blo od sample. Hematoc rit is derived from th e total hemoglobin mult iplied by the standard value 0.0301. OR Hematocrit, 39 % 42-52 L arterial (test code = 93149-6) OR Lactate, arterial 0.8 mmol/L 0.4-0.8 Methodo logy: The ABL90 (test code = 2518-9) Flex Pl us analyzer is an in vitro siva gnostic portable, autom ated analyzer that m easures metabolites in whole blood. This lucie lyzer uses amperometr y to measure glucose and lactate. The ma gnitude of an electrica l current that fl ows through an elec trode chain is propor tional to the concentr ation of the substanc e that is oxidized or reduced at an electrode in the chain. OR Ion calcium, 1.03 mmol/L 1.15-1.29 L Methodology: The ABL90 arterial (test code Flex Plu s analyzer is = 91843-1) an in vitro siva gnostic portable, autom ated analyzer that m easures electrolytes in whole blood. This lucie lyzer uses potentiome try to measure Ca2+. T he potential of an electrode chain is measured by a voltmeter, and related to the concentr ation of the sample. OR pH Art (test code 7.38 7.35-7.45 = 2744-1) OR pCO2 Art (test 39.6 See_Comment [Automate d message] code = 2019) The system [facility] generated this result transmitted ref erence range: 35.0 - 4 8.0 mmHg. The refer ence range was not u sed to interpret this result as normal/abnor mal. OR pO2 Art (test 99 See_Comment [Automated message] code = 2703-7) The system [employer] generated this result transmitted ref erence range: 83 - 108 mmHg. The reference r zeb was not used to interpret this result as normal/abnor mal. OR HCO3 Art (test 24 mmol/L 21-28 Methodolog y: The ABL90 code = 1960-4) Flex Plus lucie lyzer is an in vitro siva gnostic portable, autom ated analyzer that m easures electrolytes in whole blood. This lucie lyzer uses potentiome try to measure K+, Na+ , Cl-, and HCO3. The potential of an electrode chain is measured by a voltmeter, and related to the concentr ation of the sample. OR Anion Gap, 6 mmol/L 7-16 L Methodology: T he ABL90 arterial (test code Flex Plu s analyzer is = 61959-7) an in vitro siva gnostic portable, autom ated analyzer that m easures electrolytes in whole blood. This lucie lyzer uses potentiome try to measure electro lytes. The potential o f an electrode chain is measured by a voltmeter, and related to the concentr ation of the sample. Anion gap is derived as the difference betw een the concentration o f cations and ani ons. OR Base Excess Art -1 mmol/L -2-3 (test code = 1925-7) OR O2 Sat Art (test 98 % 95-99 The ABL9 0 Flex Plus code = 2708-6) analyzer is a n in vitro diagnosti c portable, autom ated analyzer that m easures pH, blood gas, electrolytes, hemoglobin, glu cose and lactate in whole blood. This lucie lyzer uses the method ologies noted to perfor m quantitative measurement of the parameters list ed when tested or as no mone with indicated analytes.1) K+, Na+ and Cl-, Anion Gap, Glucose, Lactat e, Hemoglobin, and HCO3 -NOTE: Methodol ogy is noted with spec [facility] analyte(s) when reported.2) pH and pCO2 are measur ed by potentiometry. The potential of an electrode chain is measured by a voltmeter, and related to the concentr ation of the sample.3 ) pO2 is measured by optical pO2. The optica l system for pO2 is based on the ab ility of O2 to reduce the intensity and t kolton constant of the phosphorescence from a phosphorescent dye that is in cont act with the sample .4) sO2 is measured by spectrophotomet ry. Light passes th rough a cuvette that co ntains a hemolyzed blo od sample. The abs orption spectrum is use d to calculate oxime try parameters. FLOW/ FiO2 (test 48% code = 5568) Art Draw Site (test Art Line code = 86221-5) Art Mike Test (test Not Performed code = 69980-7) GREG (test code = FIO2 48% GREG) Lab Interpretation Abnormal (test code = 61989-4) [facility]landsTMP Interpretation Antibody Screen [id number] 13:40:31 Test Item Value Reference Range Interpretation Comments TMP Auto Neg At the present ABSC Interp time, patient (test code = plasma shows no ____ARMIDA QUINONES 7535) evidence of RBC HUGO CARL MD alloantibodies. - 10794Qboev mone by: ARMIDA BONILLA MD - [id number] Date/Time: 8:40 AM CDT Tra nscribed Date/Time: 8:40 AM CDTElectronical ly Signed By: ARMIDA BONILLA MD - [id number] on 8:40 AM C [facility] CenterCOVID-19 (SARS-CoV-2) PCR- Asymptomatic [id number] 05:42:36 Test Item Value Reference Range Interpretation Comments COVID19 (SARS Not Detected Not Detected CoV-2) Result (test code = ____[place] 89[address]-0) qualitative reverse-transcr iptase polymerase richie n reaction (RT-PC R) developed for t he Lauri BETTYE 680 0 system and inte nded for qualitative detection of SA RS CoV-2 RNA in nasopharyngeal and oropharyngeal s wab specimens colle cted from any indivi duals, including those suspected of CO VID-19 by their health care provider, and t hose without symptom s or other reasons t o suspect COVID-1 9. A fact sheet for patients provid ed by the manufacture r ([employer]) c an be reviewed at:https://www. fda.go v/media/049365/ downlo ad. A fact shee t for Health Care pro viders is provided by the cnc operator ([employer]) and can be reviewed at: https://www.fda .gov/m edia/145084/sanjiv nload Results must be interpreted wit hin the context of all relevant clinic al and laboratory find ings and should not form the sole basis for a diagnosis or treatment decis ion. Positive result s do not rule out bacterial infec tion or co-infection with other viruses. Negative result s do not rule out SARS-CoV-2 and must be combined wit h clinical observations, p atient history, and/or epidemiological information. "Presumptive Positive" resul ts are due to partial amplification o f SARS-CoV-2 targ ets and indicates l ow amounts of viru s present in the specimen at or near the limit of detection. Regardless, individuals wit h "Presumptive Positive" resul ts should be manag ed per institutional guidelines as individuals pos itive for SARS-CoV-2 virus, including use o f appropriate inf ection control protoco ls. Internal contro ls are included to ass ess for possible amplification inhibitors. If inhibition is detected, testi ng is repeated and if inhibition is confirmed the specimen is res ulted as "Invalid". W hen an "Invalid" resul t occurs, it is recommended to wait 3 days before submitting a ne w specimen for te sting if clinically indicated. This assay has been approv ed by the FDA for use only under Emergency Use Authorization ( EUA) in laboratories that have been CLIA-certified to perform moderate-comple xity and high-comple xity tests. The performance characteristics of this assay were verified by the Microbiology Laboratory at [facility], CLIA Accreditation # : [id number] and CAP Accreditation # : [id number]. COVID19 SARS ESTIMATOR JEWELRY Swab Source (test code = 01953) COVID19 SARS Pre-OR Procedure Indication (test code = 72130) [facility] HospitalAntibody [id number] 20:38:08 Test Item Value Reference Range Interpretation Comments ABSC. (test code = 890-4) Negative ABSC [facility] HospitalABORh2022-05-31 20:38:07 Test Item Value Reference Range Interpretation Comments ABORh. (test code = 882-1) A POS [facility] HospitalClot Expiration [id number] 20:38:03 Test Item Value Reference Range Interpretation Comments T & S Expiration (test code = 10/23/2021 5318) [facility] HospitalaPTT2022-05-31 17:37:25 Test Item Value Reference Range Interpretation Comments aPTT (test 24.3 See_Comment [Automated mes mitchell] code = [place] [address]-6) generated this result transmitted ref erence range: 22.8 - 3 4.2 second(s). The reference range was not used to int erpret this result as normal/abnormal . GREG (test code This lab cannot be = GREG) scheduled at the following locations due to collection/proccess ing restrictions: [facility] and [facility]. [facility] HospitalFractionated [id number] 17:18:59 Test Item Value Reference Range Interpretation Comments Bili Total (test 0.6 mg/dL <=1.2 Indocyanine Green code = 1974-) (ICG) may cau se falsely elevate d bilirubin resul ts. Total and direc t bilirubin must not be measured from s amples containing indo cyanine green. False el evation of total biliru bin can be seen in ashvin ents with IgG concentrations above 28 g/L.Testing Performed at [facility], [address], [address], [place] [address] Bili Direct <=0.3 Indocyanine Gre en (test code = (ICG) may cause 1967-11) falsely elevate d bilirubin resul ts. Total and direc t bilirubin must not be measured from s amples containing indo cyanine green. Testing Performed at [facility], [address] [place] [address] B d, [address], [place] [address] Bili Indirect See Note 0.0-0.9 Unable to calc ulate (test code = Indirect Biliru bin 1970-) result due to s ome parameters are outside reportable rangeTesting Pe rformed at [facility], [address] [facility] [facility], [address], [place] [address] GREG (test code = Test includes: GREG) Albumin, Alkaline Phosphatase, ALT (SGPT), AST (SGOT), Total Bilirubin, Calcium, Chloride, CO2 (bicarbonate), Creatinine, Glucose, Potassium, Protein, Sodium, Urea Nitrogen (BUN) [facility] HospitalTotal [id number] 17:18:56 Test Item Value Reference Range Interpretation Comments Total Protein 6.8 g/dL 6.4-8.3 Testing Perfor med (test code = at [facility] 2885-2) [facility], [address], [address], [place], [place] [address] GREG (test code = Test includes: GREG) Albumin, Alkaline Phosphatase, ALT (SGPT), AST (SGOT), Total Bilirubin, Calcium, Chloride, CO2 (bicarbonate), Creatinine, Glucose, Potassium, Protein, Sodium, Urea Nitrogen (BUN) [facility] HospitalCalcium [id number] 17:18:55 Test Item Value Reference Range Interpretation Comments Calcium Lvl (test 8.9 mg/dL 8.4-10.2 Testing Pe rformed code = 96095-8) at [facility], [address], [address], [place], [place] [address] GREG (test code = Test includes: GREG) Albumin, Alkaline Phosphatase, ALT (SGPT), AST (SGOT), Total Bilirubin, Calcium, Chloride, CO2 (bicarbonate), Creatinine, Glucose, Potassium, Protein, Sodium, Urea Nitrogen (BUN) [facility] HospitalAlkaline [id number] 17:18:54 Test Item Value Reference Range Interpretation Comments Alk Phos (test 74 U/L 40-129 Testing Perfo rmed at code = 6768-6) [facility] Amb[facility], [facility] [facility], [address], [place] [address] GREG (test code Test includes: = GREG) Albumin, Alkaline Phosphatase, ALT (SGPT), AST (SGOT), Total Bilirubin, Calcium, Chloride, CO2 (bicarbonate), Creatinine, Glucose, Potassium, Protein, Sodium, Urea Nitrogen (BUN) [facility] HospitalAlbumin [id number] 17:18:53 Test Item Value Reference Range Interpretation Comments Albumin Lvl (test 4.2 See_Comment Testing Pe rformed at code = 4763) [facility], [facility] [facility], [address], [place] [address] [Automate d message] The sy stem which generated this result transmit mone reference range : 3.5 - 5.2 gm/dL. e reference range was not used to interpret this result as normal/abnormal . GREG (test code = Test includes: RGEG) Albumin, Alkaline Phosphatase, ALT (SGPT), AST (SGOT), Total Bilirubin, Calcium, Chloride, CO2 (bicarbonate), Creatinine, Glucose, Potassium, Protein, Sodium, Urea Nitrogen (BUN) [facility] HospitalAspartate Aminotransferase 2021-10-20 17:18:52 Test Item Value Reference Range Interpretation Comments AST (test code 14 U/L <=40 Testing Perfo rmed at = 1920-8) [facility], [facility] [facility], [address], [place] [address] GREG (test code Test includes: = GREG) Albumin, Alkaline Phosphatase, ALT (SGPT), AST (SGOT), Total Bilirubin, Calcium, Chloride, CO2 (bicarbonate), Creatinine, Glucose, Potassium, Protein, Sodium, Urea Nitrogen (BUN) [facility] HospitalALT2022-05-31 17:18:51 Test Item Value Reference Range Interpretation Comments ALT (test code 11 U/L <=41 Testing Perfo rmed at = 1742-6) [facility], [address], [address], [place] [address] GREG (test code Test includes: = GREG) Albumin, Alkaline Phosphatase, ALT (SGPT), AST (SGOT), Total Bilirubin, Calcium, Chloride, CO2 (bicarbonate), Creatinine, Glucose, Potassium, Protein, Sodium, Urea Nitrogen (BUN) [facility] RichlandsElectrolyte [id number] 17:18:50 Test Item Value Reference Range Interpretation Comments Sodium Lvl (test 143 See_Comment Testing Per formed code = 2951-2) at [facility], [address] [place] [address], [address], [place], [place] [address] [Automated mess age] The system [employer] generated this result transmit mone reference range : 136 - 145 mEq/L . The reference r zeb was not used to interpret this result as normal/abnormal . Potassium Lvl 4.0 See_Comment Testing Perfor med (test code = at [facility] 2823-3) [facility], [address] [place] [address], [address], [place], [place] [address] [Automated mess age] The system [employer] generated this result transmit mone reference range : 3.5 - 5.1 mEq/L . The reference r zeb was not used to interpret this result as normal/abnormal . Chloride (test 106 See_Comment Testing Perfo rmed code = 2075-0) at [facility], [address] [place] [address], [address], [place], [place] [address] [Automated mess age] The system [employer] generated this result transmit mone reference range : 98 - 107 mEq/L. Th e reference range was not used to interpret this result as normal/abnormal . CO2 (test code = 23 See_Comment Testing Per formed 2028-01) at [facility], [address] [place] [address], [address], [place], [place] [address] [Automated mess age] The system [employer] generated this result transmit mone reference range : 22 - 29 mEq/L. The reference range was not used to interpret this result as normal/abnormal . Anion Gap (test 14 See_Comment Testing Perf ormed code = 15178-3) at [facility], [address] [place] [address], [address], [place], [place] [address] [Automated mess age] The system [employer] generated this result transmit mone reference range : 4 - 14 mEq/L. The reference range was not used to interpret this result as normal/abnormal . GREG (test code = Test includes: GREG) Albumin, Alkaline Phosphatase, ALT (SGPT), AST (SGOT), Total Bilirubin, Calcium, Chloride, CO2 (bicarbonate), Creatinine, Glucose, Potassium, Protein, Sodium, Urea Nitrogen (BUN) [facility] HospitalGlucose [id number] 17:18:47 Test Item Value Reference Range Interpretation Comments Glucose Level (test 110 mg/dL 70-99 H Effectiv e 12/17/15, code = 2345-7) the glucose reference intervals have been updated ba sed on [place] [employer] guidelines (Standards of Medical Care in Diabetes 2016. Diabetes Care 2016; 39: S13-S22).Fastin g blood glucose:Normal: 70-99 mg/dLImpaired fasting glucose (increased risk for diabetes or pre-diabetes): 100-125 mg/dLDiabetes mellitus: >/=12 6 mg/dL Random bl ood glucose:Normal: 70-199 mg/dLNot e: Random glucose >100 mg/dL is associated with increased risk for diabetes Testin g Performed at [facility], [address] [facility], [address], [facility] [place] [address] GREG (test code = GREG) Test includes: Albumin, Alkaline Phosphatase, ALT (SGPT), AST (SGOT), Total Bilirubin, Calcium, Chloride, CO2 (bicarbonate), Creatinine, Glucose, Potassium, Protein, Sodium, Urea Nitrogen (BUN) Lab Interpretation Abnormal (test code = 02703-0) [facility] HospitalBlood [id number] 01:20:28 Test Item Value Reference Range Interpretation Comments Final Report (test No growth code = 8488) Path Review - Culture yield may be Bottle/Isolator affected by sample (test code = 8499) quality, prior treatment, and transportation conditions....The results have been reviewed and electronically signed by Pathologist:Minesh Victor MD, PhD #[id number] [facility] HospitalHemoglobin [id number] 08:42:41 Test Item Value Reference Range Interpretation Comments A1C (test code = 4548-4) 6.6 % 4.3-5.6 H HbA 1c values >=6.5% are diagnostic of diabetes mellitus.Diagno sis should be confi rmed by repeat testing.Therape utic Action suggeste d: >8.0% HbA1c; Go al oftherapy: <7.0 % HbA1c Lab Interpretation (test Abnormal code = 49766-2) [facility] HospitalCRP (C-reactive protein)2021-09-12 20:37:43 Test Item Value Reference Range Interpretation Comments CRP (test code = 215.10 mg/[place] [address]-1) CRP assay are a s follows: Reference range s when used to assess cardi ac risk: <1.00 mg/L Low cardiovascular risk 1.00-3.00 mg/L Average cardiovascular risk >3.00 mg/L High cardi ovascular risk.Reference ranges when used to assess inflammatory re sponses: Less than or eq ual to 10.00 mg/L. [facility] HospitalMagnesium [id number] 20:26:17 Test Item Value Reference Range Interpretation Comments Magnesium (test code = 01463-2) 2.0 mg/dL 1.6-2.[address] HospitalPhosphorus [id number] 20:26:13 Test Item Value Reference Range Interpretation Comments Phosphorus (test code = 2777-1) 3.2 mg/dL 2.5-4.[address] HospitalLDH2022-04-23 20:26:11 Test Item Value Reference Range Interpretation Comments LDH (test code = 191 U/L 135-225 Results gre ater than 1651 15726-3) U/L may not be reliable due to matrix effec t with extended diluti on as it exceeds the man ufacturer's recommended del cid it. Caution should be exerc ised when interpreting roe ch values and done in con junction with clinical c ontext. [facility] HospitalRespiratory Viral Panel + COVID-19, Nasopharyngeal [id number] 20:23:56 Test Item Value Reference Range Interpretation Comments Adenovirus (test code = Not Detected Not Detected 9704) Coronavirus 229E (test Not Detected Not Detected code = 5326) Coronavirus HKU1 (test Not Detected Not Detected code = 5350) Coronavirus NL63 (test Not Detected Not Detected code = 5351) Coronavirus OC43 (test Not Detected Not Detected code = 5352) COVID19 (SARS-CoV-2) Not Detected Not Detected (test code = 82535-0) Human Metapneumovirus Not Detected Not Detected (test code = 6401) Human Not Detected Not Detected Rhinovirus/Enterovirus (test code = 7212) Influenza A (test code Not Detected Not Detected = 5618) Influenza A H1 (test Not Detected Not Detected code = 5619) Influenza A H1 2009 Not Detected Not Detected (test code = 5620) Influenza A H3 (test Not Detected Not Detected code = 5621) Influenza B (test code Not Detected Not Detected = 5622) Parainfluenza 1 (test Not Detected Not Detected code = 6779) Parainfluenza 2 (test Not Detected Not Detected code = 6780) Parainfluenza 3 (test Not Detected Not Detected code = 6781) Parainfluenza 4 (test Not Detected Not Detected code = 6782) Respiratory Syncytial Not Detected Not Detected Virus (test code = 7157) Bordetella Not Detected Not Detected Parapertussis (test code = 23711) Bordetella pertussis Not Detected Not Detected (test code = 4854) Chlamydiophila Not Detected Not Detected pneumoniae (test code = 5139) Mycoplasma pneumoniae Not Detected Not Detected (test code = 6203) GREG (test code = GREG) The BioFire RP2.1 is a real-time, nested multiplexed polymerase chain reaction test designed to simultaneously identify nucleic acids from 22 different viruses and bacteria associated with respiratory tract infection, including SARS-CoV-2, from a single nasopharyngeal swab (HEEL SEAT FITTER MACHINE) specimen obtained from individuals suspected of respiratory tract infections, including COVID-19. Results must be interpreted within the context of all relevant clinical and laboratory findings and should not form the sole basis for a diagnosis or treatment decision. Positive results do not rule out coninfection with other organisms. Negative results in the setting of a respiratory illness may be due to infection with pathogens that are not detected by this panel, or a lower respiratory tract infection that may not be detected by an HEEL SEAT FITTER MACHINE specimen. Internal controls are used to monitor all stages of the test process and assess for possible amplification inhibitors. If inhibition is detected, testing is repeated and if inhibition is confirmed the specimen is resulted as "Invalid". When an "Invalid" result occurs, it is recommended to wait 3 days before submitting a new specimen for testing if clinically indicated. This assay has been approved by the FDA for use in laboratories that have been CLIA-certified to perform moderate-complexity and high-complexity tests. The Microbiology Laboratory at [facility], CLIA Accreditation #[id number] and CAP Accreditation #[id number], verified the performance characteristics of this assay. [facility] Laboratory at [facility] performs the assay using the BarEye System. [facility] HospitalProcalcitonin (PCT)2021-09-12 20:13:25 Test Item Value Reference Range Interpretation Comments Procalcitonin (test 0.08 ng/mL <=0.08 Procalci tonin > 2.00 code = 86759-7) ng/mL: Proca lcitonin levels above 2. 00 ng/mL are highl y suggestive of a high risk for system atic bacterial infec tion/ severe sepsis a nd/or septic shock. Procalcitonin < 0.50 ng/mL: Procalci tonin levels below 0. 50 ng/mL are at lo w risk for progression to severe sepsis a nd/ or septic shock. Procalcitonin ( ProCT) between 0.15 an d 2.0 ng/mL do not ex clude infection, sonia use localized infec tions (without system ic signs) may be associated with such low levels. Res ults greater than 40 0 ng/mL may not b e reliable due to the matrix effect w ith extended diluti on as it exceeds the cnc operator's recommended del cid it. Caution should be exercised when interpreting roe ch values and done in conjunction wit h clinical contex t. [facility] HospitalUrinalysis with Microscopic 2021-09-12 20:03:48 Test Item Value Reference Interpretation Comments Range UA WBC (test code = See_Comment H [Automa mone 42144-0) message] The system which generated this result transmitted reference range : 0 - 2 /HPF. The reference range was not used to interpret this result as normal/abnormal . UA RBC (test code = 69 See_Comment H [Automa mone 40171-0) message] The system which generated this result transmitted reference range : 0 - 2 /HPF. The reference range was not used to interpret this result as normal/abnormal . UA Mucous (test code TRACE Not Seen-Trace = 70709-3) /HPF UA Bacteria (test 3+ NOT SEEN /HPF A code = 87622-2) UA Squam Epi (test NOT SEEN None-Occasiona code = 29273-9) l /HPF GREG (test code = Some reporting GREG) parameters within the Urinalysis test have changed due to the implementation of new instrumentation in the [facility] [place], allowing greater sensitivity of measurement. Urinalysis results reported by the [facility] using existing instrumentation, as well as Urinalysis testing performed manually or by backup methodology at the [facility] [place] will remain relatively unchanged. New reporting parameters and units will now be reported for all campuses. Lab Interpretation Abnormal (test code = 32642-2) [facility] HospitalUrinalysis w/Microscopic if [id number] 20:02:51 Test Item Value Reference Range Interpretation Comments UA Color (test code = 70777-0) Yellow Straw-Yellow UA Appear (test code = 5767-9) Cloudy Clear A UA Glucose (test code = 5792-7) >=500 NEG mg/dL A UA Bili (test code = 5770-3) NEG NEG UA Ketones (test code = 5797-6) NEG NEG mg/dL UA Spec Grav (test code = 5810-7) 1.038 1.003-1.035 H UA Blood (test code = 5794-3) Moderate NEG A UA pH (test code = 5803-2) 6.0 5.0-9.0 UA Protein (test code = 5804-0) 100 mg/dL NEG A UA Urobilinogen (test code = NEG NEG 5818-0) UA Nitrite (test code = 5802-4) NEG NEG UA Leuk Est (test code = 5799-2) Large NEG A Lab Interpretation (test code = Abnormal 13576-4) [facility] HospitalVB [id number] 19:39:32 Test Item Value Reference Range Interpretation Comments V Lactate (test code = 2519-7) 1.2 mmol/L 0.5-1.[address] [facility] HospitalPO [id number] 19:25:03 Test Item Value Reference Range Interpretation Comments POC VB pH (test code 7.46 7.31-7.41 H = 6719) POC VB pCO2 (test 39 See_Comment L [Automate d message] code = 6718) The system whic h generated this result transmitted ref erence range: 41 - 51 mmHg. The reference r zeb was not used to interpret this result as normal/abnor mal. POC VB pO2 (test 35 mmHg code = 6720) POC VB TCO2 (test 30 See_Comment H [Automate d message] code = 7-1) The system wh ich generated this result transmitted ref erence range: 24 - 29 mEq/L. The reference r zeb was not used to interpret this result as normal/abnor mal. POC VB Bicarb (test 28 mmol/L 23-28 code = 42775-4) POC VB Base Ex (test 4 mmol/L -2-3 H code = 1927-3) POC VB O2 Sat (test 71 % code = 2711-0) POC VB LAC (test 0.9 mmol/L 0.9-1.7 Method desc ription: code = 2519-7) The i-STAT is an analyzer used f or in vitro quantific ation of various anal ytes in whole blood. The device uses a s aldo disposable cart ridge which contains microfabricated sensors, a calibration timothy Green[employer] Expressionson, fluidics system , and a waste chamber . Each test cartridge contains chemic ally sensitive biose nsors on a [employer] ip that are config ured to perform spec ific tests. The microfabricated sensors measure analyte concent ration by an electroch emical assay. POC Sample Type Venous (test code = 6690) POC Clean Dev (test Yes code = 6672) Performing Lab (test MDA Main Main Ca mpus code = 82934) [facility] Cli nical Lab, [address] [place], [place] [address]l[place] [address]; Distribution Engineering Technologist: Tasneem Saucedo MD Lab Interpretation Abnormal (test code = 80534-0) [facility] CenterLIPID [id number] 08:08:00 Test Item Value Reference Range Interpretation Comments CHOLESTEROL, TOTAL (test 197 mg/dL 100-199 code = 2093-3) TRIGLYCERIDES (test code = 134 mg/dL 0-149 2571-8) HDL CHOLESTEROL (test code 39 mg/dL >39 L = 5-9) VLDL CHOLESTEROL RAJI (test 24 mg/dL 5-40 code = 59595-8) LDL CHOL CALC (NIH) (test 134 mg/dL 0-99 H code = 16856-1) GREG (test code = GREG) [facility] results reported in Eastern Time. [facility] Clinical Information:SRC:Blo od, venous*Venipunc ture ? [facility] Source of Specimen:Blood, venous*Venipunc Lab Interpretation (test Abnormal code = 12531-6) Mikala CunhaVERBAL [id number] 21:46:00 Test Item Value Reference Range Interpretation Comments SEE BELOW: (test Comment: Please prov jm code = 542711) requested inf ormation and fax to . ? .[facility] Code of Federal Regulations req uires a written andsi gned request be forw arded to a laboratory following a danitza bal orderof a labor atory test. ?Please a ssist us to meet this requirement and to complete our re cords. ? .Date: ? .ICD-9/10 Diagn osis Code(s): ? .Physician or Authorized Designee: ____ ?Please P rint ? .Physician or Authorized Camila gnee Signature: ? . Your Signature Confi nathaniel Your Order Of T he Test(s) Listed ? . ADDITIONAL TEST(S) Comment: Test(s) a dded per REQUESTED (test ANDI Khanna at a ccount code = 693716) [id number] ged by Dora matute# [id number] Lipid PanelDiagnosis Codes Provided ? E78. 5 ? ? ?Z00.00 GREG (test code = [facility] results GREG) reported in Eastern Time. [facility] Clinical Information:SRC :Blood, venous*Venipunc ture ? [facility] Source of Specimen:Blood, venous*Venipunc Mikala SeyboldMICROALB/CREAT RATIO, RANDM [id number] 22:39:00 Test Item Value Reference Range Interpretation Comments CREATININE, 115.6 mg/dL Not Estab. URINE (test code = 2161-8) MICROALBUM.,U,R 26.7 ug/mL Not Estab. ANDOM (test code = 35029-1) MICROALB/CREAT See_Comment ? RATIO (test ? code = 9318-7) ?Normal: ?0 - ?29 ?Moderately increased: 30 - 300 ?Se néstor increased: ? ? ? >300 [Automa mone message] The sy stem which generated this result transmit mone reference range : 0 - 29 mg/g creat. The reference range was not used to int erpret this result as normal/abnormal . GREG (test code [facility] results = GREG) reported in Eastern Time. [facility] Clinical Information:SRC:Ur ine*Urine ?[facility] Source of Specimen:Urine*Uri ne Mikala PaaneiaQCO03+CBC/D/PLT+TSH [id number] 13:04:00 Test Item Value Reference Range Interpretation Comments GLUCOSE, SERUM (test 144 mg/dL 65-99 H code = 2345-7) BUN (test code = 19 mg/dL 6-24 3094-0) CREATININE, SERUM 0.92 mg/dL 0.76-1.27 (test code = 2160-0) EGFR IF NONAFRICN AM 91 mL/min/1.73 >59 (test code = 09571-1) EGFR IF AFRICN AM 106 mL/min/1.73 >59 [facility] rp (test code = 80069-2) lisa ryan reports eGFR in complia nce with the lisa t ?recommendation s of the National Kidney Foundati on. [facility] will ?update reporti ng as new guidelin es are published f rom the NKF-ASN ?Ta sk force. BUN/CREATININE RATIO 9-20 H (test code = 3097-3) SODIUM, SERUM (test 145 mmol/L 134-144 H code = 2951-2) POTASSIUM, SERUM 5.0 mmol/L 3.5-5.2 (test code = 2823-3) CHLORIDE, SERUM (test 103 mmol/L 96-106 code = 2075-0) CARBON DIOXIDE, TOTAL 25 mmol/L 20-29 (test code = 2027-) CALCIUM, SERUM (test 9.7 mg/dL 8.7-10.2 code = 22605-5) PROTEIN, TOTAL, SERUM 7.1 g/dL 6.0-8.5 (test code = 2885-2) ALBUMIN, SERUM (test 4.7 g/dL 3.8-4.9 code = 1751-7) GLOBULIN, TOTAL (test 2.4 g/dL 1.5-4.5 code = 29755-7) A/G RATIO (test code 1.2-2.2 = 1759-0) BILIRUBIN, TOTAL 0.7 mg/dL 0.0-1.2 (test code = 1975-2) ALKALINE PHOSPHATASE, See_Comment Ple ase note SERUM (test code = reference interval 6768-6) change [Automated message] The system which generated this result transmit mone reference range : 44 - 121 IU/L. The reference range was not used to interpret this result as normal/abnormal . AST (SGOT) (test code See_Comment [Auto mated = 1920-8) message] The system which generated this result transmit mone reference range : 0 - 40 IU/L. The reference range was not used to interpret this result as normal/abnormal . ALT (SGPT) (test code See_Comment [Auto mated = 1742-6) message] The system which generated this result transmit mone reference range : 0 - 44 IU/L. The reference range was not used to interpret this result as normal/abnormal . TSH (test code = See_Comment [Automated 63058-4) message] The system which generated this result transmit mone reference range : 0.450 - 4.500 uIU/mL. The reference range was not used to interpret this result as normal/abnormal . WHITE BLOOD CELL See_Comment [Automated (WBC) COUNT (test message] T he code = 6690-2) system which generated this result transmit mone reference range : 3.4 - 10.8 x10E3/uL. The reference range was not used to interpret this result as normal/abnormal . RED BLOOD CELL (RBC) See_Comment H [Autom ated COUNT (test code = message] The 789-8) system which generated this result transmit mone reference range : 4.14 - 5.80 x10E6/uL. The reference range was not used to interpret this result as normal/abnormal . HEMOGLOBIN (test code 15.9 g/dL 13.0-17.7 = 718-7) HEMATOCRIT (test code 49.9 % 37.5-51.0 = 4544-3) MCV (test code = 85 fL 79-97 787-2) MCH (test code = 27.0 pg 26.6-33.0 785-6) MCHC (test code = 31.9 g/dL 31.5-35.7 786-4) RDW (test code = 14.1 % 11.6-15.4 788-0) PLATELETS (test code See_Comment [Autom ated = 777-3) message] The system which generated this result transmit mone reference range : 150 - 450 x10E3/uL. The reference range was not used to interpret this result as normal/abnormal . NEUTROPHILS (test 59 % Not Estab. code = 770-8) LYMPHS (test code = 31 % Not Estab. 736-9) MONOCYTES (test code 6 % Not Estab. = 5905-5) EOS (test code = 2 % Not Estab. 713-8) BASOS (test code = 1 % Not Estab. 706-2) NEUTROPHILS See_Comment [Automated (ABSOLUTE) (test code messag e] The = 751-8) system which generated this result transmit mone reference range : 1.4 - 7.0 x10E3/uL. The reference range was not used to interpret this result as normal/abnormal . LYMPHS (ABSOLUTE) See_Comment [Automate d (test code = 731-0) message] The system which generated this result transmit mone reference range : 0.7 - 3.1 x10E3/uL. The reference range was not used to interpret this result as normal/abnormal . MONOCYTES(ABSOLUTE) See_Comment [Automa mone (test code = 742-7) message] The system which generated this result transmit mone reference range : 0.1 - 0.9 x10E3/uL. The reference range was not used to interpret this result as normal/abnormal . EOS (ABSOLUTE) (test See_Comment [Autom ated code = 711-2) message] The system which generated this result transmit mone reference range : 0.0 - 0.4 x10E3/uL. The reference range was not used to interpret this result as normal/abnormal . BASO (ABSOLUTE) (test See_Comment [Auto mated code = 704-7) message] The system which generated this result transmit mone reference range : 0.0 - 0.2 x10E3/uL. The reference range was not used to interpret this result as normal/abnormal . IMMATURE GRANULOCYTES 1 % Not Estab. (test code = 64111-0) IMMATURE GRANS (ABS) See_Comment [Autom ated (test code = 45907-7) messag e] The system which generated this result transmit mone reference range : 0.0 - 0.1 x10E3/uL. The reference range was not used to interpret this result as normal/abnormal . GREG (test code = GREG) [facility] results reported in Eastern Time. [facility] Clinical Information:SRC :Blood, venous*Venipunc ture ? [facility] Source of Specimen:Blood, venous*Venipunc Lab Interpretation Abnormal (test code = 81397-4) Mikala AlphonseHGB A1C WITH MBG [id number] 10:08:00 Test Item Value Reference Range Interpretation Comments HEMOGLOBIN A1C (test 7.3 % 4.8-5.6 H ? code = 4548-4) ? . ? Prediabetes: 5. 7 - 6.4 ? Diabetes: >6.4 ? Glycemic control for adults with diabetes: <7.0 ESTIM. AVG GLU (EAG) 163 mg/dL (test code = 59431-3) GREG (test code = GREG) [facility] results reported in Eastern Time. [facility] Clinical Information:SRC: Blood, venous*Venipunc ture ? [facility] Source of Specimen:Blood, venous*Venipunc Lab Interpretation Abnormal (test code = 35662-8) Mikala CunhaURINALYSIS, [id number] 08:07:00 Test Item Value Reference Range Interpretation Comments SPECIFIC GRAVITY >=1.030 1.005-1.030 A (test code = 2965-2) PH (test code = 5.0-7.5 5803-2) URINE-COLOR (test Yellow Yellow code = 5778-6) APPEARANCE (test code Clear Clear = 5767-9) WBC ESTERASE (test Negative Negative code = 5799-2) PROTEIN (test code = Trace Negative/Trace 66460-1) GLUCOSE (test code = 3+ Negative A 2349-9) KETONES (test code = Negative Negative 2514-8) OCCULT BLOOD (test Negative Negative code = 5794-3) BILIRUBIN (test code Negative Negative = 5770-3) UROBILINOGEN,SEMI-QN 0.2 mg/dL 0.2-1.0 (test code = 20180-3) NITRITE, URINE (test Negative Negative code = 5802-4) MICROSCOPIC Microscopic not EXAMINATION (test indicated and not code = 73094-3) performed. GREG (test code = GREG) [facility] results reported in Eastern Time. [facility] Clinical Information:SRC :Urine*Urine ?[facility] Source of Specimen:Urine* Urine Lab Interpretation Abnormal (test code = 85193-8) Mikala Carter- [id number] 18:28:59 Test Item Value Reference Range Interpretation Comments VENTRICULAR RATE BPM (test code = 27448) ATRIAL RATE (test BPM code = 21518) P-R INTERVAL (test 138 ms code = 37293) QRS DURATION (test 96 ms code = 79865) Q-T INTERVAL (test 378 ms code = 47659) QTC 439 ms CALCULATION(BEZE (test code = 22946) CALCULATED P AXIS degrees (test code = 38690) CALCULATED R AXIS degrees (test code = 91305) CALCULATED T AXIS degrees (test code = 04431) DIAGNOSIS (test Normal sinus rhythmST & T code = 59483) wave abnormality, consider inferolateral ischemiaAbnormal ECGNo previous ECGs availableConfirmed by CHELY GREENBERG ([id number]) on 02/23/2021 1:28:58 PM Mikala BenavidesPECIAL [id number] 18:15:000.4[facility]annSPECIAL [id number] 18:15:000.4[facility] [id number] 13:22:00 558[facility] [id number] 13:22:58429Fasytpbv Burton
[2023-01-16 12:42] LABS: Absolute Lymphocytes (CBC) 1.7 K/uL (0.7-4.9); Lymphocytes % 25.4 % (15.3-44.8); MCV 85.6 fL (80-100); MPV 8.6 fL (7.6-11.3); Platelets 132 thou/uL (152-406); RBC Red Blood Cell Count 5.61 M/uL (4.33-5.43)
[2023-01-16 12:45] LABS: Protime INR 1.14
[2023-01-16] MEDS ORDERED: ACETAMINOPHEN 500 MG TAB ONE (12:58)
[2023-01-16 13:01] LABS: Magnesium 2.2 mg/dL (1.6-2.4); Potassium 3.7 mEq/L (3.5-5.1)
--- NOTE | 2023-01-16 13:08 | RAD REPORT ---
EXAM DESCRIPTION: CT - CTHCSPWOC - 01/16/2023 12:40 pm CLINICAL HISTORY: syncope;Headache COMPARISON: Brain MRI W/Wo Cont dated 04/26/2022; Head Brain CT W/Wo Con dated 05/21/2019 TECHNIQUE: Axial thin cut noncontrast CT images of the head were obtained. Axial thin cut noncontrast CT images of the cervical spine were obtained. Multiplanar reformatted images were generated and reviewed. All CT scans are performed using dose optimization technique as appropriate and may include automated exposure control or mA/KV adjustment according to patient size. FINDINGS: CT HEAD WITHOUT CONTRAST: No acute hemorrhage, hydrocephalus or extra-axial collection is identified. Right basal ganglia focus of hypoattenuation is stable, most suggestive of a prominent perivascular space. No areas of brain e sergo or midline shift. The paranasal sinuses show small mucous retention cysts in the maxillary sinuses. The mastoid air elías ls are patent. .The calvarium is intact. CT CERVICAL SPINE WITHOUT CONTRAST: No fracture or subluxation.Multilevel mild facet degenerative changes. Endplate osteophytosis most pr onounced at C6-7 on the left.No prevertebral soft tissues swelling is identified. IMPRESSION: No acute traumatic intracranial or cervical spine findings. Mild degenerative cervical spine changes as above.
--- NOTE | 2023-01-16 14:10 | RAD REPORT ---
EXAM DESCRIPTION: Theat Single View01/16/2023 1:36 pm CLINICAL HISTORY: syncope COMPARISON: Chest Pa And Lat (2 Views) dated 11/12/2021 TECHNIQUE: Portable AP view of the chest. FINDINGS: The lungs are clear. No pneumothorax or effusion. The cardiomediastinal contours are unre markable. IMPRESSION: No acute cardiopulmonary process.
--- NOTE | 2023-01-16 15:11 | RAD REPORT ---
EXAM DESCRIPTION: RAD - Hip Right 2 View - 01/16/2023 1:36 pm CLINICAL HISTORY: fall;Pain COMPARISON: No comparisons TECHNIQUE: Right hip, AP and frog-leg views. FINDINGS: There is no fracture or dislocation. 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 No acute or destructive bony process seen. IMPRESSION: No acute findings of the right hip. Chronic findings as above.
--- NOTE | 2023-01-16 15:31 | ER ---
Nurse's Notes [facility] Name: Tristen Peña III Age: 62 yrs Sex: Male : 1960 Arrival Date: 01/16/2023 Time: 12:02 Bed 19 Private MD: Neal Tyler Diagnosis: Concussion with loss of consciousness of unspecified duration;Pain in right hip;Syncope Presentation: 01/16 12:18 Chief complaint: Patient states: got up to answer the phone and passed out. Came to [facility] [place] [facility] lying on his stomach in the floor. Hit his forehead on the right side. C/O confusion and a headache that wont go away since. On eliquis for hx of PE. Also c/o pain to right hip. Care prior to arrival: None. Mechanism of Injury: Fall syncopal episode with fall, hit head. Trauma event details:. 12:18 Acuity: MRALON 2 me1 12:18 Method Of Arrival: Ambulatory pr1 Historical: - Allergies: 13:04 No Known Allergies; me1 - Home Meds: 13:04 Eliquis 5 mg oral tablet every 12 hours [Active]; Jardiance 25 mg oral tablet every me1 morning [Active]; losartan 25 mg oral tablet daily [Active]; risperidone 1 mg oral tablet every day at bedtime [Active]; sertraline 100 mg oral tablet every 24 hours [Active]; Albuterol Inhl as needed. [Active]; rosuvastatin 10 mg oral Capsule, Sprinkle daily [Active]; mirtazapine 15 mg Oral Tablet,disintegrating every day at bedtime [Active]; tramadol 50 mg Oral tablet as needed [Active]; Ozempic 1 mg/dose (4 mg/3 mL) subcutaneous Pen Injector every week [Active]; tadalafil 5 mg oral tablet 1 tab as needed. [Active]; - PMHx: 13:04 neuropathy; right foot drop; Chronic back pain; left shoulder pain; PTSD; Diabetes me1 mellitus; Hypertensive disorder; spindle cell carcinoma (in remission); hyperlipidemia; pulmonary embolism; - PSHx: 13:04 cardiac ablation x2; right shoulder surgery; nerve block to L5; kidney excision; turmor me1 removal from left lower extremity; excision of part of the stomach; - Immunization history:: Adult Immunizations up to date. - Social history:: Smoking status: Patient reports the use of cigarette tobacco products, smokes two packs cigarettes per day. Screenin:18 Abuse screen: Denies threats or abuse. Tuberculosis screening: No symptoms or risk me1 factors identified. Primary Survey: 12:18 NO uncontrolled hemorrhage observed. Breathing/Chest: Respiratory effort: spontaneous, me1 unlabored. Circulation: No external hemorrhage present. Regular and strong central pulse, skin warm/dry/normal color. Disability Client is alert. Assessment: 12:18 General: Appears uncomfortable, well groomed, well developed, well nourished, Behavior me1 is calm, cooperative, appropriate for age, Reports passing out, hit head on Tani. continues to have REYES and confusion and right hip pain. Pain: Complains of pain in head Pain does not radiate. Pain currently is 3 out of 10 on a pain scale. Quality of pain is described as aching, Pain began 2-3 days ago. Neuro: Level of Consciousness is awake, alert, obeys commands, Oriented to person, place, time, situation, Appropriate for age. Cardiovascular: Capillary refill < 3 seconds Patient's skin is warm and dry. Respiratory: Airway is patent Respiratory effort is even, unlabored, Respiratory pattern is regular, symmetrical. Musculoskeletal: Reports pain in right hip. Vital Signs: 12:18 BP 137 / 98; Pulse 94; Resp 21; Temp 98.2(O); Pulse Ox 98% on R/A; Weight 109.77 kg; me1 Height 6 ft. 5 in. ; 15:06 BP 160 / 108; Pulse 73; Resp 18; Pulse Ox 100% on R/A; ld1 15:41 BP 135 / 96; Pulse 73; Resp 17; Pulse Ox 96% on R/A; me1 15:41 BP 161 / 99; Pulse 77; Resp 19; Pulse Ox 100% on R/A; me1 12:18 Body Mass Index 28.70 (109.77 kg, 195.58 cm) me1 Silvio Coma Score: 12:18 Eye Response: spontaneous(4). Motor Response: obeys commands(6). Verbal Response: me1 oriented(5). Total: 15. 12:20 Eye Response: spontaneous(4). Motor Response: obeys commands(6). Verbal Response: cp oriented(5). Total: 15. Trauma Score (Adult): 12:18 Eye Response: spontaneous(1); Verbal Response: oriented(1); Motor Response: obeys me1 commands(2); Systolic BP: > 89 mm Hg(4); Respiratory Rate: 10 to 29 per min(4); Afton Score: 15; Trauma Score: 12 ED Course: 12:05 Patient arrived in ED. mr 12:05 Neal Tyler DO is Private Physician. mr 12:06 Tiburcio Calderón PA is PHCP. cp 12:06 Tiburcio Brady MD is Attending Physician. cp 12:18 Pamela Del Angel, JULIO is Primary Nurse. me1 12:18 Patient has correct armband on for positive identification. Bed in low position. Call me1 light in reach. Side rails up X 1. 12:18 Patient maintains SpO2 saturation greater than 95% on room air. me1 12:21 Triage completed. me1 12:30 Basic Metabolic Panel Sent. me1 12:30 CBC with Diff Sent. me1 12:30 Magnesium Sent. me1 12:30 PT-INR Sent. me1 12:30 Troponin HS Sent. me1 12:30 Initial lab(s) drawn, by ED staff, sent to lab. Inserted saline lock: 20 gauge in right me1 forearm, using aseptic technique. Blood collected. 12:41 CT Head C Spine In Process Unspecified. EDMS 13:38 XRAY Chest (1 view) In Process Unspecified. EDMS 13:38 XRAY Hip RIGHT 2 view In Process Unspecified. EDMS 15:27 Jay Girard MD is Referral Physician. cp 15:43 No provider procedures requiring assistance completed. IV discontinued, intact, me1 bleeding controlled, No redness/swelling at site. Pressure dressing applied. Administered Medications: 13:03 Drug: Acetaminophen PO 1000 mg Route: PO; me1 13:15 Follow up: Response: No adverse reaction; Pain is increased me1 Outcome: 15:30 Discharge ordered by MD. cp 15:47 Discharged to home with family. me1 15:47 Condition: stable 15:47 Discharge instructions given to patient, family, Instructed on discharge instructions, follow up and referral plans. Demonstrated understanding of instructions, follow-up care. 15:48 Patient left the ED. me1 Signatures: Dispatcher [employer] EDAurora Santos Corey, PA PA cp Sims, Lauren, RN RN ld1 Pamela Del Angel, RN RN me1
--- NOTE | 2023-01-16 15:31 | EDPHYS ---
Physician Documentation [facility] Name: Tristen Peña III Age: 62 yrs Sex: Male : 1960 Arrival Date: 01/16/2023 Time: 12:02 Bed 19 Private MD: Neal Tyler ED Physician Tiburcio Brady HPI: 01/16 12:20 This 62 yrs old Male presents to ER via Ambulatory with complaints of Head Injury With cp LOC-Adult, confusion. 12:20 The patient or guardian reports injury. cp 12:20 Patient is a 62-year-old male with past medical history significant for right foot cp drop, chronic back pain. Patient presents to the emergency room after having syncopal episode this past Tuesday in which he stood up to answer the phone and then reports next thing he remembers is waking up on the floor. Patient reports history of syncopal episodes in the past and has had a work-up. Patient reports head and confusion since fall. Patient reports he takes Eliquis twice a day. Denies vomiting. Historical: - Allergies: 13:04 No Known Allergies; me1 - Home Meds: 13:04 Eliquis 5 mg oral tablet every 12 hours [Active]; Jardiance 25 mg oral tablet every me1 morning [Active]; losartan 25 mg oral tablet daily [Active]; risperidone 1 mg oral tablet every day at bedtime [Active]; sertraline 100 mg oral tablet every 24 hours [Active]; Albuterol Inhl as needed. [Active]; rosuvastatin 10 mg oral Capsule, Sprinkle daily [Active]; mirtazapine 15 mg Oral Tablet,disintegrating every day at bedtime [Active]; tramadol 50 mg Oral tablet as needed [Active]; Ozempic 1 mg/dose (4 mg/3 mL) subcutaneous Pen Injector every week [Active]; tadalafil 5 mg oral tablet 1 tab as needed. [Active]; - PMHx: 13:04 neuropathy; right foot drop; Chronic back pain; left shoulder pain; PTSD; Diabetes me1 mellitus; Hypertensive disorder; spindle cell carcinoma (in remission); hyperlipidemia; pulmonary embolism; - PSHx: 13:04 cardiac ablation x2; right shoulder surgery; nerve block to L5; kidney excision; turmor me1 removal from left lower extremity; excision of part of the stomach; - Immunization history:: Adult Immunizations up to date. - Social history:: Smoking status: Patient reports the use of cigarette tobacco products, smokes two packs cigarettes per day. ROS: 12:25 Constitutional: Negative for body aches, chills, fever, poor PO intake. cp 12:25 Eyes: Negative for injury, pain, redness, and discharge. cp 12:25 ENT: Negative for drainage from ear(s), ear pain, sore throat, difficulty swallowing, difficulty handling secretions. 12:25 Cardiovascular: Negative for chest pain, edema, palpitations. 12:25 Respiratory: Negative for cough, shortness of breath, wheezing. 12:25 Abdomen/GI: Negative for abdominal pain, vomiting, diarrhea, constipation. 12:25 Back: Negative for pain at rest, pain with movement. 12:25 Neuro: Positive for headache, syncope, Negative for altered mental status, weakness. 12:25 All other systems are negative. Exam: 12:30 Constitutional: The patient appears in no acute distress, alert, awake, cp non-diaphoretic, non-toxic, well developed, well nourished. 12:30 Head/face: Noted is ecchymosis, that is mild, of the right side of forehead and right cp yarsanism, swelling, that is mild. 12:30 Eyes: Periorbital structures: appear normal, Pupils: equal, round, and reactive to light and accomodation, Extraocular movements: intact throughout, Conjunctiva: normal, no exudate, no injection, Lids and lashes: appear normal, bilaterally. 12:30 ENT: External ear(s): are unremarkable, Ear canal(s): are normal, clear, TM's: dullness, bilaterally, Nose: is normal, Mouth: Lips: moist, Oral mucosa: pink and intact, moist, Posterior pharynx: is normal, airway is patent, no erythema, no exudate. 12:30 Neck: C-spine: vertebral tenderness, is not appreciated, crepitus, is not appreciated, ROM/movement: pain, that is mild, right lateral neck. limited range of motion, is not appreciated, nuchal rigidity, is not appreciated. 12:30 Chest/axilla: Inspection: normal, Palpation: is normal, no crepitus, no tenderness. 12:30 Cardiovascular: Rate: normal, Rhythm: regular, Edema: is not appreciated, JVD: is not appreciated. 12:30 Respiratory: the patient does not display signs of respiratory distress, Respirations: normal, no use of accessory muscles, no retractions, labored breathing, is not present, Breath sounds: are clear throughout, no decreased breath sounds, no stridor, no wheezing. 12:30 Abdomen/GI: Inspection: abdomen appears normal, Palpation: abdomen is soft and non-tender, in all quadrants. 12:30 Musculoskeletal/extremity: Extremities: noted in the right hip: tenderness, There is no evidence of decreased ROM, deformity. 12:30 Neuro: Orientation: to person, place \T\ time. Mentation: able to follow commands, Cerebellar function: Romberg testing is negative, Motor: is grossly normal based on the patient's age, Sensation: is normal. 13:03 ECG was reviewed by the Attending Physician. cp Vital Signs: 12:18 BP 137 / 98; Pulse 94; Resp 21; Temp 98.2(O); Pulse Ox 98% on R/A; Weight 109.77 kg; me1 Height 6 ft. 5 in. ; 15:06 BP 160 / 108; Pulse 73; Resp 18; Pulse Ox 100% on R/A; ld1 15:41 BP 135 / 96; Pulse 73; Resp 17; Pulse Ox 96% on R/A; me1 15:41 BP 161 / 99; Pulse 77; Resp 19; Pulse Ox 100% on R/A; me1 12:18 Body Mass Index 28.70 (109.77 kg, 195.58 cm) me1 Rosebud Coma Score: 12:18 Eye Response: spontaneous(4). Motor Response: obeys commands(6). Verbal Response: me1 oriented(5). Total: 15. 12:20 Eye Response: spontaneous(4). Motor Response: obeys commands(6). Verbal Response: cp oriented(5). Total: 15. Trauma Score (Adult): 12:18 Eye Response: spontaneous(1); Verbal Response: oriented(1); Motor Response: obeys me1 commands(2); Systolic BP: > 89 mm Hg(4); Respiratory Rate: 10 to 29 per min(4); Rosebud Score: 15; Trauma Score: 12 MDM: 12:06 Patient medically screened. 13:00 Differential diagnosis: Contusion of Hematoma on Laceration of Intracranial bleed- Concussion cerebral contusion. 15:30 Data reviewed: vital signs, nurses notes, lab test result(s), EKG, radiologic studies, cp CT scan, plain films, and as a result, I will discharge patient. 15:30 I considered the following discharge prescriptions or medication management in the emergency department Medications were administered in the Emergency Department. See MAR. Counseling: I had a detailed discussion with the patient and/or guardian regarding the historical points, exam findings, and any diagnostic results supporting the discharge/admit diagnosis, lab results, radiology results, to return to the emergency department if symptoms worsen or persist or if there are any questions or concerns that arise at home. Response to treatment: the patient's symptoms have mildly improved after treatment, and as a result, I will discharge patient. Special discussion: Based on the patient's history, exam and DX evaluation, there is no indication for emergent intervention or inpatient TX. It is understood by the patient/guardian that if the SXs persist or worsen they need to return immediately for re-evaluation. 01/16 12:15 Order name: Basic Metabolic Panel; Complete Time: 14:19 01/16 14:19 Interpretation: Normal except: NA 135; GFR 78; CA 8.0. 01/16 12:15 Order name: CBC with Diff; Complete Time: 14: 01/16 14:19 Interpretation: Normal except: RBC 5.61; PLT 132; RDW 15.7. 01/16 12:15 Order name: Magnesium; Complete Time: 14:19 01/16 12:15 Order name: PT-INR; Complete Time: 14:19 01/16 12:15 Order name: Troponin HS; Complete Time: 14:19 01/16 12:15 Order name: XRAY Chest (1 view); Complete Time: 14:19 01/16 12:15 Order name: CT Head C Spine; Complete Time: 14:19 01/16 12:15 Order name: XRAY Hip RIGHT 2 view; Complete Time: 15:19 01/16 12:15 Order name: EKG; Complete Time: 12: 01/16 12:15 Order name: Cardiac monitoring; Complete Time: 12: 01/16 12:15 Order name: EKG - Nurse/Tech; Complete Time: 13:03 cp 01/16 12:15 Order name: IV Saline Lock; Complete Time: 12:30 cp 01/16 12:15 Order name: Labs collected and sent; Complete Time: 12:30 cp 01/16 12:15 Order name: O2 Per Protocol; Complete Time: 12:26 cp 01/16 12:15 Order name: O2 Sat Monitoring; Complete Time: 12:26 cp EC:03 Rate is 79 beats/min. Rhythm is regular. [place] interval is normal. QRS interval is normal. cp QT interval is normal. T waves are Inverted in lead aVR. Interpreted by me. Reviewed by me. Administered Medications: 13:03 Drug: Acetaminophen PO 1000 mg Route: PO; me1 13:15 Follow up: Response: No adverse reaction; Pain is increased me1 Disposition Summary: 01/16/23 15:30 Discharge Ordered Location: Home cp Problem: new cp Symptoms: have improved cp Condition: Stable cp Diagnosis - Concussion with loss of consciousness of unspecified duration cp - Pain in right hip cp - Syncope cp Followup: cp - With: Jay Girard MD - When: 2 - 3 days - Reason: Recheck today's complaints Discharge Instructions: - Discharge Summary Sheet cp - Concussion, Adult cp - Head Injury, Adult cp - Syncope cp - Hip Pain cp Forms: - Medication Reconciliation Form cp - Thank You Letter cp - Antibiotic Education cp - Prescription Opioid Use cp - Patient Portal Instructions cp - Leadership Thank You Letter cp Signatures: Dispatcher [employer] EDTiburcio Gaston PA PA cp Pamela Del Angel RN RN me1 Corrections: (The following items were deleted from the chart) 01/17 15:43 01/16 12:30 Musculoskeletal/extremity: Extremities: all appear grossly normal, with no cp appreciated pain with palpation, cp
[2023-01-16 16:11] VITALS: TEMP 98.2
[2023-01-16 16:12] VITALS: O2SAT 100
[2023-01-16 16:14] VITALS: BP 161/99
--- NOTE | 2023-01-17 12:15 | EKG ---
Test Date: 2023-01-16 Test Time: 12:56:34 Plastic Manager: MEASUREMENT RESULTS: Intervals: Rate: 79 DC: 134 QRSD: 96 QT: 372 QTc: 426 [place]: P: 78 DC: 134 QRS: 78 T: 52 INTERPRETIVE STATEMENTS: Normal sinus rhythm Normal ECG Compared to ECG 09/14/2000 08:35:00 No significant changes Electronically Signed On 01-17-23 12:12:39 CDT by Tiago De La Cruz
== END 2023-01-16 15:48 | disposition home or self-care (01) ==
LOC: ER 12:02
DX: S06.0X9A Concussion with loss of consciousness of unspecified duration, initial encounter (principal); M25.551 Pain in right hip; R55 Syncope and collapse; F17.210 Nicotine dependence, cigarettes, uncomplicated; E11.9 Type 2 diabetes mellitus without complications; I10 Essential (primary) hypertension; Z86.711 Personal history of pulmonary embolism; Z79.01 Long term (current) use of anticoagulants
CPT/HCPCS: 36415; 70450; 71045; 72125; 80048; 83735; 84484; 85025; 85610; 93005; 99284

== ENCOUNTER 2023-08-28 13:14 | Emergency (ER) | payer OTHER ==
--- OUTSIDE RECORDS SUMMARY | 2023-08-28 13:16 | XMS REPORT | Clinical Summary ---
Author Name Unknown Organization [facility] Address [address] [place] [address] Care Team Providers Care Home Health Care Worker Name Role Phone Neal Tyler MD Primary Care Provider [phone] Bert Ridley MD Unavailable Jorge Luis Olson MD Unavailable [phone] Pelon ROBLES MD, William J Unavailable [phone] Mary Boles MD Unavailable [phone] Casey Terry MD Unavailable [phone] Marco Antonio Quintana MD Unavailable Allergies No known active allergies Medications Medication Sig Dispensed Refills Start Date End Date Status tadalafil (CIALIS) 5 mg tablet Take 1 tablet (5 mg) by mouth daily. 0 09/08/2020 Active sertraline (ZOLOFT) 100 mg tablet Take 1 tablet (100 mg) by mouth daily. 0 07/28/2020 Active semaglutide (Ozempic) 1 mg/dose (4 mg/3 mL) pnij Inject 1 mg under the skin once a week. 0 02/23/2021 Active fluticasone propionate (FLONASE) 50 mcg/spray nasal spray as needed. 0 06/30/2020 Active FreeStyle Lite Meter kit 0 02/25/2021 Active testosterone cypionate (DEPO-TESTOTERONE) 200 mg/mL injection Inject 0.5 mL (100 mg) into the shoulder, thigh, or buttocks once a week. 0 Active acetaminophen (Tylenol Extra Strength) 500 mg tabletIndications: Hydronephrosis with ureteropelvic junction obstruction Take 1 tablet (500 mg) by mouth every 6 (six) hours as needed for mild pain. 0 10/22/2021 Active traMADol (Ultram) 50 mg tabletIndications: Hydronephrosis with ureteropelvic junction obstruction Take 1 tablet (50 mg) by mouth every 6 (six) hours as needed for moderate pain or severe pain. 10 tablet 0 10/27/2021 Active albuterol (VENTOLIN HFA,PROAIR HFA) 90 mcg/puff inhaler Inhale by mouth every 6 (six) hours as needed for wheezing or shortness of breath. 0 Active diclofenac sodium 3 % gel Apply 1 application topically daily as needed. 0 Active Jardiance 25 mg tab Take 1 tablet by mouth daily. 0 11/17/2021 Active mirtazapine (REMERON) 15 mg tablet Take 1 tablet (15 mg) by mouth at bedtime. 0 03/09/2022 Active risperiDONE (RisperDAL) 1 mg tablet Take 1 tablet (1 mg) by mouth at bedtime. 0 04/28/2022 Active carvedilol (COREG) 6.25 mg tablet Take 1 tablet (6.25 mg) by mouth daily. 0 02/15/2023 Active rosuvastatin (CRESTOR) 10 mg tablet Take 1 tablet (10 mg) by mouth at bedtime. 0 07/08/2022 Active apixaban (Eliquis) 2.5 mg tabletIndications: Multiple subsegmental pulmonary emboli without acute cor pulmonale Take 1 tablet (2.5 mg) by mouth every 12 (twelve) hours. 60 tablet 3 06/01/2023 Active losartan (COZAAR) 100 mg tablet Take 0.5 tablets (50 mg) by mouth twice daily. 0 11/17/2020 3 Discontinue d(Therapy completed) aspirin 81 mg EC tablet Take 1 tablet (81 mg) by mouth daily. 0 3 Discontinue d(Therapy completed) gabapentin (Neurontin) 300 mg capsuleIndications :Neuropathy, not otherwise specified Take 1 capsule (300 mg) by mouth 3 (three) times a day as needed (neuropathy). 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 60 tablet 0 06/23/2022 3 Discontinue d(Therapy completed) apixaban (ELIQUIS STARTER PACK) tablet dose pack 5 mg FOR VTE ONLYIndications:Pu lmonary embolism Take 2 tablets by mouth twice daily for 7 days, then take 1 tablet by mouth twice daily thereafter. 74 tablet 0 10/06/2022 4 Discontinue d(Therapy completed) losartan (COZAAR) 25 mg tablet Take 1 tablet (25 mg) by mouth daily. 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 Type 2 diabetes mellitus 02/26/2021 Benign prostatic hypertrophy without outflow obs truction 02/26/2021 Overview: 02/20 CMS regulatory import Decreased testosterone level 02/26/2021 Erectile dysfunction 02/26/2021 Hypertension 02/26/2021 Simple obesity 02/26/2021 Encounters Date Type Department Care Team Description 06/01/2023 2:30 PM MANAGER SECURITY [facility] [address] [place] [address] Main [facility], 9th [place] [address] Diane Isaac MD Multiple subsegmental pulmonary emboli without acute cor pulmonale (Primary Dx); Spindle cell sarcoma of connective, 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> 06/01/2023 10:00 AM MANAGER SECURITY Ancillary Procedure Diagnostic Imaging in [address] [address] Jacquelin Gottlieb PA Spindle cell sarcoma of connective, 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> 06/01/2023 6:55 AM MANAGER SECURITY Ancillary Procedure CT Imaging [address] [facility], 7th [place] [address] Jacquelin Gottlieb PA Spindle cell sarcoma of connective, 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> 06/01/2023 Travel 02/16/2023 9:00 AM CDT - 02/16/2023 11:59 PM CDT Hospital [facility] [address] [place] [address], 10th Floor, [place] [address] Bert Ridley MD Sensorineural hearing loss, bilateral (Primary Dx); Spindle cell sarcoma of connective, 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>; Bilateral tinnitus Discharge Disposition: Home 02/16/2023 8:30 AM CDT - 02/16/2023 8:59 AM CDT Hospital En[facility], 10th [place] [address] Hilton Mike PA Jivani, Shirin, AuD Sensorineural hearing loss, bilateral (Primary Dx); Spindle cell sarcoma of connective, 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> Discharge Disposition: Home 02/16/2023 Travel 02/15/2023 Orders Only [facility] [address] [place] [address], 10th Floor, [place] [address] Hilton Mike PA Spindle cell sarcoma of connective, 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) 01/19/2023 1:45 PM CDT [facility] [address] [place] [address], 9th [place] [address] Diane Isaac MD Multiple subsegmental pulmonary emboli without acute cor pulmonale (Primary Dx); Spindle cell sarcoma of connective, 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>; Bilateral tinnitus 01/19/2023 9:15 AM CDT Ancillary Procedure [facility] [address] [place] [address] Jacquelin Gottlieb PA Spindle cell sarcoma of connective, 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> 01/19/2023 7:45 AM CDT Ancillary Procedure [facility] [address] [place] [address] Jacquelin Gottlieb PA Spindle cell sarcoma of connective, 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> 01/19/2023 Travel 12/13/2022 9:00 AM CDT Office Visit Internal Medicine Center - Hematology [address] [facility], 6th [place] [address] Casey Terry MD Pulmonary embolism, not otherwise specified (Primary Dx); Pulmonary embolism 12/13/2022 Travel 10/13/2022 3:30 PM CDT Ancillary Procedure General Ultrasound [address] [facility], 5th [place] [address] Jacquelin Gottlieb PA Multiple subsegmental pulmonary emboli without acute cor pulmonale 10/13/2022 Travel 10/07/2022 [facility] [address] [place] [address], 9th [place] [address] Jacquelin Gottlieb PA 10/06/2022 6:30 PM CDT - 10/06/2022 6:41 PM CDT [facility] [address] [place] [address], 1st Floor [place] [address] Kiran Hayes MD Pulmonary embolism (Primary Dx); Tight chest Discharge Disposition: Home 10/06/2022 10:15 AM CDT Ancillary Procedure [facility] [address] [place] [address] Rebekah Lang APRN Spindle cell sarcoma of connective, 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> 10/06/2022 9:15 AM CDT Ancillary Procedure [facility] [address] [place] [address] Rebekah Lang APRN Spindle cell sarcoma of connective, 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> 10/06/2022 Telephone Case Management [facility] [place] [address] Shruti Corona RN 10/06/2022 Telephone [facility] [address] [place] [address], 9th [place] [address] Rebekah Lang APRN 10/06/2022 Travel after 08/28/2022 Immunizations Name Administration Dates Next Due Micheal SARS-CoV-2 Vaccination 08/08/2020,2020 Moderna SARS-CoV-2 Monovalen t Booster Vaccination (50 mcg/0.25 mL) 02/23/2021 Surgical History Surgery Date Site/Laterality Comments COLONOSCOPY 05/23/2014 - 05/22/2015 STOMACH SURGERY 05/23/2014 - 05/22/2015 SHOULDER SURGERY 05/23/2015 - 05/22/2016 CARDIAC SURGERY 05/23/1989 - 05/22/1990 ablation, arrhytmic focus [place] RAD RESECTION TUMOR SOFT TISSUE LEG/ANKLE <5CM 05/28/2021 Leg Lower/Left Procedure: Radical resection of soft tissue sarcoma of left posterior leg (calf); Surgeon: Diane Isaac MD; Location: MAIN OR; Service: ORTHOPEDIC ONCOLOGY [place] PHYS STANDBY SVC PROLNG PHYS ATTN EA 30 MINUTES 05/28/2021 N/A Procedure: PHYSICIAN STANDBY SERVICE REQUIRING PROLONGED ATTENDANCE - EACH 30 MINUTES; Surgeon: Jorge Luis Olson MD; Location: MAIN OR; Service: PLS - PLASTIC SURGERY [place] LAPAROSCOPY RADICAL NEPHRECTOMY 10/21/2021 Abdomen/Left Procedure: SURGICAL LAPAROSCOPY WITH RADICAL NEPHRECTOMY; Surgeon: Edward Bird IV, MD; Location: MAIN OR; Service: UROLOGY [place] CYSTO W/SIMPLE REMOVAL STONE & STENT 10/21/2021 Genitalia/Left Procedure: CYSTOURETHROSCOPY, WITH REMOVAL OF URETERAL STENT FROM URETHRA; Surgeon: Edward Bird IV, MD; Location: MAIN OR; Service: UROLOGY Medical History Medical History Date Comments Hypertension 15yrs 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 pt also reports that he is currently having left rotator cuff issues so could have been due to that or gas. Sleep apnea pt was unable to tolerate CPAP Family History Medical History Relation Name Comments Coronary artery disease Father Tristen johnson CABG in his 60s Diabetes Father Tristen johnson Hypertension Father Tristen johnson Lymphoma Father Tristen johnson Skin cancer Father Tristen johnson VTE Father Tristen johnson had DVT and PE a/w NHL Heart disease Mother sp valve repla cment in her 50s. had rheumatic fever as a child Hypertension Mother Diabetes Paternal Grandfather Diabetes Paternal Grandmother Diabetes Sister Hypertension Sister Stroke Neg Hx Relation Name Status Comments Father Tristen johnson Mother Paternal Grandfather Paternal Grandmother Sister Social History Tobacco Use Types Packs/Day Years Used Date Smoking Tobacco: Former Cigarettes 1.5 10 0 10/19/1980 - 10/19/2006 Cigars Smokeless Tobacco: Former Chew Quit: 10/20/2003 Alcohol Use Standard Drinks/Week Comments Yes 4 (1 standard drink = 0.6 oz pur e alcohol) 2-3 shots od scotts a day Sex and Gender Information Value Date Recorded Sex Assigned at Male 02/26/2021 7:14 AM CDT Gender Identity Male 02/27/2021 1:20 PM CDT Sexual Orientation Straight 02/26/2021 7: 14 AM CDT Job Start Date Occupation Industry Not on file Not on file Not on file Obstetrics History Last Filed Vital Signs Vital Sign Reading Time Taken Comments Blood Pressure 156/104 06/01/2023 1:06 PM MANAGER SECURITY Pulse 73 06/01/2023 1:06 PM MANAGER SECURITY Temperature 36.7 C (98.1 F) 06/01/2023 1:06 PM CS T Respiratory Rate 18 06/01/2023 1:06 PM MANAGER SECURITY Oxygen Saturation 98% 12/13/2022 8:58 AM CDT Inhaled Oxygen Concentration - - Weight 110 kg (242 lb 8.1 oz) 06/01/2023 1:06 PM MANAGER SECURITY Height 193 cm (6' 3.98") 12/13/2022 8:58 AM CDT Body Mass Index 29.53 12/13/2022 8:58 AM CDT Plan of Treatment Upcoming Encounters Date Type Department Care Team Description 09/28/2023 8:00 AM CDT Appointment Main CT IMAGING [address] [facility], 3rd [place] [address] Steve Epstein PA [address] [place] [address] 09/28/2023 10:15 AM CDT Ancillary Procedure [facility] [address] [place] [address] Steve Epstein PA [address] [place] [address] 09/28/2023 2:30 PM CDT [facility] [address] [facility], 9th [place] [address] Diane Isaac MD [address] [place] [address] 12/19/2023 8:15 AM CDT Office Visit Internal Medicine Center - Hematology [address] [facility], 6th [place] [address] Casey Terry MD [address] [place] [address] Health Maintenance Due Date Last Done Comments COVID-19 Vaccine (2022-2 4 season) 2023 02/23/2021, 08/08/2020, 07/25/2020 Influenza Vaccine 01/21/2023 05/14/2019, 02/10/2018 Medical Devices Implanted Type Area Cna Device Identifier Shelf Expiration Date Model / Serial / Lot Sternal Wires Metalware Heart Description:heart Staple Staple Abdomen Procedures Procedure Name Priority Date/Time Associated Diagnosis Comments MRI TIBIA FIBULA LEFT W WO CONTRAST Routine 06/01/2023 11:58 AM MANAGER SECURITY Spindle cell sarcoma of connective, 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> CT CHEST W CONTRAST Routine 06/01/2023 8 :20 AM MANAGER SECURITY Spindle cell sarcoma of connective, 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> POC CREATININE Routine 06/01/2023 7:18 AM MANAGER SECURITY MRI TIBIA FIBULA LEFT W WO CONTRAST Routine 01/19/2023 11:36 AM CDT Spindle cell sarcoma of connective, 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> CT CHEST WO CONTRAST Routine 01/19/2023 8:42 AM CDT Spindle cell sarcoma of connective, 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> US LEG VENOUS DOPPLER LEFT Routine 10/13/2022 10:56 AM CDT Multiple subsegmental pulmonary emboli without acute cor pulmonale FRACTIONATED BILIRUBIN Routine 3 3:42 PM CDT TOTAL PROTEIN Routine 10/06/2022 3:42 PM CDT ASPARTATE AMINOTRANSFERASE Routine 10/06/2022 3:42 PM CDT ALANINE AMINOTRANSFERASE Routine 023 3:42 PM CDT ALKALINE PHOSPHATASE Routine 10/06/2022 3:42 PM CDT ALBUMIN LEVEL Routine 10/06/2022 3:42 PM CDT CALCIUM LEVEL Routine 10/06/2022 3:42 PM CDT .GLOMERULAR FILTRATION RATE Routine 10/06/2022 3:42 PM CDT SERUM CREATININE Routine 10/06/2022 3:42 PM CDT ELECTROLYTE PANEL Routine 10/06/2022 3:4 2 PM CDT BLOOD UREA NITROGEN Routine 10/06/2022 3 :42 PM CDT GLUCOSE LEVEL Routine 10/06/2022 3:42 PM CDT DIFFERENTIAL STAT 10/06/2022 3:42 PM CDT .CBC STAT 10/06/2022 3:42 PM CDT TROPONIN T Routine 10/06/2022 3:42 PM CDT NT PRO BNP Routine 10/06/2022 3:42 PM CDT APTT Routine 10/06/2022 3:42 PM CDT PROTHROMBIN TIME Routine 10/06/2022 3:42 PM CDT PHOSPHORUS LEVEL Routine 10/06/2022 3:42 PM CDT MAGNESIUM LEVEL Routine 10/06/2022 3:42 PM CDT COMPREHENSIVE METABOLIC PANEL Routine 10/06/2022 3:42 PM CDT COMPLETE BLOOD COUNT W/ DIFFERENTIAL Routine 10/06/2022 3:[address] CHEST W CONTRAST Routine 10/06/2022 1 :20 PM CDT Spindle cell sarcoma of connective, 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 Anatomical Region Laterality Modality Extremity, Leg Magnetic Resonan ce 06/01/2023 3:05 PM MANAGER SECURITY Impressions 06/01/2023 3:26 PM MANAGER SECURITY 1. No evidence of tumor recurrence. There is low probability for local recurrence. 2. Stable edema of distal 3rd of flexor hallucis longus muscle. Stable mild edema of left lower extremity anterior compartment musculature. Findings most likely represent post radiation change. 3. Stable 3 x 1.3 cm oblong synovial versus ganglion cyst arising from posterior aspect of proximal tibiofibular joint. ACTIONABLE ITEMS/RECOMMENDATIONS: None. Narrative 06/01/2023 3:26 PM MANAGER SECURITY FULL RESULT: Examination: MRI TIBIA FIBULA LEFT W WO CONTRAST, 06/01/2023 11:58 AM. 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 Indication: Spindle cell sarcoma of the left calf s/p radical resection; assess for recurrent tumor Comparison: Preoperative MRI left tibia and fibula 05/26/2021, postoperative MRI left tibia fibula 10/06/2022 and 01/19/2023. Technique: Multiplanar, multisequence magnetic resonance imaging of the left tibia and fibula was performed without and with intravenous administration of contrast. Findings: Tumor and treatment bed: * Surgical scarring and volume loss noted at posterior mid left calf and medial gastrocnemius muscle. * No T2 nodularity or abnormal enhancement to suggest recurrence. * On perfusion imaging, no evidence of hyperenhancement. Lymph nodes: No adenopathy. Metastases: No metastatic disease in the imaged field of view. Other pertinent positive and negative findings: * Stable edema of distal 3rd of flexor hallucis longus muscle. Stable mild edema of left lower extremity anterior compartment musculature. Findings most likely represent post radiation change. * Stable oblong synovial versus ganglion cyst arising from posterior aspect of proximal tibiofibular joint measuring 3 x 1.3 cm on series 33 image 12 and series 15 images 10-14. Procedure Note Vern Bolden MD - 06/01/2023 FULL RESULT: Examination: MRI TIBIA FIBULA LEFT W WO CONTRAST, 06/01/2023 11:58 AM. Clinical History: Spindle cell sarcoma of left calf status post radicalresection 05/28/2021. 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 Technique: Multiplanar, multisequence magnetic resonance imaging of theleft tibia and fibula was performed without and with intravenousadministration of contrast. Findings: Tumor and treatment bed: * Surgical scarring and volume loss noted at posterior mid left calf andmedial gastrocnemius muscle. * No T2 nodularity or abnormal enhancement to suggest recurrence. * On perfusion imaging, no evidence of hyperenhancement. Lymph nodes: No adenopathy. Metastases: No metastatic disease in the imaged field of view. Other pertinent positive and negative findings: * Stable edema of distal 3rd of flexor hallucis longus muscle. Stablemild edema of left lower extremity anterior compartment musculature.Findings most likely represent post radiation change. * Stable oblong synovial versus ganglion cyst arising from posterioraspect of proximal tibiofibular joint measuring 3 x 1.3 cm on series 33image 12 and series 15 images 10-14. IMPRESSION: 1. No evidence of tumor recurrence. There is low probability for localrecurrence. 2. Stable edema of distal 3rd of flexor hallucis longus muscle. Stablemild edema of left lower extremity anterior compartment musculature.Findings most likely represent post radiation change. 3. Stable 3 x 1.3 cm oblong synovial versus ganglion cyst arising fromposterior aspect of proximal tibiofibular joint. ACTIONABLE ITEMS/RECOMMENDATIONS: None. Jacquelin [facility] [facility] [place] * CT Chest with Contrast (06/01/2023 8:20 AM MANAGER SECURITY) Only the most recent of2 resultswithin the time period is included. Anatomical Region Laterality Modality Chest Computed Tomogra phy 06/01/2023 10:5 1 AM MANAGER SECURITY Impressions 06/01/2023 11:06 AM MANAGER SECURITY No evidence of intrathoracic metastatic disease. Small nonspecific lung nodules are unchanged. ACTIONABLE ITEMS/RECOMMENDATIONS: None. Narrative 06/01/2023 11:06 AM MANAGER SECURITY FULL RESULT: Examination: CT CHEST W CONTRAST on 06/01/2023 8:20 AM. 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 No new or enlarging pulmonary nodule. No acute infectious consolidation. No pleural effusion. Neck/Mediastinum/Nodes/Heart: The thyroid gland enhances normally. No enlarged supraclavicular, mediastinal, hilar or axillary lymph nodes. The heart is normal in size. The thoracic aorta and main pulmonary trunk are normal in diameter. The pulmonary arteries are well-opacified. There is complete resolution of bilateral pulmonary emboli seen on 10/06/2022. The esophagus is nondistended and normal in course. Upper abdomen: Gastric surgery again noted. The gallbladder is normal in size at radiopaque gallstone. No focal hepatic or splenic lesion. Normal adrenal gland morphology. Post surgical changes seen in the left retroperitoneum related to radical nephrectomy. Bones/Soft Tissues: Median sternotomy is healed. Degenerative changes of the spine and shoulders noted. Again seen are calcified stones in the left shoulder bursa, suggesting synovial osteochondromatosis (for instance image 15, series 301). No metastatic bone lesion or acute bone fracture in the thorax. Procedure Note Cornelia Godoy MD - 06/01/2023 FULL RESULT: Examination: CT CHEST W CONTRAST on 06/01/2023 8:20 AM. 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 No new or enlarging pulmonary nodule. Noacute infectious consolidation. No pleural effusion. Neck/Mediastinum/Nodes/Heart: The thyroid gland enhances normally. No enlarged supraclavicular, mediastinal, hilar or axillary lymph nodes. The heart is normal in size. The thoracic aorta and main pulmonary trunkare normal in diameter. The pulmonary arteries are well-opacified. Thereis complete resolution of bilateral pulmonary emboli seen on 10/06/2022. The esophagus is nondistended and normal in course. Upper abdomen: Gastric surgery again noted. The gallbladder is normal in size atradiopaque gallstone. No focal hepatic or splenic lesion. Normal adrenalgland morphology. Post surgical changes seen in the left retroperitoneumrelated to radical nephrectomy. Bones/Soft Tissues: Median sternotomy is healed. Degenerative changes of the spine andshoulders noted. Again seen are calcified stones in the left shoulderbursa, suggesting synovial osteochondromatosis (for instance image 15,series 301). No metastatic bone lesion or acute bone fracture in thethorax. IMPRESSION: No evidence of intrathoracic metastatic disease. Small nonspecific lungnodules are unchanged. ACTIONABLE ITEMS/RECOMMENDATIONS: None. Jacquelin [facility] [facility] [place] * POC Creatinine (06/01/2023 7:18 AM MANAGER SECURITY) Only the most recent of2 resultswithin the time period is included. POC Creatinine 1.0 0.6 - 1.3 mg/dL 06/01/2023 7:20 AM MANAGER SECURITY [facility] Comment:Medications, especia lly hydroxyurea or supplements, such as ascorbate, can interfere with test results causing a falsely and significantly higher result than expected. If a problem is suspected with a patient's result, a sample should be sent to the laboratory for confirmatory testing. POC eGFR 86 >=60 mL/min/1.7 3 sq. m 06/01/2023 7:20 AM [facility] Comment: The eGFRcr is calculated with the 2020 CKD-EPI creatinine equation using creatinine, patient's age, and sex for adults 18 years of age and older. Other factors, especially muscle mass, may affect accuracy and need to be considered. According to the Kidney Disease: Improving Global Outcomes (KDIGO) CKD Work Group 2012 Clinical Practice Guideline, chronic kidney disease (CKD) is defined as the abnormalities of kidney structure or function, present for more than 3 months, with implications for health. CKD should be classified by cause, GFR category, and albuminuria category. KDIGO guidelines provide the following GFR categories. Stage / Description / GFR mL/min/1.73 m2: G1* / Normal or high / >= 90 G2* / Mildly decreased / 60-89 G3a / Mildly to moderately decreased / 45-59 G3b / Moderately to severely decreased / 30-44 G4 / Severely decreased / 15-29 G5 / Kidney failure / <15 *In the absence of evidence of kidney damage, neither G1 nor G2 fulfill criteria for CKD. Blood 06/01/2023 7:18 AM MANAGER SECURITY 06/01/2023 7:20 AM MANAGER SECURITY Narrative [facility] - 06/01/2023 7:20 AM MANAGER SECURITY Method description: The i-STAT is an analyzer used for in vitro quantification of various analytes in whole blood. The device uses a single disposable cartridge which contains microfabricated sensors, a calibration solution, fluidics system, and a waste chamber. Each test cartridge contains chemically sensitive biosensors on a silicon chip that are configured to perform specific tests. The microfabricated sensors measure analyte concentration by an electrochemical assay. Jacquelin HOPKINS POCT ORDERABLES - DEVICE [facility] Unless otherwise noted, all lab tests performed by: Division of Pathology and Laboratory Medicine [address] [place] [phone] * CT Chest without Contrast (01/19/2023 8:42 AM CDT) Anatomical Region Laterality Modality Chest Computed Tomogra phy 01/19/2023 10:5 4 AM CDT Impressions 01/19/2023 11:12 AM CDT 1. Interval resolution of infectious or inflammatory right lower lobe process. 2. No evidence of intrathoracic metastatic disease. 3. Small lung nodules are unchanged and nonspecific. They can be followed. 4. Mild multivessel coronary artery disease. ACTIONABLE ITEMS/RECOMMENDATIONS: See IMPRESSION. Narrative 01/19/2023 11:12 AM CDT FULL RESULT: Examination: CT CHEST WO CONTRAST on 01/19/2023 8:42 AM. 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 Findings: Lungs/Airways/Pleura: Small nodules less than 4 mm are unchanged (annotated images, series 3). The previously seen patchy right lower lobe opacities have resolved. No pleural effusion. Neck/Mediastinum/Nodes/Heart: The thyroid gland is nonenlarged. No enlarged supraclavicular, mediastinal, hilar or axillary lymph nodes by CT size criteria. The heart is normal in size with scattered multivessel coronary artery calcification. The thoracic aorta and main pulmonary trunk are normal in diameter. The esophagus is nondistended and normal in course. Upper abdomen: There is prior gastric surgery. The gallbladder is normal in size without radiopaque gallstone. No focal hepatic or splenic lesion on noncontrast study. The adrenal glands have normal morphology. There is prior left nephrectomy. Bones/Soft Tissues: No bone lesion or acute bone fracture in the thorax. There are prominent vertebral osteophytes and multilevel right facet hypertrophy. Median sternotomy is healed. 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 Procedure Note Cornelia Godoy MD - 01/19/2023 FULL RESULT: Examination: CT CHEST WO CONTRAST on 01/19/2023 8:42 AM. 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 Findings: Lungs/Airways/Pleura: Small nodules less than 4 mm are unchanged (annotated images, series 3).The previously seen patchy right lower lobe opacities have resolved. No pleural effusion. Neck/Mediastinum/Nodes/Heart: The thyroid gland is nonenlarged. No enlarged supraclavicular, mediastinal, hilar or axillary lymph nodes byCT size criteria. The heart is normal in size with scattered multivessel coronary arterycalcification. The thoracic aorta and main pulmonary trunk are normal indiameter. The esophagus is nondistended and normal in course. Upper abdomen: There is prior gastric surgery. The gallbladder is normal in size withoutradiopaque gallstone. No focal hepatic or splenic lesion on noncontraststudy. The adrenal glands have normal morphology. There is prior leftnephrectomy. Bones/Soft Tissues: No bone lesion or acute bone fracture in the thorax. There are prominentvertebral osteophytes and multilevel right facet hypertrophy. Mediansternotomy is healed. 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 IMPRESSION: 1. Interval resolution of infectious or inflammatory right lower lobeprocess. 2. No evidence of intrathoracic metastatic disease. 3. Small lung nodules are unchanged and nonspecific. They can befollowed. 4. Mild multivessel coronary artery disease. ACTIONABLE ITEMS/RECOMMENDATIONS: See IMPRESSION. Jacquelin OH[place]INS [facility] [place] * US Leg Venous Doppler Left (10/13/2022 10:56 AM CDT) Anatomical Region Laterality Modality Leg, Extremity Ultrasound 10/13/2022 11:0 7 AM CDT Impressions 10/13/2022 11:25 AM CDT No deep venous thrombosis in the left lower extremity. Narrative 10/13/2022 11:25 AM CDT Examination: US LEG VENOUS DOPPLER LEFT, 10/13/2022 10:56 AM Clinical History: Multiple subsegmental pulmonary emboli, without acute cor pulmonale. Indication: Pulmonary embolism. Abnormal finding on MRI left tibia/fibula 10/06/2022, indeterminate for deep venous thrombosis. Comparison: MRI left tibia/fibula 10/06/2022. Technique: Grayscale and color/spectral Doppler ultrasound of the left lower extremity veins was performed. Findings: In the left lower extremity, there is normal compressibility and spontaneous flow within the common femoral vein and its junction with the greater saphenous vein, femoral vein and its junction with the deep femoral vein, and popliteal vein. Visualized segments of the anterior and posterior tibial veins as well as of the peroneal vein are grossly patent. Procedure Note Kobe Cameron MD - 10/13/2022 Examination: US LEG VENOUS DOPPLER LEFT, 10/13/2022 10:56 AM Clinical History: Multiple subsegmental pulmonary emboli, without acutecor pulmonale. Indication: Pulmonary embolism. Abnormal finding on MRI left tibia/[id number]/06/2022, indeterminate for deep venous thrombosis. Comparison: MRI left tibia/fibula 10/06/2022. Technique: Grayscale and color/spectral Doppler ultrasound of the leftlower extremity veins was performed. Findings: In the left lower extremity, there is normal compressibility andspontaneous flow within the common femoral vein and its junction with thegreater saphenous vein, femoral vein and its junction with the deepfemoral vein, and popliteal vein. Visualized segments of the anterior andposterior tibial veins as well as of the peroneal vein are grosslypatent. IMPRESSION: No deep venous thrombosis in the left lower extremity. Jacquelin PALMA US ORDERABLES * .Serum Creatinine (10/06/2022 3:42 PM CDT) Creatinine 1.15 0.67 - 1.17 mg/dL [facility] Blood 10/06/2022 3:42 PM CDT 10/06/2022 3:57 PM CDT Ilene Guevara MD LAB BLOOD ORDERABLES [facility] Unless otherwise noted, all lab tests performed by: Division of Pathology and Laboratory Medicine [address] [place] [phone] * (ABNORMAL) .CBC (10/06/2022 3:42 PM CDT) WBC 8.7 4.0 - 11.0 K/uL [facility] RBC 5.67 4.50 - 6.00 M/uL [facility] Hgb 15.7 14.0 - 18.0 gm/dL [facility] Hct 47.3 40.0 - 54.0 % [facility] MCV 83 82 - 98 fL [facility] MCH 27.7 27.0 - 31.0 pg [facility] MCHC 33.2 31.0 - 36.0 gm/dL [facility] RDW-SD 48.9(H) 35.1 - 46.3 fL [facility] RDW-CV 16.5(H) 12.0 - 15.5 % [facility] Platelet count 151 140 - 440 K/uL [facility] MPV 9.9 4.0 - 10.4 fL [facility] INRBC 0.0 <=0.0 % [facility] Comment: The INRBC (instrument NRBC) value reflects the enumeration of nucleated red blood cells contained in a 200uL sample of whole blood analyzed by the instrument. This value may differ from the NRBC value reported in a manual differential, which is based on a 100 cell differential. Blood 10/06/2022 3:42 PM CDT 10/06/2022 3:49 PM CDT Ilene Guevara MD LAB BLOOD ORDERABLES [facility] Unless otherwise noted, all lab tests performed by: Division of Pathology and Laboratory Medicine [address] [place] [phone] * Glomerular Filtration Rate (10/06/2022 3:42 PM CDT) eGFR 73 >=60 mL/min/1.7 3 sq. m [facility] Comment: The eGFRcr is calculated with the 2020 CKD-EPI creatinine equation using creatinine, patient's age, and sex for adults 18 years of age and older. Other factors, especially muscle mass, may affect accuracy and need to be considered. According to the Kidney Disease: Improving Global Outcomes (KDIGO) CKD Work Group 2012 Clinical Practice Guideline, chronic kidney disease (CKD) is defined as the abnormalities of kidney structure or function, present for more than 3 months, with implications for health. CKD should be classified by cause, GFR category, and albuminuria category. KDIGO guidelines provide the following GFR categories Stage Description GFR mL/min/1.73 m2 G1* Normal or high >= 90 G2* Mildly decreased 60-89 G3a Mildly to moderately decreased 45-59 G3b Moderately to severely decreased 30-44 G4 Severely decreased 15-29 G5 Kidney failure <15 *In the absence of evidence of kidney damage, neither G1 nor G2 fulfill criteria for CKD. Blood 10/06/2022 3:42 PM CDT 10/06/2022 3:57 PM CDT Ilene Guevara MD LAB BLOOD ORDERABLES Performing Organization Address [facility] Co de Phone Number [facility] Unless otherwise noted, all lab tests performed by: Division of Pathology and Laboratory Medicine [address] [place] [phone] * Fractionated Bilirubin (10/06/2022 3:42 PM CDT) [facility] Bili Total 0.8 <=1.2 mg/dL [facility] Comment: Indocyanine Green (ICG) may cause falsely elevated bilirubin results. Total and direct bilirubin must not be measured from samples containing indocyanine green. False elevation of total bilirubin can be seen in patients with IgG concentrations above 28 g/L. Bili Direct 0.3 <=0.3 mg/dL [facility] Comment:Indocyanine Green (I CG) may cause falsely elevated bilirubin results. Total and direct bilirubin must not be measured from samples containing indocyanine green. Bili Indirect 0.5 0.0 - 0.9 mg/dL [facility] Blood 10/06/2022 3:42 PM CDT 10/06/2022 3:57 PM CDT Ilene Guevara MD LAB BLOOD ORDERABLES Performing Organization Address [facility] Co de Phone Number [facility] Unless otherwise noted, all lab tests performed by: Division of Pathology and Laboratory Medicine [address] [place] [phone] * aPTT (10/06/2022 3:42 PM CDT) [facility] aPTT 26.1 22.8 - 34.2 second(s) [facility] Blood 10/06/2022 3:42 PM CDT 10/06/2022 3:49 PM CDT Ilene Guevara MD LAB BLOOD ORDERABLES [facility] Unless otherwise noted, all lab tests performed by: Division of Pathology and Laboratory Medicine [address] [place] [phone] * NT-Pro BNP (In-House) (10/06/2022 3:42 PM CDT) [facility] NT ProBNP 124 <=125 pg/mL [facility] Blood 10/06/2022 3:42 PM CDT 10/06/2022 3:57 PM CDT Ilene Guevara MD LAB BLOOD ORDERABLES Performing Organization Address City/[facility]/ZIP Co de Phone Number [facility] Unless otherwise noted, all lab tests performed by: Division of Pathology and Laboratory Medicine [address] [place] [phone] * (ABNORMAL) Differential (10/06/2022 3:42 PM CDT) [facility] Neutrophil % 71.4(H) 42.0 - 66.0 % [facility] Lymphocyte % 19.6(L) 24.0 - 44.0 % [facility] Monocyte % 6.8 2.0 - 7.0 % [facility] Eosinophil % 0.7(L) 1.0 - 4.0 % [facility] Basophil % 0.5 0.0 - 1.0 % [facility] IGRE % 1.0(H) 0.0 - 0.4 % [facility] Comment:IGRE % count include s Metamyelocytes, Myelocytes, and Promyelocytes. Neutrophil Abs 6.18 1.70 - 7.30 K/uL [facility] Lymphocyte Abs 1.70 1.00 - 4.80 K/uL [facility] Monocyte Abs 0.59 0.08 - 0.70 K/uL [facility] Eosinophil Abs 0.06 0.04 - 0.40 K/uL [facility] Basophil Abs 0.04 0.00 - 0.10 K/uL [facility] IG Abs 0.09(H) 0.00 - 0.04 K/uL [facility] Blood 10/06/2022 3:42 PM CDT 10/06/2022 3:49 PM CDT Ilene Guevara MD LAB BLOOD ORDERABLES [facility] Unless otherwise noted, all lab tests performed by: Division of Pathology and Laboratory Medicine [address] [place] [phone] * (ABNORMAL) Prothrombin Time with INR (10/06/2022 3:42 PM CDT) PT 14.1 11.9 - 14.1 second(s) [facility] INR 1.15(H) 0.89 - 1.10 [facility] Blood 10/06/2022 3:42 PM CDT 10/06/2022 3:49 PM CDT Ilene Guevara MD LAB BLOOD ORDERABLES Performing Organization Address City/[facility]/ZIP Co de Phone Number [facility] Unless otherwise noted, all lab tests performed by: Division of Pathology and Laboratory Medicine [address] [place] [phone] * BUN (10/06/2022 3:42 PM CDT) BUN 11 6 - 23 mg/dL [facility] Blood 10/06/2022 3:42 PM CDT 10/06/2022 3:57 PM CDT Ilene Guevara MD LAB BLOOD ORDERABLES [facility] Unless otherwise noted, all lab tests performed by: Division of Pathology and Laboratory Medicine [address] [place] [phone] * Troponin T (In-House) (10/06/2022 3:42 PM CDT) Troponin T 12 <=19 ng/L [facility] Comment: < 19 ng/L Suggest retest at 3 to 6 hours later to rule out myocardial infarction >= 19 to <=52 ng/L Possible myocardial injury. Suggest retest at 3 hours. - a change of < 20 ng/L, retest at 6 hours - a change of >= 20 ng/L, suggestive of myocardial infarction > 52 ng/L Suggestive of myocardial infarction Critical value will be reported when cTnT is > 52 ng/L and only reported for the first in a series. Hemolyzed specimens with Hemolysis Index >100 (100 mg/dl or moderate hemolysis) may cause interferences and falsely low results. Blood 10/06/2022 3:42 PM CDT 10/06/2022 3:57 PM CDT Ilene Guevara MD LAB BLOOD ORDERABLES Performing Organization Address City/[facility]/ZIP Co de Phone Number [facility] Unless otherwise noted, all lab tests performed by: Division of Pathology and Laboratory Medicine [address] [place] [address] * ALT (10/06/2022 3:42 PM CDT) ALT 24 <=41 U/L [facility] Blood 10/06/2022 3:42 PM CDT 10/06/2022 3:57 PM CDT Ilene Guevara MD LAB BLOOD ORDERABLES [facility] Unless otherwise noted, all lab tests performed by: Division of Pathology and Laboratory Medicine [address] [place] [address] [phone] * Aspartate Aminotransferase (10/06/2022 3:42 PM CDT) AST 19 <=40 U/L [facility] Blood 10/06/2022 3:42 PM CDT 10/06/2022 3:57 PM CDT Ilene Guevara MD LAB BLOOD ORDERABLES Performing Organization Address [facility] de Phone Number [facility] Unless otherwise noted, all lab tests performed by: Division of Pathology and Laboratory Medicine [address] [place] [address] [phone] * Total Protein (10/06/2022 3:42 PM CDT) Total Protein 6.6 6.4 - 8.3 g/dL [facility] Blood 10/06/2022 3:42 PM CDT 10/06/2022 3:57 PM CDT Ilene Guevara MD LAB BLOOD ORDERABLES Performing Organization Address [facility] Phone Number [facility] Unless otherwise noted, all lab tests performed by: Division of Pathology and Laboratory Medicine [address] [place] [phone] * Phosphorus Level (10/06/2022 3:42 PM CDT) Phosphorus 3.4 2.5 - 4.5 mg/dL [facility] Blood 10/06/2022 3:42 PM CDT 10/06/2022 3:57 PM CDT Ilene Guevara MD LAB BLOOD ORDERABLES Performing Organization Address [facility] de Phone Number [facility] Unless otherwise noted, all lab tests performed by: Division of Pathology and Laboratory Medicine [address] [place] [phone] * Alkaline Phosphatase (10/06/2022 3:42 PM CDT) Alk Phos 81 40 - 129 U/L [facility] Blood 10/06/2022 3:42 PM CDT 10/06/2022 3:57 PM CDT Ilene Guevara MD LAB BLOOD ORDERABLES Performing Organization Address [facility]/ZIP Co de Phone Number [facility] Unless otherwise noted, all lab tests performed by: Division of Pathology and Laboratory Medicine [address] [place] [address] [phone] * Magnesium Level (10/06/2022 3:42 PM CDT) Magnesium 2.2 1.6 - 2.6 mg/dL [facility] Blood 10/06/2022 3:42 PM CDT 10/06/2022 3:57 PM CDT Ilene Guevara MD LAB BLOOD ORDERABLES Performing Organization Address [facility] Co de Phone Number [facility] Unless otherwise noted, all lab tests performed by: Division of Pathology and Laboratory Medicine [address] [place] [address] [phone] * Glucose Level (10/06/2022 3:42 PM CDT) Glucose Level 95 70 - 99 mg/dL [facility] Comment: Effective 12/17/15, the glucose reference intervals have been updated based on [place] Diabetes Association guidelines (Standards of Medical Care in Diabetes 2016. Diabetes Care 2016; 39: S13-S22). Fasting blood glucose: Normal: 70-99 mg/dL Impaired fasting glucose (increased risk for diabetes or pre-diabetes): 100- 125 mg/dL Diabetes mellitus: >/=126 mg/dL Random blood glucose: Normal: 70-199 mg/dL Note: Random glucose >100 mg/dL is associated with increased risk for diabetes Blood 10/06/2022 3:42 PM CDT 10/06/2022 3:57 PM CDT Ilene Guevara MD LAB BLOOD ORDERABLES Performing Organization Address [facility] Co de Phone Number [facility] Unless otherwise noted, all lab tests performed by: Division of Pathology and Laboratory Medicine [address] [place] [address] [phone] * Calcium Level (10/06/2022 3:42 PM CDT) Calcium Lvl 8.6 8.4 - 10.2 mg/dL [facility] Blood 10/06/2022 3:42 PM CDT 10/06/2022 3:57 PM CDT Ilene Guevara MD LAB BLOOD ORDERABLES Performing Organization Address [facility] Co de Phone Number [facility] Unless otherwise noted, all lab tests performed by: Division of Pathology and Laboratory Medicine [address] [place] [address] [phone] * Albumin Level (10/06/2022 3:42 PM CDT) Albumin Lvl 4.1 3.5 - 5.2 gm/dL [facility] Blood 10/06/2022 3:42 PM CDT 10/06/2022 3:57 PM CDT Ilene Guevara MD LAB BLOOD ORDERABLES Performing Organization Address [facility] Phone Number [facility] Unless otherwise noted, all lab tests performed by: Division of Pathology and Laboratory Medicine [address] [place] [address] [phone] * Electrolyte Panel (10/06/2022 3:42 PM CDT) Sodium Lvl 138 136 - 145 mEq/L [facility] Potassium Lvl 4.3 3.5 - 5.1 mEq/L [facility] Chloride 103 98 - 107 mEq/L [facility] CO2 27 22 - 29 mEq/L [facility] Anion Gap 8 4 - 14 mEq/L [facility] Blood 10/06/2022 3:42 PM CDT 10/06/2022 3:57 PM CDT Ilene Guevara MD LAB BLOOD ORDERABLES Performing Organization Address [facility] Co de Phone Number [facility] Unless otherwise noted, all lab tests performed by: Division of Pathology and Laboratory Medicine [address] [place] [address] [phone] * EKG, 12-Lead (Portable) (10/06/2022) Ilene Guevara MD ECG ORDERABLES YOLI IECG after 08/28/2022 Advance Directives Latest Code Status on File Code Status Date Activated Date Inactivated Comments Full Code 10/21/2021 8:45 PM 10/23/2021 1:10 PM Code Status History Code Status Date Activated Date Inactivated Comments Full Code 09/12/2021 8:26 PM 09/15/2021 5:29 PM Full Code 05/28/2021 7:53 PM 05/29/2021 2:43 PM Care Teams Home Health Care Worker Relationship Specialty Start Date End Date Neal Tyler MD [address] [place] [address] [phone] PCP - General Family Practice 09/12/21 Bert Ridley MD [address] [place] [address] [phone] Consulting Physician Head and Neck Surgery 02/16/23 Jorge Luis Olson MD [address] [place] [address] [phone] Consulting Physician Plastic and Reconstructive Surgery 05/26/21 Edward Bird IV, MD [address] [place] [address] [phone] Consulting Physician Urology 07/14/21 Mary Boles MD [address] [place] [address] [phone] Consulting Physician Radiation Oncology 03/24/21 Casey Terry MD [address] [place] [address] [phone] Consulting Physician Hematology and Oncology 12/13/22 Marco Antonio Quintana MD [address] [place] [address] [phone] Consulting Physician Internal Medicine 05/19/21
[2023-08-28] MEDS ORDERED: FAMOTIDINE 20 MG/2 ML VIAL IV ONE (14:45)
[2023-08-28] MEDS ORDERED: ONDANSETRON 4 MG/2 ML VIAL ONE (14:45)
[2023-08-28] MEDS ORDERED: KETOROLAC 30 MG/ML INJ ONE (14:45)
[2023-08-28] MEDS ORDERED: NA CHLORIDE 0.9% 1,000 ML ONE (14:45)
[2023-08-28 15:01] LABS: Absolute Lymphocytes (CBC) 1.3 K/uL (0.7-4.9); Absolute Monocytes 0.7 K/uL (0.1-1.3); Absolute Neutrophil 8.1 K/uL (1.8-8.0); Basophils % 0.5 % (0-1.3); Eosinophils % 0.4 % (0-4.4); Hemoglobin 18.1 g/dL (13.6-17.9); Lymphocytes % 12.5 % (15.3-44.8); MCH 29.4 pg (27.0-35.0); MCHC 33.6 g/dL (32.0-36.0); MCV 87.6 fL (80-100); MPV 8.7 fL (7.6-11.3); Monocytes % 7.3 % (3.3-12.3); Neutrophils % 79.3 % (41.7-73.7); Nucleated Red Blood Cells % 0.2 % (0-0); Platelets 152 thou/uL (152-406); RBC Red Blood Cell Count 6.16 M/uL (4.33-5.43); Red Cell Distribution Width 14.9 % (12.1-15.2)
[2023-08-28 15:21] LABS: Albumin 3.9 g/dL (3.4-5.0); Albumin/Globulin Ratio 1.1 (1.1-1.8); Anion Gap 9.9 mEq/L (5.0-15.0); Bilirubin Total 1.2 mg/dL (0.2-1.0); Globulin 3.6 g/dL (2.3-3.5); Potassium 3.9 mEq/L (3.5-5.1); Protein, Total 7.5 g/dL (6.4-8.2)
--- NOTE | 2023-08-28 16:12 | RAD REPORT ---
EXAM DESCRIPTION: CTAbdomen Pelvis W Contrast - 08/28/2023 3:52 pm CLINICAL HISTORY: ABD PAIN COMPARISON: No comparisons TECHNIQUE: CT of the abdomen and pelvis was performed. All CT scans are performed using dose optimization technique as appropriate and may include automated exposure control or mA/KV adjustment according to patient size. FINDINGS: Lower chest: Small hiatal hernia. Thickened distal esophagus likely reflecting esophagitis . Liver: Hepatic steatosis. Biliary: No biliary ductal dilatation. Stomach: Partial gastrectomy. Duodenum: No significant focal abnormality. Pancreas: No significant abnormality. Spleen: Splenomegaly. The spleen measures 15.2 cm in long axis. Adrenal: No suspicious lesions. Kidney/ureter: No hydronephrosis. No renal calculi. Left nephrectomy. Right renal sinus cyst. Retroperitoneum: No retroperitoneal adenopathy. Vascular: No aneurysm. Bowel: Distended distal duodenum and proximal jejunum with transition to nondilated small bowel. The transition is smooth. No evidence of a bowel obstruction.. Normal appendix. Peritoneum: No ascites or free air. Bladder: Grossly unremarkable. Reproductive: Mild prostatomegaly. Bones: No acute fracture. Sternotomy. Remote T12 and L1 compression deformities. Other: n/a IMPRESSION: No definite acute intra-abdominal or pelvic finding. Normal appendix. Distended distal duodenum and proximal jejunum but without evidence of bowel obstruction. An ileus is a consideration. Splenomegaly of uncertain, if any, clinical significance. Moderately thickened distal esophagus likely reflecting esophagitis. Surgical changes of partial ricky rectomy. Left nephrectomy.
--- NOTE | 2023-08-28 16:31 | EDPHYS ---
Physician Documentation [facility] Name: Tristen Peña III Age: 62 yrs Sex: Male : 1960 Arrival Date: 08/28/2023 Time: 13:14 Bed 8 Private MD: Neal Tyler ED Physician Tiburcio Brady HPI: 08/27 16:07 This 62 yrs old Male presents to ER via Ambulatory with complaints of Constipation, kb Vomiting, Abdominal Pain. 16:07 Pt is a 62 year old male who presents for constipation for 4 days with nausea and kb vomiting for 3 days. States slight abd pain to upper abd. Denies fever. . Historical: - Allergies: 13:34 No Known Allergies; hb - PMHx: 13:34 chronic back pain; neuropathy; left shoulder pain; right foot drop; spindle cell hb carcinoma (in remission); Hypertensive disorder; Pulmonary Embolism; diabetes mellitus; PTSD; Hyperlipidemia; - PSHx: 13:34 cardiac ablation x2; excision of part of the stomach; kidney excision; nerve block to hb L5; right shoulder surgery; turmor removal from left lower extremity; - Immunization history:: Adult Immunizations up to date. - Infectious Disease History:: Denies. - Social history:: Smoking status: Patient reports the use of cigarette tobacco products, smokes one pack cigarettes per day. ROS: 16:07 Constitutional: As per HPI kb Exam: 16:07 Constitutional: This is a well developed, well nourished patient who is awake, alert, kb and in no acute distress. Head/Face: Normocephalic, atraumatic. ENT: Moist Mucous membranes Cardiovascular: Regular rate Respiratory: Respirations even and unlabored. No increased work of breathing. Talking in full sentences Abdomen/GI: Soft, non-tender. No distention Skin: Warm, dry with normal turgor. Normal color. MS/ Extremity: Pulses equal, no cyanosis. Neurovascular intact. Full, normal range of motion. Neuro: Awake and alert, GCS 15, oriented to person, place, time, and situation. Moves all extremities. Normal gait. Vital Signs: 13:33 BP 123 / 106; Pulse 98; Resp 18; Temp 97.8(O); Pulse Ox 100% on R/A; Weight 103.42 kg; hb Height 6 ft. 5 in. ; Pain 0/10; 15:23 BP 121 / 73; Pulse 87; Resp 16; Pulse Ox 99% on R/A; iw 16:19 BP 148 / 91; Pulse 82; Resp 16; Pulse Ox 97% on R/A; ss 13:33 Body Mass Index 27.04 (103.42 kg, 195.58 cm) hb 13:33 Pain Scale: Adult hb MDM: 13:20 Patient medically screened. kb 16:08 Differential diagnosis: bowel obstruction, cholecystitis, Cholelithiasis, gastritis, kb gastroesophageal reflux disease, non-specific abd pain, pancreatitis. Data reviewed: vital signs, nurses notes. 16:28 Consideration of Admission/Observation Escalation of care including kb admission/observation considered. admission considered, but pt does not want to be admitted to the hospital. States he prefers to go home and will return for worsening symptoms. Counseling: I had a detailed discussion with the patient and/or guardian regarding the historical points, exam findings, and any diagnostic results supporting the discharge/admit diagnosis, lab results, radiology results, the need for outpatient follow up, a family practitioner, a pin inserter, to return to the emergency department if symptoms worsen or persist or if there are any questions or concerns that arise at home. 08/27 14:05 Order name: CBC with Diff; Complete Time: 15:16 kb 08/27 14:05 Order name: CMP; Complete Time: 15:25 kb 08/27 14:05 Order name: Lipase; Complete Time: 15:25 kb 08/27 14:05 Order name: CT Abd/Pelvis - IV Contrast Only; Complete Time: 16:15 kb 08/27 14:05 Order name: IV Saline Lock; Complete Time: 14:38 kb 08/27 14:05 Order name: Labs collected and sent; Complete Time: 14:38 kb Administered Medications: 14:57 Drug: NS 0.9% IV 1000 ml IV at 1 bolus Per protocol; 1000 mL bolus Route: IV; Rate: 1 iw bolus; Site: right wrist; 16:47 Follow up: IV Status: Completed infusion; IV Intake: 1000ml ss 14:57 Drug: Famotidine IVP 20 mg IVP once; dilute with 10 mL 0.9% NaCl; give over 2 minutes iw Route: IVP; Site: right wrist; 16:47 Follow up: Response: No adverse reaction ss 14:57 Drug: TORadol - Ketorolac IVP 15 mg IVP once Route: IVP; Site: right wrist; iw 16:47 Follow up: Response: No adverse reaction; Pain is decreased ss 14:57 Drug: Ondansetron IVP 4 mg IVP once; over 2 minutes Route: IVP; Site: right wrist; iw 16:47 Follow up: Response: No adverse reaction ss Disposition Summary: 08/28/23 16:30 Discharge Ordered Notes: Location: Home kb Condition: Stable kb Diagnosis - Ileus, unspecified kb - Esophagitis, unspecified kb Followup: kb - With: Emergency Department - When: As needed - Reason: Worsening of condition Followup: kb - With: Private Physician - When: 2 - 3 days - Reason: Recheck today's complaints, Continuance of care, Re-evaluation by your physician Discharge Instructions: - Discharge Summary Sheet kb - Esophagitis kb - Ileus kb Forms: - Medication Reconciliation Form kb - Thank You Letter kb - Antibiotic Education kb - Prescription Opioid Use kb - Patient Portal Instructions kb - Leadership Thank You Letter kb Prescriptions: - Zofran 4 mg Oral tablet - take 1 tablet ORAL route every 6 hours As needed; 12 tablet; Refills: 0, kb Product Selection Permitted - Pepcid 20 mg Oral Tablet - take 1 tablet ORAL route once daily; 20 tablet; Refills: 0, Product Selection kb Permitted Signatures: Dispatcher [employer] Cecille Sim, YOLANDA FAULKNER-Lilibeth Fontaine, RN RN Ana Foster RN RN Wanda Reed RN
--- NOTE | 2023-08-28 16:31 | ER ---
Nurse's Notes [facility] Name: Tristen Peña III Age: 62 yrs Sex: Male : 1960 Arrival Date: 08/28/2023 Time: 13:14 Bed 8 Private MD: Neal Tyler Diagnosis: Ileus, unspecified;Esophagitis, unspecified Presentation: 08/27 13:33 Chief complaint: Upper abdominal pain and N/V x 3 days. Coronavirus screen: At this hb time, the client does not indicate any symptoms associated with coronavirus-19. Ebola Screen: No symptoms or risks identified at this time. Initial Sepsis Screen: Does the patient meet any 2 criteria? No. Patient's initial sepsis screen is negative. Does the patient have a suspected source of infection? No. Patient's initial sepsis screen is negative. Risk Assessment: Do you want to hurt yourself or someone else? Patient reports no desire to harm self or others. Onset of symptoms was August 26, 2023. 13:33 Method Of Arrival: Ambulatory hb 13:33 Acuity: MARLON 3 hb Triage Assessment: 13:34 General: Appears in no apparent distress. Behavior is calm, cooperative. Pain: Pain hb currently is 0 out of 10 on a pain scale. at worst was 8 out of 10 on a pain scale. Neuro: Level of Consciousness is awake, alert, obeys commands, Oriented to person, place, time, situation. Cardiovascular: Patient's skin is warm and dry. Respiratory: Respiratory effort is even, unlabored, Respiratory pattern is regular, symmetrical. GI: Reports upper abdominal pain, cramping, nausea, vomiting. Historical: - Allergies: 13:34 No Known Allergies; hb - PMHx: 13:34 chronic back pain; neuropathy; left shoulder pain; right foot drop; spindle cell hb carcinoma (in remission); Hypertensive disorder; Pulmonary Embolism; diabetes mellitus; PTSD; Hyperlipidemia; - PSHx: 13:34 cardiac ablation x2; excision of part of the stomach; kidney excision; nerve block to hb L5; right shoulder surgery; turmor removal from left lower extremity; - Immunization history:: Adult Immunizations up to date. - Infectious Disease History:: Denies. - Social history:: Smoking status: Patient reports the use of cigarette tobacco products, smokes one pack cigarettes per day. Screenin:39 [facility] ED Fall Risk Assessment (Adult) History of falling in the last 3 months, iw including since admission No falls in past 3 months (0 pts) Confusion or Disorientation No (0 pts) Intoxicated or Sedated No (0 pts) Impaired Gait No (0 pts) Mobility Assist Device Used Yes (1 pt) Altered Elimination No (0 pt) Score/Fall Risk Level 0 - 2 = Low Risk Oriented to surroundings, Maintained a safe environment. Abuse screen: Denies threats or abuse. Denies injuries from another. Nutritional screening: No deficits noted. Tuberculosis screening: No symptoms or risk factors identified. Assessment: 14:38 General: Appears in no apparent distress. Behavior is calm, cooperative. Pain: iw Complains of pain in epigastric area. Pain: Pain currently is 1 out of 10 on a pain scale. Neuro: Level of Consciousness is awake, alert, obeys commands, Oriented to person, place, time, situation, Moves all extremities. Full function. Cardiovascular: Patient's skin is warm and dry. Respiratory: Respiratory effort is even, unlabored, Respiratory pattern is regular, symmetrical. GI: Abd is soft X 4 quads Reports upper abdominal pain, constipation, nausea. Derm: Skin is intact, is healthy with good turgor. Musculoskeletal: Range of motion: intact in all extremities. Vital Signs: 13:33 BP 123 / 106; Pulse 98; Resp 18; Temp 97.8(O); Pulse Ox 100% on R/A; Weight 103.42 kg; hb Height 6 ft. 5 in. ; Pain 0/10; 15:23 BP 121 / 73; Pulse 87; Resp 16; Pulse Ox 99% on R/A; iw 16:19 BP 148 / 91; Pulse 82; Resp 16; Pulse Ox 97% on R/A; ss 13:33 Body Mass Index 27.04 (103.42 kg, 195.58 cm) hb 13:33 Pain Scale: Adult hb ED Course: 13:16 Patient arrived in ED. mr 13:16 Neal Tyler DO is Private Physician. mr 13:19 Cecille Tejada [facility]-C [facility]. kb 13:19 Tiburcio Brady MD is Attending Physician. kb 13:34 Triage completed. hb 13:36 Arm band placed on. hb 14:28 Lilibeth Ellis, RN is Primary Nurse. iw 14:37 Initial lab(s) drawn, by me, sent to lab. Inserted saline lock: 20 gauge in right iw wrist, using aseptic technique. Blood collected. 15:00 Patient has correct armband on for positive identification. Bed in low position. Call iw light in reach. Side rails up X2. Provided Education on: diagnostics . Client placed on continuous cardiac and pulse oximetry monitoring. NIBP monitoring applied. Warm blanket given. 15:54 CT Abd/Pelvis - IV Contrast Only In Process Unspecified. EDMS 16:46 No provider procedures requiring assistance completed. IV discontinued, intact, ss bleeding controlled, No redness/swelling at site. Pressure dressing applied. Administered Medications: 14:57 Drug: NS 0.9% IV 1000 ml IV at 1 bolus Per protocol; 1000 mL bolus Route: IV; Rate: 1 iw bolus; Site: right wrist; 16:47 Follow up: IV Status: Completed infusion; IV Intake: 1000ml ss 14:57 Drug: Famotidine IVP 20 mg IVP once; dilute with 10 mL 0.9% NaCl; give over 2 minutes iw Route: IVP; Site: right wrist; 16:47 Follow up: Response: No adverse reaction ss 14:57 Drug: TORadol - Ketorolac IVP 15 mg IVP once Route: IVP; Site: right wrist; iw 16:47 Follow up: Response: No adverse reaction; Pain is decreased ss 14:57 Drug: Ondansetron IVP 4 mg IVP once; over 2 minutes Route: IVP; Site: right wrist; iw 16:47 Follow up: Response: No adverse reaction ss Medication: 14:39 VIS not applicable for this client. iw Intake: 16:47 IV: 1000ml; Total: 1000ml. ss Outcome: 16:30 Discharge ordered by . phuong 16:46 Discharged to home ambulatory, with significant other, ss 16:46 Condition: improved 16:46 Discharge instructions given to patient, family, Instructed on discharge instructions, follow up and referral plans. Demonstrated understanding of instructions, follow-up care, medications, Prescriptions given X 2, 16:47 Patient left the ED. ss Signatures: Dispatcher [employer] EDMS Cecille Tejada, KAUSHIK-C CASH ROOM CLERK-CkAurora Diaz, Reg Reg mr Lilibeth Ellis, JULIO RN Wanda Reed RN RN ss Ana Berman, RN RN hb
[2023-08-28 23:29] VITALS: BP 148/91; TEMP 97.8; O2SAT 97
== END 2023-08-28 16:47 | disposition home or self-care (01) ==
LOC: ER 13:14
DX: K56.7 Ileus, unspecified (principal); K20.90 Esophagitis, unspecified without bleeding; I10 Essential (primary) hypertension; E11.9 Type 2 diabetes mellitus without complications; F17.210 Nicotine dependence, cigarettes, uncomplicated
CPT/HCPCS: 96361; 85025; 36415; 83690; 80053; 74177; 96375; 96374; 99284; Q9967; J2405; J7030

== ENCOUNTER 2024-02-15 18:34 | Emergency (ER) | payer OTHER ==
--- OUTSIDE RECORDS SUMMARY | 2024-02-15 18:36 | XMS REPORT | Clinical Summary ---
Author Name Unknown Organization [facility] Address [address] [place] [address] Care Team Providers Care Emergency Department Coordinator Name Role Phone Neal Tyler MD Primary Care Provider [phone] Bert Ridley MD Unavailable Jorge Luis Olson MD Unavailable [phone] Pelon ROBLES MD, William J Unavailable [phone] Mary Boles MD Unavailable [phone] Casey Terry MD Unavailable [phone] Marco Antonio Quintana MD Unavailable Allergies No known active allergies Medications Medication Sig Dispensed Refills Start Date End Date Status tadalafil (CIALIS) 5 mg tablet Take 1 tablet (5 mg) by mouth daily. 09/08/2020 Active sertraline (ZOLOFT) 100 mg tablet Take 1 tablet (100 mg) by mouth daily. 07/28/2020 Active semaglutide (Ozempic) 1 mg/dose (4 mg/3 mL) pnij Inject 1 mg under the skin once a week. 02/23/2021 Active fluticasone propionate (FLONASE) 50 mcg/spray nasal spray as needed. 06/30/2020 Active FreeStyle Lite Meter kit 02/25/2021 Active testosterone cypionate (DEPO-TESTOTERONE) 200 mg/mL injection Inject 0.5 mL (100 mg) into the shoulder, thigh, or buttocks once a week. Active acetaminophen (Tylenol Extra Strength) 500 mg tabletIndications:H ydronephrosis with ureteropelvic junction obstruction Take 1 tablet (500 mg) by mouth every 6 (six) hours as needed for mild pain. 0 10/22/2021 Active traMADol (Ultram) 50 mg tabletIndications:H ydronephrosis with ureteropelvic junction obstruction Take 1 tablet (50 mg) by mouth every 6 (six) hours as needed for moderate pain or severe pain. 10 tablet 10/27/2021 Active albuterol (VENTOLIN HFA,PROAIR HFA) 90 mcg/puff inhaler Inhale by mouth every 6 (six) hours as needed for wheezing or shortness of breath. Active diclofenac sodium 3 % gel Apply 1 application topically daily as needed. Active Jardiance 25 mg tab Take 1 tablet (25 mg) by mouth daily. 11/17/2021 Active mirtazapine (REMERON) 15 mg tablet Take 1 tablet (15 mg) by mouth at bedtime. 03/09/2022 Active risperiDONE (RisperDAL) 1 mg tablet Take 1 tablet (1 mg) by mouth at bedtime. 04/28/2022 Active carvedilol (COREG) 6.25 mg tablet Take 1 tablet (6.25 mg) by mouth daily. 02/15/2023 Active rosuvastatin (CRESTOR) 10 mg tablet Take 1 tablet (10 mg) by mouth at bedtime. 07/08/2022 Active apixaban (Eliquis) 2.5 mg tabletIndications:M ultiple subsegmental pulmonary emboli without acute cor pulmonale Take 1 tablet (2.5 mg) by mouth every 12 (twelve) hours. 60 tablet 3 10/03/2023 Active apixaban (ELIQUIS STARTER PACK) tablet dose pack 5 mg FOR VTE ONLYIndications:Pul monary embolism Take 2 tablets by mouth twice daily for 7 days, then take 1 tablet by mouth twice daily thereafter. 74 tablet 10/06/2022 4 Discontinue d(Therapy completed) losartan (COZAAR) 25 mg tablet Take 1 tablet (25 mg) by mouth daily. 3 Discontinue d(Therapy completed) apixaban (Eliquis) 2.5 mg tabletIndications:M ultiple subsegmental pulmonary emboli without acute cor pulmonale Take 1 tablet (2.5 mg) by mouth every 12 (twelve) hours. 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 Type 2 diabetes mellitus 02/26/2021 Benign prostatic hypertrophy without outflow obs truction 02/26/2021 Overview: 02/20 CMS regulatory import Decreased testosterone level 02/26/2021 Erectile dysfunction 02/26/2021 Hypertension 02/26/2021 Simple obesity 02/26/2021 Encounters Date Type Department Care Team Description 02/08/2024 2:30 PM CDT [facility] [address] [place] [address], [address]th [address] [place], [place] [id number] [phone] Diane Isaac MD Spindle cell sarcoma of connective, 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) 02/08/2024 11:15 AM CDT Ancillary Procedure [facility] [address] [place] [id number] Ramana Townsend PA Spindle cell sarcoma of connective, 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> 02/08/2024 8:58 AM CDT - 02/08/2024 11:59 PM CDT Hospital Encounter [facility] [address] [place] [address], [place] [address] Casey Terry MD Pulmonary embolism; Pulmonary embolism, not otherwise specified; Erythrocytosis Discharge Disposition: Home 02/08/2024 7:15 AM CDT Ancillary Procedure [facility] [address] [place] [id number] Ramana Townsend PA Spindle cell sarcoma of connective, 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> 02/08/2024 Travel 12/19/2023 8:15 AM CDT Office Visit Internal Medicine Center - Hematology [address] [facility], 6th [place] [address] Casey Terry MD Erythrocytosis (Primary Dx); Pulmonary embolism; Pulmonary embolism, not otherwise specified 12/19/2023 Travel 10/03/2023 Orders Only [facility] [address] [place] [address], 9th [place] [address] Steve Epstein PA Multiple subsegmental pulmonary emboli without acute cor pulmonale 10/03/2023 Refill Orthopaedic [address], 9th [facility] [place] [address] Steve Epstein PA Multiple subsegmental pulmonary emboli without acute cor pulmonale 09/28/2023 2:30 PM CDT Follow-Up [facility] [address], 9th [place] [address] Diane Isaac MD Spindle cell sarcoma of connective, 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> 09/28/2023 10:30 AM CDT Ancillary Procedure General Ultrasound [address] [facility], 5th [place] [address] Jacquelin Gottlieb PA Spindle cell sarcoma of connective, 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> 09/28/2023 7:41 AM CDT - 09/28/2023 11:59 PM CDT Hospital Encounter Main CT IMAGING [address] [facility], 3rd [place] [address] Steve Epstein PA Spindle cell sarcoma of connective, 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> Discharge Disposition: Home 09/28/2023 Travel 09/26/2023 Orders Only [facility] [address] [facility], 9th [place] [address] Jacquelin Gottlieb PA Spindle cell sarcoma of connective, 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) 06/01/2023 2:30 PM HEALTH AND SAFETY DIRECTOR [facility] [address] [place] [address], 9th [place] [address] Diane Isaac MD Multiple subsegmental pulmonary emboli without acute cor pulmonale (Primary Dx); Spindle cell sarcoma of connective, 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> 06/01/2023 10:00 AM HEALTH AND SAFETY DIRECTOR Ancillary Procedure Diagnostic Imaging in [address] [address] Jacquelin Gottlieb PA Spindle cell sarcoma of connective, 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> 06/01/2023 6:55 AM HEALTH AND SAFETY DIRECTOR Ancillary Procedure CT Imaging [address] [facility], 7th [place] [address] Jacquelin Gottlieb PA Spindle cell sarcoma of connective, 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> 06/01/2023 Travel 02/16/2023 9:00 AM CDT - 02/16/2023 11:59 PM CDT Hospital Encounter [facility] [address] [place] [address], 10th Floor, [place] [address] Bert Ridley MD Sensorineural hearing loss, bilateral (Primary Dx); Spindle cell sarcoma of connective, 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>; Bilateral tinnitus Discharge Disposition: Home 02/16/2023 8:30 AM CDT - 02/16/2023 8:59 AM CDT Hospital Encounter [facility] [address] [place] [address], 10th [place] [address] Hilton Mike PA Jivani, Shirin, AuD Sensorineural hearing loss, bilateral (Primary Dx); Spindle cell sarcoma of connective, 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> Discharge Disposition: Home 02/16/2023 Travel 02/15/2023 Orders Only [facility] - [facility] [address] [facility] [address], 10th Floor, [place] [address] Hilton Mike PA Spindle cell sarcoma of connective, 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) after 02/15/2023 Immunizations Name Administration Dates Next Due Micheal SARS-CoV-2 Vaccination 08/08/2020,2020 Moderna SARS-CoV-2 Monovalen t Booster Vaccination (50 mcg/0.25 mL) 02/23/2021 Surgical History Surgery Date Site/Laterality Comments COLONOSCOPY 05/23/2014 - 05/22/2015 STOMACH SURGERY 05/23/2014 - 05/22/2015 SHOULDER SURGERY 05/23/2015 - 05/22/2016 CARDIAC SURGERY 05/23/1989 - 05/22/1990 ablation, arrhytmic focus DE RAD RESECTION TUMOR SOFT TISSUE LEG/ANKLE <5CM 05/28/2021 Leg Lower/Left Procedure: Radical resection of soft tissue sarcoma of left posterior leg (calf); Surgeon: Diane Isaac MD; Location: MAIN OR; Service: ORTHOPEDIC ONCOLOGY DE PHYS STANDBY SVC PROLNG PHYS ATTN EA 30 MINUTES 05/28/2021 N/A Procedure: PHYSICIAN STANDBY SERVICE REQUIRING PROLONGED ATTENDANCE - EACH 30 MINUTES; Surgeon: Jorge Luis Olson MD; Location: MAIN OR; Service: PLS - PLASTIC SURGERY DE LAPAROSCOPY RADICAL NEPHRECTOMY 10/21/2021 Abdomen/Left Procedure: SURGICAL LAPAROSCOPY WITH RADICAL NEPHRECTOMY; Surgeon: Edward Bird IV, MD; Location: MAIN OR; Service: UROLOGY DE CYSTO W/SIMPLE REMOVAL STONE & STENT 10/21/2021 Genitalia/Left Procedure: CYSTOURETHROSCOPY, WITH REMOVAL OF URETERAL STENT FROM URETHRA; Surgeon: Edward Bird IV, MD; Location: MAIN OR; Service: UROLOGY Medical History Medical History Date Comments Hypertension 15yrs 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 pt did see search lead and undwent cardiac testing that was negative. [...] Used Date Smoking Tobacco: Former Cigarettes 1.5 26 0 10/19/1980 - 10/19/2006 Cigars Smokeless Tobacco: [...] Sign Reading Time Taken Comments Blood Pressure 137/93 02/08/2024 12:22 PM CDT Pulse 73 02/08/2024 12:22 PM CDT Temperature 36.5 C (97.7 F) 02/08/2024 1 2:22 PM CDT Respiratory Rate 16 02/08/2024 12:2 2 PM CDT Oxygen Saturation 99% 02/08/2024 12: 22 PM CDT Inhaled Oxygen Concentration - - Weight 104.5 kg (230 lb 6.1 oz) 024 12:23 PM CDT Height 193 cm (6' 3.98") 12/19/2023 8:22 AM CDT Body Mass Index 28.05 12/19/2023 8:22 AM CDT Plan of Treatment Upcoming Encounters Date Type Department Care Team (Late st Contact Info) Description 12/24/2024 8:15 AM CDT Office Visit Internal Medicine Center - Hematology [address] [facility], 6th [place] [address] Casey Terry MD [address] [place] [address] [email or web address] Maintenance Due Date Last Done Comments Pneumococcal Vaccine: Pediat rics (0 to 5 Years) and At-Risk Patients (6 to 64 Years) (1 of 2 - PCV) 1968 COVID-19 Vaccine (2022-2 4 season) 2024 02/23/2021, 08/08/2020, 07/25/2020 Influenza Vaccine (#1) 2024 , 02/23/2021, 05/14/2019, Additional history exists Medical Devices Implanted Type Area Tax Investigator Device Identifier Shelf Expiration Date Model / Serial / Lot Sternal Wires Metalware Heart Description:heart Staple Staple Abdomen Procedures Procedure Name Priority Date/Time Associated Diagnosis Comments MRI TIBIA FIBULA LEFT W WO CONTRAST Routine 02/08/2024 11:34 AM CDT Spindle cell sarcoma of connective, 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> .CBC Routine 02/08/2024 9:06 AM CDT Pulmonary embolism Pulmonary embolism, not otherwise specified Erythrocytosis COMPLETE BLOOD COUNT W/ DIFFERENTIAL Routine 02/08/2024 9:06 AM CDT Pulmonary embolism Pulmonary embolism, not otherwise specified Erythrocytosis CT CHEST W CONTRAST Routine 02/08/2024 8 :18 AM CDT Spindle cell sarcoma of connective, 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> POC CREATININE Routine 02/08/2024 7:43 AM CDT US LOWER EXTREMITY LIMITED LEFT Routine 09/28/2023 10:26 AM CDT Spindle cell sarcoma of connective, 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> CT CHEST W CONTRAST Routine 09/28/2023 8:51 AM CDT Spindle cell sarcoma of connective, 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> POC CREATININE Routine 09/28/2023 8:10 AM CDT MRI TIBIA FIBULA LEFT W WO CONTRAST Routine 06/01/2023 11:58 AM HEALTH AND SAFETY DIRECTOR Spindle cell sarcoma of connective, 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 Anatomical Region Laterality Modality Extremity, Leg Magnetic Resonan ce 02/08/2024 3:08 PM CDT Impressions 02/08/2024 3:42 PM CDT 1. No evidence of tumor recurrence. There is low probability for local recurrence. 2. Stable edema of distal 3rd of flexor hallucis longus muscle. Stable mild edema of left lower extremity anterior compartment musculature. Findings most likely represent post radiation change. 3. Stable 4 x 1.4 cm oblong synovial versus ganglion cyst arising from posterior aspect of proximal tibiofibular joint. ACTIONABLE ITEMS/RECOMMENDATIONS*: None. *An Actionable Finding is a finding that may be unrelated to the original reason for imaging but potentially actionable, meaning further investigation may be necessary. The Actionable Findings Vigilance Unit (AFVU) assists medical providers with responding to additional radiologic findings that are unexpected and potentially actionable. Narrative 02/08/2024 3:42 PM CDT FULL RESULT: Examination: MRI TIBIA FIBULA LEFT W WO CONTRAST, 02/08/2024 11:34 AM. 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 Indication: eval for disease recurrence Comparison: Preoperative MRI left tibia fibula 05/26/2021. Baseline postoperative MRI left tibia fibula 08/25/2021. MRI left tibia and fibula 01/19/2023 and 06/01/2023. Technique: Multiplanar, multisequence magnetic resonance imaging of the left tibia and fibula was performed without and with intravenous administration of contrast. Findings: Tumor and treatment bed: * Stable surgical scarring at posterior proximal to mid left calf and medial gastrocnemius muscle. * No T2 nodularity or abnormal enhancement to suggest recurrence. * On DCE analysis, no evidence of hyperenhancement. Lymph nodes: No [...] posterior aspect of proximal tibiofibular joint measuring 4 x 1.4 cm on series 12 image 13, previously 3.4 x 1.4 cm on 06/01/2023 series 10 image 12. Slight difference in size is most likely secondary to slight differences in imaging and measuring techniques. Procedure Note Vern Bolden MD - 02/08/2024 FULL RESULT: Examination: MRI TIBIA FIBULA LEFT W WO CONTRAST, 02/08/2024 11:34 AM. 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 Indication: eval for disease recurrence Comparison: Preoperative MRI left tibia fibula 05/26/2021. Baselinepostoperative MRI left tibia fibula 08/25/2021. MRI left tibia and fibula01/19/2023 and 06/01/2023. Technique: Multiplanar, multisequence magnetic resonance imaging of theleft tibia and fibula was performed without and with intravenousadministration of contrast. Findings: Tumor and treatment bed: * Stable surgical scarring at posterior proximal to mid left calf andmedial gastrocnemius muscle. * No T2 nodularity or abnormal enhancement to suggest recurrence. * On DCE analysis, no evidence of hyperenhancement. Lymph nodes: No [...] from posterioraspect of proximal tibiofibular joint measuring 4 x 1.4 cm on series 12image 13, previously 3.4 x 1.4 cm on 06/01/2023 series 10 image 12. Slightdifference in size is most likely secondary to slight differences inimaging and measuring techniques. IMPRESSION: 1. No evidence of tumor recurrence. There is low probability for localrecurrence. 2. Stable edema of distal 3rd of flexor hallucis longus muscle. Stablemild edema of left lower extremity anterior compartment musculature.Findings most likely represent post radiation change. 3. Stable 4 x 1.4 cm oblong synovial versus ganglion cyst arising fromposterior aspect of proximal tibiofibular joint. ACTIONABLE ITEMS/RECOMMENDATIONS*: None. *An Actionable Finding is a finding that may be unrelated to the originalreason for imaging but potentially actionable, meaning furtherinvestigation may be necessary. The Actionable Findings Vigilance Unit(AFVU) assists medical providers with responding to additional radiologicfindings that are unexpected and potentially actionable. Ramana HOPKINS IMG MRI ORDERABLE S * (ABNORMAL) .CBC (02/08/2024 9:06 AM CDT) White Blood Cell 7.7 4.1 - 10.5 K/uL 02/08/2024 9:38 AM CDT [facility] Red Blood Cell 5.60 4.30 - 6.04 M/uL 02/08/2024 9:38 AM CDT [facility] Hemoglobin 17.2 13.3 - 17.4 g/dL 02/08/2024 9:38 AM CDT [facility] Hematocrit 52.3(H) 39.5 - 51.8 % 02/08/2024 9:38 AM CDT [facility] Mean Cell Volume 93 82 - 99 fL 02/08/2024 9:38 AM [facility] Mean Cell Hemoglobin 30.7 26.6 - 33.2 pg 02/08/2024 9:38 AM [facility] Mean Cell Hemoglobin Concentration 32.9 31.1 - 35.2 g/dL 02/08/2024 9:38 AM [facility] RDW-SD 49.8(H) 37.5 - 49.7 fL 02/08/2024 9:38 AM [facility] Red Cell Diameter Width 14.3 11.6 - 15.5 % 02/08/2024 9:38 AM [facility] Platelet 147(L) 160 - 397 K/uL 02/08/2024 9:38 AM [facility] Mean Platelet Volume 10.7 9.1 - 12.6 fL 02/08/2024 9:38 AM [facility] INRBC 0.0 0.0 - 0.1 /100 WBC 02/08/2024 9:38 AM [facility] Comment: The INRBC (instrument NRBC) value reflects the enumeration of nucleated red blood cells contained in a 200uL sample of whole blood analyzed by the instrument. This value may differ from the NRBC value reported in a manual differential, which is based on a 100 cell differential. Neutrophil % 71.8 43.2 - 72.7 % 02/08/2024 9:38 AM [facility] Lymphocyte % 20.2 16.8 - 46.2 % 02/08/2024 9:38 AM [facility] Monocyte % 6.5 5.1 - 12.5 % 02/08/2024 9:38 AM [facility] Eosinophil % 0.6 0.4 - 6.3 % 02/08/2024 9:38 AM [facility] Basophil % 0.4 0.2 - 1.4 % 02/08/2024 9:38 AM [facility] IGRE % 0.5 0.1 - 1.5 % 02/08/2024 9:38 AM [facility] Comment:The IGRE% includes M etamyelocytes, Myelocytes and Promyelocytes. Neutrophil Abs 5.54 1.95 - 7.25 K/uL 02/08/2024 9:38 AM CDT [facility] Lymphocyte Abs 1.56 1.01 - 3.24 K/uL 02/08/2024 9:38 AM CDT [facility] Monocyte Abs 0.50 0.24 - 0.85 K/uL 02/08/2024 9:38 AM CDT [facility] Eosinophil Abs 0.05 0.02 - 0.50 K/uL 02/08/2024 9:38 AM CDT [facility] Basophil Abs 0.03 0.02 - 0.09 K/uL 02/08/2024 9:38 AM CDT [facility] IG Abs 0.04 0.01 - 0.12 K/uL 02/08/2024 9:38 AM CDT [facility] Blood Peripheral blood specimen / Unknown Venipuncture / Unknown 02/08/2024 9:06 AM CDT 02/08/2024 9:29 AM CDT Casey Terry MD LAB BLOOD ORDERABLES [facility] Unless otherwise noted, all lab tests performed by: Division of Pathology and Laboratory Medicine [address] [place] [id number] * CT Chest with Contrast (02/08/2024 8:18 AM CDT) Only the most recent of3 resultswithin the time period is included. Anatomical Region Laterality Modality Chest Computed Tomogra phy 02/08/2024 10:0 8 AM CDT Impressions 02/08/2024 10:30 AM CDT There are new small nodules in the right lung of uncertain etiology with the differential including metastases. Follow-up CT imaging could be useful in further evaluation. ACTIONABLE ITEMS/RECOMMENDATIONS*: See Impression. *An Actionable Finding is a finding that may be unrelated to the original reason for imaging but potentially actionable, meaning further investigation may be necessary. The Actionable Findings Vigilance Unit (AFVU) assists medical providers with responding to additional radiologic findings that are unexpected and potentially actionable. Narrative 02/08/2024 10:30 AM CDT FULL RESULT: Examination: CT CHEST W CONTRAST on 02/08/2024 8:18 AM. 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 Indication: To evaluate pulmonary nodules. Comparison: Chest CT 09/28/2023. Technique: CT of the chest is performed with intravenous contrast Findings: Lungs/Airways/Pleura: 1. There is a new 3 mm discrete soft tissue nodule in the middle lobe (image 89, series 3) and a new 1 mm nodule in the right lower lobe (image 89). There are also small scattered nodules in the right lung that are unchanged in size and most consistent with benign etiology. 2. There are no pleural effusions or pleural nodules. Neck/Mediastinum/Nodes/Heart: 3. There are no enlarged intrathoracic or extrathoracic lymph nodes. 4. There is mild coronary artery calcification consistent sequelae of atherosclerosis. Upper Abdomen: 5. There are no hepatic metastases on limited images. 6. The adrenals are normal. However, the right adrenal has been incompletely imaged. 7. There are postsurgical changes following a gastric reduction procedure. Bones/Soft Tissues: 8. There are no osseous metastases. Procedure Note Alec Guido MD - 02/08/2024 FULL RESULT: Examination: CT CHEST W CONTRAST on 02/08/2024 8:18 AM. 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 Indication: To evaluate pulmonary nodules. Comparison: Chest CT 09/28/2023. Technique: CT of the chest is performed with intravenous contrast Findings: Lungs/Airways/Pleura: 1. There is a new 3 mm discrete soft tissue nodule in the middle lobe(image 89, series 3) and a new 1 mm nodule in the right lower lobe (image89). There are also small scattered nodules in the right lung that areunchanged in size and most consistent with benign etiology. 2. There are no pleural effusions or pleural nodules. Neck/Mediastinum/Nodes/Heart: 3. There are no enlarged intrathoracic or extrathoracic lymph nodes. 4. There is mild coronary artery calcification consistent sequelae ofatherosclerosis. Upper Abdomen: 5. There are no hepatic metastases on limited images. 6. The adrenals are normal. However, the right adrenal has beenincompletely imaged. 7. There are postsurgical changes following a gastric reductionprocedure. Bones/Soft Tissues: 8. There are no osseous metastases. IMPRESSION: There are new small nodules in the right lung of uncertain etiology withthe differential including metastases. Follow-up CT imaging could beuseful in further evaluation. ACTIONABLE ITEMS/RECOMMENDATIONS*: See Impression. *An Actionable Finding is a finding that may be unrelated to the originalreason for imaging but potentially actionable, meaning furtherinvestigation may be necessary. The Actionable Findings Vigilance Unit(AFVU) assists medical providers with responding to additional radiologicfindings that are unexpected and potentially actionable. Ramana HOPKINS IMG CT ORDERABLES * POC Creatinine (02/08/2024 7:43 AM CDT) Only the most recent of3 resultswithin the time period is included. POC Creatinine 1.3 0.6 - 1.3 mg/dL 02/08/2024 7:44 AM CDT [facility] Comment:Medications, especia lly hydroxyurea or supplements, such as ascorbate, can interfere with test results causing a falsely and significantly higher result than expected. If a problem is suspected with a patient's result, a sample should be sent to the laboratory for confirmatory testing. POC eGFR 63 >=60 mL/min/1.7 3 sq. m 02/08/2024 7:44 AM CDT [facility] Comment: The eGFRcr is calculated with the [...] nor G2 fulfill criteria for CKD. Blood 02/08/2024 7:43 AM CDT 02/08/2024 7:44 AM CDT Narrative [facility] - 02/08/2024 7:44 AM CDT Method description: The i-STAT is an analyzer [...] measure analyte concentration by an electrochemical assay. Ramana HOPKINS POCT ORDERABLES - DEVICE [facility] [address] [place] [address], [place] * US Lower Extremity Limited Left (09/28/2023 10:26 AM CDT) Anatomical Region Laterality Modality Leg, Extremity Ultrasound 09/28/2023 10:2 9 AM CDT Impressions 09/28/2023 10:38 AM CDT No evidence of local recurrence or suspicious lymphadenopathy. I personally reviewed these image(s) along with the resident's/fellow's interpretations, certify that if a procedure was performed I was physically present, and agree with the final report. 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 Findings: Surgical changes are noted with scar formation in the left medial posterior lower leg. No solid mass is identified. Benign-appearing lymph nodes are noted in the popliteal fossa and left groin. 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 Findings: Surgical changes are noted with scar formation in the left medialposterior lower leg. No solid mass is identified. Benign-appearing lymph nodes are noted in the popliteal fossa and leftgroin. IMPRESSION: No evidence of local recurrence or suspicious lymphadenopathy. I personally reviewed these image(s) along with the resident's/fellow'sinterpretations, certify that if a procedure was performed I wasphysically present, and agree with the final report. Jacquelin HOPKINS IMG US ORDERABLES after 02/15/2023 Advance Directives * Full Code (Latest Code Status on File) Date Activated Date Inactivated Comments 10/21/2021 8:45 PM 10/23/2021 1:10 PM * Full Code Date Activated Date Inactivated Comments 09/12/2021 8:26 PM 09/15/2021 5:29 PM * Full Code Date Activated Date Inactivated Comments 05/28/2021 7:53 PM 05/29/2021 2:43 PM Care Teams Emergency Department Coordinator Relationship Specialty Start Date End Date Neal Tyler MD [address] [place] [id number] [email or web address] PCP - General Family Practice 09/12/21 Bert Ridley MD [address] [place] [id number] [email or web address] Consulting Physician Head and Neck Surgery 02/16/23 Jorge Luis Olson MD [address] [place] [id number] [email or web address] Consulting Physician Plastic and Reconstructive Surgery 05/26/21 Edward Bird IV, MD [address] [place] [phone] [email or web address] Consulting Physician Urology 07/14/21 Mary Boles MD [address] [place] [phone] [email or web address] Consulting Physician Radiation Oncology 03/24/21 Casey Terry MD [address] [place] [phone] [email or web address] Consulting Physician Hematology and Oncology 12/13/22 Marco Antonio Quintana MD [address] [place] [address] [email or web address] Consulting Physician Internal Medicine 05/19/21
[2024-02-15] MEDS ORDERED: ACETAMINOPHEN 500 MG TAB ONE (19:48)
[2024-02-15 20:05] LABS: Absolute Lymphocytes (CBC) 1.7 K/uL (0.7-4.9); Absolute Monocytes 0.5 K/uL (0.1-1.3); Absolute Neutrophil 5.8 K/uL (1.8-8.0); Basophils % 0.3 % (0-1.3); Eosinophils % 0.5 % (0-4.4); Hematocrit 48.1 % (39.6-49.0); Hemoglobin 16.1 g/dL (13.6-17.9); Lymphocytes % 21.2 % (15.3-44.8); MCH 30.5 pg (27.0-35.0); MCHC 33.4 g/dL (32.0-36.0); MCV 91.4 fL (80-100); MPV 8.6 fL (7.6-11.3); Monocytes % 6.7 % (3.3-12.3); Neutrophils % 71.3 % (41.7-73.7); Nucleated Red Blood Cells % 0.2 % (0-0); Platelets 138 thou/uL (152-406); RBC Red Blood Cell Count 5.27 M/uL (4.33-5.43); Red Cell Distribution Width 14.4 % (12.1-15.2)
[2024-02-15 20:13] LABS: Anion Gap 5.5 mEq/L (5.0-15.0); Potassium 3.5 mEq/L (3.5-5.1)
[2024-02-15 20:17] LABS: PT Prothrombin Time 11.7 SECONDS (9.4-12.5); PTT, Activated Partial Thromb 30.8 SECONDS (24.3-36.9); Protime INR 1.05
--- NOTE | 2024-02-15 20:22 | RAD REPORT ---
EXAMINATION: US LEFT LOWER EXTREMITY VENOUS DOPPLER CLINICAL INDICATION: [facility] MAIN LLE LLE DVT eval Bed Name: IW3 N TECHNIQUE: Complete bilateral duplex sonography of the LEFT lower extremity veins was performed. The examination included compression for vein patency, color Doppler imaging and flow augmentation in response to distal compression of the distal external iliac, common femoral, femoral, popliteal, tibi al, and great and small saphenous veins. COMPARISON: No prior exam. FINDINGS: Duplex sonography testing of the veins of the LEFT lower extremity was performed. Color flow imaging shows all veins to be compressible with [id number] color filling. Pulsatile and phasic flow is present within all lower extremity deep and superficial veins examined. IMPRESSION: No evidence of deep venous thrombosis.
--- NOTE | 2024-02-15 20:34 | ER ---
Nurse's Notes [facility] Name: Tristen Peña III Age: 63 yrs Sex: Male : 1960 Arrival Date: 02/15/2024 Time: 18:34 Bed 12 Private MD: Diagnosis: Cellulitis of left lower limb Presentation: 02/14 18:42 Chief complaint: Patient states: LEFT ANKLE PAIN AND SWELLING. HX OF BLOOD CLOTS db CONCERNED IT MAY BE ONE. 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 Coronavirus screen: Client denies travel out of the [place] in the last 14 days. At this time, the client does not indicate any symptoms associated with coronavirus-19. Ebola Screen: Patient negative for fever greater than or equal to 101.5 degrees Fahrenheit, and additional compatible Ebola Virus Disease symptoms Patient denies exposure to infectious person. Patient denies travel to an Ebola-affected area in the 21 days before illness onset. No symptoms or risks identified at this time. Initial Sepsis Screen: Does the patient meet any 2 criteria? No. Patient's initial sepsis screen is negative. Does the patient have a suspected source of infection? No. Patient's initial sepsis screen is negative. Risk Assessment: Do you want to hurt yourself or someone else? Patient reports no desire to harm self or others. Onset of symptoms was February 14, 2024. 18:42 Method Of Arrival: Ambulatory db 18:42 Acuity: MARLON 3 db Triage Assessment: 18:43 General: Appears in no apparent distress. comfortable, Behavior is calm, cooperative. db Pain: Complains of pain in left leg. Neuro: Level of Consciousness is awake, alert, obeys commands, Oriented to person, place, time, situation. Respiratory: Airway is patent Respiratory effort is even, unlabored, Respiratory pattern is regular, symmetrical. Historical: - Allergies: 18:43 No Known Allergies; db - PMHx: 18:43 Hyperlipidemia; Hypertensive disorder; diabetes mellitus; chronic back pain; left db shoulder pain; PTSD; Pulmonary Embolism; right foot drop; neuropathy; spindle cell carcinoma (in remission); - PSHx: 18:43 cardiac ablation x2; kidney excision; nerve block to L5; right shoulder surgery; db excision of part of the stomach; turmor removal from left lower extremity; - Immunization history:: Adult Immunizations unknown. - Infectious Disease History:: Denies. - Social history:: Smoking status: Patient reports the use of cigarette tobacco products, smokes one pack cigarettes per day. Screenin:[facility] ED Fall Risk Assessment (Adult) History of falling in the last 3 months, me1 including since admission No falls in past 3 months (0 pts) Confusion or Disorientation No (0 pts) Intoxicated or Sedated No (0 pts) Impaired Gait No (0 pts) Mobility Assist Device Used No (0 pt) Altered Elimination No (0 pt) Score/Fall Risk Level 0 - 2 = Low Risk Maintained a safe environment, Provided non-skid footwear, Hourly rounding (assess needs \T\ fall precautionary measures) done. Abuse screen: Denies threats or abuse. Nutritional screening: No deficits noted. Tuberculosis screening: No symptoms or risk factors identified. Assessment: 19:55 General: Appears comfortable, well groomed, well developed, well nourished, Behavior is me1 calm, cooperative, appropriate for age, Reports LEFT ANKLE PAIN AND SWELLING. HX OF BLOOD CLOTS CONCERNED IT MAY BE ONE. 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 Pain: Complains of pain in left leg Pain does not radiate. Pain currently is 7 out of 10 on a pain scale. Quality of pain is described as throbbing, Pain began gradually, Is continuous. Neuro: Level of Consciousness is awake, alert, obeys commands, Oriented to person, place, time, situation, Appropriate for age. Cardiovascular: Patient's skin is warm and dry. Respiratory: Airway is patent Respiratory effort is even, unlabored, Respiratory pattern is regular, symmetrical. GI: No signs and/or symptoms were reported involving the gastrointestinal system. : No signs and/or symptoms were reported regarding the genitourinary system. EENT: No signs and/or symptoms were reported regarding the EENT system. Derm: Skin is intact, is healthy with good turgor, Skin is pink, warm \T\ dry. redness and swelling to left lower leg. Musculoskeletal: Reports pain in left leg. Vital Signs: 18:42 BP 140 / 96; Pulse 100; Resp 18; Temp 99; Pulse Ox 98% ; Weight 100.7 kg; Height 6 ft. db 5 in. ; Pain 5/10; 19:53 BP 130 / 97; Pulse 88; Resp 16; Pulse Ox 99% ; me1 20:48 BP 109 / 83; Pulse 79; Resp 17; Temp 98.1; Pulse Ox 99% ; me1 18:42 Body Mass Index 26.33 (100.70 kg, 195.58 cm) db 18:42 Pain Scale: Adult db ED Course: 18:36 Patient arrived in ED. im 18:43 Triage completed. db 18:43 Arm band placed on right wrist. db 18:44 Bobby Desai MD is Attending Physician. ec2 19:32 Extremity Venous Uni Ltd US In Process Unspecified. EDMS 19:33 Pamela Del Angel, JULIO is Primary Nurse. me1 19:40 Inserted saline lock: 20 gauge in left forearm, using aseptic technique. Blood ty collected. Flushed with 10 mL NS. 19:43 Initial lab(s) drawn, by me, sent to lab. ty 19:49 EKG done, by ED staff, reviewed by Bobby Desai MD. me1 19:52 Basic Metabolic Panel Sent. ty 19:52 CBC with Diff Sent. ty 19:52 PT-INR Sent. ty 19:55 Patient has correct armband on for positive identification. Bed in low position. Call me1 light in reach. Side rails up X2. Provided Education on: POC. Verbalized understanding.. Client placed on continuous cardiac and pulse oximetry monitoring. NIBP monitoring applied. school bus monitor on. Pulse ox on. NIBP on. 19:55 No provider procedures requiring assistance completed. me1 20:00 Ptt, Activated Sent. me1 20:00 Basic Metabolic Panel Sent. me1 20:00 CBC with Diff Sent. me1 20:00 PT-INR Sent. me1 20:53 IV discontinued, intact, bleeding controlled, No redness/swelling at site. Pressure me1 dressing applied. Administered Medications: 19:53 Drug: Acetaminophen PO 1000 mg PO once Route: PO; me1 20:34 Follow up: Response: No adverse reaction me1 20:47 Drug: Trimethoprim-Sulfamethoxazole PO (160 mg-800 mg (DS) 1 tablet PO once Route: PO; me1 20:47 Follow up: Response: No adverse reaction me1 Medication: 19:55 VIS not applicable for this client. me1 Outcome: 20:34 Discharge ordered by . ec2 20:53 Discharged to home ambulatory, with significant other, me1 20:53 Condition: stable 20:53 Discharge instructions given to patient, significant other, Instructed on discharge instructions, follow up and referral plans. medication usage, Demonstrated understanding of instructions, follow-up care, medications, Prescriptions given X 1, 20:54 Patient left the ED. me1 Signatures: Dispatcher [employer] Regine Concepcion, RN RN db Yoli Barnard Michelle, RN RN me1 Bobby Desai MD MD 2 [facility] [employer]: (The following items were deleted from the chart) 19:33 18:42 Chief complaint: Patient states: LEFT ANKLE PAIN AND SWELLING. HX OF BLOOD CLOTS me1 CONCERNED IT MAY BE ONE. 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 HX OF BLOOD CLOTS me1 CONCERNED IT MAY BE ONE. 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
--- NOTE | 2024-02-15 20:34 | EDPHYS ---
Physician Documentation [facility] Name: Tristen Peña III Age: 63 yrs Sex: Male : 1960 Arrival Date: 02/15/2024 Time: 18:34 Bed 12 Private MD: ED Physician Bobby Desai HPI: 02/14 18:54 This 63 yrs old Male presents to ER via Ambulatory with complaints of Ankle ec2 Swelling - left. 18:54 Patient arrives today for evaluation of left ankle swelling and redness. Patient ec2 reports that he has a history of DVT and was concerned about this. Patient reports no fevers or chills, no nausea or vomiting. Denies any systemic symptoms.. Historical: - Allergies: 18:43 No Known Allergies; db - PMHx: 18:43 Hyperlipidemia; Hypertensive disorder; diabetes mellitus; chronic back pain; left db shoulder pain; PTSD; Pulmonary Embolism; right foot drop; neuropathy; spindle cell carcinoma (in remission); - PSHx: 18:43 cardiac ablation x2; kidney excision; nerve block to L5; right shoulder surgery; db excision of part of the stomach; turmor removal from left lower extremity; - Immunization history:: Adult Immunizations unknown. - Infectious Disease History:: Denies. - Social history:: Smoking status: Patient reports the use of cigarette tobacco products, smokes one pack cigarettes per day. ROS: 18:54 Constitutional: as per hpi ec2 Exam: 18:54 Constitutional: GEN: NAD Head: atraumatic Eyes: EOMI Ears: External ears are ec2 normal. CV: regular rate LUNGS: no respiratory distress ABD: non-distended SKIN: Left inner distal leg with erythema and warmth, good range of motion of the ankle. Intact distal neurovascular status. MSK: no evidence of trauma Vital Signs: 18:42 BP 140 / 96; Pulse 100; Resp 18; Temp 99; Pulse Ox 98% ; Weight 100.7 kg; Height 6 ft. db 5 in. ; Pain 5/10; 19:53 BP 130 / 97; Pulse 88; Resp 16; Pulse Ox 99% ; me1 20:48 BP 109 / 83; Pulse 79; Resp 17; Temp 98.1; Pulse Ox 99% ; me1 18:42 Body Mass Index 26.33 (100.70 kg, 195.58 cm) db 18:42 Pain Scale: Adult db MDM: 18:44 Patient medically screened. ec2 18:54 Data reviewed: vital signs. ED course: Patient arrives today for evaluation of left ec2 lower extremity redness and swelling. Examination remarkable for well-appearing nontoxic dividual's otherwise in no acute distress with skin findings as above. Will obtain lab work, ultrasound. . 19:49 ED course: EKG independently reviewed and interpreted by me, shows normal sinus rhythm, ec2 rate of 85, no acute ST segment elevations, nonactionable intervals. 20:33 ED course: Metabolic profile reassuring, CBC reassuring. Ultrasound shows no evidence ec2 of DVT. Will discharge home, presentation consistent with cellulitis. Return precautions given . 02/14 18:45 Order name: Basic Metabolic Panel; Complete Time: 20:33 ec2 02/14 18:45 Order name: CBC with Diff; Complete Time: 20:33 ec2 02/14 18:45 Order name: PT-INR; Complete Time: 20:33 ec2 02/14 18:45 Order name: Ptt, Activated; Complete Time: 20:33 ec2 02/14 18:45 Order name: Extremity Venous Uni Ltd US ec2 02/14 18:45 Order name: EKG; Complete Time: 18:45 ec2 02/14 18:45 Order name: Cardiac monitoring; Complete Time: 19:52 ec2 02/14 18:45 Order name: EKG - Nurse/Tech; Complete Time: 19:48 ec2 02/14 18:45 Order name: IV Saline Lock; Complete Time: 19:52 ec2 02/14 18:45 Order name: Labs collected and sent; Complete Time: 19:52 ec2 02/14 18:45 Order name: O2 Per Protocol; Complete Time: 19:52 ec2 02/14 18:45 Order name: O2 Sat Monitoring; Complete Time: 19:52 ec2 Administered Medications: 19:53 Drug: Acetaminophen PO 1000 mg PO once Route: PO; me1 20:34 Follow up: Response: No adverse reaction me1 20:47 Drug: Trimethoprim-Sulfamethoxazole PO (160 mg-800 mg (DS) 1 tablet PO once Route: PO; me1 20:47 Follow up: Response: No adverse reaction me1 Disposition Summary: 02/15/24 20:34 Discharge Ordered Notes: Location: Home ec2 Condition: Stable ec2 Diagnosis - Cellulitis of left lower limb ec2 Followup: ec2 - With: Private Physician - When: - Reason: Recheck today's complaints Discharge Instructions: - Discharge Summary Sheet ec2 - Cellulitis, Adult ec2 Forms: - Medication Reconciliation Form ec2 - Antibiotic Education ec2 - Prescription Opioid Use ec2 - Patient Portal Instructions ec2 - Leadership Thank You Letter ec2 Prescriptions: - Bactrim DS 800-160 mg Oral Tablet - take 1 tablet ORAL route every 12 hours for 7 days; 14 tablet; Refills: 0, ec2 Product Selection Permitted Signatures: Dispatcher [employer] Regine Concepcion RN RN db Pamela Del Angel RN RN me1 Bobby Desai MD MD ec2
[2024-02-15] MEDS ORDERED: SMZ./TMP. 800/160 MG TABLET ONE (20:41)
[2024-02-15 21:48] VITALS: O2SAT 99
[2024-02-15 21:50] VITALS: BP 109/83; TEMP 98.1
--- NOTE | 2024-02-16 12:09 | EKG ---
Test Date: 2024-02-15 Test Time: 19:45:22 Loft Rigger: MEASUREMENT RESULTS: Intervals: Rate: 85 [place]: 136 QRSD: 96 QT: 384 QTc: 456 [place]: P: 76 [place]: 136 QRS: 70 T: 40 INTERPRETIVE STATEMENTS: Normal sinus rhythm Normal ECG Compared to ECG 01/16/2023 12:56:34 No significant changes Electronically Signed On 02-16-24 12:07:12 CDT by Constantin Ponce
== END 2024-02-15 20:54 | disposition home or self-care (01) ==
LOC: ER 18:34
DX: L03.116 Cellulitis of left lower limb (principal); Z86.718 Personal history of other venous thrombosis and embolism; F17.210 Nicotine dependence, cigarettes, uncomplicated
CPT/HCPCS: 36415; 80048; 85025; 85610; 85730; 93005; 93971; 99285

== ENCOUNTER 2024-04-03 07:00 | Day surgery (SDC) | payer OTHER ==
[2024-04-02 11:17] LABS: Absolute Eosinophils 0.1 K/uL (0-0.5); Absolute Lymphocytes (CBC) 1.3 K/uL (0.7-4.9); Absolute Monocytes 0.4 K/uL (0.1-1.3); Absolute Neutrophil 4.4 K/uL (1.8-8.0); Basophils % 0.4 % (0-1.3); Eosinophils % 1.3 % (0-4.4); Hematocrit 47.9 % (39.6-49.0); Hemoglobin 15.8 g/dL (13.6-17.9); Lymphocytes % 20.9 % (15.3-44.8); MCH 30.4 pg (27.0-35.0); MCHC 33.1 g/dL (32.0-36.0); MCV 91.8 fL (80-100); MPV 9.3 fL (7.6-11.3); Monocytes % 6.4 % (3.3-12.3); Platelets 124 thou/uL (152-406); RBC Red Blood Cell Count 5.22 M/uL (4.33-5.43); Red Cell Distribution Width 13.8 % (12.1-15.2)
[2024-04-02 11:21] LABS: PT Prothrombin Time 10.9 SECONDS (9.4-12.5); PTT, Activated Partial Thromb 29.9 SECONDS (24.3-36.9); Protime INR 0.97
[2024-04-02 11:27] LABS: Anion Gap 5.4 mEq/L (5.0-15.0); Potassium 4.4 mEq/L (3.5-5.1)
--- NOTE | 2024-04-02 12:01 | EKG ---
Test Date: 2024-04-02 Test Time: 12:32:16 Casting Machine Set Up Operator: KANNAN MEASUREMENT RESULTS: Intervals: Rate: 71 [place]: 142 QRSD: 98 QT: 390 QTc: 423 [place]: P: 60 [place]: 142 QRS: 59 T: 0 INTERPRETIVE STATEMENTS: Normal sinus rhythm Normal ECG Compared to ECG 02/15/2024 19:45:22 No significant changes Electronically Signed On 04-02-24 12:00:43 SOCIAL MEDIA EDITOR by Constantin Ponce
--- NOTE | 2024-04-02 14:40 | RAD REPORT ---
EXAMINATION: ONE VIEW CHEST XR CLINICAL INDICATION: Male, 63 years old.PRE-OP TECHNIQUE: 1 View, AP supine, X-ray of the chest was performed. [id number]. COMPARISON: 01/16/2023 FINDINGS: Lungs and pleura: Clear lungs. No effusion. Heart and mediastinum: Normal heart size. Unremarkable mediastinal contours. Osseous structures: No acute abnormality. Sternotomy. Tubes/lines: None Other: None. IMPRESSION: No acute intrathoracic abnormality.
[2024-04-03] MEDS ORDERED: NA CHLORIDE 0.9% 500 ML ONE (07:11)
[2024-04-03] MEDS ORDERED: HEPARIN 10,000 UNIT/10 ML VIAL IV ONE (09:03)
[2024-04-03] MEDS ORDERED: HEPA 1000U/500MLS 2,000 UNIT/1,000 ML BAG IV ONE (09:03)
[2024-04-03] MEDS ORDERED: ATROPINE SULF 1 MG/10 ML SYR IV ONE (09:04)
[2024-04-03] MEDS ORDERED: LIDOCAINE 1% 20 ML MDV ONE (09:04)
[2024-04-03] MEDS ORDERED: CLOPIDOGREL 75 MG TABLET ONE (09:04)
[2024-04-03] MEDS ORDERED: MIDAZOLAM HCL 2 MG/2 ML INJ ONE (09:04)
[2024-04-03] MEDS ORDERED: FENTANYL CITR 100 MCG/2 ML ONE (09:05)
[2024-04-03] MEDS ORDERED: HEPARIN 5000 UNIT/ML 1 ML VIAL ONE (09:05)
[2024-04-03] MEDS ORDERED: ASPIRIN 325 MG TAB ONE (09:05)
[2024-04-03] MEDS ORDERED: TICAGRELOR 90 MG TABLET PO ONE (09:05)
[2024-04-03 11:45] VITALS: O2SAT 99
[2024-04-03 13:15] VITALS: BP 125/77
--- NOTE | 2024-04-03 21:26 | OP ---
Date of Procedure: 04/03/2024 Surgeon: Constantin Ponce Procedures Performed: 1.Left heart catheterization. 2.Selective coronary angiogram. Indications For Procedure: Heart failure, mild reduced ejection fraction, abnormal stress test. Access: Right radial, closed by TR band. Sedation Time: 20 minutes with 1 of Versed and 50 of fentanyl. Complications: None. Estimated Blood Loss: Less than 50 cc. Description Of Procedure: After risks, benefits, and alternatives were explained to the patient, the patient agreed to proceed with the procedure and signed informed consent. The patient was brought [facility] to the rags laborer, prepped and draped in sterile fashion. Time-out was performed. Sedation was ad ministered. Next, the right radial access was obtained using ultrasound-guided micropuncture technUClass ue. [place] 4 catheter was advanced to the LV cavity. LVEDP was obtained. Pullback did not show any gradient. Same catheter was used for selective angiogram of the left and right coronary systems. At the end of procedure, catheter was removed over the J-wire. Sheath was removed. TR band was applie d. Hemostasis was achieved. The patient was moved back to recovery in stable condition. Findings: 1.Left main, normal. 2.LAD, diffuse mild luminal irregularities, gives large diagonal with mild luminal irregularities. 3.Left circ, mild luminal irregularities, gives OM1 with mild LI and then continue as OM2 with proxi mal 40% to 50% disease. 4.RCA, large, dominant, very tortuous with proximal 40% to 50% disease, then mid to distal mild cynthia nal irregularities. 5.LVEDP 9 mmHg. Assessment And Plan: 1.[id number] nonobstructive CAD. 2.Normal filling pressure. Plan will be to continue medical management. REYES/SUZANNE Voice ID: [id number] Report ID: [id number]
== END 2024-04-03 12:05 | disposition home or self-care (01) ==
LOC: CCL 07:00
PROVIDERS: ATTEND Internal Medicine Interventional Cardiology
DX: I25.10 Atherosclerotic heart disease of native coronary artery without angina pectoris (principal); I11.0 Hypertensive heart disease with heart failure; I50.9 Heart failure, unspecified; R42 Dizziness and giddiness; E78.2 Mixed hyperlipidemia; E11.9 Type 2 diabetes mellitus without complications; F17.210 Nicotine dependence, cigarettes, uncomplicated; Z79.01 Long term (current) use of anticoagulants; Z79.85 Long-term (current) use of injectable non-insulin antidiabetic drugs; Z79.899 Other long term (current) drug therapy; Z82.49 Family history of ischemic heart disease and other diseases of the circulatory system
CPT/HCPCS: 93005; 85025; 80048; 36415; 85610; 82947; 85730; 71045; 93458; 76937; C1893; Q9966; J1644; J2003; J2250; J3010; J7040; 99152; 99153; J0461